=== PATIENT | female | born 1980 | race African-American/Black ===

== ENCOUNTER 2017-07-31 10:57 | Emergency (ER) | payer SELFPAY ==
[2017-07-31] MEDS ORDERED: predniSONE 20 MG TAB ONE (12:23)
== END 2017-07-31 13:46 | disposition home or self-care (01) ==
LOC: ERS 10:57
DX: J45.901 Unspecified asthma with (acute) exacerbation (principal); F31.9 Bipolar disorder, unspecified; Z79.899 Other long term (current) drug therapy
CPT/HCPCS: 94640; 94760; J7506; J7620

== ENCOUNTER 2017-08-10 07:36 | Inpatient (IN) | payer OTHER, SELFPAY ==
[2017-08-10] MEDS ORDERED: Albuterol Sulfate 2.5 mg/0.5 ml Neb ONE (07:57)
[2017-08-10] MEDS ORDERED: Ondansetron HCl/PF 4 MG/2 ML Vial ONE (07:58)
[2017-08-10] MEDS ORDERED: Water For Inject, Bacteriostat 30 ML ONE (07:59)
[2017-08-10] MEDS ORDERED: Magnesium Sulfate 2 GM/100 ML BAG ONE (07:59)
[2017-08-10] MEDS ORDERED: methylPREDNISolone Sod Succ/PF 125 MG/2 ML VIAL ONE (07:59)
--- NOTE | 2017-08-10 08:16 | RAD ---
SINGLE VIEW OF THE CHEST: COMPARISON: 05/15/17. HISTORY: Difficulty breathing and cough. FINDINGS: Single view of the chest shows a normal sized cardiomediastinal silhouette. There is no evidence of consolidation, mass, or pleural effusion. The bones are unremarkable. IMPRESSION: No evidence of acute cardiopulmonary disease. POS: [facility]
[2017-08-10] MEDS ORDERED: Loratadine 10 MG TAB PO PRN (09:26)
[2017-08-10] MEDS ORDERED: Bisacodyl 10 MG SUPP PR PRN (09:26)
[2017-08-10] MEDS ORDERED: cloNIDine 0.1 MG TAB PO PRN (09:26)
[2017-08-10] MEDS ORDERED: Ondansetron HCl/PF 4 MG/2 ML Vial IVP PRN (09:26)
[2017-08-10] MEDS ORDERED: Benzonatate 100 MG CAP PO PRN (09:26)
[2017-08-10] MEDS ORDERED: Nitroglycerin 0.4 MG TAB (25 Tab Bottle) SL PRN (09:26)
[2017-08-10] MEDS ORDERED: Guaifenesin DM 100-10/5 ML UDCUP PO PRN (09:26)
[2017-08-10] MEDS ORDERED: Acetaminophen 325 MG TAB PO PRN (09:26)
[2017-08-10] MEDS ORDERED: traMADol HCl 50 MG TAB PO PRN (09:26)
[2017-08-10] MEDS ORDERED: Senokot 8.6 MG TAB PO PRN (09:26)
[2017-08-10 10:57] VITALS: BMI 28.5
[2017-08-10] MEDS: Sodium Chloride 0.9% 1,000 ML IV SCH ×2 (11:02→20:15)
[2017-08-10] MEDS ORDERED: Amoxicillin/Potassium Clav 875 MG TAB PO SCH ×2 (12:30→12:45)
[2017-08-10 12:50] LABS: #Lymphocytes 0.3 thou/uL (1.20-3.40); #Neutrophils 10.4 thou/uL (1.40-6.50); %Basophils 0.3 % (0.0-1.0); %Eosinophils 0.1 % (0.0-10.0); %Monocytes 0.3 % (0.0-10.0); Hematocrit 33.9 % (36.0-47.0); Mean Platelet Volume 9.1 fL (7.4-10.4); Red Blood Cell (RBC) Count 4.29 mill/uL (4.20-5.40); White Blood Cell (WBC) Count 10.8 thou/uL (4.8-10.8)
--- NOTE | 2017-08-10 12:51 | HP ---
DATE OF ADMISSION: 08/10/2017 PRIMARY CARE PHYSICIAN: Katelyn. CHIEF COMPLAINT: Shortness of breath. HISTORY OF PRESENTING ILLNESS: Ms. Hi is a very pleasant 36-year-old -[place] female wit h past medical history of asthma who presented to the emergency room with the above-mentioned compla int. History is mainly obtained by the patient herself and electronic medical records have been rev iewed. The patient was last admitted over 07/31/2017 asthma exacerbation. Ms. Hi reports that she has been feeling more and more short of breath for the last few days, but it was really bad this morning. She usually uses her Symbicort twice a day and her nebulizers, but she does not have any short-acting inhalers. She says her symptoms are worse going up and down the stairs and with seasonal changes. She also has some congestion and cough without any fevers at becky e. She denies any other recent illnesses. She denies any chest pain, orthopnea, PND, edema. Upon presentation to the emergency room, she was found to be hypoxic with oxygen saturation in the m id 80s on room. It improved to 94% on 4 liters oxygen. She received magnesium sulfate as well as n ebulizers and Solu-Medrol in the Emergency Room with improvement of her symptoms. She is now being admitted to medical floor for acute hypoxic respiratory failure secondary to asthma exacerbation and is currently hemodynamically stable. PAST MEDICAL HISTORY: Asthma. PAST SURGICAL HISTORY: No surgeries done reviewed with the patient. PSYCHIATRIC HISTORY: Depression, bipolar disorder. SOCIAL HISTORY: She smokes about 3 cigarettes per week and drinks weekly. No history of drug abuse . FAMILY HISTORY: Significant for thyroid cancer, hypertension, and diabetes. ALLERGIES: No known medication allergies. CURRENT MEDICATIONS: 1. Symbicort twice a day. 2. Albuterol nebulizers as needed every 6 hours. REVIEW OF SYSTEMS: The following complete review of systems was negative, unless otherwise mentione d in the HPI or below: Constitutional: Weight loss or gain, ability to conduct usual activities. Skin: Rash, itching. Eyes: Double vision, pain. ENT/Mouth: Nose bleeding, neck stiffness, pain, tenderness. Cardiovascular: Palpitations, dyspnea on exertion, orthopnea. Respiratory: Shortness of breath, wheezing, cough, hemoptysis, fever or night sweats. Gastrointestinal: Poor appetite, abdominal pain, heartburn, nausea, vomiting, constipation, or diar liam. Genitourinary: Urgency, frequency, dysuria, nocturia. Musculoskeletal: Pain, swelling. Neurologic/Psychiatric: Anxiety, depression. Allergy/Immunologic: Skin rash, bleeding tendency. It is negative except for those mentioned in the history and physical. PHYSICAL EXAMINATION: VITAL SIGNS: Upon presentation include blood pressure 186/136 with pulse of 113, respirations 24, t emperature 99, saturating 94% on room air. GENERAL: In no acute distress, awake, alert, oriented x3. She is resting comfortably in bed and ab le to converse in full sentences. No respiratory distress noticed. She is somewhat jittery. HEENT: Mucous membrane is moist and pink. No oropharyngeal exudate or erythema. Head is normoceph alic, atraumatic. Pupils are equal, reactive to light and accommodation. Extraocular movements int act. NECK: Supple without any lymphadenopathy, JVD or bruit. CHEST: Clear to auscultation except for some bilateral wheezes. No rhonchi, no rales. She is tach ycardic with regular rhythm without any murmurs. ABDOMEN: Soft, nontender, nondistended. Positive bowel sounds. EXTREMITIES: Free of any cyanosis, clubbing, or edema. NEUROLOGIC: Examination is nonfocal. SKIN: Free of any rashes or bruises. Feels warm and dry to touch. PSYCHIATRIC: Normal affect. VASCULAR: +2 pedal pulses felt bilaterally. LABORATORY DATA: No labs were drawn in the emergency room today. Chest x-ray was reviewed by david alberts and does not show any evidence of pleural effusion, pulmonary edema or infiltrate. IMPRESSION AND PLAN: 1. Acute hypoxic respiratory failure secondary to asthma exacerbation. At this time, the patient h as improvement in her symptoms after multiple rounds of nebulizer. She will be continued on schedul ed and p.r.n. nebulizer. We will continue with long-acting inhaled steroids in the form of Dulera b .i.d. as well as IV steroids. She will be on continuous oxygen with monitoring of oxygen levels. Ivy grant will also add Singulair which she was supposed to be taking as an outpatient. She most likely wou ld need to stay at least 2-3 midnights in the hospital with improvement in her symptoms. We will al so add empiric antibiotics given her symptoms of cough and check CBC and serum chemistries to rule o ut any evidence of infection. She is currently afebrile. 2. Code status: FULL CODE. 3. Deep venous thrombosis and gastrointestinal prophylaxis. DISPOSITION: Ms. Hi is being admitted for asthma exacerbation to medical floor. She is hemodyna mically stable. ESTIMATED LENGTH OF STAY: Two to three midnights. Further management will depend upon her clinical course.
[2017-08-10 13:17] LABS: Anion Gap 17 mmol/L (10-20); BUN (Urea Nitrogen) 11 mg/dL (7.0-18.7); Calc. Creatinine Clearance 113 mL/min (70-130); Calcium 8.9 mg/dL (7.8-10.44); Carbon Dioxide 21 mmol/L (22-29); Chloride 104 mmol/L (98-107); Estimated GFR-MDRD Greater than 90
[2017-08-10] MEDS: Mometasone/Formoterol 120 PUFF INHALER INH SCH (18:20)
[2017-08-10] MEDS: Amoxicillin/Potassium Clav 875 MG TAB PO SCH (20:15)
[2017-08-10] MEDS: Montelukast Sodium 10 mg Tablet PO SCH (20:15)
[2017-08-10] MEDS: Lorazepam 1 MG TAB PO PRN (20:18)
[2017-08-11 05:27] LABS: #Lymphocytes 0.8 thou/uL (1.20-3.40); #Monocytes 0.2 thou/uL (0.11-0.59); #Neutrophils 11.5 thou/uL (1.40-6.50); %Basophils 0.1 % (0.0-1.0); %Eosinophils 0.1 % (0.0-10.0); %Lymphocytes 6.6 % (21.0-51.0); %Monocytes 1.8 % (0.0-10.0); Hematocrit 30.9 % (36.0-47.0); Mean Platelet Volume 9.3 fL (7.4-10.4); Red Blood Cell (RBC) Count 3.87 mill/uL (4.20-5.40); White Blood Cell (WBC) Count 12.6 thou/uL (4.8-10.8)
[2017-08-11 05:52] LABS: Anion Gap 15 mmol/L (10-20); BUN (Urea Nitrogen) 10 mg/dL (7.0-18.7); Calc. Creatinine Clearance 122 mL/min (70-130); Calcium 8.7 mg/dL (7.8-10.44); Carbon Dioxide 20 mmol/L (22-29); Chloride 105 mmol/L (98-107); Estimated GFR-MDRD Greater than 90
[2017-08-11] MEDS: Mometasone/Formoterol 120 PUFF INHALER INH SCH ×2 (06:30→18:55)
[2017-08-11] MEDS: Amoxicillin/Potassium Clav 875 MG TAB PO SCH ×2 (08:28→21:01)
[2017-08-11] MEDS: Ferrous Sulfate 325 MG TAB PO SCH ×2 (08:28→16:58)
[2017-08-11] MEDS: Enoxaparin Sodium 40 MG/0.4 ML SYRINGE SC SCH (08:30)
--- NOTE | 2017-08-11 11:44 | PDOC.PN ---
- Subjective Encounter Start Date: 08/11/17 Encounter Start Time: 09:25 -: old records requested/rev Patient seen and examined. No new complaints. No overnight events - Objective MAR Reviewed: Yes Vital Signs & Weight: Vital Signs (12 hours) Temp Pulse Resp BP BP Pulse Ox 08/11/17 08:00 97.4 F L 96 22 H 132/79 100 08/11/17 07:37 97.8 F 101 H 16 08/11/17 06:30 101 H 16 08/11/17 06:27 100 08/11/17 06:24 101 H 16 08/11/17 04:00 97.8 F 82 20 114/76 100 08/11/17 00:27 89 14 100 08/11/17 00:14 97.7 F 89 22 H 122/75 99 Weight Weight 156 lb 1 oz I&O: 08/10/17 08/11/17 08/12/17 06:59 06:59 06:59 Intake Total 1650 Balance 1650 Result Diagrams: 08/11/17 04:23 08/11/17 04:23 Phys Exam - Physical Examination Constitutional: NAD HEENT: PERRLA, moist MMs, sclera anicteric Neck: no JVD, supple Respiratory: no rales, wheezing present Cardiovascular: RRR, no significant murmur, no rub Gastrointestinal: soft, non-tender, no distention, positive bowel sounds Musculoskeletal: no edema, pulses present Neurological: non-focal, normal sensation Lymphatic: no nodes Psychiatric: normal affect, A&O x 3 Skin: no rash, normal turgor Dx/Plan (1) Acute respiratory failure with hypoxia Code(s): J96.01 - ACUTE RESPIRATORY FAILURE WITH HYPOXIA Status: Acute (2) Asthma exacerbation Code(s): J45.901 - UNSPECIFIED ASTHMA WITH (ACUTE) EXACERBATION Status: Acute Qualifiers: Asthma severity: severe persistent Qualified Code(s): J45.51 - Severe persistent asthma with (acute) exacerbation (3) Hypokalemia Code(s): E87.6 - HYPOKALEMIA Status: Acute (4) Iron deficiency anemia Code(s): D50.9 - IRON DEFICIENCY ANEMIA, UNSPECIFIED Status: Chronic (5) Tobacco user Code(s): Z72.0 - TOBACCO USE Status: Chronic - Plan cont current plan of care, continue antibiotics, respiratory therapy * medication reviewed as below * symptomatic treatment * will wean off oxygen today * pt is improving but not ready for discharge yet * possible dc over weekend. Review of Systems - Review of Systems Constitutional: negative: Fever, Chills, Sweats, Weakness, Malaise, Other Eyes: negative: Pain, Vision Change, Conjunctivae Inflammation, Eyelid Inflammation, Redness, Other ENT: negative: Ear Pain, Ear Discharge, Nose Pain, Nose Discharge, Nose Congestion, Mouth Pain, Mouth Swelling, Throat Pain, Throat Swelling, Other Respiratory: Cough, Shortness of Breath, Wheezing. negative: Dry, Hemoptysis, SOB with Excertion, Pleuritic Pain, Sputum Cardiovascular: negative: Chest Pain, Palpitations, Orthopnea, Paroxysmal Noc. Dyspnea, Edema, Light Headedness, Other Gastrointestinal: negative: Nausea, Vomiting, Abdominal Pain, Diarrhea, Constipation, Melena, Hematochezia, Other Genitourinary: negative: Dysuria, Frequency, Incontinence, Hematuria, Retention , Other Musculoskeletal: negative: Neck Pain, Shoulder Pain, Arm Pain, Back Pain, Hand Pain, Leg Pain, Foot Pain, Other Skin: negative: Rash, Lesions, Marcial, Bruising, Other - Medications/Allergies Allergies/Adverse Reactions: Allergies Allergy/AdvReac Type Severity Reaction Status Date / Time No Known Allergies Allergy Verified 08/10/17 10:56 Medications: Current Medications Acetaminophen (Tylenol) 650 mg PO Q4H PRN PRN Reason: Headache/Fever or Pain Last Admin: 08/11/17 11:23 Dose: 650 mg Albuterol/Ipratropium (Duoneb) 3 ml NEB Q4H PRN PRN Reason: SOB &/or Wheezing Albuterol/Ipratropium (Duoneb) 3 ml NEB [id number] [facility] Last Admin: 08/11/17 06:24 Dose: 3 ml Amoxicillin/Clavulanate Potassium (Augmentin) 875 mg PO Q12HR [facility] Last Admin: 08/11/17 08:28 Dose: 875 mg Benzonatate (Tessalon) 100 mg PO Q4H PRN PRN Reason: Cough Last Admin: 08/10/17 20:18 Dose: 100 mg Bisacodyl (Dulcolax) 10 mg [place] Q24H PRN PRN Reason: Constipation Clonidine (Catapres) 0.1 mg PO Q4H PRN PRN Reason: Systolic BP > 160 Enoxaparin Sodium (Lovenox) 40 mg SC 0900 [facility] Last Admin: 08/11/17 08:30 Dose: Not Given Ferrous Sulfate (Feosol) 325 mg PO BID-WM [facility] Last Admin: 08/11/17 08:28 Dose: 325 mg Guaifenesin/Dextromethorphan (Robitussin Dm) 15 ml PO Q4H PRN PRN Reason: Cough Last Admin: 08/10/17 10:53 Dose: 15 ml Loratadine (Claritin) 10 mg PO DAILYPRN PRN PRN Reason: Sinus Symptoms Lorazepam (Ativan) 1 mg PO Q4H PRN PRN Reason: Anxiety/Agitation Last Admin: 08/10/17 20:18 Dose: 1 mg Methylprednisolone Sodium Succinate (Solu-Medrol) 40 mg IVP Q6HR [facility] Last Admin: 08/11/17 11:21 Dose: 40 mg Mometasone Furoate/Formoterol Fumar (Dulera 200 Mcg/5 Mcg Inhaler) 2 puff INH BID-RT [facility] Last Admin: 08/11/17 06:30 Dose: 2 puff Montelukast Sodium (Singulair) 10 mg PO QPM [facility] Last Admin: 08/10/17 20:15 Dose: 10 mg Nitroglycerin (Nitrostat) 0.4 mg SL Q5MIN PRN PRN Reason: Chest Pain Ondansetron HCl (Zofran) 4 mg IVP Q6H PRN PRN Reason: Nausea/Vomiting Senna (Senokot) 2 tab PO HSPRN PRN PRN Reason: Constipation Sodium Chloride (Flush - Normal Saline) 10 ml IVF Q12HR [facility] Last Admin: 08/11/17 08:53 Dose: 10 ml Sodium Chloride (Flush - Normal Saline) 10 ml IVF PRN PRN PRN Reason: Saline Flush Tramadol HCl (Ultram) 50 mg PO Q4H PRN PRN Reason: Moderate Pain (4-6)
[2017-08-11] MEDS: Montelukast Sodium 10 mg Tablet PO SCH (21:01)
[2017-08-11] MEDS: Lorazepam 1 MG TAB PO PRN (22:07)
[2017-08-12] MEDS: Mometasone/Formoterol 120 PUFF INHALER INH SCH ×2 (06:52→19:04)
[2017-08-12] MEDS: Amoxicillin/Potassium Clav 875 MG TAB PO SCH ×2 (07:56→20:20)
[2017-08-12] MEDS: Ferrous Sulfate 325 MG TAB PO SCH ×2 (07:56→16:48)
[2017-08-12] MEDS: Enoxaparin Sodium 40 MG/0.4 ML SYRINGE SC SCH (08:00)
--- NOTE | 2017-08-12 11:15 | PDOC.PN ---
- Subjective Encounter Start Date: 08/12/17 Encounter Start Time: 09:20 Patient seen and examined. No new complaints. No overnight events - Objective MAR Reviewed: Yes Vital Signs & Weight: Vital Signs (12 hours) Temp Pulse Resp BP Pulse Ox 08/12/17 08:00 98.0 F 95 20 136/81 98 08/12/17 06:55 100 08/12/17 06:52 116 H 20 100 08/12/17 00:30 96 Weight Weight 156 lb 1 oz I&O: 08/11/17 08/12/17 08/13/17 06:59 06:59 06:59 Intake Total 1650 Balance 1650 Result Diagrams: 08/11/17 04:23 08/11/17 04:23 Phys Exam - Physical Examination Constitutional: NAD HEENT: PERRLA, moist MMs, sclera anicteric Neck: no JVD, supple Respiratory: no wheezing, no rales, no rhonchi Cardiovascular: RRR, no significant murmur, no rub Gastrointestinal: soft, non-tender, no distention, positive bowel sounds Musculoskeletal: no edema, pulses present Neurological: non-focal, normal sensation, moves all 4 limbs Lymphatic: no nodes Psychiatric: normal affect, A&O x 3 Skin: no rash, normal turgor Dx/Plan (1) Acute respiratory failure with hypoxia Code(s): J96.01 - ACUTE RESPIRATORY FAILURE WITH HYPOXIA Status: Resolved (2) Asthma exacerbation Code(s): J45.901 - UNSPECIFIED ASTHMA WITH (ACUTE) EXACERBATION Status: Acute Qualifiers: Asthma severity: severe persistent Qualified Code(s): J45.51 - Severe persistent asthma with (acute) exacerbation (3) Hypokalemia Code(s): E87.6 - HYPOKALEMIA Status: Acute (4) Iron deficiency anemia Code(s): D50.9 - IRON DEFICIENCY ANEMIA, UNSPECIFIED Status: Chronic (5) Tobacco user Code(s): Z72.0 - TOBACCO USE Status: Chronic - Plan cont current plan of care, continue antibiotics, respiratory therapy * pt is continue to improve * now no need of oxygen * continue current optimum medical treatment for asthma * possible discharge tomorrow * medication reviewed as below * symptomatic treatment. Review of Systems - Review of Systems ENT: negative: Ear Pain, Ear Discharge, Nose Pain, Nose Discharge, Nose Congestion, Mouth Pain, Mouth Swelling, Throat Pain, Throat Swelling, Other Respiratory: Cough, Shortness of Breath, Wheezing. negative: Dry, Hemoptysis, SOB with Excertion, Pleuritic Pain, Sputum Cardiovascular: negative: Chest Pain, Palpitations, Orthopnea, Paroxysmal Noc. Dyspnea, Edema, Light Headedness, Other Gastrointestinal: negative: Nausea, Vomiting, Abdominal Pain, Diarrhea, Constipation, Melena, Hematochezia, Other Genitourinary: negative: Dysuria, Frequency, Incontinence, Hematuria, Retention , Other Musculoskeletal: negative: Neck Pain, Shoulder Pain, Arm Pain, Back Pain, Hand Pain, Leg Pain, Foot Pain, Other Skin: negative: Rash, Lesions, Marcial, Bruising, Other - Medications/Allergies Allergies/Adverse Reactions: Allergies Allergy/AdvReac Type Severity Reaction Status Date / Time No Known Allergies Allergy Verified 08/10/17 10:56 Medications: Current Medications Acetaminophen (Tylenol) 650 mg PO Q4H PRN PRN Reason: Headache/Fever or Pain Last Admin: 08/11/17 11:23 Dose: 650 mg Albuterol/Ipratropium (Duoneb) 3 ml NEB Q4H PRN PRN Reason: SOB &/or Wheezing Albuterol/Ipratropium (Duoneb) 3 ml NEB [id number] [facility] Last Admin: 08/12/17 06:52 Dose: 3 ml Amoxicillin/Clavulanate Potassium (Augmentin) 875 mg PO Q12HR [facility] Last Admin: 08/12/17 07:56 Dose: 875 mg Benzonatate (Tessalon) 100 mg PO Q4H PRN PRN Reason: Cough Last Admin: 08/10/17 20:18 Dose: 100 mg Bisacodyl (Dulcolax) 10 mg [place] Q24H PRN PRN Reason: Constipation Clonidine (Catapres) 0.1 mg PO Q4H PRN PRN Reason: Systolic BP > 160 Enoxaparin Sodium (Lovenox) 40 mg SC 0900 [facility] Last Admin: 08/12/17 08:00 Dose: Not Given Ferrous Sulfate (Feosol) 325 mg PO BID-WM [facility] Last Admin: 08/12/17 07:56 Dose: 325 mg Guaifenesin/Dextromethorphan (Robitussin Dm) 15 ml PO Q4H PRN PRN Reason: Cough Last Admin: 08/10/17 10:53 Dose: 15 ml Loratadine (Claritin) 10 mg PO DAILYPRN PRN PRN Reason: Sinus Symptoms Lorazepam (Ativan) 1 mg PO Q4H PRN PRN Reason: Anxiety/Agitation Last Admin: 08/11/17 22:07 Dose: 1 mg Methylprednisolone Sodium Succinate (Solu-Medrol) 40 mg IVP Q6HR [facility] Last Admin: 08/12/17 05:28 Dose: 40 mg Mometasone Furoate/Formoterol Fumar (Dulera 200 Mcg/5 Mcg Inhaler) 2 puff INH BID-RT [facility] Last Admin: 08/12/17 06:52 Dose: 2 puff Montelukast Sodium (Singulair) 10 mg PO QPM [facility] Last Admin: 08/11/17 21:01 Dose: 10 mg Nitroglycerin (Nitrostat) 0.4 mg SL Q5MIN PRN PRN Reason: Chest Pain Ondansetron HCl (Zofran) 4 mg IVP Q6H PRN PRN Reason: Nausea/Vomiting Senna (Senokot) 2 tab PO HSPRN PRN PRN Reason: Constipation Sodium Chloride (Flush - Normal Saline) 10 ml IVF Q12HR [facility] Last Admin: 08/12/17 08:00 Dose: 10 ml Sodium Chloride (Flush - Normal Saline) 10 ml IVF PRN PRN PRN Reason: Saline Flush Tramadol HCl (Ultram) 50 mg PO Q4H PRN PRN Reason: Moderate Pain (4-6)
[2017-08-12] MEDS: Montelukast Sodium 10 mg Tablet PO SCH (20:20)
[2017-08-12] MEDS: Lorazepam 1 MG TAB PO PRN (20:23)
[2017-08-13] MEDS: Mometasone/Formoterol 120 PUFF INHALER INH SCH (06:19)
[2017-08-13] MEDS: Amoxicillin/Potassium Clav 875 MG TAB PO SCH (08:15)
[2017-08-13] MEDS: Ferrous Sulfate 325 MG TAB PO SCH (08:15)
[2017-08-13] MEDS: Enoxaparin Sodium 40 MG/0.4 ML SYRINGE SC SCH (08:16)
[2017-08-13 13:20] VITALS: BP 145/85; TEMP 98
--- NOTE | 2017-08-13 14:17 | DIS ---
PRIMARY CARE PHYSICIAN: [facility] DATE OF ADMISSION: 08/10/2017 DATE OF DISCHARGE: 08/13/2017 DISCHARGE DISPOSITION: Home. PRIMARY DISCHARGE DIAGNOSES: 1. Acute hypoxic respiratory failure, resolved. 2. Asthma exacerbation. 3. Hypokalemia. SECONDARY DISCHARGE DIAGNOSES: 1. Tobacco abuse disorder. 2. Iron deficiency anemia. 3. Asthma. PRIMARY PROCEDURE/OPERATION: None. RADIOLOGICAL INVESTIGATION: Chest x-ray was normal. SIGNIFICANT LABORATORY DATA: WBC 12.6, hemoglobin 9.6, platelets 333. Sodium 136, potassium 4.1, B UN 10, creatinine 0.71, calcium 8.7. DISCHARGE MEDICATIONS: Ventolin nebulization q.6 hourly p.r.n., Ventolin HFA 2 puffs q.6 hourly p.r .n., Augmentin 875 mg twice daily for 5 days, Pepcid 20 mg p.o. b.i.d., ferrous sulfate 325 mg p.o. b.i.d., Dulera 2 puffs inhalation b.i.d., Singulair 10 mg p.o. daily, prednisone 20 mg p.o. daily fo r 7 days. CONTRAINDICATIONS: None. CODE STATUS: FULL CODE. INPATIENT CONSULTANTS: None. ALLERGIES: No known drug allergies. DISCHARGE PLAN: Post hospital, the patient will follow up with [facility] in 1 week. HOSPITAL COURSE: A 36-year-old female with the above mentioned medical problems who was admitted by Dr. Mcdermott, please see her H\T\P for further details. This patient was [facility]. She was initially hypoxic in the emergency room. She was saturating only 80% on room air. She was admitted to medical floor. She was treated with Solu-Medrol, Dulera, respiratory therapy w ith DuoNeb, Singulair, and empiric antibiotic therapy with Augmentin with optimal medical therapy. The patient's condition significantly improved. By the time of discharge, she was not requiring any oxygen and she did not have any wheezing. Today we changed to oral steroid for another few days. All new medication and prescriptions into [facility]. The patient is seen and examined at the bedside today. The patient and her family memb er also updated about plan. Patient was given counseling to avoid smoking. PHYSICAL EXAMINATION: VITAL SIGNS: Today, the patient's temperature 98.0, pulse 110, respiratory rate 20, saturation 96%, blood pressure 145/85. Weight 156 pounds. GENERAL: The patient is currently alert, awake, in no acute distress. HEAD: Normocephalic, atraumatic. LUNGS: Clear. No wheezing, no rhonchi, no rales. CARDIAC: S1, S2 regular, without any murmurs. ABDOMEN: Soft and benign. EXTREMITIES: No edema. NEUROLOGIC: Nonfocal examination. The patient is medically stable for discharge today. Total time spent on discharge day 31 minutes.
== END 2017-08-13 13:35 | disposition home or self-care (01) | DRG 202 ==
LOC: ERS 07:36 → T4-A 09:35
PROVIDERS: ADMIT Internal Medicine; ATTEND Internal Medicine
DX: J45.51 Severe persistent asthma with (acute) exacerbation (principal); J96.01 Acute respiratory failure with hypoxia; E87.6 Hypokalemia; F17.210 Nicotine dependence, cigarettes, uncomplicated; D50.9 Iron deficiency anemia, unspecified; F31.9 Bipolar disorder, unspecified
CPT/HCPCS: 36415; 71010; 80048; 85025; 94640; 96365; 96375; 99406; A4216; J1650; J2405; J2920; J2930; J3475; J7611; J7620

== ENCOUNTER 2017-10-05 13:03 | Emergency (ER) | payer OTHER, SELFPAY ==
[2017-10-05] MEDS ORDERED: Albuterol Sulfate 2.5 mg/3 ml Neb ONE (13:32)
[2017-10-05 13:43] LABS: #Eosinphils 0.5 thou/uL (0.0-0.7); #Lymphocytes 1.4 thou/uL (1.20-3.40); #Monocytes 0.7 thou/uL (0.11-0.59); #Neutrophils 5.9 thou/uL (1.40-6.50); %Basophils 0.3 % (0.0-1.0); %Eosinophils 5.9 % (0.0-10.0); %Lymphocytes 16.1 % (21.0-51.0); %Monocytes 8.7 % (0.0-10.0); Hemoglobin 10.4 g/dL (12.0-16.0); Mean Corpuscular HGB CONC 31.3 g/dL (32.0-36.0); Mean Corpuscular Hemoglobin 24.5 pg (27.0-31.0); Mean Corpuscular Volume 78.3 fl (81.0-99.0); Mean Platelet Volume 9.5 fL (7.4-10.4); Platelet Count 382 thou/uL (130-400); Red Blood Cell (RBC) Count 4.23 mill/uL (4.20-5.40); White Blood Cell (WBC) Count 8.6 thou/uL (4.8-10.8)
[2017-10-05] MEDS ORDERED: Dexamethasone 4 mg/ml Vial ONE (14:01)
[2017-10-05] MEDS ORDERED: Magnesium Sulfate 2 GM/NS 0.9% 50 ML BAG ONE (14:03)
[2017-10-05 14:04] LABS: ALT (SGPT) 20 U/L (8-55); AST (SGOT) 18 U/L (5-34); Albumin 4.1 g/dL (3.5-5.0); Alkaline Phosphatase 119 U/L (40-150); Anion Gap 14 mmol/L (10-20); BUN (Urea Nitrogen) 9 mg/dL (7.0-18.7); Bilirubin, Total 0.4 mg/dL (0.2-1.2); Calc. Creatinine Clearance 0 mL/min (70-130); Calcium 9.7 mg/dL (7.8-10.44); Carbon Dioxide 22 mmol/L (22-29); Chloride 106 mmol/L (98-107); Estimated GFR-MDRD Greater than 90; Globulin 3.6 g/dL (2.4-3.5); Glucose 86 mg/dL (70-105); Potassium 3.5 mmol/L (3.5-5.1); Protein, Total 7.7 g/dL (6.0-8.3); Sodium 138 mmol/L (136-145)
--- NOTE | 2017-10-05 14:11 | RAD ---
PORTABLE CHEST ONE VIEW: Date: 10-05-17 Time: 1:37 p.m. History: Cough, difficulty breathing. FINDINGS: Comparison is made with exam of 08-10-17. The heart size is normal. The lungs are expanded without focal areas of consolidation, pneumothorax, or pleural effusions. IMPRESSION: No radiographic evidence of acute cardiopulmonary process. POS: [facility]
--- NOTE | 2017-10-28 15:14 | EKG ---
Test Reason : Blood Pressure : / mmHG Vent. Rate : 094 BPM Atrial Rate : 094 BPM P-R Int : 122 ms QRS Dur : 082 ms QT Int : 358 ms P-R-T Axes : 076 077 055 degrees QTc Int : 447 ms Normal sinus rhythm with sinus arrhythmia Normal ECG Confirmed by TORI THOMAS, BARTOLO ([id number]), editor trade journal ELKE STRAUSS ([id number]) on 10/28/2017 3:14:14 PM Referred By: Confirmed By:BARTOLO VALLE MD
== END 2017-10-05 14:50 | disposition home or self-care (01) ==
LOC: ERS 13:03
DX: J45.901 Unspecified asthma with (acute) exacerbation (principal); J11.1 Influenza due to unidentified influenza virus with other respiratory manifestations; F31.9 Bipolar disorder, unspecified; F17.210 Nicotine dependence, cigarettes, uncomplicated; Z79.51 Long term (current) use of inhaled steroids
CPT/HCPCS: 71045; 80053; 85025; 87804; 93005; 94644; 96365; 96375; J1100; J3475; J7611; J7620

== ENCOUNTER 2017-10-19 16:10 | Emergency (ER) | payer SELFPAY ==
[2017-10-19] MEDS ORDERED: Water For Inject, Bacteriostat 30 ML ONE (17:11)
[2017-10-19] MEDS ORDERED: methylPREDNISolone Sod Succ/PF 125 MG/2 ML VIAL ONE (17:11)
[2017-10-19] MEDS ORDERED: Magnesium Sulfate 2 GM/100 ML BAG ONE (18:16)
--- NOTE | 2017-10-19 18:46 | RAD ---
PORTABLE AP CHEST X-RAY 10/19/17 HISTORY: Asthma, shortness of breath, dyspnea. COMPARISON: 10/05/17. FINDINGS: The cardiac silhouette and pulmonary vasculature are within normal limits. There is linear density pr esent at the left lung base also seen on prior study and likely related to minimal area of scarring. The lungs are otherwise clear. There has been no interval change compared to the prior exam. IMPRESSION: No acute cardiopulmonary process. POS: [facility]
== END 2017-10-19 19:42 | disposition home or self-care (01) ==
LOC: ERS 16:10
DX: J45.901 Unspecified asthma with (acute) exacerbation (principal); F31.9 Bipolar disorder, unspecified; F17.210 Nicotine dependence, cigarettes, uncomplicated
CPT/HCPCS: 71045; 94640; 96365; 96375; 99406; J2930; J3475; J7620

== ENCOUNTER 2017-10-23 03:01 | Observation (INO) | payer SELFPAY ==
[2017-10-23] MEDS ORDERED: Magnesium Sulfate 2 GM/100 ML BAG ONE (03:12)
[2017-10-23] MEDS ORDERED: Ondansetron HCl/PF 4 MG/2 ML Vial ONE (03:35)
[2017-10-23] MEDS ORDERED: Albuterol Sulfate 2.5 mg/0.5 ml Neb ONE ×2 (04:23→04:24)
[2017-10-23 04:47] LABS: #Basophils 0.1 thou/uL (0.0-0.2); #Eosinphils 0.3 thou/uL (0.0-0.7); #Lymphocytes 1.9 thou/uL (1.20-3.40); #Monocytes 0.3 thou/uL (0.11-0.59); #Neutrophils 8.2 thou/uL (1.40-6.50); %Basophils 0.7 % (0.0-1.0); %Eosinophils 2.7 % (0.0-10.0); %Lymphocytes 17.5 % (21.0-51.0); %Monocytes 2.7 % (0.0-10.0); %Neutrophils 76.4 % (42.0-75.0); Hemoglobin 9.4 g/dL (12.0-16.0); Mean Corpuscular HGB CONC 30.8 g/dL (32.0-36.0); Mean Corpuscular Hemoglobin 23.9 pg (27.0-31.0); Mean Corpuscular Volume 77.7 fl (81.0-99.0); Mean Platelet Volume 9.1 fL (7.4-10.4); Platelet Count 322 thou/uL (130-400); RBC Distribution Width 17.3 % (11.5-14.5); Red Blood Cell (RBC) Count 3.94 mill/uL (4.20-5.40); White Blood Cell (WBC) Count 10.7 thou/uL (4.8-10.8)
[2017-10-23 04:59] LABS: ALT (SGPT) 22 U/L (8-55); AST (SGOT) 16 U/L (5-34); Albumin 3.8 g/dL (3.5-5.0); Alkaline Phosphatase 99 U/L (40-150); Anion Gap 11 mmol/L (10-20); BUN (Urea Nitrogen) 12 mg/dL (7.0-18.7); Bilirubin, Total 0.3 mg/dL (0.2-1.2); Calc. Creatinine Clearance 0 mL/min (70-130); Calcium 8.4 mg/dL (7.8-10.44); Carbon Dioxide 20 mmol/L (22-29); Chloride 109 mmol/L (98-107); Estimated GFR-MDRD Greater than 90; Globulin 3.2 g/dL (2.4-3.5); Glucose 115 mg/dL (70-105); Potassium 3.4 mmol/L (3.5-5.1); Sodium 137 mmol/L (136-145)
--- NOTE | 2017-10-23 05:51 | HP ---
PRIMARY CARE PHYSICIAN: [facility]. CHIEF COMPLAINT: Worsening shortness of breath. HISTORY OF PRESENT ILLNESS: Ms. Hi is a 36-year-old -[place] female with known history of asthma and tobacco abuse who presented to the emergency room with the above-mentioned complaint by Marisol ESPINAL. History is mainly obtained by the patient herself. Electronic medical records have been reviewe d. The patient was last admitted to our facility with similar symptoms and was treated for asthma ex acerbation in 08/2017. Today, she reports that she was recently seen in the emergency room on 10/19/2016 for flu-like sympto ms. She was treated with steroid tapering dosepak and was sent home after treatment in the emergency room. She reports that she felt a little bit better, but she started to feel really bad last night. She has been having worsening shortness of breathing and called EMS. Upon presentation, the patient was having severe wheezing with some hypoxia. She received back to [facility] continuous nebulizers without any improvement. When she was brought on she had a facemask on and she was saturating 100%, but according to the EMS, her oxygen saturations were in low 90s. She is no w being admitted for acute respiratory distress secondary to asthma exacerbation. PAST MEDICAL HISTORY: Asthma, tobacco abuse. PAST SURGICAL HISTORY: None reviewed with the patient. PSYCHIATRIC HISTORY: Bipolar and has depression. SOCIAL HISTORY: Smokes cigarettes per week. Occasional drink of alcohol, no drug abuse. FAMILY HISTORY: Thyroid cancer, hypertension, and diabetes. ALLERGIES: No known medication allergies. CURRENT MEDICATIONS: 1. Symbicort. 2. Prednisone tapering dosepak. 3. Albuterol inhaler as needed. 4. Amoxicillin b.i.d. REVIEW OF SYSTEMS: The following complete review of systems was negative, unless otherwise mentioned in the HPI or below: Constitutional: Weight loss or gain, ability to conduct usual activities. Skin: Rash, itching. Eyes: Double vision, pain. ENT/Mouth: Nose bleeding, neck stiffness, pain, tenderness. Cardiovascular: Palpitations, dyspnea on exertion, orthopnea. Respiratory: Shortness of breath, wheezing, cough, hemoptysis, fever or night sweats. Gastrointestinal: Poor appetite, abdominal pain, heartburn, nausea, vomiting, constipation, or diarr hea. Genitourinary: Urgency, frequency, dysuria, nocturia. Musculoskeletal: Pain, swelling. Neurologic/Psychiatric: Anxiety, depression. Allergy/Immunologic: Skin rash, bleeding tendency. It is negative except for those mentioned in the history and physical. PHYSICAL EXAMINATION: VITAL SIGNS: Blood pressure 155/100, pulse of 99, saturating 100% on mask, respirations 24 upon pres entation. GENERAL: Mild respiratory distress, awake, alert, oriented x3, able to speak in short sentences. HEENT: Mucous membranes are moist and pink. No oropharyngeal exudate or erythema. Head is normocep halic, atraumatic. Pupils equal, reactive to light and accommodation. Extraocular movement intact. NECK: Supple without any lymphadenopathy, JVD or bruit. CHEST: Showed diffuse wheezing bilaterally. Equal air entry noticed. Rate and rhythm is regular wi thout any murmur, rubs or gallops. ABDOMEN: Soft, nontender, nondistended with positive bowel sounds. EXTREMITIES: Free of any cyanosis, clubbing, or edema. NEUROLOGIC: Nonfocal. PSYCHIATRIC: Normal affect. LABORATORY DATA: Most of her labs are pending at this time. Her CBC shows hemoglobin of 9.4 with he matocrit of 30.6, neutrophils 76%. Serum chemistries are pending at this time. Chest x-ray is negat wendy for any infiltrate or effusion or edema. IMPRESSION AND PLAN: 1. Acute respiratory failure secondary to acute asthma exacerbation. The patient's symptoms are unc ontrollable. However, she is feeling somewhat better after continuous nebulizers and steroids receiv ed in the emergency room. We will continue those at this time with scheduled and p.r.n. nebulizers a nd IV steroids along with empiric antibiotics. The patient seems to be taking Augmentin as an outpat ient, we will finish that for now. Influenza swab has been sent by the emergency room physician. We will continue oxygen supplementation. The patient reports that she is not able to afford the long-a cting inhaled steroids and we will request case management consultation with regards to obtaining pre scription help for the patient. Otherwise, continue with her Singulair and add Dulera while she is i n [facility]. 2. Tobacco abuse. The patient has been counseled. 3. Code status: FULL CODE. 4. Deep venous thrombosis and gastrointestinal prophylaxis. 5. Disposition: Ms. Hi is currently being admitted observation status for acute asthma exacerbat ion. Her symptoms are on the mend. Estimated length of stay is less than 2 midnights. Further radha celine will depend upon her clinical course.
[2017-10-23] MEDS ORDERED: Bisacodyl 5 MG TAB PO PRN (06:24)
[2017-10-23] MEDS ORDERED: Ondansetron HCl/PF 4 MG/2 ML Vial IVP PRN (06:24)
[2017-10-23] MEDS ORDERED: Acetaminophen 325 MG TAB PO PRN (06:24)
[2017-10-23] MEDS ORDERED: traMADol HCl 50 MG TAB PO PRN (06:24)
[2017-10-23] MEDS ORDERED: Senokot 8.6 MG TAB PO PRN (06:24)
[2017-10-23] MEDS ORDERED: Calcium Carbonate 500 MG ChewTAB PO PRN (06:24)
[2017-10-23] MEDS ORDERED: hydrALAZINE 20 MG/ML VIAL SLOW IVP PRN (06:24)
[2017-10-23] MEDS ORDERED: Loratadine 10 MG TAB PO PRN (06:24)
[2017-10-23] MEDS ORDERED: Benzonatate 100 MG CAP PO PRN (06:24)
[2017-10-23] MEDS ORDERED: cloNIDine 0.1 MG TAB PO PRN (06:24)
[2017-10-23] MEDS ORDERED: Nitroglycerin 0.4 MG TAB (25 Tab Bottle) SL PRN (06:24)
[2017-10-23] MEDS ORDERED: Diabetic Tussin 200 MG/10 ML UDCUP PO PRN (06:24)
[2017-10-23 06:35] VITALS: BMI 29.6
[2017-10-23] MEDS: Mometasone/Formoterol 120 PUFF INHALER INH SCH ×2 (07:13→19:56)
[2017-10-23] MEDS ORDERED: FLU VACC QS2017-18 36 mo. & older 0.5 ML SYRINGE IM ONE (07:15)
[2017-10-23] MEDS: Amoxicillin/Potassium Clav 875 MG TAB PO SCH ×2 (07:23→20:03)
[2017-10-23] MEDS: HYDROcodone/Acetaminophen 5/325 mg Tablet PO PRN ×2 (07:27→15:09)
[2017-10-23] MEDS ORDERED: Enoxaparin Sodium 40 MG/0.4 ML SYRINGE SC SCH (09:00)
--- NOTE | 2017-10-23 10:02 | RAD ---
SINGLE VIEW OF THE CHEST: COMPARISON: 10/19/17. HISTORY: Dyspnea. FINDINGS: Single view of the chest shows a normal sized cardiomediastinal silhouette. There is no evidence of c onsolidation, mass, or pleural effusion. The bones are unremarkable. IMPRESSION: No evidence of acute cardiopulmonary disease. POS: OFF
[2017-10-23] MEDS: Mag-Al 1200 mg/1200 mg/30 ML UDCUP PO PRN ×2 (15:09→21:39)
[2017-10-23] MEDS ORDERED: Potassium Chloride 20 MEQ TAB PO SCH (15:30)
[2017-10-23] MEDS ORDERED: Montelukast Sodium 10 mg Tablet PO SCH (21:00)
[2017-10-24 05:21] VITALS: TEMP 98.3
[2017-10-24 06:01] LABS: Anion Gap 15 mmol/L (10-20); BUN (Urea Nitrogen) 9 mg/dL (7.0-18.7); Calc. Creatinine Clearance 135 mL/min (70-130); Calcium 9.3 mg/dL (7.8-10.44); Carbon Dioxide 18 mmol/L (22-29); Chloride 105 mmol/L (98-107); Estimated GFR-MDRD Greater than 90; Glucose 139 mg/dL (70-105); Potassium 4.4 mmol/L (3.5-5.1); Sodium 134 mmol/L (136-145)
[2017-10-24] MEDS: Amoxicillin/Potassium Clav 875 MG TAB PO SCH (07:32)
[2017-10-24] MEDS: Mometasone/Formoterol 120 PUFF INHALER INH SCH (08:20)
[2017-10-24 11:49] VITALS: BP 144/86
[2017-10-24] MEDS: Mag-Al 1200 mg/1200 mg/30 ML UDCUP PO PRN (13:31)
--- NOTE | 2017-10-24 17:39 | DIS ---
DATE OF DISCHARGE: 10/24/2017 DISCHARGE DISPOSITION: Home. FOLLOWUP: Follow up with primary care physician at [facility] in 1 week. ALLERGIES: No known drug allergies. DISCHARGE MEDICATIONS: 1. Albuterol inhaler as needed. 2. Albuterol nebulization as needed. 3. Dulera 200/5 mcg 2 puffs b.i.d. 4. Singular 10 mg q.p.m. INPATIENT CONSULTANTS: None. The patient was seen and examined on the day of discharge. Denies any new complaints. No chest pain, shortness of breath, palpitations. BRIEF HOSPITAL COURSE: Patient is a 36-year-old -Vin[place] female with asthma and tobacco abus e, presented to the hospital with worsening shortness of breath. Please refer to the history and phy sical dated 10/23/[address] Yusra Mcdermott for further details. The patient was admitted to the hospital with the diagnosis of acute asthma exacerbation. She was st arted on oxygen with nebulizer treatment and IV steroids with good improvement. She was placed on Au gmentin as well. The steroids will be changed to oral. She already has steroids at the pharmacy for pickup from the recent ER visit. She was advised to complete the amoxicillin which was started in t emergency room. Lifestyle modification including tobacco cessation was emphasized. FINAL DIAGNOSES: 1. Acute asthma exacerbation. 2. Tobacco dependence. 3. Chronic anemia. 4. Hypokalemia replaced. 5. Mild hyponatremia. Plan of care was discussed with the patient. She stated understanding.
== END 2017-10-24 13:50 | disposition home or self-care (01) ==
LOC: ERS 03:01 → T4-B 04:26
PROVIDERS: ADMIT Internal Medicine; ATTEND Internal Medicine
DX: J45.901 Unspecified asthma with (acute) exacerbation (principal); J96.00 Acute respiratory failure, unspecified whether with hypoxia or hypercapnia; D64.9 Anemia, unspecified; E87.6 Hypokalemia; E87.1 Hypo-osmolality and hyponatremia; F31.9 Bipolar disorder, unspecified; F17.210 Nicotine dependence, cigarettes, uncomplicated; Z79.2 Long term (current) use of antibiotics; Z79.899 Other long term (current) drug therapy
CPT/HCPCS: 36415; 71045; 80048; 80053; 85025; 94640; 96365; 96372; 96375; 96376; 99406; G0378; J1650; J2405; J2920; J3475; J7611; J7620

== ENCOUNTER 2017-11-22 08:08 | Emergency (ER) | payer SELFPAY ==
[2017-11-22] MEDS ORDERED: predniSONE 20 MG TAB ONE (09:10)
--- NOTE | 2017-11-22 09:30 | RAD ---
FRONTAL VIEW CHEST: Date: 11-22-17 History: Dyspnea. Asthma exacerbation. Hypoxia. FINDINGS: Lungs are clear. Cardiac silhouette is normal in size. No significant change identified from prior ex am. IMPRESSION: No focal consolidation. POS: [facility]
== END 2017-11-22 11:45 | disposition home or self-care (01) ==
LOC: ERS 08:08
DX: J45.901 Unspecified asthma with (acute) exacerbation (principal); F31.9 Bipolar disorder, unspecified; F17.210 Nicotine dependence, cigarettes, uncomplicated; Z79.899 Other long term (current) drug therapy
CPT/HCPCS: 71045; 93005; 94640; 96360; 96361; 99406; J7506; J7620

== ENCOUNTER 2017-12-24 13:19 | Emergency (ER) | payer SELFPAY ==
[2017-12-24] MEDS ORDERED: predniSONE 20 MG TAB ONE (13:32)
== END 2017-12-24 15:06 | disposition home or self-care (01) ==
LOC: ERS 13:19
DX: J45.901 Unspecified asthma with (acute) exacerbation (principal); F31.9 Bipolar disorder, unspecified; F17.210 Nicotine dependence, cigarettes, uncomplicated; Z71.6 Tobacco abuse counseling; Z79.899 Other long term (current) drug therapy
CPT/HCPCS: 94640; 99406; J7506; J7620

== ENCOUNTER 2018-01-18 09:09 | Emergency (ER) | payer MEDICAID, SELFPAY ==
[2018-01-18] MEDS ORDERED: predniSONE 20 MG TAB ONE (10:35)
== END 2018-01-18 12:41 | disposition home or self-care (01) ==
LOC: ERS 09:09
DX: J45.901 Unspecified asthma with (acute) exacerbation (principal); F31.9 Bipolar disorder, unspecified; F17.210 Nicotine dependence, cigarettes, uncomplicated; Z79.899 Other long term (current) drug therapy
CPT/HCPCS: J7506; J7620

== ENCOUNTER 2018-01-28 10:34 | Emergency (ER) | payer MEDICAID, SELFPAY ==
[2018-01-28] MEDS ORDERED: predniSONE 20 MG TAB ONE (11:25)
[2018-01-28] MEDS ORDERED: Albuterol Sulfate 2.5 mg/3 ml Neb ONE (11:34)
--- NOTE | 2018-01-28 13:27 | RAD ---
PORTABLE CHEST: DATE: 01/28/18. PROVIDED CLINICAL HISTORY: Dyspnea. FINDINGS: Comparison 11/22/17. Cardiac and mediastinal silhouette is unchanged in appearance. No focal consoli dation, pleural fluid, or pneumothorax apparent. IMPRESSION: No evidence for an acute cardiopulmonary process. POS: [facility]
== END 2018-01-28 13:05 | disposition home or self-care (01) ==
LOC: ERS 10:34
DX: J45.901 Unspecified asthma with (acute) exacerbation (principal); F17.210 Nicotine dependence, cigarettes, uncomplicated; F31.9 Bipolar disorder, unspecified; Z79.899 Other long term (current) drug therapy; Z71.6 Tobacco abuse counseling
CPT/HCPCS: 71045; 94640; 94644; 99406; J7506; J7611; J7620

== ENCOUNTER 2018-01-29 19:46 | Emergency (ER) | payer SELFPAY ==
[2018-01-29] MEDS ORDERED: methylPREDNISolone Sod Succ/PF 125 MG/2 ML VIAL ONE (20:12)
[2018-01-29 20:22] LABS: Hemoglobin 9.5 g/dL (12.0-16.0); Mean Corpuscular HGB CONC 31.4 g/dL (32.0-36.0); Mean Corpuscular Hemoglobin 23.4 pg (27.0-31.0); Mean Corpuscular Volume 74.4 fl (81.0-99.0); Mean Platelet Volume 9.5 fL (7.4-10.4); Platelet Count 333 thou/uL (130-400); RBC Distribution Width 20.6 % (11.5-14.5); Red Blood Cell (RBC) Count 4.08 mill/uL (4.20-5.40); White Blood Cell (WBC) Count 14.6 thou/uL (4.8-10.8)
[2018-01-29 20:41] LABS: ALT (SGPT) 24 U/L (8-55); AST (SGOT) 20 U/L (5-34); Alkaline Phosphatase 101 U/L (40-150); Anion Gap 13 mmol/L (10-20); BUN (Urea Nitrogen) 13 mg/dL (7.0-18.7); Bilirubin, Total 0.3 mg/dL (0.2-1.2); Calc. Creatinine Clearance 0 mL/min (70-130); Carbon Dioxide 18 mmol/L (22-29); Chloride 108 mmol/L (98-107); Estimated GFR-MDRD Greater than 90; Globulin 3.3 g/dL (2.4-3.5); Glucose 98 mg/dL (70-105); Potassium 3.3 mmol/L (3.5-5.1); Protein, Total 7.3 g/dL (6.0-8.3); Sodium 136 mmol/L (136-145)
[2018-01-29 20:59] LABS: #Eosinphils 0.2 thou/uL (0.0-0.7); #Lymphocytes 3.2 thou/uL (1.20-3.40); #Monocytes 0.8 thou/uL (0.11-0.59); #Neutrophils 10.4 thou/uL (1.40-6.50); %Basophils 0.3 % (0.0-1.0); %Eosinophils 1.3 % (0.0-10.0); %Lymphocytes 21.9 % (21.0-51.0); %Monocytes 5.4 % (0.0-10.0); %Neutrophils 71.1 % (42.0-75.0); Anisocytosis SLIGHT = 6-15 cells (100X) (0-5/hpf); Hypochromia SLIGHT = 6-15 cells (100X) (0-5/hpf); MDiff Complete? YES; Microcytosis SLIGHT = 6-15 cells (100X) (0-5/hpf)
--- NOTE | 2018-01-29 22:13 | RAD ---
PORTABLE FRONTAL CHEST RADIOGRAPH: 01/29/2018 HISTORY: Respiratory problems. Difficulty breathing. Short of breath. COMPARISON: 01/28/2018 FINDINGS: There is no pneumothorax, pleural fluid, focal consolidation, or alveolar edema. Heart and mediastin al contours are grossly unremarkable. IMPRESSION: No acute findings. POS: [facility]
--- NOTE | 2018-02-24 22:15 | EKG ---
Test Reason : Blood Pressure : / mmHG Vent. Rate : 107 BPM Atrial Rate : 107 BPM P-R Int : 124 ms QRS Dur : 086 ms QT Int : 342 ms P-R-T Axes : 056 067 049 degrees QTc Int : 456 ms Sinus tachycardia Otherwise normal ECG Confirmed by JAIME RANKIN D.O. ([id number]), news editor ELKE STRAUSS ([id number]) on 02/24/2018 10:13:56 PM Referred By: Confirmed By:JAIME RANKIN D.O.
== END 2018-01-29 23:18 | disposition home or self-care (01) ==
LOC: ERS 19:46
DX: J45.909 Unspecified asthma, uncomplicated (principal); F17.210 Nicotine dependence, cigarettes, uncomplicated; F31.9 Bipolar disorder, unspecified; Z79.899 Other long term (current) drug therapy
CPT/HCPCS: 71045; 80053; 85025; 93005; 96361; 96374; J2930; J7620

== ENCOUNTER 2018-02-07 11:11 | Emergency (ER) | payer SELFPAY ==
[2018-02-07] MEDS ORDERED: predniSONE 20 MG TAB ONE (11:57)
[2018-02-07] MEDS ORDERED: Albuterol Sulfate 2.5 mg/0.5 ml Neb ONE (12:49)
[2018-02-07] MEDS ORDERED: Albuterol Sulfate 2.5 mg/3 ml Neb ONE (12:49)
== END 2018-02-07 13:18 | disposition home or self-care (01) ==
LOC: ERS 11:11
DX: J45.901 Unspecified asthma with (acute) exacerbation (principal); Z71.6 Tobacco abuse counseling; F17.210 Nicotine dependence, cigarettes, uncomplicated; F41.9 Anxiety disorder, unspecified; F31.9 Bipolar disorder, unspecified; Z79.899 Other long term (current) drug therapy
CPT/HCPCS: 94640; 94644; 99406; J7506; J7611; J7620

== ENCOUNTER 2018-02-17 07:01 | Inpatient (IN) | payer SELFPAY ==
[2018-02-17] MEDS ORDERED: Magnesium Sulfate 2 GM/100 ML BAG ONE (07:06)
[2018-02-17] MEDS ORDERED: Albuterol Sulfate 2.5 mg/3 ml Neb ONE (07:13)
[2018-02-17] MEDS ORDERED: Albuterol Sulfate 2.5 mg/0.5 ml Neb ONE (07:13)
[2018-02-17 07:23] LABS: #Basophils 0.1 thou/uL (0.0-0.2); #Eosinphils 0.3 thou/uL (0.0-0.7); #Lymphocytes 3.1 thou/uL (1.20-3.40); #Monocytes 0.7 thou/uL (0.11-0.59); #Neutrophils 5.5 thou/uL (1.40-6.50); %Basophils 0.7 % (0.0-1.0); %Eosinophils 3.3 % (0.0-10.0); %Lymphocytes 31.4 % (21.0-51.0); %Monocytes 7.7 % (0.0-10.0); %Neutrophils 56.9 % (42.0-75.0); Hemoglobin 10.5 g/dL (12.0-16.0); Mean Corpuscular HGB CONC 30.3 g/dL (32.0-36.0); Mean Corpuscular Hemoglobin 22.7 pg (27.0-31.0); Mean Platelet Volume 9.4 fL (7.4-10.4); Platelet Count 409 thou/uL (130-400); Red Blood Cell (RBC) Count 4.61 mill/uL (4.20-5.40); White Blood Cell (WBC) Count 9.7 thou/uL (4.8-10.8)
[2018-02-17 07:53] LABS: ALT (SGPT) 25 U/L (8-55); AST (SGOT) 14 U/L (5-34); Albumin 4.1 g/dL (3.5-5.0); Alkaline Phosphatase 106 U/L (40-150); Anion Gap 13 mmol/L (10-20); BUN (Urea Nitrogen) 12 mg/dL (7.0-18.7); Bilirubin, Total 0.6 mg/dL (0.2-1.2); Calc. Creatinine Clearance 0 mL/min (70-130); Calcium 9.2 mg/dL (7.8-10.44); Carbon Dioxide 26 mmol/L (22-29); Chloride 105 mmol/L (98-107); Estimated GFR-MDRD Greater than 90; Globulin 3.3 g/dL (2.4-3.5); Glucose 105 mg/dL (70-105); Potassium 3.6 mmol/L (3.5-5.1); Protein, Total 7.4 g/dL (6.0-8.3); Sodium 140 mmol/L (136-145)
--- NOTE | 2018-02-17 08:59 | RAD ---
PORTABLE CHEST: Date: 02/17/18 HISTORY: Asthma exacerbation. COMPARISON: 01/29/18. FINDINGS: Heart size and mediastinum are within normal limits. Lungs are clear of infiltrates. No significant b piyush findings. IMPRESSION: No active intrathoracic disease. POS: [facility]
[2018-02-17] MEDS ORDERED: Ondansetron ODT 4 MG TAB PO PRN (10:02)
--- NOTE | 2018-02-17 10:10 | HP ---
PRIMARY CARE PROVIDER: Matthew Zepeda. CHIEF COMPLAINT: Referred to [facility] for respiratory distress. HISTORY OF PRESENT ILLNESS: The patient was brought to the emergency room by EMS. In the ambulance, she had saturations in the low 80s per history. She started with shortness of breath yesterday, non productive cough, some tightness in her chest. No fever or chills. She states she smokes "a few cig arettes a day." PAST MEDICAL HISTORY: Pertinent for asthma and tobacco abuse. PAST SURGICAL HISTORY: None. SOCIAL HISTORY: Smokes occasional alcohol, no illicit drugs use. CODE STATUS: FULL. FAMILY HISTORY: Thyroid cancer, hypertension and diabetes. ALLERGIES: No known drug allergies. CURRENT MEDICATIONS: Singulair 10 mg a day, albuterol inhaler every 4 hours p.r.n., Flovent HFA 1 pu ff twice a day. She has an albuterol nebulizer that she uses every 2 hours when she is having distre ss. REVIEW OF SYSTEMS: GENERAL: No headaches, dizziness or fainting. No visual disturbance, double vis ion, blurred vision, flashing lights. EAR, NOSE, AND THROAT: No ear pain or drainage. No nasal ble eding. No trouble swallowing. CARDIAC: No chest pain, orthopnea or paroxysmal nocturnal dyspnea. RESPIRATIONS: See present illness. Her last hospitalization for acute asthma attack was in October of this year. GASTROINTESTINAL: No nausea, vomiting, diarrhea, constipation or abdominal pain. GEN ITOURINARY: No hematuria, dysuria or nocturia. MUSCULOSKELETAL: No pain or swelling in arms or leg s. NEUROLOGIC: No strokes, seizures or focal weakness. PSYCHIATRIC: No anxiety, depression. SKIN : No bruises, bleeding or rash. HEME/LYMPH: No tender or swollen lymph nodes in axilla, inguinal o r cervical area. PHYSICAL EXAMINATION: VITAL SIGNS: On admission to the emergency room, blood pressure 131/91, pulse 127, respirations 20, O2 sat 98% on facemask. Most recent blood pressure 159/87, pulse 106, respirations 20, pulse ox is 9 9% on BiPAP. She is in the process of being transferred to the [facility]. 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 HEENT: Examination of her head, eyes, ears, nose and throat reveal pupils equal, round, and reactive to light. Extraocular movements are intact. Sclerae are white. Tympanic membranes clear. Nose is clear. Oral mucous membranes are wet. Dental hygiene is good. CHEST: Clear to percussion. She has tight wheezes in all chow, no focal findings. HEART: Regular rate and rhythm, tachycardic. First and second heart sounds are accentuated. No mur murs, no gallops appreciated. ABDOMEN: Soft, bowel sounds are normal. There is no hepatosplenomegaly, no mass, no rebound, no bru its. EXTREMITIES: Reveal no cyanosis, clubbing or edema. PULSES: Carotid, radial, femoral, and dorsalis pedis pulses intact and symmetric. SKIN: Warm and dry without bruises or rash. HEME/LYMPH: No tender or swollen lymph nodes in axilla, inguinal or cervical area. NEUROLOGICAL: Cranial nerves II-XII are intact. Moves all extremities. Sensation is intact. IMAGING DATA: Chest x-ray reviewed by me, no cardiomegaly, CHF or infiltrate, vertical heart. No EK G is presented. LABORATORY DATA: Comp metabolic profile is normal. CBC is normal except for hemoglobin of 10.5 wit h microcytic microchromic indices suggestive of iron deficiency anemia. ASSESSMENT: Acute respiratory failure with hypoxemia, acute exacerbation of asthma, tobacco abuse, m icrocytic microchromic anemia, suspect iron deficiency. We will check iron, TIBC. PLAN: IV steroids, Solu-Medrol 20 q.6, nebulizers, DuoNeb 3 mL q.4 hours, Dulera one puff b.i.d., O2 to keep sat greater than 92%. She is being admitted on BiPAP. She will be weaned off as possible. I have discussed this with respiratory therapy.
[2018-02-17 10:59] LABS: Iron 35 ug/dL (50-170); Iron Binding Capacity, Total 495 mcg/dL (265-497)
[2018-02-17 11:45] VITALS: BMI 41.1
[2018-02-17] MEDS: Acetaminophen 325 MG TAB PO PRN ×2 (11:48→20:25)
[2018-02-17] MEDS: Mometasone/Formoterol 120 PUFF INHALER INH SCH (18:23)
[2018-02-17] MEDS ORDERED: traZODone HCl 50 MG TAB PO PRN (20:35)
[2018-02-18] MEDS: Mometasone/Formoterol 120 PUFF INHALER INH SCH ×2 (06:53→18:58)
--- NOTE | 2018-02-18 13:28 | PDOC.PN ---
- Subjective Encounter Start Date: 02/18/18 Encounter Start Time: 12:15 -: old records requested/rev Pt seen and examined, chart reviewed in its entirety. This is my first visit with this patient. Pt states breathing is much better than admit, but not back to baseline, still on 2L NC O2, not on home o2 normally, Denies F/C, no N/V/D/C, no CP, some MIRANDA All systems reviewed and neg for all except as above - Objective MAR Reviewed: Yes Vital Signs & Weight: Vital Signs (12 hours) Temp Pulse Resp BP Pulse Ox 02/18/18 11:44 102 H 18 100 02/18/18 07:55 98.2 F 101 H 16 126/83 99 02/18/18 06:51 100 16 100 02/18/18 04:40 98.0 F 98 16 106/64 99 02/18/18 01:52 116 H 16 99 Weight Weight 225 lb Result Diagrams: 02/17/18 07:12 02/17/18 07:12 Radiology Reviewed by me: Yes EKG Reviewed by me: Yes Phys Exam - Physical Examination Constitutional: NAD HEENT: PERRLA, moist MMs, sclera anicteric, oral pharynx no lesions Neck: no nodes, no JVD, supple, full ROM increased exp phase, high pitched end exp wheezes present, no rales Cardiovascular: RRR, no significant murmur, no rub Gastrointestinal: soft, non-tender, no distention, positive bowel sounds Musculoskeletal: no edema, pulses present Neurological: non-focal, normal sensation, moves all 4 limbs Lymphatic: no nodes Psychiatric: normal affect, A&O x 3 Skin: no rash, normal turgor, cap refill <2 seconds Dx/Plan (1) Asthma exacerbation Code(s): J45.901 - UNSPECIFIED ASTHMA WITH (ACUTE) EXACERBATION Status: Acute Qualifiers: Asthma severity: severe persistent Qualified Code(s): J45.51 - Severe persistent asthma with (acute) exacerbation Comment: acute on chronic, improving. Steroids, nebs, wean o2 (2) Hypokalemia Code(s): E87.6 - HYPOKALEMIA Status: Acute Comment: check in AM, likely secondary to nebs (3) Iron deficiency anemia Code(s): D50.9 - IRON DEFICIENCY ANEMIA, UNSPECIFIED Status: Chronic (4) Tobacco user Code(s): Z72.0 - TOBACCO USE Status: Chronic Comment: counseled, admits to maybe 3 cigarettes per day (5) Acute respiratory failure with hypoxia Code(s): J96.01 - ACUTE RESPIRATORY FAILURE WITH HYPOXIA Status: Acute Comment: still on O2. wean - Plan cont current plan of care, PT/OT, respiratory therapy, out of bed/ambulate, DVT proph w/lovenox * .
[2018-02-18] MEDS ORDERED: traZODone HCl 50 MG TAB PO PRN (13:31)
[2018-02-18] MEDS: Acetaminophen 325 MG TAB PO PRN (16:43)
[2018-02-19 06:04] LABS: Anion Gap 11 mmol/L (10-20); BUN (Urea Nitrogen) 13 mg/dL (7.0-18.7); Calc. Creatinine Clearance 182 mL/min (70-130); Calcium 9.2 mg/dL (7.8-10.44); Carbon Dioxide 24 mmol/L (22-29); Chloride 106 mmol/L (98-107); Estimated GFR-MDRD Greater than 90; Glucose 122 mg/dL (70-105); Magnesium 2.7 mg/dL (1.6-2.6); Potassium 4.7 mmol/L (3.5-5.1); Sodium 136 mmol/L (136-145)
[2018-02-19 06:10] LABS: Band 4 % (5-11); Hemoglobin 9.5 g/dL (12.0-16.0); Lymphocytes 6 % (21-51); MDiff Complete? YES; Mean Corpuscular HGB CONC 30.3 g/dL (32.0-36.0); Mean Corpuscular Hemoglobin 22.9 pg (27.0-31.0); Mean Corpuscular Volume 75.4 fl (81.0-99.0); Mean Platelet Volume 9.5 fL (7.4-10.4); Monocytes 2 % (0-10); Neutrophil 88 % (42-75); PLT Morphology Comment Appears Adequate; Platelet Count 401 thou/uL (130-400); RBC Distribution Width 20.2 % (11.5-14.5); Red Blood Cell (RBC) Count 4.16 mill/uL (4.20-5.40); White Blood Cell (WBC) Count 21.5 thou/uL (4.8-10.8)
[2018-02-19] MEDS: Mometasone/Formoterol 120 PUFF INHALER INH SCH (07:11)
[2018-02-19] MEDS ORDERED: Albuterol Sulfate 2.5 mg/3 ml Neb NEB PRN (07:33)
[2018-02-19] MEDS ORDERED: predniSONE 20 MG TAB PO SCH (08:00)
[2018-02-19] MEDS ORDERED: Non-Formulary Item 1 EACH (Esomeprazole Magnesium [Nexium] 20 MG) PO SCH (09:00)
[2018-02-19] MEDS: Lisinopril 20 MG TAB PO SCH ×2 (09:24→10:32)
[2018-02-19] MEDS: Aspirin 325 mg Enteric Coated Tablet PO SCH ×2 (09:25→10:32)
[2018-02-19 11:53] VITALS: BP 130/91; TEMP 98
--- NOTE | 2018-02-19 12:18 | DIS ---
PRIMARY CARE PHYSICIAN: Matthew Ruiz DATE OF ADMISSION: 02/17/2018 DATE OF DISCHARGE: 02/19/2018 DISCHARGE DIAGNOSES: 1. Acute asthma exacerbation. 2. Acute hypoxemic respiratory failure, resolved. 3. Ongoing tobacco abuse. 4. Hyperlipidemia. 5. Anxiety. CONSULTATIONS: None. PROCEDURES: None. HISTORY AND PHYSICAL: Ms. Hi is a 37-year-old female with known history of asthma and ongoing tob acco abuse who presented to the emergency department with shortness of breath. She was hypoxemic req uiring oxygen. Labs were otherwise fairly normal. We were called for admission. HOSPITAL COURSE: The patient was seen and examined by Dr. Sanchez and placed in inpatient status. She was started on nebulizer treatments, steroids, antibiotics initially, and oxygen. Overnight 02/17/2018 to 02/18/2018 she remained stable. Oxygen requirements were decreased. She was able to be weaned off of oxygen. She was continued on IV steroids and neb treatments. Overnight to 02/19/2018 she did better. Her heart rate was still slightly elevated in the low 100s, b ut she had no chest pain or difficulty otherwise. She was transitioned to p.o. steroids. She was fe eling better around lunch time and was stable for discharge with outpatient followup. PHYSICAL EXAMINATION: The patient was seen and examined on the day of discharge. Discharge plans and disposition were discussed with the patient face to face at the bedside. DISCHARGE MEDICATIONS: 1. New medication; Albuterol nebs 3 mL q.2 hours p.r.n. shortness of breath or wheezing instead of 2 .5 mg. 2. DuoNeb 3 mL nebulized every 6 hours scheduled. 3. Dulera 100/5 one puff inhaled b.i.d. 4. Prednisone 40 mg p.o. q.a.m. to decrease by 10 mg every other day until tapered off. 5. She is to resume her home Nexium 20 mg daily. 6. Singulair 10 mg p.o. daily. FOLLOWUP APPOINTMENTS: Follow up with primary care physician within a week. DISCHARGE ACTIVITY: Per cardiopulmonary limits. DISCHARGE DIET: Heart healthy recommended. DISCHARGE CONDITION: Stable. DISPOSITION: Being discharged home via private vehicle.
[2018-02-19] MEDS ORDERED: Atorvastatin Calcium 10 MG TAB PO SCH (21:00)
[2018-02-19] MEDS ORDERED: Simvastatin 20 MG TAB PO SCH (21:00)
== END 2018-02-19 12:52 | disposition home or self-care (01) | DRG 202 ==
LOC: ERS 07:01 → T4-A 10:56
PROVIDERS: ADMIT Internal Medicine; ATTEND Internal Medicine
DX: J45.51 Severe persistent asthma with (acute) exacerbation (principal); J96.01 Acute respiratory failure with hypoxia; F17.210 Nicotine dependence, cigarettes, uncomplicated; D50.9 Iron deficiency anemia, unspecified; E78.5 Hyperlipidemia, unspecified; F41.9 Anxiety disorder, unspecified; E87.6 Hypokalemia
CPT/HCPCS: 36415; 71045; 80048; 80053; 83540; 83550; 83735; 85025; 93005; 94150; 94640; 94644; 94660; 94760; 96361; 96365; A4216; J2920; J3475; J7506; J7611; J7620

== ENCOUNTER 2018-06-28 13:14 | Emergency (ER) | payer SELFPAY ==
[2018-06-28] MEDS ORDERED: predniSONE 20 MG TAB ONE (13:47)
== END 2018-06-28 14:10 | disposition home or self-care (01) ==
LOC: ERS 13:14
DX: J45.901 Unspecified asthma with (acute) exacerbation (principal); Z71.6 Tobacco abuse counseling; F41.9 Anxiety disorder, unspecified; F31.9 Bipolar disorder, unspecified; F17.210 Nicotine dependence, cigarettes, uncomplicated; Z79.899 Other long term (current) drug therapy
CPT/HCPCS: 94640; 99406; J7506; J7620

== ENCOUNTER 2018-08-05 08:17 | Emergency (ER) | payer SELFPAY | END 2018-08-05 09:35 | disposition home or self-care (01) | LOC: ERS 08:17 | DX: J45.909 Unspecified asthma, uncomplicated (principal); F31.9 Bipolar disorder, unspecified; F17.210 Nicotine dependence, cigarettes, uncomplicated; Z79.899 Other long term (current) drug therapy | CPT/HCPCS: 99281 ==

== ENCOUNTER 2018-11-26 08:19 | Emergency (ER) | payer SELFPAY ==
[2018-11-26 09:29] LABS: #Eosinphils 0.3 thou/uL (0.0-0.7); #Lymphocytes 1.1 thou/uL (1.20-3.40); #Monocytes 0.7 thou/uL (0.11-0.59); #Neutrophils 4.7 thou/uL (1.40-6.50); %Basophils 0.4 % (0.0-1.0); %Eosinophils 4.7 % (0.0-10.0); %Lymphocytes 16.1 % (21.0-51.0); %Monocytes 10.1 % (0.0-10.0); %Neutrophils 68.7 % (42.0-75.0); Hemoglobin 9.6 g/dL (12.0-16.0); Mean Corpuscular HGB CONC 29.8 g/dL (32.0-36.0); Mean Corpuscular Hemoglobin 20.2 pg (27.0-31.0); Mean Corpuscular Volume 67.9 fL (78.0-98.0); Platelet Count 358 thou/uL (130-400); RBC Distribution Width 19.1 % (11.5-14.5); Red Blood Cell (RBC) Count 4.75 mill/uL (4.20-5.40); White Blood Cell (WBC) Count 6.8 thou/uL (4.8-10.8)
[2018-11-26 09:45] LABS: Hypochromia MODERATE=16-30 cells (100X) (0-5/hpf); MDiff Complete? YES; Microcytosis MODERATE=15-30 cells (100X) (0-5/hpf); Ovalocytes SLIGHT = 2-5 cells (100X) (0-1/hpf); Platelet Morphology Comment Appears Adequate; Polychromasia SLIGHT = 2-3 cells (100X) (0-2/hpf); Reflex for Review?? YES; Stomatocytes SLIGHT = 2-5 cells (100X) (0-1/hpf)
[2018-11-26 09:51] LABS: ALT (SGPT) 22 U/L (8-55); AST (SGOT) 16 U/L (5-34); Albumin 4.4 g/dL (3.5-5.0); Alkaline Phosphatase 135 U/L (40-150); Anion Gap 14 mmol/L (10-20); BUN (Urea Nitrogen) 10 mg/dL (7.0-18.7); Bilirubin, Total 0.6 mg/dL (0.2-1.2); Calc. Creatinine Clearance 0 mL/min (70-130); Calcium 9.5 mg/dL (7.8-10.44); Carbon Dioxide 21 mmol/L (22-29); Chloride 104 mmol/L (98-107); Estimated GFR-MDRD Greater than 90; Globulin 3.6 g/dL (2.4-3.5); Glucose 97 mg/dL (70-105); Potassium 3.9 mmol/L (3.5-5.1); Sodium 135 mmol/L (136-145)
[2018-11-26 09:55] LABS: Bilirubin Small (Negative); Blood, Urine Negative (Negative); Clarity TURBID (Clear); Glucose, Urine (Dipstick) Negative (Negative); Leukocyte Trace (Negative); Nitrite Negative (Negative); Protein, Urine (Dipstick) 30 mg/dL (Neg-Trace); Specific Gravity, Urine 1.029 (1.002-1.036); pH, Urine 5.5 (5.0-9.0)
[2018-11-26 09:59] LABS: Pathc Cast-AUWi Flag 29.89 (0-2.49)
[2018-11-26 10:00] LABS: Pregnancy Test - Urine (BHCG) Negative (Negative); Pregu Control Background? CLEAR/WHITE (CLR/WHITE); Pregu Control Bar Appear? YES (CONTROL BAR); Specific Gravity 1.029 (1.002-1.036)
[2018-11-26 10:19] LABS: Hyaline Casts/LPF 0-3 HYALINE CAST LPF (0-3 Hyaline); Renal Epithelial None Seen HPF (0-3); Transitional Epithelial NONE SEEN HPF (0-3)
[2018-11-26 10:20] LABS: Bacteria/HPF 2+ HPF (None Seen)
[2018-11-26] MEDS ORDERED: Meclizine HCl 25 MG TAB ONE (10:48)
== END 2018-11-26 10:26 | disposition home or self-care (01) ==
LOC: ERS 08:19
DX: R42 Dizziness and giddiness (principal); J45.909 Unspecified asthma, uncomplicated; F41.9 Anxiety disorder, unspecified; F32.9 Major depressive disorder, single episode, unspecified; Z79.51 Long term (current) use of inhaled steroids; Z79.899 Other long term (current) drug therapy
CPT/HCPCS: 80053; 81003; 81015; 81025; 85025; 85060; 93005; 96360

== ENCOUNTER 2018-12-24 04:34 | Emergency (ER) | payer SELFPAY ==
[2018-12-24] MEDS ORDERED: methylPREDNISolone Sod Succ/PF 125 MG/2 ML VIAL ONE (05:16)
[2018-12-24] MEDS ORDERED: Magnesium 2 GM/50 ML BAG (IN WATER) ONE (05:16)
[2018-12-24 05:25] LABS: Hemoglobin 8.8 g/dL (12.0-16.0); Mean Corpuscular HGB CONC 29.8 g/dL (32.0-36.0); Mean Corpuscular Hemoglobin 19.9 pg (27.0-31.0); Mean Corpuscular Volume 66.9 fL (78.0-98.0); Mean Platelet Volume 6.2 fL (7.4-10.4); Platelet Count 310 thou/uL (130-400); RBC Distribution Width 18.5 % (11.5-14.5); White Blood Cell (WBC) Count 7.3 thou/uL (4.8-10.8)
[2018-12-24 05:30] LABS: #Basophils 0.1 thou/uL (0.0-0.2); #Eosinphils 0.3 thou/uL (0.0-0.7); #Lymphocytes 2.2 thou/uL (1.20-3.40); #Monocytes 0.7 thou/uL (0.11-0.59); #Neutrophils 4.1 thou/uL (1.40-6.50); %Basophils 1.2 % (0.0-1.0); %Eosinophils 3.8 % (0.0-10.0); %Lymphocytes 29.5 % (21.0-51.0); %Monocytes 9.5 % (0.0-10.0)
[2018-12-24 05:40] LABS: Anion Gap 9 mmol/L (10-20); BUN (Urea Nitrogen) 13 mg/dL (7.0-18.7); Calc. Creatinine Clearance 0 mL/min (70-130); Calcium 8.9 mg/dL (7.8-10.44); Carbon Dioxide 24 mmol/L (22-29); Chloride 105 mmol/L (98-107); Estimated GFR-MDRD Greater than 90; Glucose 78 mg/dL (70-105); Potassium 3.5 mmol/L (3.5-5.1); Sodium 134 mmol/L (136-145)
--- NOTE | 2018-12-24 08:15 | RAD ---
SINGLE VIEW OF THE CHEST: COMPARISON: 02/17/2018. HISTORY: Chest pain. FINDINGS: Single view of the chest shows a normal sized cardiomediastinal silhouette. There is no evidence of c onsolidation, mass, or pleural effusion. The bones are unremarkable. IMPRESSION: No evidence of acute cardiopulmonary disease. POS: [facility]
== END 2018-12-24 07:08 | disposition home or self-care (01) ==
LOC: ERS 04:34
DX: J45.901 Unspecified asthma with (acute) exacerbation (principal); Z71.6 Tobacco abuse counseling; F41.9 Anxiety disorder, unspecified; F31.9 Bipolar disorder, unspecified; F17.200 Nicotine dependence, unspecified, uncomplicated; Z79.51 Long term (current) use of inhaled steroids
CPT/HCPCS: 36415; 71045; 80048; 85025; 93005; 94640; 96365; 96375; 99406; J2930; J3475; J7620

== ENCOUNTER 2019-02-12 14:45 | Emergency (ER) | payer SELFPAY | END 2019-02-12 15:43 | disposition left against medical advice (07) | LOC: ERS 14:45 | DX: Z53.21 Procedure and treatment not carried out due to patient leaving prior to being seen by health care provider (principal) ==

== ENCOUNTER 2019-04-07 10:42 | Emergency (ER) | payer SELFPAY ==
[2019-04-07] MEDS ORDERED: Albuterol Sulfate 2.5 mg/3 ml Neb ONE (11:08)
[2019-04-07] MEDS ORDERED: predniSONE 20 MG TAB ONE (11:12)
== END 2019-04-07 15:20 | disposition home or self-care (01) ==
LOC: ERS 10:42
DX: J45.901 Unspecified asthma with (acute) exacerbation (principal); F31.9 Bipolar disorder, unspecified; Z79.51 Long term (current) use of inhaled steroids
CPT/HCPCS: 94640; 94644; J7512; J7611; J7620

== ENCOUNTER 2019-04-15 09:10 | Inpatient (IN) | payer SELFPAY ==
[2019-04-15] MEDS ORDERED: Albuterol Sulfate 2.5 mg/0.5 ml Neb ONE (09:34)
[2019-04-15] MEDS ORDERED: Albuterol Sulfate 2.5 mg/3 ml Neb ONE (09:34)
[2019-04-15] MEDS ORDERED: methylPREDNISolone Sod Succ/PF 125 MG/2 ML VIAL ONE (09:49)
[2019-04-15] MEDS ORDERED: Magnesium 2 GM/50 ML BAG (IN WATER) ONE (09:49)
--- NOTE | 2019-04-15 10:38 | RAD ---
PORTABLE CHEST 1 VIEW: Date: 04/15/19 Time: 0950 hours HISTORY: Wheezing. FINDINGS: Comparison made with exam of 12/24/18. The heart size is normal. The lungs are expanded without focal areas of consolidation, pneumothoraces , or pleural effusions. IMPRESSION: No acute process. POS: OFF
[2019-04-15 10:39] LABS: ALT (SGPT) 23 U/L (8-55); AST (SGOT) 11 U/L (5-34); Alkaline Phosphatase 97 U/L (40-150); Anion Gap 12 mmol/L (10-20); BUN (Urea Nitrogen) 11 mg/dL (7.0-18.7); Bilirubin, Total 0.4 mg/dL (0.2-1.2); Calc. Creatinine Clearance 0 mL/min (70-130); Carbon Dioxide 24 mmol/L (22-29); Chloride 103 mmol/L (98-107); Estimated GFR-MDRD Greater than 90; Globulin 3.3 g/dL (2.4-3.5); Glucose 99 mg/dL (70-105); Potassium 3.3 mmol/L (3.5-5.1); Protein, Total 7.3 g/dL (6.0-8.3); Sodium 136 mmol/L (136-145)
[2019-04-15 10:42] LABS: #Basophils 0.1 thou/uL (0.0-0.2); #Eosinphils 0.3 thou/uL (0.0-0.7); #Lymphocytes 2.8 thou/uL (1.20-3.40); #Monocytes 0.7 thou/uL (0.11-0.59); #Neutrophils 6.7 thou/uL (1.40-6.50); %Basophils 0.6 % (0.0-1.0); %Eosinophils 2.7 % (0.0-10.0); %Lymphocytes 26.7 % (21.0-51.0); %Monocytes 6.4 % (0.0-10.0); %Neutrophils 63.6 % (42.0-75.0); Hemoglobin 9.4 g/dL (12.0-16.0); Hypochromia MODERATE=16-30 cells (100X) (0-5/hpf); MDiff Complete? YES; Mean Corpuscular HGB CONC 29.7 g/dL (32.0-36.0); Mean Corpuscular Hemoglobin 20.2 pg (27.0-31.0); Mean Platelet Volume 11.1 fL (7.4-10.4); Microcytosis MODERATE=15-30 cells (100X) (0-5/hpf); Platelet Count 298 thou/uL (130-400); Platelet Morphology Comment Appears Adequate; Polychromasia SLIGHT = 2-3 cells (100X) (0-2/hpf); RBC Distribution Width 19.2 % (11.5-14.5); Red Blood Cell (RBC) Count 4.65 mill/uL (4.20-5.40); White Blood Cell (WBC) Count 10.6 thou/uL (4.8-10.8)
[2019-04-15] MEDS ORDERED: Potassium Chloride 20 MEQ TAB PO SCH (13:15)
[2019-04-15] MEDS ORDERED: Acetaminophen 325 MG TAB PO PRN (13:39)
[2019-04-15] MEDS ORDERED: Bisacodyl 5 MG TAB PO PRN (13:39)
[2019-04-15 14:05] VITALS: BMI 28.8
--- NOTE | 2019-04-15 14:19 | HP ---
PRIMARY CARE PROVIDER: Matthew Zepeda. CHIEF COMPLAINT: Wheezing. HISTORY OF PRESENT ILLNESS: Ms. Hi is a pleasant 38-year-old lady, who was seen at [facility] on April 15, 2019. She has a history of asthma, with multiple admissions in the past. She also reports that she has been intubated in the past. She used to smoke half a pack of cigarettes a day, but has currently decreased it to one cigarette a day. She reports that she started having shortness of breath and wheezing yesterday. She denies any cough. She denies any fevers. She denies any chest pain. She denies any nausea or vomiting. She reports using albuterol nebulizer at home four times without any relief. She therefore presented to the emergency room. REVIEW OF SYSTEMS: All other systems were reviewed and found to be negative. PAST MEDICAL HISTORY: Asthma. PAST SURGICAL HISTORY: None. PSYCHIATRIC HISTORY: Depression and bipolar disorder. SOCIAL HISTORY: The patient reports smoking one cigarette a day. She drinks alcohol over the weekend. She denies any recreational drug use. FAMILY HISTORY: Significant for lung cancer in her mother. ALLERGIES: NO KNOWN DRUG ALLERGIES. CURRENT MEDICATIONS: 1. Singulair 10 mg daily. 2. Albuterol nebulizer p.r.n. 3. Dulera one puff 2 times a day. PHYSICAL EXAMINATION: GENERAL: On examination, Ms. Hi is awake and alert, not in acute distress. VITAL SIGNS: Blood pressure is 144/95, pulse 90, respiratory rate 18, and oxygen saturation 97% on room air. She is afebrile. EYES: No scleral icterus, no conjunctival pallor. ENT: Moist mucosal membranes. No oropharyngeal erythema or exudates. NECK: Supple, nontender, trachea is midline. RESPIRATORY: Accessory muscles of breathing are not active. Chest wall movements are symmetric bilaterally. Lung examination reveals diffuse expiratory wheeze. CARDIOVASCULAR: S1 and S2 are heard, regular. Peripheral pulses are palpable. No carotid bruit. No pericardial rub. ABDOMEN: Soft, nontender, bowel sounds heard, no hepatomegaly, no splenomegaly. NEUROLOGIC: Cranial nerves 2 through 12 are intact, deep tendon reflexes 2+. MUSCULOSKELETAL: Power is 5/5 in all 4 extremities. SKIN: No rashes or subcutaneous nodules. LYMPHATIC: No cervical lymphadenopathy. PSYCHIATRIC: Normal mood, normal affect, the patient is oriented to person, place, and time. LABORATORY DATA: Ms. Hi's labs and investigations were reviewed. I reviewed her electrocardiogram, which shows normal sinus rhythm, no ST changes to suggest an acute coronary syndrome. I also reviewed her chest x-ray, which does not show any pulmonary infiltrates. She has microcytic anemia with hemoglobin 9.4, hemoglobin was 8.8 in November 2018. She has normal white count, normal platelet count, decreased potassium of 3.3, otherwise unremarkable comprehensive metabolic profile, and normal troponin-I. ASSESSMENT AND PLAN: Ms. Hi is a pleasant 38-year-old lady, who was seen at [facility] on April 15, 2019. Her problem list includes: 1. Acute respiratory failure: This is secondary to asthma exacerbation. The patient will be admitted to the hospital for further management. 2. Asthma exacerbation: The patient will be treated with oxygen, intravenous steroids, and bronchodilators. 3. Tobacco abuse: The patient has been counseled regarding tobacco cessation. 4. Hypokalemia: Most likely secondary to beta agonist use. We will replace potassium and recheck. 5. Depression: Moderate, stable, the patient is not on any medications for this. Many thanks for allowing me to participate in your patient's care. Please feel free to contact me with any questions or concerns. LEVEL OF RISK: High. LEVEL OF COMPLEXITY: High. Job ID: [id number]
[2019-04-15] MEDS: Nicotine 14 MG PATCH TD SCH (15:08)
[2019-04-15] MEDS: methylPREDNISolone Sod Succ 40 MG VIAL IVP SCH ×2 (18:33→23:25)
[2019-04-15] MEDS ORDERED: Montelukast Sodium 10 mg Tablet PO SCH (21:45)
[2019-04-16] MEDS: methylPREDNISolone Sod Succ 40 MG VIAL IVP SCH ×4 (05:11→23:26)
[2019-04-16 06:02] LABS: Anion Gap 10 mmol/L (10-20); BUN (Urea Nitrogen) 15 mg/dL (7.0-18.7); Calc. Creatinine Clearance 111 mL/min (70-130); Calcium 9.6 mg/dL (7.8-10.44); Carbon Dioxide 23 mmol/L (22-29); Chloride 104 mmol/L (98-107); Estimated GFR-MDRD Greater than 90; Glucose 129 mg/dL (70-105); Sodium 132 mmol/L (136-145)
[2019-04-16 06:10] LABS: Band 1 % (5-11); Hemoglobin 9.3 g/dL (12.0-16.0); Hypochromia SLIGHT = 6-15 cells (100X) (0-5/hpf); Lymphocytes 5 % (21-51); MDiff Complete? YES; Mean Corpuscular HGB CONC 29.1 g/dL (32.0-36.0); Mean Corpuscular Hemoglobin 19.8 pg (27.0-31.0); Mean Platelet Volume 11.2 fL (7.4-10.4); Microcytosis SLIGHT = 6-15 cells (100X) (0-5/hpf); Monocytes 2 % (0-10); Neutrophil 92 % (42-75); Platelet Count 354 thou/uL (130-400); Platelet Morphology Comment Appears Adequate; RBC Distribution Width 19.5 % (11.5-14.5); Red Blood Cell (RBC) Count 4.68 mill/uL (4.20-5.40)
[2019-04-16] MEDS: Montelukast Sodium 10 mg Tablet PO SCH (08:56)
[2019-04-16] MEDS: Enoxaparin Sodium 40 MG/0.4 ML SYRINGE SC SCH (08:57)
[2019-04-16] MEDS: Nicotine 14 MG PATCH TD SCH (14:03)
[2019-04-16] MEDS ORDERED: Ondansetron PF 4 MG/2 ML Vial SLOW IVP PRN (16:06)
[2019-04-16] MEDS ORDERED: Calcium Carbonate 500 MG ChewTAB PO PRN (16:06)
--- NOTE | 2019-04-16 18:45 | PDOC.PN ---
- Subjective Encounter Start Date: 04/16/19 Encounter Start Time: 10:40 Pt seen for followup re: acute respiratory failure. Feels better. - Objective MAR Reviewed: Yes Vital Signs & Weight: Vital Signs (12 hours) Temp Pulse Resp BP Pulse Ox 04/16/19 18:27 85 12 100 04/16/19 12:33 95 16 96 04/16/19 12:00 98.3 F 98 20 119/70 98 04/16/19 08:49 95 04/16/19 07:51 98.3 F 97 20 142/84 H 95 Weight Weight 157 lb 12.8 oz I&O: 04/15/19 04/16/19 04/17/19 06:59 06:59 06:59 Intake Total 480 1000 Balance 480 1000 Result Diagrams: 04/16/19 05:07 04/16/19 05:07 Additional Labs: Labs reviewed by me Phys Exam - Physical Examination Constitutional: NAD HEENT: moist MMs, sclera anicteric, oral pharynx no lesions, 2+ tonsils Neck: no nodes, no JVD, supple, full ROM Respiratory: wheezing present Cardiovascular: RRR, no rub S1, S2 Gastrointestinal: soft, non-tender, no distention, positive bowel sounds Neurological: moves all 4 limbs Psychiatric: normal affect, A&O x 3 Dx/Plan (1) Acute respiratory failure Code(s): J96.00 - ACUTE RESPIRATORY FAILURE, UNSP W HYPOXIA OR HYPERCAPNIA Status: Acute Comment: Improving, secondary to COPD exacerbation (2) Asthma exacerbation Code(s): J45.901 - UNSPECIFIED ASTHMA WITH (ACUTE) EXACERBATION Status: Acute Qualifiers: Asthma severity: severe persistent Qualified Code(s): J45.51 - Severe persistent asthma with (acute) exacerbation Comment: Improving, continue steroids and bronchodilators (3) Tobacco user Code(s): Z72.0 - TOBACCO USE Status: Chronic Comment: counseled pt re: tobacco cessation (4) Hypokalemia Code(s): E87.6 - HYPOKALEMIA Status: Resolved - Plan 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 Review of Systems - Review of Systems Constitutional: negative: fever, chills, sweats, weakness, malaise Respiratory: SOB with Excertion, Wheezing. negative: Cough, Shortness of Breath , Pleuritic Pain Cardiovascular: negative: chest pain, palpitations, orthopnea, paroxysmal nocturnal dyspnea, edema, light headedness Gastrointestinal: negative: Nausea, Vomiting, Abdominal Pain, Diarrhea, Constipation, Melena, Hematochezia Genitourinary: negative: Dysuria, Frequency, Incontinence, Hematuria, Retention Skin: negative: Rash, Lesions, Marcial, Bruising - Medications/Allergies Allergies/Adverse Reactions: Allergies Allergy/AdvReac Type Severity Reaction Status Date / Time No Known Allergies Allergy Verified 02/17/18 11:42 Medications: Current Medications Acetaminophen (Tylenol) 650 mg PO Q4H PRN PRN Reason: Headache/Fever/Mild Pain (1-3) Last Admin: 04/16/19 08:56 Dose: 650 mg Albuterol/Ipratropium (Duoneb) 3 ml NEB [id number] [facility] Last Admin: 04/16/19 18:27 Dose: 3 ml Albuterol/Ipratropium (Duoneb) 3 ml NEB [id number] PRN PRN Reason: SOB &/or Wheezing Bisacodyl (Dulcolax) 10 mg PO DAILYPRN PRN PRN Reason: Constipation Calcium Carbonate (Tums) 1,000 mg PO Q6H PRN PRN Reason: Heartburn or Indigestion Last Admin: 04/16/19 16:18 Dose: 1,000 mg Enoxaparin Sodium (Lovenox) 40 mg SC 0900 [facility] Last Admin: 04/16/19 08:57 Dose: 40 mg Methylprednisolone Sodium Succinate (Solu-Medrol) 40 mg IVP Q6HR [facility] Last Admin: 04/16/19 17:48 Dose: 40 mg Montelukast Sodium (Singulair) 10 mg PO DAILY [facility] Last Admin: 04/16/19 08:56 Dose: 10 mg Nicotine (Nicoderm Patch) 7 mg TD Q24HR [facility] Last Admin: 04/16/19 14:03 Dose: Not Given Ondansetron HCl (Zofran) 4 mg SLOW IVP Q6H PRN PRN Reason: Nausea/Vomiting Last Admin: 04/16/19 16:18 Dose: 4 mg
[2019-04-17] MEDS: methylPREDNISolone Sod Succ 40 MG VIAL IVP SCH ×2 (05:28→11:43)
[2019-04-17 06:23] LABS: Anion Gap 11 mmol/L (10-20); BUN (Urea Nitrogen) 13 mg/dL (7.0-18.7); Calc. Creatinine Clearance 116 mL/min (70-130); Calcium 9.3 mg/dL (7.8-10.44); Carbon Dioxide 21 mmol/L (22-29); Chloride 104 mmol/L (98-107); Estimated GFR-MDRD Greater than 90; Glucose 126 mg/dL (70-105); Potassium 5.1 mmol/L (3.5-5.1); Sodium 131 mmol/L (136-145)
[2019-04-17 06:24] LABS: Band 1 % (5-11); Hemoglobin 9.3 g/dL (12.0-16.0); Lymphocytes 9 % (21-51); MDiff Complete? YES; Mean Corpuscular HGB CONC 28.5 g/dL (32.0-36.0); Mean Corpuscular Hemoglobin 19.6 pg (27.0-31.0); Mean Corpuscular Volume 68.7 fL (78.0-98.0); Mean Platelet Volume 11.2 fL (7.4-10.4); Monocytes 4 % (0-10); Neutrophil 86 % (42-75); Platelet Count 394 thou/uL (130-400); Platelet Morphology Comment Appears Adequate; RBC Distribution Width 19.9 % (11.5-14.5); Red Blood Cell (RBC) Count 4.76 mill/uL (4.20-5.40); White Blood Cell (WBC) Count 26.5 thou/uL (4.8-10.8)
[2019-04-17] MEDS: Montelukast Sodium 10 mg Tablet PO SCH (08:39)
[2019-04-17] MEDS: Enoxaparin Sodium 40 MG/0.4 ML SYRINGE SC SCH (08:39)
[2019-04-17] MEDS: Nicotine 14 MG PATCH TD SCH (14:09)
--- NOTE | 2019-04-17 16:02 | DIS ---
DATE OF ADMISSION: 04/15/2019 DATE OF DISCHARGE: 04/17/2019 PRIMARY CARE PROVIDER: Matthew Hall. DISCHARGE DIAGNOSES: 1. Acute respiratory failure. 2. Asthma exacerbation. 3. Tobacco abuse. 4. Hypokalemia. 5. Hyponatremia. CONDITION OF PATIENT ON THE DAY OF DISCHARGE: Stable. I assessed Ms. Hi on the day of discharge. She denies any chest pain or shortness of breath. Vital signs are stable. S1 and S2 are heard, regular. Lungs are clear to auscultation bilaterally. DISCHARGE MEDICATIONS: 1. Ventolin 3 mL nebulizers every 6 hours as needed. 2. NicoDerm CQ 7 mg patch daily. 3. Dulera 100/5 one puff 2 times a day. 4. Singulair 10 mg daily. 5. Prednisone taper. HOSPITAL COURSE: Ms. Hi is a pleasant 38-year-old lady, who was admitted to [facility] for respiratory failure secondary to asthma exacerbation on April 15, 2019. She was also hypokalemic at the time of admission. Please refer to my history and physical note dated April 15, 2019 for further details. She was treated with oxygen, steroids, and bronchodilators. She improved clinically. At the time of this dictation, the patient's medication assistance program was requested to provide help with her medications. She is awaiting medications prior to discharge. On the day of discharge, she has white count of 26,500, hemoglobin 9.3, platelet count 394,000. Sodium 132, potassium 5.1, and creatinine 0.74. Many thanks for allowing me to participate in your patient's care. Please feel free to contact me with any questions or concerns. DISCHARGE DESTINATION: Home. TIME SPENT: Total amount of time spent coordinating this discharge: 32 minutes. Job ID: [id number]
[2019-04-17 16:23] VITALS: BP 128/77; TEMP 98.7
== END 2019-04-17 17:30 | disposition home or self-care (01) | DRG 189 ==
LOC: ERS 09:10 → T4-A 11:56
PROVIDERS: ADMIT Internal Medicine; ATTEND Internal Medicine
DX: J96.00 Acute respiratory failure, unspecified whether with hypoxia or hypercapnia (principal); J45.51 Severe persistent asthma with (acute) exacerbation; J44.1 Chronic obstructive pulmonary disease with (acute) exacerbation; E87.1 Hypo-osmolality and hyponatremia; F17.210 Nicotine dependence, cigarettes, uncomplicated; F31.9 Bipolar disorder, unspecified; E87.6 Hypokalemia; Z79.51 Long term (current) use of inhaled steroids; Z79.899 Other long term (current) drug therapy
CPT/HCPCS: 36415; 71045; 80048; 80053; 84484; 85025; 93005; 94640; 94644; 96365; 96375; J1650; J2405; J2920; J2930; J3475; J7611; J7620

== ENCOUNTER 2019-06-23 19:15 | Observation (INO) | payer SELFPAY ==
--- NOTE | 2019-06-23 20:24 | RAD ---
TWO VIEWS CHEST: Date: 06-23-19 Provided Clinical History: Cough. FINDINGS: Comparison 04-15-19. The cardiac silhouette is upper limits of normal in size to mildly enlarged. The lungs appear clear. There is no pleural fluid or pneumothorax apparent. IMPRESSION: Borderline heart size without evidence for an acute cardiopulmonary process. POS: MARY
[2019-06-23] MEDS ORDERED: predniSONE 20 MG TAB ONE (20:42)
[2019-06-23] MEDS ORDERED: Albuterol Sulfate 2.5 mg/3 ml Neb ONE (21:01)
[2019-06-23 22:43] LABS: Hemoglobin 8.8 g/dL (12.0-16.0); Red Blood Cell (RBC) Count 4.18 mill/uL (4.20-5.40); White Blood Cell (WBC) Count 12.5 thou/uL (4.8-10.8)
[2019-06-23 22:47] LABS: ALT (SGPT) 15 U/L (8-55); AST (SGOT) 12 U/L (5-34); Albumin 4.1 g/dL (3.5-5.0); Alkaline Phosphatase 98 U/L (40-150); Anion Gap 10 mmol/L (10-20); BUN (Urea Nitrogen) 14 mg/dL (7.0-18.7); Bilirubin, Total 0.3 mg/dL (0.2-1.2); Calc. Creatinine Clearance 0 mL/min (70-130); Calcium 8.9 mg/dL (7.8-10.44); Carbon Dioxide 25 mmol/L (22-29); Chloride 103 mmol/L (98-107); Estimated GFR-MDRD Greater than 90; Globulin 3.2 g/dL (2.4-3.5); Glucose 93 mg/dL (70-105); Potassium 3.1 mmol/L (3.5-5.1); Protein, Total 7.3 g/dL (6.0-8.3); Sodium 135 mmol/L (136-145)
[2019-06-23 22:57] LABS: #Basophils 0.1 thou/uL (0.0-0.2); #Eosinphils 0.2 thou/uL (0.0-0.7); #Lymphocytes 3.3 thou/uL (1.20-3.40); #Neutrophils 7.8 thou/uL (1.40-6.50); %Basophils 0.7 % (0.0-1.0); %Eosinophils 1.7 % (0.0-10.0); %Lymphocytes 26.5 % (21.0-51.0); %Monocytes 8.3 % (0.0-10.0); %Neutrophils 62.8 % (42.0-75.0); Hypochromia SLIGHT = 6-15 cells (100X) (0-5/hpf); Lymphocytes 28 % (21-51); MDiff Complete? YES; Mean Corpuscular HGB CONC 31.1 g/dL (32.0-36.0); Mean Corpuscular Volume 67.6 fL (78.0-98.0); Mean Platelet Volume 9.2 fL (7.4-10.4); Microcytosis SLIGHT = 6-15 cells (100X) (0-5/hpf); Monocytes 3 % (0-10); Neutrophil 69 % (42-75); Platelet Count 357 thou/uL (130-400); Platelet Morphology Comment Appears Adequate; Polychromasia SLIGHT = 2-3 cells (100X) (0-2/hpf); RBC Distribution Width 18.7 % (11.5-14.5)
[2019-06-23] MEDS ORDERED: Magnesium 2 GM/50 ML BAG (IN WATER) ONE (23:18)
[2019-06-23] MEDS ORDERED: Albuterol Sulfate 2.5 mg/3 ml Neb NEB PRN (23:47)
[2019-06-23] MEDS ORDERED: Ondansetron ODT 4 MG TAB PO PRN (23:49)
[2019-06-23] MEDS ORDERED: Ondansetron PF 4 MG/2 ML Vial IVP PRN (23:49)
[2019-06-23] MEDS ORDERED: Acetaminophen 650 MG Suppository PR PRN (23:49)
[2019-06-24 00:11] VITALS: BMI 31.0
[2019-06-24] MEDS ORDERED: Ondansetron ODT 4 MG TAB SL PRN (00:17)
[2019-06-24] MEDS ORDERED: Sodium Chloride 0.9% 1,000 ML IV SCH (00:17)
[2019-06-24] MEDS ORDERED: Ondansetron PF 4 MG/2 ML Vial IVP PRN (00:17)
[2019-06-24] MEDS: methylPREDNISolone Sod Succ 40 MG VIAL IVP SCH ×4 (00:17→17:06)
[2019-06-24 05:24] LABS: #Lymphocytes 0.5 thou/uL (1.20-3.40); #Monocytes 0.2 thou/uL (0.11-0.59); #Neutrophils 14.5 thou/uL (1.40-6.50); %Basophils 0.3 % (0.0-1.0); %Eosinophils 0.2 % (0.0-10.0); %Lymphocytes 3.4 % (21.0-51.0); %Neutrophils 95.1 % (42.0-75.0); Mean Corpuscular HGB CONC 30.9 g/dL (32.0-36.0); Mean Corpuscular Hemoglobin 21.3 pg (27.0-31.0); Mean Platelet Volume 9.7 fL (7.4-10.4); Platelet Count 400 thou/uL (130-400); RBC Distribution Width 18.6 % (11.5-14.5); White Blood Cell (WBC) Count 15.2 thou/uL (4.8-10.8)
[2019-06-24] MEDS: Albuterol Sulfate 2.5 mg/3 ml Neb NEB SCH ×6 (05:24→22:28)
[2019-06-24 05:25] LABS: Anion Gap 13 mmol/L (10-20); BUN (Urea Nitrogen) 12 mg/dL (7.0-18.7); Calc. Creatinine Clearance 131 mL/min (70-130); Calcium 8.8 mg/dL (7.8-10.44); Carbon Dioxide 22 mmol/L (22-29); Chloride 104 mmol/L (98-107); Estimated GFR-MDRD Greater than 90; Glucose 138 mg/dL (70-105); Potassium 3.7 mmol/L (3.5-5.1); Sodium 135 mmol/L (136-145)
--- NOTE | 2019-06-24 06:45 | HP ---
CODE STATUS: Full code. TIME OF EVALUATION: 11:20 p.m. CHIEF COMPLAINT: Shortness of breath. HISTORY OF PRESENT ILLNESS: This is a 38-year-old female patient with past medical history of asthma. The patient came to the hospital after having severe gradually worsening shortness of breath, associated with cough and scant sputum production with the patient trying asthma medications at home, but the symptoms did not get better. No clear triggers, no alleviating factors alleviating by medical treatment. REVIEW OF SYSTEMS: All systems were reviewed and negative except for the findings mentioned above. PAST MEDICAL HISTORY: Positive for asthma. PAST SURGICAL HISTORY: No surgical history. PSYCHIATRIC HISTORY: Bipolar and depression. SOCIAL HISTORY: The patient currently smokes cigarettes on a daily basis and tobacco. FAMILY HISTORY: Reviewed and noncontributory to current presentation. KNOWN ALLERGIES: No known drug allergies. REPORTED MEDICATIONS: 1. Symbicort. 2. Singulair. 3. Proventil. 4. Albuterol sulfate. PHYSICAL EXAMINATION: VITAL SIGNS: Blood pressure 146/70 with heart rate 110, respiratory rate was 20, temperature 99.4. Pain was 0/10, oxygen saturation was 96% on 2 L. GENERAL APPEARANCE: The patient is alert, oriented, no acute distress. HEENT: Eyes normal conjunctivae. Moist oral mucosa. Anicteric. No JVD. RESPIRATORY: Bilateral wheezing. The patient using accessory muscles to breathe still. No rales. CARDIOVASCULAR: Normal rate, regular rhythm. No murmurs. No gallop. No edema. ABDOMEN: Soft. Normal bowel sounds. MUSCULOSKELETAL: Baseline range of motion and strength. SKIN: Warm and intact. No pallor. No rash. No redness. Capillary refill seems to be intact. NEUROLOGIC: No evidence of any new focal weakness. Cranial nerves seems to be intact. PSYCHIATRIC: The patient is in good mood. No anxiety. Optimal judgment. IMAGING: Chest x-ray was reviewed. The patient has borderline heart size with no evidence for acute cardiopulmonary process. LABORATORY DATA: Labs were reviewed. The patient has a white count of 12.5, hemoglobin 8.8, MCV 67.6, platelet count 257. Sodium 135, potassium 3.1, chloride 103, carbon dioxide 25, anion gap 10, BUN 14, creatinine 0.72, GFR greater than 90. LFTs were negative. ASSESSMENT AND PLAN: The patient will be placed in the hospital with following medical problems. 1. Severe asthma attack. The patient has been improving while in ER and we will continue the patient on steroids and DuoNebs. We will monitor and adjust treatment as needed. 2. Hypokalemia of 3.1, that corrected in the second potassium of 3.7, so this problem is resolved. 3. Microcytic anemia with hemoglobin 8.8. This is chronic, has been about the same range before. This is stable, can be followed as outpatient. 4. Leukocytosis of unclear etiology. No evidence of infection at this point. The patient has asthma. This could be secondary to steroids. We will monitor. If any evidence of infection appears, we will treat accordingly. 5. Hyperglycemia likely secondary to steroid use. We will monitor and treat accordingly. 6. Hyponatremia, sodium 135, this is mild, no need for any acute intervention at this point. 7. Deep venous thrombosis prophylaxis. Job ID: [id number]
[2019-06-24] MEDS: Enoxaparin Sodium 40 MG/0.4 ML SYRINGE SC SCH (08:20)
[2019-06-24] MEDS: Acetaminophen 325 MG TAB PO PRN ×2 (08:21→17:08)
--- NOTE | 2019-06-24 09:59 | PDOC.HOSPP ---
- Subjective Encounter Date: 06/24/19 Encounter Time: 09:56 Subjective: still has some wheezing, but feels better in general. - Objective Vital Signs & Weight: Vital Signs (12 hours) Temp Pulse Resp BP BP Pulse Ox 06/24/19 07:52 98.1 F 105 H 18 153/86 H 96 06/24/19 07:24 96 16 06/24/19 05:59 140/80 06/24/19 05:24 113 H 20 98 06/24/19 03:58 98 F 104 H 24 H 175/87 H 98 06/24/19 00:11 98.0 F 104 H 20 166/84 H 96 Weight Weight 169 lb 12.8 oz I&O: 06/23/19 06/24/19 06/25/19 06:59 06:59 06:59 Intake Total 599 Balance 599 Result Diagrams: 06/24/19 04:16 06/24/19 04:16 Hospitalist ROS - Medication Medications: Active Medications Generic Name Dose Route Start Last Admin Trade Name Freq PRN Reason Stop Dose Admin Acetaminophen 650 mg 06/23/19 23:49 06/24/19 08:21 Tylenol PO 650 mg Q4H PRN Administration Headache/Fever/Mild Pain (1-3) Albuterol Sulfate 2.5 mg 06/24/19 02:30 06/24/19 07:24 Ventolin NEB 2.5 mg [id number] THONG Administration Enoxaparin Sodium 40 mg 06/24/19 09:00 06/24/19 08:20 Lovenox SC Not Given 0900 THONG Sodium Chloride 1,000 mls @ 75 mls/hr 06/24/19 00:17 06/24/19 00:52 Normal Saline 0.9% IV 06/24/19 10:20 1,000 mls .[id number] THONG Administration Methylprednisolone Sodium Succinate 40 mg 06/23/19 23:59 06/24/19 06:00 Solu-Medrol IVP 40 mg Q6HR THONG Administration Sodium Chloride 10 ml 06/24/19 09:00 06/24/19 08:20 Flush - Normal Saline IVF Not Given Q12HR THONG - Exam General Appearance: NAD, awake alert Neck: supple, symmetric, no JVD, no thyromegaly, no lymphadenopathy, no carotid bruit Heart: RRR, no murmur, no gallops, no rubs, normal peripheral pulses Respiratory: wheezes (Scattered, bilateral.) Gastrointestinal: soft, non-tender, non-distended Extremities: no edema Hosp A/P (1) Asthma exacerbation Code(s): J45.901 - UNSPECIFIED ASTHMA WITH (ACUTE) EXACERBATION Status: Acute Qualifiers: (2) Iron deficiency anemia Code(s): D50.9 - IRON DEFICIENCY ANEMIA, UNSPECIFIED Status: Chronic (3) Hypokalemia Code(s): E87.6 - HYPOKALEMIA Status: Resolved - Plan Still has some wheezing. Will continue with nebs, steroids. Potassium is better.
[2019-06-25] MEDS: methylPREDNISolone Sod Succ 40 MG VIAL IVP SCH ×2 (00:05→05:54)
[2019-06-25] MEDS: Albuterol Sulfate 2.5 mg/3 ml Neb NEB SCH ×3 (01:51→10:59)
[2019-06-25 07:55] VITALS: BP 141/78; TEMP 98.4
[2019-06-25] MEDS: Enoxaparin Sodium 40 MG/0.4 ML SYRINGE SC SCH (09:11)
--- NOTE | 2019-06-26 12:20 | DIS ---
DATE OF ADMISSION: 06/24/2019 DATE OF DISCHARGE: 06/25/2019 DISCHARGE DIAGNOSES: 1. Asthma exacerbation. 2. Iron deficiency anemia, chronic. 3. Hypokalemia. HISTORY OF PRESENT ILLNESS: The patient is a 38-year-old female with a longstanding history of asthma, who presented to the emergency department, reporting some worsening shortness of breath and wheezing. She had some cough with scant sputum production, was afebrile. She had labs, which were generally unremarkable. Chest x-ray unremarkable. She was noted to have potassium of 3.1 and hemoglobin of 8.8, which was chronic for her mild leukocytosis at 12.5, although, she apparently had some steroids. It is unclear of the timing. HOSPITAL COURSE: The patient was admitted to the hospital, started on IV steroids and nebulizer treatments and received a dose of magnesium in the emergency department. She had significant improvement over the following 24 hours. She still had mild wheezing, but felt that she was very close to her baseline. With that, she was felt to be stable for discharge home. PHYSICAL EXAMINATION: VITAL SIGNS: Temperature is 98.4, pulse is 92 to 107, respirations 16, O2 saturation 97% on room air, BP 141/78. GENERAL: She is awake, alert, oriented, pleasant, and cooperative. HEART: Regular rate and rhythm. LUNGS: Had some mild scattered expiratory wheeze and minimal rales. ABDOMEN: Soft, nontender, and nondistended. EXTREMITIES: No edema. DISPOSITION: The patient is discharged to home. DISCHARGE INSTRUCTIONS: Activityas tolerated. She has no dietary restriction. She will be on prednisone 60 mg one day, 40 mg the next, and 20 mg the next. She will continue with her usual home medications including albuterol, Singulair, and Symbicort. FOLLOWUP: She will follow up at [facility] in 7 days and can return to the hospital anytime she feels the need to do so. Job ID: [id number]
== END 2019-06-25 12:14 | disposition home or self-care (01) ==
LOC: ERS 19:15 → 2SW 06-24 00:02
PROVIDERS: ADMIT Hospitalist; ATTEND Hospitalist
DX: J45.901 Unspecified asthma with (acute) exacerbation (principal); D50.9 Iron deficiency anemia, unspecified; E87.6 Hypokalemia; D72.829 Elevated white blood cell count, unspecified; R73.9 Hyperglycemia, unspecified; E87.1 Hypo-osmolality and hyponatremia; F31.9 Bipolar disorder, unspecified; F17.210 Nicotine dependence, cigarettes, uncomplicated; Z79.51 Long term (current) use of inhaled steroids; Z79.899 Other long term (current) drug therapy
CPT/HCPCS: 36415; 71046; 80048; 80053; 85025; 94640; 96365; 96375; 96376; G0378; J1650; J2920; J3475; J7512; J7611; J7620

== ENCOUNTER 2019-08-12 06:17 | Emergency (ER) | payer SELFPAY ==
[2019-08-12] MEDS ORDERED: predniSONE 20 MG TAB ONE (06:46)
--- NOTE | 2019-08-12 07:41 | RAD ---
2 view chest: [08/12/2019] Comparion:06/23/2019 HISTORY: Chills, shortness of breath, cough FINDINGS: Heart and mediastinal contours are grossly unremarkable. No pneumothorax or pleural fluid. No focal consolidation or alveolar edema. IMPRESSION: No acute findings.
== END 2019-08-12 07:30 | disposition home or self-care (01) ==
LOC: ERS 06:17
DX: J45.901 Unspecified asthma with (acute) exacerbation (principal); F17.210 Nicotine dependence, cigarettes, uncomplicated
CPT/HCPCS: 71046; 94640; J7512; J7620

== ENCOUNTER 2019-10-03 06:19 | Day surgery (SDC) | payer SELFPAY ==
[2019-10-03] MEDS ORDERED: Midazolam HCl 2 mg/2 ml Vial ONE (07:56)
[2019-10-03] MEDS ORDERED: Fentanyl 100 MCG/2 ML VIAL ONE ×5 (07:56→11:52)
[2019-10-03 07:57] LABS: Bacteria/HPF None Seen HPF (None Seen); Bilirubin Negative (Negative); Blood, Urine Negative (Negative); Clarity Clear (Clear); Glucose, Urine (Dipstick) Normal (Negative); Leukocyte Negative Leu/uL (Negative); Nitrite Negative (Negative); Protein, Urine (Dipstick) 10 mg/dL (Neg-Trace); RBC/HPF 0-3 HPF (0-3); Urobilinogen Normal mg/dL (Less than 2)
[2019-10-03 07:58] LABS: Urine Culture Reflex No No
[2019-10-03 08:11] LABS: #Eosinphils 0.3 thou/uL (0.0-0.7); #Lymphocytes 2.1 thou/uL (1.20-3.40); #Monocytes 0.6 thou/uL (0.11-0.59); #Neutrophils 7.6 thou/uL (1.40-6.50); %Basophils 0.4 % (0.0-1.0); %Eosinophils 2.5 % (0.0-10.0); %Lymphocytes 19.8 % (21.0-51.0); %Neutrophils 71.3 % (42.0-75.0); Hemoglobin 8.8 g/dL (12.0-16.0); Mean Corpuscular HGB CONC 30.9 g/dL (32.0-36.0); Mean Corpuscular Hemoglobin 21.3 pg (27.0-31.0); Mean Corpuscular Volume 68.9 fL (78.0-98.0); Mean Platelet Volume 10.3 fL (7.4-10.4); Platelet Count 390 thou/uL (130-400); RBC Distribution Width 20.6 % (11.5-14.5); Red Blood Cell (RBC) Count 4.15 mill/uL (4.20-5.40); White Blood Cell (WBC) Count 10.7 thou/uL (4.8-10.8)
[2019-10-03 08:38] LABS: Hypochromia SLIGHT = 6-15 cells (100X) (0-5/hpf); MDiff Complete? YES; Microcytosis MODERATE=15-30 cells (100X) (0-5/hpf); Platelet Morphology Comment Appears Adequate; Polychromasia SLIGHT = 2-3 cells (100X) (0-2/hpf)
[2019-10-03] MEDS ORDERED: Zolpidem Tartrate 5 MG TAB PO PRN (08:45)
[2019-10-03] MEDS ORDERED: traMADol HCl 50 MG TAB PO PRN ×2 (08:45)
[2019-10-03] MEDS ORDERED: Ropivacaine 0.2% 550 ML 550 ML NERVE BLCK SCH (08:45)
[2019-10-03] MEDS ORDERED: Ketorolac Tromethamine 30 MG/ML VIAL IVP PRN (08:45)
[2019-10-03] MEDS ORDERED: Ondansetron PF 4 MG/2 ML Vial IVP PRN (08:45)
[2019-10-03] MEDS ORDERED: Promethazine HCl 25 MG/ML VIAL IM PRN (08:45)
[2019-10-03] MEDS ORDERED: HYDROcodone/Acetaminophen 10/325 mg Tablet PO PRN ×2 (08:45)
[2019-10-03] MEDS ORDERED: Fentanyl 100 MCG/2 ML VIAL IV PRN (08:46)
[2019-10-03] MEDS ORDERED: Acetaminophen 325 MG TAB PO PRN (08:47)
[2019-10-03] MEDS ORDERED: Ropivacaine 0.2% HCl/PF 20 ML ONE (09:09)
[2019-10-03] MEDS ORDERED: Ropivacaine 0.5% HCl/PF (150 MG/30 ML VIAL) ONE (09:54)
[2019-10-03] MEDS ORDERED: Ondansetron PF 4 MG/2 ML Vial ONE (09:54)
[2019-10-03] MEDS ORDERED: Ketorolac Tromethamine 30 MG/ML VIAL ONE (09:54)
[2019-10-03] MEDS ORDERED: PROPOFOL 200 MG/20 ML VIAL ONE (09:54)
[2019-10-03] MEDS ORDERED: Bupivacaine HCl 0.5%/Epinephrine 1:200,000/PF 30 ml Vial ONE (09:54)
[2019-10-03] MEDS ORDERED: diphenhydrAMINE 50 MG/ML VIAL ONE (09:54)
[2019-10-03] MEDS ORDERED: Dexamethasone 20 MG/5 ML VIAL ONE (09:54)
--- NOTE | 2019-10-03 11:14 | RAD ---
THREE FLUOROSCOPIC SPOT IMAGES OF THE RIGHT ANKLE: INDICATION: Interval open reduction internal fixation of the right ankle fracture. COMPARISON: Prior right ankle radiographs dated September 26, 2019. FINDINGS: Since the comparison examination, there is been interval open reduction internal fixation of the trim alleolar ankle fracture. Fracture alignment is near anatomic. Instrumentation projects in expected position. Total fluoroscopic time was 63.6 seconds. Total exposure was 1.23 mGy. IMPRESSION: Interval open reduction internal fixation of the right ankle fracture. Transcribed Date/Time: 10/03/2019 11:29 AM
[2019-10-03] MEDS ORDERED: Albuterol Sulfate 1.25 MG/3 ML NEB ONE (12:19)
--- NOTE | 2019-10-04 13:52 | OP ---
DATE OF PROCEDURE: 10/03/2019 PREOPERATIVE DIAGNOSIS: Right bimalleolar ankle fracture dislocation. POSTOPERATIVE DIAGNOSIS: Right bimalleolar ankle fracture dislocation. PROCEDURE PERFORMED: Open reduction and internal fixation of bimalleolar ankle fracture. FACULTY I ON CALL MEDICAL ASSISTANT: Orlando Diggs PA-C ANESTHESIOLOGIST: Terrance Pizarro MD ANESTHESIA: LMA with block. ESTIMATED BLOOD LOSS: 30 mL. TOURNIQUET TIME: 82 minutes at 300 mmHg. ANTIBIOTICS: Ancef 2 g. IMPLANTS: The patient receives a 12-hole one-third tubular plate with four 3.5 screws proximally, two 4.0 cancellous and two 3.5 cannulated screws medial malleolus. COMPLICATIONS: None. HISTORY OF PRESENT ILLNESS: Ms. Hi is a pleasant 38-year-old female, status post fracture dislocation occurring about a week ago on Kristen Jade. The patient was splinted, brought back to clinic for open reduction and internal fixation of bimalleolar ankle fracture. I discussed with her the risks and benefits of surgery including pain, scar, bleeding, infection, damage to vital structures, bleeding, need for further surgeries, loss of life or limb, blood clot. She understood she need to be nonweightbearing on this for likely 6 to 8 weeks. The patient understood these risks and benefits and elected to proceed. DESCRIPTION OF PROCEDURE: Time-out was performed designating the patient's right lower extremity as the operative site based on site, consents, and marking. After time-out, tourniquet was brought up and left up for a total of 82 minutes. A lateral incision was made down through skin. We proximally dissected bluntly to ensure the nerve was transposed anteriorly, came down through the fascia, which we directed posteriorly, bluntly dissected our fingers, proximally on fibula completely exposed. We found a comminuted distal 3rd shaft fracture that had essentially 4 pieces, which was technically difficult to put together. We were able put one of the pieces with 2-7 lag screw distally into the fibula to help us define length and then utilize one of the other pieces_. We did not feel that we could cerclage therefore_ starting with a 12-hole plate. We placed fixation into our segment distally. We can pull the patient to length, put clamps across to ensure we had good position as well as the plate had been reduced the bone. We ensured overall alignment was good. We put four 3.5 screws proximally. Being happy with the reduction, I passed a cerclage suture to help to pull one of the posterior pieces anteriorly to help with bone stock. We then moved medially, made an oblique incision down through skin bluntly dissected down and found the patient's malleolus, made a drill hole in the tibia clamped across with the point reduction clamp. We then drilled_and put a 40 and 38 respectively. We removed the guide pins showing good reduction. We then performed cotton test and screw with clamp . We went back and checked our length and was overall happy with the length of bone or bony apposition. We used the sutures again for cerclage to help with bone stock, took final pictures, washed and closed. We closed with 0, 2-0 and 3 -0 nylon medially and 0, 2-0 and alexandra laterally. Tourniquet was let down at 82 minutes. We lost only 30 mL of blood. The patient was anemic preprocedure but not intraoperatively. We then placed a posterior U splint on the patient's leg. She will be nonweightbearing. She will to be sent home with hydrocodone for followup in about 2 weeks for suture and staple removal. Job ID: [id number] [facility]
== END 2019-10-03 13:49 | disposition home or self-care (01) ==
LOC: SDC 06:19
PROVIDERS: ATTEND Orthopaedic Surgery
PROC: 0QSJ04Z Reposition Right Fibula with Internal Fixation Device, Open Approach (ICD-10-PCS; principal; 2019-10-03)
PROC: 3E0T3BZ Introduction of Anesthetic Agent into Peripheral Nerves and Plexi, Percutaneous Approach (ICD-10-PCS; principal; 2019-10-03)
PROC: 0QSG04Z Reposition Right Tibia with Internal Fixation Device, Open Approach (ICD-10-PCS; principal; 2019-10-03)
DX: S82.841A Displaced bimalleolar fracture of right lower leg, initial encounter for closed fracture (principal); G89.18 Other acute postprocedural pain
CPT/HCPCS: 36415; 76000; 81001; 85025; 86850; 86900; 86901; A4306; C1713; C1769; J0131; J0670; J0690; J1100; J1200; J1885; J2250; J2405; J2704; J2795; J3010

== ENCOUNTER 2020-01-12 15:10 | Emergency (ER) | payer OTHER, SELFPAY ==
[2020-01-12] MEDS ORDERED: predniSONE 20 MG TAB ONE (15:28)
--- NOTE | 2020-01-12 16:12 | RAD ---
PORTABLE CHEST: History: Cough FINDINGS: Question some subtle nodular infiltrate in the right lower lobe. Lungs otherwise clear. Heart and med iastinum unremarkable. IMPRESSION: Question some subtle nodule infiltrate in the right lower lung. Follow up recommended. POS: BRENDON
== END 2020-01-12 16:39 | disposition home or self-care (01) ==
LOC: ERS 15:10
DX: J45.901 Unspecified asthma with (acute) exacerbation (principal); F31.9 Bipolar disorder, unspecified; Z79.899 Other long term (current) drug therapy
CPT/HCPCS: 71045; 87635; 94640; J7512; J7620; U0002

== ENCOUNTER 2020-03-29 18:40 | Emergency (ER) | payer OTHER, SELFPAY ==
--- NOTE | 2020-03-29 19:44 | RAD ---
AP CHEST: History: Cough Comparison: 01-12-2020 FINDINGS: No evidence of infiltrate. Heart and mediastinum unremarkable. IMPRESSION: No evidence of infiltrate identified. POS: AGW
[2020-03-29] MEDS ORDERED: Albuterol 200 PUFF (6.7GM INHALER) ONE (19:57)
[2020-03-29] MEDS ORDERED: predniSONE 20 MG TAB ONE (20:59)
== END 2020-03-29 22:09 | disposition home or self-care (01) ==
LOC: ERS 18:40
DX: J45.901 Unspecified asthma with (acute) exacerbation (principal); F31.9 Bipolar disorder, unspecified; F17.210 Nicotine dependence, cigarettes, uncomplicated; Z79.899 Other long term (current) drug therapy; Z79.51 Long term (current) use of inhaled steroids
CPT/HCPCS: 71045; 94664; J7512

== ENCOUNTER 2020-09-27 09:06 | Emergency (ER) | payer MEDICAID, SELFPAY ==
[2020-09-27] MEDS ORDERED: Albuterol 200 PUFF (6.7GM INHALER) ONE (09:17)
[2020-09-27] MEDS ORDERED: methylPREDNISolone Sod Succ/PF 125 MG/2 ML VIAL ONE (09:55)
[2020-09-27 09:56] LABS: Hemoglobin 9.8 g/dL (12.0-16.0); Mean Corpuscular HGB CONC 30.7 g/dL (32.0-36.0); Mean Corpuscular Hemoglobin 21.3 pg (27.0-31.0); Mean Corpuscular Volume 69.2 fL (78.0-98.0); Mean Platelet Volume 11.7 fL (7.4-10.4); Platelet Count 285 thou/uL (130-400); RBC Distribution Width 19.1 % (11.5-14.5); Red Blood Cell (RBC) Count 4.61 mill/uL (4.20-5.40); White Blood Cell (WBC) Count 8.6 thou/uL (4.8-10.8)
--- NOTE | 2020-09-27 09:59 | RAD ---
Exam: Chest one view HISTORY:Dyspnea Comparison: 05/30/2020 FINDINGS: Cardiac silhouette: Normal Aorta: Unremarkable Pulmonary vessels: Normal Costophrenic angles: Clear LUNGS: No masses or consolidation. Pneumothorax: None Osseous abnormalities: None IMPRESSION: No acute cardiopulmonary process.
[2020-09-27 10:06] LABS: ALT (SGPT) 18 U/L (8-55); AST (SGOT) 16 U/L (5-34); Albumin 3.9 g/dL (3.5-5.0); Alkaline Phosphatase 124 U/L (40-110); Anion Gap 16 mmol/L (10-20); BUN (Urea Nitrogen) 11 mg/dL (7.0-18.7); Bilirubin, Total 0.6 mg/dL (0.2-1.2); Calc. Creatinine Clearance 0 mL/min (70-130); Calcium 8.6 mg/dL (7.8-10.44); Carbon Dioxide 20 mmol/L (22-29); Chloride 104 mmol/L (98-107); Globulin 3.7 g/dL (2.4-3.5); Glucose 85 mg/dL (70-105); Potassium 3.6 mmol/L (3.5-5.1); Protein, Total 7.6 g/dL (6.0-8.3); Sodium 136 mmol/L (136-145)
[2020-09-27 10:24] LABS: #Basophils 0.1 thou/uL (0.0-0.2); #Eosinphils 0.2 thou/uL (0.0-0.7); #Lymphocytes 1.8 thou/uL (1.20-3.40); #Monocytes 0.8 thou/uL (0.11-0.59); #Neutrophils 5.7 thou/uL (1.40-6.50); %Basophils 1.6 % (0.0-1.0); %Eosinophils 2.5 % (0.0-10.0); %Lymphocytes 21.2 % (21.0-51.0); %Monocytes 8.7 % (0.0-10.0); Anisocytosis MODERATE=16-30 cells (100X) (0-5/hpf); Hypochromia MODERATE=16-30 cells (100X) (0-5/hpf); MDiff Complete? YES; Microcytosis MODERATE=15-30 cells (100X) (0-5/hpf); Platelet Morphology Comment Appears Adequate; Polychromasia SLIGHT = 2-3 cells (100X) (0-2/hpf)
[2020-09-27 18:39] LABS: SARS-CoV-2 MS2 Positive; SARS-CoV-2 N Gene Negative; SARS-CoV-2 S Gene Negative; SARS-CoV-2 by NAA Not Detected (NotDetected); SARS-CoV-2 orf1ab Negative
== END 2020-09-27 10:50 | disposition home or self-care (01) ==
LOC: ERS 09:06
DX: J45.901 Unspecified asthma with (acute) exacerbation (principal); Z20.828 Contact with and (suspected) exposure to other viral communicable diseases; Z79.899 Other long term (current) drug therapy; F17.210 Nicotine dependence, cigarettes, uncomplicated
CPT/HCPCS: 71045; 80053; 85025; 87635; 93005; 96374; J2930; U0003

== ENCOUNTER 2020-12-02 16:05 | Emergency (ER) | payer MEDICAID, SELFPAY ==
[2020-12-02] MEDS ORDERED: Dexamethasone 10 MG/ML VIAL ONE (16:32)
== END 2020-12-02 17:13 | disposition home or self-care (01) ==
LOC: ERS 16:05
DX: J45.901 Unspecified asthma with (acute) exacerbation (principal); Z87.891 Personal history of nicotine dependence; Z79.899 Other long term (current) drug therapy; Z79.51 Long term (current) use of inhaled steroids
CPT/HCPCS: 94640; J1100; J7620

== ENCOUNTER 2021-03-14 13:05 | Emergency (ER) | payer SELFPAY ==
[2021-03-14] MEDS ORDERED: predniSONE 20 MG TAB ONE (14:04)
== END 2021-03-14 16:08 | disposition home or self-care (01) ==
LOC: ERS 13:05
DX: J45.901 Unspecified asthma with (acute) exacerbation (principal); Z87.891 Personal history of nicotine dependence
CPT/HCPCS: 71045; 93005; 94644; J7512; J7620

== ENCOUNTER 2021-05-03 17:15 | Emergency (ER) | payer SELFPAY ==
[2021-05-03] MEDS ORDERED: predniSONE 20 MG TAB ONE (19:07)
== END 2021-05-03 20:03 | disposition home or self-care (01) ==
LOC: ERS 17:15
DX: J45.901 Unspecified asthma with (acute) exacerbation (principal); Z87.891 Personal history of nicotine dependence; Z79.51 Long term (current) use of inhaled steroids
CPT/HCPCS: 99284; J7512; J7620

== ENCOUNTER 2021-05-10 14:06 | Inpatient (IN) | payer MEDICAID, SELFPAY ==
[2021-05-10 15:22] LABS: #Basophils 0.1 thou/uL (0.0-0.2); #Eosinphils 0.3 thou/uL (0.0-0.7); #Lymphocytes 2.6 thou/uL (1.20-3.40); #Monocytes 0.8 thou/uL (0.11-0.59); %Basophils 0.5 % (0.0-1.0); %Eosinophils 2.5 % (0.0-10.0); %Lymphocytes 21.8 % (21.0-51.0); %Monocytes 6.8 % (0.0-10.0); %Neutrophils 68.3 % (42.0-75.0); Hemoglobin 10.2 g/dL (12.0-16.0); Mean Corpuscular HGB CONC 30.6 g/dL (32.0-36.0); Mean Corpuscular Hemoglobin 22.9 pg (27.0-31.0); Mean Corpuscular Volume 74.9 fL (78.0-98.0); Mean Platelet Volume 10.8 fL (7.4-10.4); Platelet Count 291 thou/uL (130-400); RBC Distribution Width 18.2 % (11.5-14.5); Red Blood Cell (RBC) Count 4.43 mill/uL (4.20-5.40); White Blood Cell (WBC) Count 11.8 thou/uL (4.8-10.8)
[2021-05-10 15:36] LABS: Anisocytosis SLIGHT = 6-15 cells (100X) (0-5/hpf); Hypochromia SLIGHT = 6-15 cells (100X) (0-5/hpf); MDiff Complete? YES; Microcytosis SLIGHT = 6-15 cells (100X) (0-5/hpf); Platelet Morphology Comment Appears Adequate; Polychromasia SLIGHT = 2-3 cells (100X) (0-2/hpf)
[2021-05-10 15:37] LABS: ALT (SGPT) 40 U/L (8-55); AST (SGOT) 22 U/L (5-34); Albumin 3.8 g/dL (3.5-5.0); Alkaline Phosphatase 100 U/L (40-110); Anion Gap 15 mmol/L (10-20); BUN (Urea Nitrogen) 13 mg/dL (7.0-18.7); Bilirubin, Total 0.2 mg/dL (0.2-1.2); Calc. Creatinine Clearance 0 mL/min (70-130); Calcium 8.9 mg/dL (7.8-10.44); Carbon Dioxide 23 mmol/L (22-29); Chloride 104 mmol/L (98-107); Globulin 3.5 g/dL (2.4-3.5); Glucose 91 mg/dL (70-105); Potassium 3.8 mmol/L (3.5-5.1); Protein, Total 7.3 g/dL (6.0-8.3); Sodium 138 mmol/L (136-145)
[2021-05-10] MEDS ORDERED: methylPREDNISolone Sod Succ/PF 125 MG/2 ML VIAL ONE (19:25)
[2021-05-10] MEDS ORDERED: Magnesium 2 GM/50 ML BAG (IN WATER) ONE (22:55)
[2021-05-11] MEDS ORDERED: Ondansetron ODT 4 MG TAB SL PRN (02:00)
[2021-05-11] MEDS ORDERED: Ondansetron PF 4 MG/2 ML Vial IVP PRN (02:00)
[2021-05-11] MEDS: Acetaminophen 325 MG TAB PO PRN ×3 (02:35→19:50)
[2021-05-11] MEDS: methylPREDNISolone Sod Succ 40 MG VIAL IVP SCH ×2 (02:35→08:27)
[2021-05-11 04:34] VITALS: BMI 32.4
[2021-05-11] MEDS ORDERED: Senokot S 8.6-50 MG TAB PO PRN (09:51)
[2021-05-11] MEDS ORDERED: Bisacodyl 5 MG TAB PO PRN (09:51)
[2021-05-11 11:39] LABS: SARS-CoV-2 PCR by NAA Not Detected (NotDetected)
[2021-05-11] MEDS: Montelukast Sodium 10 mg Tablet PO SCH (19:50)
[2021-05-12 07:12] LABS: Anion Gap 10 mmol/L (10-20); BUN (Urea Nitrogen) 17 mg/dL (7.0-18.7); Calc. Creatinine Clearance 128 mL/min (70-130); Calcium 8.6 mg/dL (7.8-10.44); Carbon Dioxide 24 mmol/L (22-29); Chloride 104 mmol/L (98-107); Glucose 96 mg/dL (70-105); Sodium 134 mmol/L (136-145)
[2021-05-12 07:59] LABS: Hemoglobin 9.4 g/dL (12.0-16.0); Mean Corpuscular HGB CONC 30.9 g/dL (32.0-36.0); Mean Corpuscular Hemoglobin 23.6 pg (27.0-31.0); Mean Corpuscular Volume 76.3 fL (78.0-98.0); Mean Platelet Volume 9.6 fL (7.4-10.4); Platelet Count 330 thou/uL (130-400); RBC Distribution Width 18.1 % (11.5-14.5); Red Blood Cell (RBC) Count 3.96 mill/uL (4.20-5.40); White Blood Cell (WBC) Count 18.3 thou/uL (4.8-10.8)
[2021-05-12] MEDS ORDERED: Benzonatate 100 MG CAP PO PRN (07:59)
[2021-05-12] MEDS ORDERED: Artificial Tear Sol 15 ML BOT EA EYE PRN (07:59)
[2021-05-12] MEDS ORDERED: Hydrocerin (Eucerin) Cream 120 gm Jar TOP PRN (07:59)
[2021-05-12] MEDS ORDERED: Cepastat Lozenges 1 LOZ PO PRN (07:59)
[2021-05-12] MEDS ORDERED: Calcium Carbonate 500 MG ChewTAB PO PRN (07:59)
[2021-05-12] MEDS ORDERED: GUAIFENESIN SF SOLN 200 MG/10 ML UDCUP PO PRN (07:59)
[2021-05-12] MEDS ORDERED: hydrALAZINE 20 MG/ML VIAL SLOW IVP PRN (07:59)
[2021-05-12] MEDS ORDERED: Sodium Chloride 0.65% Nasal 44 ML BOT EA NARE PRN (07:59)
[2021-05-12] MEDS ORDERED: Zolpidem Tartrate 5 MG TAB PO PRN (07:59)
[2021-05-12] MEDS ORDERED: Loperamide HCl 2 MG CAP PO PRN (07:59)
[2021-05-12 08:07] LABS: Band 24 % (5-11); Hypochromia SLIGHT = 6-15 cells (100X) (0-5/hpf); MDiff Complete? YES; Microcytosis SLIGHT = 6-15 cells (100X) (0-5/hpf); Monocytes 6 % (0-10); Neutrophil 70 % (42-75); Platelet Morphology Comment Appears Adequate; Polychromasia SLIGHT = 2-3 cells (100X) (0-2/hpf)
[2021-05-12] MEDS: Loratadine 10 MG TAB PO SCH (08:57)
[2021-05-12] MEDS: Enoxaparin Sodium 40 MG/0.4 ML SYRINGE SC SCH (08:57)
[2021-05-12] MEDS: Fluticasone Propionate Nasal Spray 16 gm Bottle NASAL SCH (14:16)
[2021-05-12] MEDS: Acetaminophen 325 MG TAB PO PRN ×2 (14:17→18:28)
[2021-05-12] MEDS: Mometasone 200 MCG/Formoterol 5 MCG 120 PUFF INHALER INH SCH (18:27)
[2021-05-12] MEDS: Montelukast Sodium 10 mg Tablet PO SCH (19:52)
[2021-05-13] MEDS: HYDROcodone/Acetaminophen 5/325 mg Tablet PO PRN ×2 (00:29→11:03)
[2021-05-13] MEDS: Mometasone 200 MCG/Formoterol 5 MCG 120 PUFF INHALER INH SCH (06:27)
[2021-05-13] MEDS: Fluticasone Propionate Nasal Spray 16 gm Bottle NASAL SCH (11:05)
[2021-05-13] MEDS: Loratadine 10 MG TAB PO SCH (11:05)
[2021-05-13] MEDS: Enoxaparin Sodium 40 MG/0.4 ML SYRINGE SC SCH (11:05)
[2021-05-13 15:13] VITALS: BP 142/84; TEMP 98.8
== END 2021-05-13 16:48 | disposition home or self-care (01) | DRG 203 ==
LOC: ERS 14:06 → SJJU 23:54 → OBSVTOIN 05-11 09:51
PROVIDERS: ADMIT Internal Medicine; ATTEND Internal Medicine
DX: J45.901 Unspecified asthma with (acute) exacerbation (principal); D50.9 Iron deficiency anemia, unspecified; E66.9 Obesity, unspecified; F31.9 Bipolar disorder, unspecified; F41.9 Anxiety disorder, unspecified; Z87.891 Personal history of nicotine dependence; Z79.51 Long term (current) use of inhaled steroids; Z79.899 Other long term (current) drug therapy; Z68.32 Body mass index [BMI] 32.0-32.9, adult
CPT/HCPCS: 36415; 71045; 80048; 80053; 84484; 85025; 93005; 94644; 94760; 96376; G0378; J1650; J2920; J2930; J3475; J7620; U0003; U0005

== ENCOUNTER 2021-06-23 09:39 | Inpatient (IN) | payer SELFPAY ==
[~2021-06-23 09:39] MED LIST: Iopamidol-370 76% 500 ML 1 ML ONE
[2021-06-23] MEDS ORDERED: Acetaminophen 500 MG TAB ONE (10:45)
[2021-06-23] MEDS ORDERED: Dexamethasone 10 MG/ML VIAL ONE (10:45)
[2021-06-23] MEDS ORDERED: Albuterol 200 PUFF (6.7GM INHALER) ONE (11:05)
[2021-06-23 11:10] LABS: Hemoglobin 9.6 g/dL (12.0-16.0); Mean Corpuscular HGB CONC 30.7 g/dL (32.0-36.0); Mean Platelet Volume 9.2 fL (7.4-10.4); Platelet Count 342 thou/uL (130-400); RBC Distribution Width 17.7 % (11.5-14.5); Red Blood Cell (RBC) Count 4.16 mill/uL (4.20-5.40); White Blood Cell (WBC) Count 23.2 thou/uL (4.8-10.8)
[2021-06-23] MEDS ORDERED: Magnesium 2 GM/50 ML BAG (IN WATER) ONE (11:13)
[2021-06-23 11:44] LABS: Anisocytosis SLIGHT = 6-15 cells (100X) (0-5/hpf); Band 13 % (5-11); Eosinophils 1 % (0-10); Lymphocytes 3 % (21-51); MDiff Complete? YES; Microcytosis SLIGHT = 6-15 cells (100X) (0-5/hpf); Monocytes 5 % (0-10); Neutrophil 78 % (42-75); Platelet Morphology Comment Appears Adequate; Polychromasia SLIGHT = 2-3 cells (100X) (0-2/hpf); Vacuoles SLIGHT
[2021-06-23 12:07] LABS: SARS-CoV-2 NAA Rapid Test Not Detected (NotDetected)
[2021-06-23] MEDS ORDERED: Azithromycin 500 MG VIAL ONE (12:52)
[2021-06-23] MEDS ORDERED: cefTRIAXone\\ROCEPHIN 2 GM VIAL ONE (12:53)
[2021-06-23] MEDS ORDERED: Ondansetron ODT 4 MG TAB PO PRN (13:24)
[2021-06-23] MEDS ORDERED: Acetaminophen 325 MG TAB PO PRN (13:24)
[2021-06-23 13:41] LABS: ALT (SGPT) 16 U/L (8-55); AST (SGOT) 11 U/L (5-34); Albumin 3.7 g/dL (3.5-5.0); Alkaline Phosphatase 141 U/L (40-110); Anion Gap 14 mmol/L (10-20); BUN (Urea Nitrogen) 6 mg/dL (7.0-18.7); Bilirubin, Total 0.8 mg/dL (0.2-1.2); Calc. Creatinine Clearance 0 mL/min (70-130); Calcium 9.3 mg/dL (7.8-10.44); Carbon Dioxide 25 mmol/L (22-29); Chloride 103 mmol/L (98-107); Globulin 3.9 g/dL (2.4-3.5); Glucose 103 mg/dL (70-105); Potassium 3.9 mmol/L (3.5-5.1); Protein, Total 7.6 g/dL (6.0-8.3); Sodium 138 mmol/L (136-145)
[2021-06-23 15:14] VITALS: BMI 32.1
[2021-06-23] MEDS: Guaifenesin DM 100-10/5 ML UDCUP PO PRN (17:41)
[2021-06-23] MEDS: methylPREDNISolone Sod Succ 40 MG VIAL IVP SCH (17:41)
[2021-06-23 18:08] LABS: Pregnancy Test - Urine (BHCG) Negative (Negative); Pregu Control Background? CLEAR/WHITE (CLR/WHITE); Pregu Control Bar Appear? YES (CONTROL BAR); Specific Gravity 1.025 (1.002-1.036)
[2021-06-23 18:18] LABS: Legionella Urinary Ag Negative (Negative); Strep pneumo Urine Ag NEGATIVE (NEGATIVE)
[2021-06-23] MEDS: Mometasone 100 MCG/Formoterol 5 MCG 120 PUFF INHALER INH SCH (18:45)
[2021-06-23] MEDS ORDERED: Famotidine 20 MG TAB PO SCH (21:00)
[2021-06-24] MEDS: methylPREDNISolone Sod Succ 40 MG VIAL IVP SCH ×5 (00:18→23:52)
[2021-06-24] MEDS ORDERED: Bisacodyl 5 MG TAB PO PRN (07:01)
[2021-06-24] MEDS ORDERED: Hydrocerin (Eucerin) Cream 120 gm Jar TOP PRN (07:01)
[2021-06-24] MEDS ORDERED: Loperamide HCl 2 MG CAP PO PRN (07:01)
[2021-06-24] MEDS ORDERED: Calcium Carbonate 500 MG ChewTAB PO PRN (07:01)
[2021-06-24] MEDS ORDERED: GUAIFENESIN SF SOLN 200 MG/10 ML UDCUP PO PRN (07:01)
[2021-06-24] MEDS ORDERED: hydrALAZINE 20 MG/ML VIAL SLOW IVP PRN (07:01)
[2021-06-24] MEDS ORDERED: Cepastat Lozenges 1 LOZ PO PRN (07:01)
[2021-06-24] MEDS ORDERED: HYDROcodone/Acetaminophen 5/325 mg Tablet PO PRN (07:01)
[2021-06-24] MEDS ORDERED: Benzonatate 100 MG CAP PO PRN (07:01)
[2021-06-24] MEDS ORDERED: Senokot S 8.6-50 MG TAB PO PRN (07:01)
[2021-06-24] MEDS ORDERED: Sodium Chloride 0.65% Nasal 44 ML BOT EA NARE PRN (07:01)
[2021-06-24] MEDS ORDERED: Artificial Tear Sol 15 ML BOT EA EYE PRN (07:01)
[2021-06-24] MEDS ORDERED: Ondansetron PF 4 MG/2 ML Vial IVP PRN (07:01)
[2021-06-24] MEDS ORDERED: Loratadine 10 MG TAB PO PRN (07:01)
[2021-06-24 07:39] LABS: Hemoglobin 8.9 g/dL (12.0-16.0); Mean Corpuscular HGB CONC 28.4 g/dL (32.0-36.0); Mean Corpuscular Hemoglobin 21.6 pg (27.0-31.0); Mean Corpuscular Volume 75.9 fL (78.0-98.0); Mean Platelet Volume 9.3 fL (7.4-10.4); Platelet Count 366 thou/uL (130-400); Red Blood Cell (RBC) Count 4.12 mill/uL (4.20-5.40); White Blood Cell (WBC) Count 24.3 thou/uL (4.8-10.8)
[2021-06-24 07:47] LABS: Anion Gap 13 mmol/L (10-20); BUN (Urea Nitrogen) 8 mg/dL (7.0-18.7); Calc. Creatinine Clearance 155 mL/min (70-130); Calcium 8.9 mg/dL (7.8-10.44); Carbon Dioxide 22 mmol/L (22-29); Chloride 106 mmol/L (98-107); Glucose 170 mg/dL (70-105); Potassium 4.4 mmol/L (3.5-5.1); Sodium 137 mmol/L (136-145)
[2021-06-24] MEDS: Enoxaparin Sodium 40 MG/0.4 ML SYRINGE SC SCH (08:00)
[2021-06-24] MEDS: Montelukast Sodium 10 mg Tablet PO SCH (08:00)
[2021-06-24] MEDS: Mometasone 100 MCG/Formoterol 5 MCG 120 PUFF INHALER INH SCH ×2 (08:03→17:36)
[2021-06-24] MEDS: Guaifenesin DM 100-10/5 ML UDCUP PO PRN (08:57)
[2021-06-24 10:27] LABS: Band 22 % (5-11); Hypochromia SLIGHT = 6-15 cells (100X) (0-5/hpf); Lymphocytes 5 % (21-51); MDiff Complete? YES; Metamyelocyte 1 % (0-0); Microcytosis SLIGHT = 6-15 cells (100X) (0-5/hpf); Monocytes 1 % (0-10); Neutrophil 71 % (42-75); Platelet Morphology Comment Appears Adequate; Polychromasia SLIGHT = 2-3 cells (100X) (0-2/hpf)
[2021-06-24] MEDS: cefTRIAXone\\ROCEPHIN 1 GM in Sodium Chloride 0.9% 100 ML IVPB SCH (11:51)
[2021-06-24] MEDS: Azithromycin 500 MG in Sodium Chloride 0.9% 250 ML 250 ML IVPB SCH (13:00)
[2021-06-24] MEDS: Ferrous Sulfate 325 MG TAB PO SCH (17:36)
[2021-06-24] MEDS: guaiFENesin ER 600 MG TAB PO SCH (21:02)
[2021-06-24] MEDS: Zolpidem Tartrate 5 MG TAB PO PRN (21:04)
[2021-06-25] MEDS: methylPREDNISolone Sod Succ 40 MG VIAL IVP SCH ×4 (06:12→23:12)
[2021-06-25 06:38] LABS: Magnesium 2.5 mg/dL (1.6-2.6); Phosphorus 2.4 mg/dL (2.3-4.7)
[2021-06-25] MEDS: Guaifenesin DM 100-10/5 ML UDCUP PO PRN ×2 (06:49→17:37)
[2021-06-25] MEDS: Mometasone 100 MCG/Formoterol 5 MCG 120 PUFF INHALER INH SCH ×2 (07:26→18:43)
[2021-06-25] MEDS: Montelukast Sodium 10 mg Tablet PO SCH (07:44)
[2021-06-25] MEDS: guaiFENesin ER 600 MG TAB PO SCH ×2 (07:44→21:17)
[2021-06-25] MEDS: Ferrous Sulfate 325 MG TAB PO SCH ×2 (07:44→17:37)
[2021-06-25] MEDS: Enoxaparin Sodium 40 MG/0.4 ML SYRINGE SC SCH (07:44)
[2021-06-25] MEDS: cefTRIAXone\\ROCEPHIN 1 GM in Sodium Chloride 0.9% 100 ML IVPB SCH (11:49)
[2021-06-25] MEDS: Azithromycin 500 MG in Sodium Chloride 0.9% 250 ML 250 ML IVPB SCH (12:57)
[2021-06-25] MEDS: Zolpidem Tartrate 5 MG TAB PO PRN (21:17)
[2021-06-26] MEDS: Mometasone 100 MCG/Formoterol 5 MCG 120 PUFF INHALER INH SCH ×2 (06:17→18:41)
[2021-06-26] MEDS: methylPREDNISolone Sod Succ 40 MG VIAL IVP SCH ×3 (06:18→21:15)
[2021-06-26 07:23] LABS: Anisocytosis SLIGHT = 6-15 cells (100X) (0-5/hpf); Hemoglobin 9.5 g/dL (12.0-16.0); Hypochromia SLIGHT = 6-15 cells (100X) (0-5/hpf); MDiff Complete? YES; Mean Corpuscular HGB CONC 28.9 g/dL (32.0-36.0); Mean Corpuscular Volume 76.3 fL (78.0-98.0); Mean Platelet Volume 9.3 fL (7.4-10.4); Microcytosis SLIGHT = 6-15 cells (100X) (0-5/hpf); Platelet Count 376 thou/uL (130-400); RBC Distribution Width 18.1 % (11.5-14.5); Red Blood Cell (RBC) Count 4.32 mill/uL (4.20-5.40); White Blood Cell (WBC) Count 29.9 thou/uL (4.8-10.8)
[2021-06-26 07:32] LABS: Band 8 % (5-11); Lymphocytes 9 % (21-51); Monocytes 1 % (0-10); Myelocyte 1 % (0-0); Neutrophil 81 % (42-75)
[2021-06-26 07:56] LABS: ALT (SGPT) 37 U/L (8-55); AST (SGOT) 16 U/L (5-34); Albumin 3.7 g/dL (3.5-5.0); Alkaline Phosphatase 124 U/L (40-110); Anion Gap 16 mmol/L (10-20); BUN (Urea Nitrogen) 14 mg/dL (7.0-18.7); Bilirubin, Total 0.2 mg/dL (0.2-1.2); Calc. Creatinine Clearance 143 mL/min (70-130); Calcium 9.3 mg/dL (7.8-10.44); Carbon Dioxide 24 mmol/L (22-29); Chloride 101 mmol/L (98-107); Globulin 3.3 g/dL (2.4-3.5); Glucose 159 mg/dL (70-105); Potassium 4.8 mmol/L (3.5-5.1); Sodium 136 mmol/L (136-145)
[2021-06-26] MEDS: Montelukast Sodium 10 mg Tablet PO SCH (08:19)
[2021-06-26] MEDS: Enoxaparin Sodium 40 MG/0.4 ML SYRINGE SC SCH (08:19)
[2021-06-26] MEDS: guaiFENesin ER 600 MG TAB PO SCH ×2 (08:19→21:14)
[2021-06-26] MEDS: Ferrous Sulfate 325 MG TAB PO SCH ×2 (08:19→17:00)
[2021-06-26] MEDS: Azithromycin 500 MG in Sodium Chloride 0.9% 250 ML 250 ML IVPB SCH (12:50)
[2021-06-26] MEDS: cefTRIAXone\\ROCEPHIN 1 GM in Sodium Chloride 0.9% 100 ML IVPB SCH (14:08)
[2021-06-26] MEDS: Zolpidem Tartrate 5 MG TAB PO PRN (21:14)
[2021-06-27] MEDS: Mometasone 100 MCG/Formoterol 5 MCG 120 PUFF INHALER INH SCH (06:20)
[2021-06-27 07:44] VITALS: BP 117/76; TEMP 98.2
[2021-06-27] MEDS: Enoxaparin Sodium 40 MG/0.4 ML SYRINGE SC SCH (08:00)
[2021-06-27] MEDS: methylPREDNISolone Sod Succ 40 MG VIAL IVP SCH (08:00)
[2021-06-27] MEDS: Montelukast Sodium 10 mg Tablet PO SCH (08:00)
[2021-06-27] MEDS: guaiFENesin ER 600 MG TAB PO SCH (08:00)
[2021-06-27] MEDS: Ferrous Sulfate 325 MG TAB PO SCH (08:00)
[2021-06-27 10:05] LABS: Band 37 % (5-11); Hemoglobin 9.7 g/dL (12.0-16.0); Lymphocytes 13 % (21-51); MDiff Complete? YES; Mean Corpuscular HGB CONC 28.7 g/dL (32.0-36.0); Mean Corpuscular Hemoglobin 22.3 pg (27.0-31.0); Mean Corpuscular Volume 77.7 fL (78.0-98.0); Mean Platelet Volume 9.1 fL (7.4-10.4); Metamyelocyte 4 % (0-0); Monocytes 1 % (0-10); Myelocyte 1 % (0-0); Neutrophil 44 % (42-75); Platelet Count 400 thou/uL (130-400); RBC Distribution Width 18.8 % (11.5-14.5); Red Blood Cell (RBC) Count 4.34 mill/uL (4.20-5.40); White Blood Cell (WBC) Count 28.3 thou/uL (4.8-10.8)
[2021-06-29 00:07] LABS: Mycoplasma pneumoniae IgG AB 170 U/mL (0-99); Mycoplasma pneumoniae IgM AB Less than 770 U/mL (0-769)
== END 2021-06-27 10:21 | disposition home or self-care (01) | DRG 871 ==
LOC: ERS 09:39 → T4-B 13:01
PROVIDERS: ADMIT Internal Medicine; ATTEND Internal Medicine
DX: A41.9 Sepsis, unspecified organism (principal); J18.9 Pneumonia, unspecified organism; Z20.822 Contact with and (suspected) exposure to COVID-19; J45.41 Moderate persistent asthma with (acute) exacerbation; D50.9 Iron deficiency anemia, unspecified; E66.9 Obesity, unspecified; F31.9 Bipolar disorder, unspecified; F41.9 Anxiety disorder, unspecified; Z68.32 Body mass index [BMI] 32.0-32.9, adult; Z87.891 Personal history of nicotine dependence; Z79.51 Long term (current) use of inhaled steroids; Z79.52 Long term (current) use of systemic steroids
CPT/HCPCS: 0240U; 36415; 71045; 71275; 80048; 80053; 81025; 83605; 83735; 83880; 84100; 84145; 84484; 85025; 85379; 87040; 87449; 87633; 87899; 93005; 94640; 96365; 96367; 96368; 96375; J0456; J0696; J1100; J1650; J2405; J2920; J3475; J3490; J7050; J7620; Q9967

== ENCOUNTER 2021-08-01 14:13 | Emergency (ER) | payer SELFPAY ==
[2021-08-01] MEDS ORDERED: Albuterol 200 PUFF (6.7GM INHALER) ONE (15:04)
[2021-08-01] MEDS ORDERED: methylPREDNISolone Sod Succ/PF 125 MG/2 ML VIAL ONE (15:09)
== END 2021-08-01 17:31 | disposition home or self-care (01) ==
LOC: ERS 14:13
DX: J45.901 Unspecified asthma with (acute) exacerbation (principal); Z87.891 Personal history of nicotine dependence
CPT/HCPCS: 71045; 93005; 96372; J2930

== ENCOUNTER 2021-08-24 19:41 | Emergency (ER) | payer SELFPAY ==
[2021-08-24] MEDS ORDERED: predniSONE 20 MG TAB ONE (20:04)
== END 2021-08-24 21:05 | disposition home or self-care (01) ==
LOC: ERS 19:41
DX: J45.901 Unspecified asthma with (acute) exacerbation (principal); Z87.891 Personal history of nicotine dependence
CPT/HCPCS: 93005; 94640; 94760; J7512; J7620

== ENCOUNTER 2021-09-20 10:34 | Emergency (ER) | payer SELFPAY | END 2021-09-20 11:50 | disposition home or self-care (01) | LOC: ERS 10:34 | DX: J45.901 Unspecified asthma with (acute) exacerbation (principal); Z87.891 Personal history of nicotine dependence; Z79.899 Other long term (current) drug therapy | CPT/HCPCS: 71045; 93005 ==

== ENCOUNTER 2021-10-05 07:45 | Emergency (ER) | payer SELFPAY ==
[2021-10-05 08:51] LABS: #Lymphocytes 0.7 thou/uL (1.20-3.40); #Monocytes 0.3 thou/uL (0.11-0.59); #Neutrophils 11.7 thou/uL (1.40-6.50); %Eosinophils 0.2 % (0.0-10.0); %Lymphocytes 5.2 % (21.0-51.0); %Monocytes 2.1 % (0.0-10.0); %Neutrophils 92.6 % (42.0-75.0); Hemoglobin 9.9 g/dL (12.0-16.0); Mean Corpuscular HGB CONC 30.8 g/dL (32.0-36.0); Mean Corpuscular Hemoglobin 22.2 pg (27.0-31.0); Mean Corpuscular Volume 71.8 fL (78.0-98.0); Platelet Count 287 thou/uL (130-400); RBC Distribution Width 19.4 % (11.5-14.5); Red Blood Cell (RBC) Count 4.46 mill/uL (4.20-5.40); White Blood Cell (WBC) Count 12.6 thou/uL (4.8-10.8)
[2021-10-05 09:01] LABS: ALT (SGPT) 31 U/L (8-55); AST (SGOT) 16 U/L (5-34); Albumin 4.1 g/dL (3.5-5.0); Alkaline Phosphatase 94 U/L (40-110); Anion Gap 11 mmol/L (10-20); BUN (Urea Nitrogen) 9 mg/dL (7.0-18.7); Bilirubin, Total 0.4 mg/dL (0.2-1.2); Calc. Creatinine Clearance 0 mL/min (70-130); Calcium 9.6 mg/dL (7.8-10.44); Carbon Dioxide 25 mmol/L (22-29); Chloride 102 mmol/L (98-107); Globulin 3.6 g/dL (2.4-3.5); Glucose 155 mg/dL (70-105); Potassium 4.2 mmol/L (3.5-5.1); Protein, Total 7.7 g/dL (6.0-8.3); Sodium 134 mmol/L (136-145)
[2021-10-05 09:36] LABS: Hypochromia MODERATE=16-30 cells (100X) (0-5/hpf); MDiff Complete? YES; Microcytosis MODERATE=15-30 cells (100X) (0-5/hpf); Platelet Morphology Comment Appears Adequate; Polychromasia SLIGHT = 2-3 cells (100X) (0-2/hpf)
[2021-10-05] MEDS ORDERED: Magnesium 2 GM/50 ML BAG (IN WATER) ONE (09:38)
[2021-10-05] MEDS ORDERED: Albuterol Sulfate 2.5 mg/3 ml Neb ONE ×2 (10:03→15:47)
[2021-10-05 12:37] LABS: Bilirubin Negative (Negative); Blood, Urine Negative (Negative); Glucose, Urine (Dipstick) Normal (Negative); Ketone, Urine Negative (Negative); Leukocyte Negative Leu/uL (Negative); Nitrite Negative (Negative); Protein, Urine (Dipstick) 20 mg/dL (Neg-Trace); Specific Gravity, Urine 1.023 (1.002-1.036); Urobilinogen Normal mg/dL (Less than 2)
[2021-10-05 12:41] LABS: Clarity Hazy (Clear)
[2021-10-05 12:43] LABS: SARS-CoV-2 NAA Rapid Test Not Detected (NotDetected)
[2021-10-05 14:33] LABS: Actual Bicarbonate (HCO3a) 20.4 mEq/L (22-28); Analyzer IN Cardio ER; Base Excess (BEa) -4.4 mEq/L (-2.0 to +3.0); CO2 Tension 36.5 mmHg (35.0-45.0); Carboxyhemoglobin (COHb) 0.2 gm% (0.0-3.0); Hemoglobin (Hb) 10.3 g/dL (12.0-16.0); O2 Tension (PaO2), arterial 71.4 mmHg (80.0-100.0); Potassium - ABG Lab 4.23 mmol/L (3.70-5.30); pH, Arterial 7.37 (7.35-7.45)
[2021-10-05 14:36] LABS: ALV-art Gradient 82.615 mmHg (0-20); Puncture Site LRA
[2021-10-05] MEDS ORDERED: Dexamethasone 10 MG/ML VIAL ONE (15:47)
== END 2021-10-05 17:43 | disposition short-term general hospital (02) ==
LOC: ERS 07:45
DX: J45.901 Unspecified asthma with (acute) exacerbation (principal); Z20.822 Contact with and (suspected) exposure to COVID-19; Z87.891 Personal history of nicotine dependence
CPT/HCPCS: 0240U; 36415; 36600; 71045; 80053; 81003; 82805; 85025; 94644; 94760; 96365; 96366; 96375; J1100; J3475; J7611; J7620

== ENCOUNTER 2021-10-18 11:34 | Emergency (ER) | payer OTHER | END 2021-10-18 14:29 | disposition left against medical advice (07) | LOC: ERS 11:34 | DX: Z53.21 Procedure and treatment not carried out due to patient leaving prior to being seen by health care provider (principal) | CPT/HCPCS: 71045 ==

== ENCOUNTER 2021-10-29 14:26 | Emergency (ER) | payer OTHER, SELFPAY ==
[2021-10-29] MEDS ORDERED: Magnesium 2 GM/50 ML BAG (IN WATER) ONE (17:09)
[2021-10-29] MEDS ORDERED: methylPREDNISolone Sod Succ/PF 125 MG/2 ML VIAL ONE (17:09)
[2021-10-29] MEDS ORDERED: Albuterol 200 PUFF (6.7GM INHALER) ONE (17:14)
[2021-10-30 12:11] LABS: SARS-CoV-2 PCR by NAA Not Detected (NotDetected)
== END 2021-10-29 18:42 | disposition home or self-care (01) ==
LOC: ERS 14:26
DX: J45.901 Unspecified asthma with (acute) exacerbation (principal); E78.5 Hyperlipidemia, unspecified; Z20.822 Contact with and (suspected) exposure to COVID-19; Z79.899 Other long term (current) drug therapy
CPT/HCPCS: 96365; 96375; J2930; J3475; U0003; U0005

== ENCOUNTER 2021-11-06 16:20 | Emergency (ER) | payer OTHER, SELFPAY ==
[2021-11-06] MEDS ORDERED: methylPREDNISolone Sod Succ/PF 125 MG/2 ML VIAL ONE (16:40)
[2021-11-06] MEDS ORDERED: Magnesium 2 GM/50 ML BAG (IN WATER) ONE (16:40)
[2021-11-06] MEDS ORDERED: Albuterol 200 PUFF (6.7GM INHALER) ONE (16:40)
[2021-11-06] MEDS ORDERED: Dexamethasone 10 MG/ML VIAL ONE (16:44)
== END 2021-11-06 19:30 | disposition home or self-care (01) ==
LOC: ERS 16:20
DX: J45.909 Unspecified asthma, uncomplicated (principal); E78.5 Hyperlipidemia, unspecified; Z79.899 Other long term (current) drug therapy
CPT/HCPCS: 71045; 96365; 96367; 96375; J1100; J1956; J2930; J3475

== ENCOUNTER 2021-11-19 14:45 | Emergency (ER) | payer OTHER, SELFPAY ==
[2021-11-19] MEDS ORDERED: predniSONE 20 MG TAB ONE (16:06)
== END 2021-11-19 17:05 | disposition home or self-care (01) ==
LOC: ERS 14:45
DX: J45.901 Unspecified asthma with (acute) exacerbation (principal); E78.5 Hyperlipidemia, unspecified; Z79.899 Other long term (current) drug therapy
CPT/HCPCS: 99284; J7512; J7620

== ENCOUNTER 2022-01-04 21:30 | Observation (INO) | payer OTHER ==
[2022-01-04] MEDS ORDERED: methylPREDNISolone Sod Succ/PF 125 MG/2 ML VIAL ONE (22:21)
[2022-01-04] MEDS ORDERED: Aspirin Chewable 81 MG TAB ONE ×2 (22:21→22:40)
[2022-01-04] MEDS ORDERED: Magnesium 2 GM/50 ML BAG (IN WATER) ONE (22:21)
[2022-01-04 22:29] LABS: #Eosinphils 0.2 thou/uL (0.0-0.7); #Lymphocytes 2.2 thou/uL (1.20-3.40); #Monocytes 0.9 thou/uL (0.11-0.59); #Neutrophils 9.2 thou/uL (1.40-6.50); %Basophils 0.3 % (0.0-1.0); %Eosinophils 1.7 % (0.0-10.0); %Lymphocytes 17.5 % (21.0-51.0); %Monocytes 7.4 % (0.0-10.0); %Neutrophils 73.1 % (42.0-75.0); Hemoglobin 8.8 g/dL (12.0-16.0); Mean Corpuscular HGB CONC 29.5 g/dL (32.0-36.0); Mean Corpuscular Volume 71.2 fL (78.0-98.0); Mean Platelet Volume 10.8 fL (7.4-10.4); Platelet Count 317 thou/uL (130-400); RBC Distribution Width 19.5 % (11.5-14.5); Red Blood Cell (RBC) Count 4.18 mill/uL (4.20-5.40); White Blood Cell (WBC) Count 12.6 thou/uL (4.8-10.8)
[2022-01-04 22:45] LABS: BHCG - Serum Negative (NEGATIVE); Pregs Control Background? CLEAR/WHITE (CLR/WHITE); Pregs Control Bar Appear? YES (CONTROL BAR)
[2022-01-04 22:50] LABS: ALT (SGPT) 18 U/L (8-55); AST (SGOT) 21 U/L (5-34); Albumin 3.8 g/dL (3.5-5.0); Alkaline Phosphatase 104 U/L (40-110); Anion Gap 14 mmol/L (10-20); BUN (Urea Nitrogen) 8 mg/dL (7.0-18.7); Bilirubin, Total 0.5 mg/dL (0.2-1.2); Calc. Creatinine Clearance 0 mL/min (70-130); Calcium 8.7 mg/dL (7.8-10.44); Carbon Dioxide 22 mmol/L (22-29); Chloride 104 mmol/L (98-107); Globulin 3.5 g/dL (2.4-3.5); Glucose 83 mg/dL (70-105); Lipase 16 U/L (8-78); Potassium 3.5 mmol/L (3.5-5.1); Protein, Total 7.3 g/dL (6.0-8.3); Sodium 136 mmol/L (136-145)
[2022-01-04 23:16] LABS: Bilirubin Negative (Negative); Blood, Urine Negative (Negative); Clarity Turbid (Clear); Glucose, Urine (Dipstick) Normal (Negative); Ketone, Urine Negative (Negative); Leukocyte Negative Leu/uL (Negative); Nitrite Negative (Negative); Protein, Urine (Dipstick) Negative (Neg-Trace); Urobilinogen Normal mg/dL (Less than 2); pH, Urine 6.5 (5.0-9.0)
[2022-01-05] MEDS ORDERED: Albuterol Sulfate 2.5 mg/3 ml Neb NEB PRN (00:54)
[2022-01-05] MEDS ORDERED: Acetaminophen 325 MG TAB PO PRN (00:55)
[2022-01-05] MEDS ORDERED: Ondansetron PF 4 MG/2 ML Vial IVP PRN (00:55)
[2022-01-05] MEDS ORDERED: hydrALAZINE 20 MG/ML VIAL SLOW IVP PRN (00:58)
[2022-01-05] MEDS ORDERED: Nitroglycerin 0.4 MG TAB (25 Tab Bottle) SL PRN (00:58)
[2022-01-05] MEDS ORDERED: Melatonin 3 MG TAB PO PRN (00:58)
[2022-01-05] MEDS ORDERED: Pantoprazole 40 MG VIAL IVP SCH ×2 (01:00→09:00)
[2022-01-05] MEDS ORDERED: Pantoprazole 40 MG VIAL ONE (01:06)
[2022-01-05] MEDS ORDERED: Benzonatate 100 MG CAP PO PRN (02:27)
[2022-01-05] MEDS ORDERED: methylPREDNISolone Sod Succ 40 MG VIAL ONE (05:47)
[2022-01-05] MEDS: methylPREDNISolone Sod Succ 40 MG VIAL IVP SCH ×3 (05:56→21:41)
[2022-01-05 06:38] LABS: #Lymphocytes 0.5 thou/uL (1.20-3.40); #Neutrophils 13.9 thou/uL (1.40-6.50); %Basophils 0.2 % (0.0-1.0); %Eosinophils 0.3 % (0.0-10.0); %Lymphocytes 3.1 % (21.0-51.0); %Monocytes 0.3 % (0.0-10.0); %Neutrophils 96.2 % (42.0-75.0); Mean Corpuscular Hemoglobin 19.9 pg (27.0-31.0); Mean Corpuscular Volume 71.2 fL (78.0-98.0); Mean Platelet Volume 11.2 fL (7.4-10.4); Platelet Count 343 thou/uL (130-400); RBC Distribution Width 19.7 % (11.5-14.5); White Blood Cell (WBC) Count 14.5 thou/uL (4.8-10.8)
[2022-01-05 07:00] LABS: ALT (SGPT) 19 U/L (8-55); AST (SGOT) 15 U/L (5-34); Albumin 3.9 g/dL (3.5-5.0); Alkaline Phosphatase 113 U/L (40-110); Anion Gap 15 mmol/L (10-20); BUN (Urea Nitrogen) 6 mg/dL (7.0-18.7); Bilirubin, Total 0.4 mg/dL (0.2-1.2); Calc. Creatinine Clearance 124 mL/min (70-130); Calcium 8.7 mg/dL (7.8-10.44); Carbon Dioxide 20 mmol/L (22-29); Chloride 103 mmol/L (98-107); Globulin 3.7 g/dL (2.4-3.5); Glucose 232 mg/dL (70-105); Potassium 4.1 mmol/L (3.5-5.1); Protein, Total 7.6 g/dL (6.0-8.3); Sodium 134 mmol/L (136-145)
[2022-01-05] MEDS ORDERED: Albuterol Sulfate 2.5 mg/3 ml Neb EZPAP PRN (08:04)
[2022-01-05] MEDS ORDERED: GUAIFENESIN SF SOLN 200 MG/10 ML UDCUP PO PRN (08:05)
[2022-01-05] MEDS: Ferrous Sulfate 325 MG TAB PO SCH ×2 (08:40→16:42)
[2022-01-05] MEDS: Montelukast Sodium 10 mg Tablet PO SCH (08:41)
[2022-01-05 09:51] LABS: Troponin I Less than 0.010 ng/mL (< 0.028)
[2022-01-05 15:14] VITALS: BMI 33.6
[2022-01-05 16:49] LABS: SARS-CoV-2 PCR by NAA Not Detected (NotDetected)
[2022-01-06] MEDS: methylPREDNISolone Sod Succ 40 MG VIAL IVP SCH ×2 (05:27→15:45)
[2022-01-06] MEDS: Montelukast Sodium 10 mg Tablet PO SCH (08:52)
[2022-01-06] MEDS: Ferrous Sulfate 325 MG TAB PO SCH (08:52)
[2022-01-06 15:41] VITALS: BP 141/69; TEMP 98.1
== END 2022-01-06 16:52 | disposition home or self-care (01) ==
LOC: ERS 21:30 → ERHOLD 01-05 00:35 → 2SW 01-05 14:04
PROVIDERS: ADMIT Internal Medicine; ATTEND Internal Medicine
DX: J96.01 Acute respiratory failure with hypoxia (principal); J45.901 Unspecified asthma with (acute) exacerbation; N28.89 Other specified disorders of kidney and ureter; E87.1 Hypo-osmolality and hyponatremia; I10 Essential (primary) hypertension; Z20.822 Contact with and (suspected) exposure to COVID-19; Z79.899 Other long term (current) drug therapy
CPT/HCPCS: 36415; 71045; 71275; 80053; 81003; 83690; 84145; 84484; 84703; 85025; 85379; 87633; 87798; 93005; 93306; 94640; 96374; 96375; 96376; C9113; G0378; J2920; J2930; J3475; J7620; U0003; U0005

== ENCOUNTER 2022-01-24 11:14 | Emergency (ER) | payer OTHER, SELFPAY ==
[2022-01-24] MEDS ORDERED: Dexamethasone 4 mg/ml Vial ONE (13:16)
== END 2022-01-24 13:55 | disposition home or self-care (01) ==
LOC: ERS 11:14
DX: J45.901 Unspecified asthma with (acute) exacerbation (principal); E78.5 Hyperlipidemia, unspecified; E78.00 Pure hypercholesterolemia, unspecified; Z79.51 Long term (current) use of inhaled steroids
CPT/HCPCS: 94640; J1100; J7620

== ENCOUNTER 2022-02-21 16:44 | Emergency (ER) | payer OTHER ==
[2022-02-21] MEDS ORDERED: Dexamethasone 10 MG/ML VIAL ONE ×2 (17:35→17:37)
== END 2022-02-21 19:31 | disposition home or self-care (01) ==
LOC: ERS 16:44
DX: J45.901 Unspecified asthma with (acute) exacerbation (principal); E78.5 Hyperlipidemia, unspecified; E78.00 Pure hypercholesterolemia, unspecified; J45.909 Unspecified asthma, uncomplicated
CPT/HCPCS: 94640; J1100; J7620

== ENCOUNTER 2022-02-25 08:54 | Emergency (ER) | payer OTHER ==
[2022-02-25] MEDS ORDERED: predniSONE 20 MG TAB ONE (09:23)
== END 2022-02-25 11:19 | disposition home or self-care (01) ==
LOC: ERS 08:54
DX: J45.901 Unspecified asthma with (acute) exacerbation (principal); E78.5 Hyperlipidemia, unspecified; E78.00 Pure hypercholesterolemia, unspecified
CPT/HCPCS: 93005; 94640; J7512; J7620

== ENCOUNTER 2022-03-05 12:18 | Inpatient (IN) | payer OTHER ==
[2022-03-05] MEDS ORDERED: methylPREDNISolone Sod Succ/PF 125 MG/2 ML VIAL ONE (13:08)
[2022-03-05 13:24] LABS: #Eosinphils 0.2 thou/uL (0.0-0.7); #Lymphocytes 2.2 thou/uL (1.20-3.40); #Monocytes 0.7 thou/uL (0.11-0.59); #Neutrophils 10.5 thou/uL (1.40-6.50); %Basophils 0.2 % (0.0-1.0); %Eosinophils 1.6 % (0.0-10.0); %Lymphocytes 16.3 % (21.0-51.0); %Monocytes 4.9 % (0.0-10.0); Hemoglobin 9.6 g/dL (12.0-16.0); Mean Corpuscular HGB CONC 30.4 g/dL (32.0-36.0); Mean Corpuscular Hemoglobin 21.8 pg (27.0-31.0); Mean Corpuscular Volume 71.8 fL (78.0-98.0); Mean Platelet Volume 10.4 fL (7.4-10.4); Platelet Count 400 thou/uL (130-400); RBC Distribution Width 21.8 % (11.5-14.5); Red Blood Cell (RBC) Count 4.39 mill/uL (4.20-5.40); White Blood Cell (WBC) Count 13.6 thou/uL (4.8-10.8)
[2022-03-05 13:33] LABS: ALT (SGPT) 25 U/L (8-55); AST (SGOT) 17 U/L (5-34); Albumin 3.9 g/dL (3.5-5.0); Alkaline Phosphatase 107 U/L (40-110); Anion Gap 15 mmol/L (10-20); BUN (Urea Nitrogen) 14 mg/dL (7.0-18.7); Bilirubin, Total 0.4 mg/dL (0.2-1.2); Calc. Creatinine Clearance 0 mL/min (70-130); Calcium 8.6 mg/dL (7.8-10.44); Carbon Dioxide 25 mmol/L (22-29); Chloride 104 mmol/L (98-107); Globulin 3.4 g/dL (2.4-3.5); Glucose 111 mg/dL (70-105); Potassium 3.8 mmol/L (3.5-5.1); Protein, Total 7.3 g/dL (6.0-8.3); Sodium 140 mmol/L (136-145)
[2022-03-05 13:40] LABS: Anisocytosis MODERATE=16-30 cells (100X) (0-5/hpf); Hypochromia SLIGHT = 6-15 cells (100X) (0-5/hpf); MDiff Complete? YES; Microcytosis SLIGHT = 6-15 cells (100X) (0-5/hpf); Platelet Morphology Comment Appears Adequate; Polychromasia SLIGHT = 2-3 cells (100X) (0-2/hpf); Stomatocytes MODERATE= 6-15 cells (100X) (0-1/hpf); Target Cells SLIGHT = 2-5 cells (100X) (0-1/hpf)
[2022-03-05] MEDS ORDERED: Magnesium 2 GM/50 ML BAG (IN WATER) ONE (16:26)
[2022-03-05] MEDS ORDERED: diphenhydrAMINE 25 MG CAP ONE (16:26)
[2022-03-05] MEDS ORDERED: Albuterol Sulfate 1.25 MG/3 ML NEB INH PRN (18:51)
[2022-03-05] MEDS: methylPREDNISolone Sod Succ 40 MG VIAL IVP SCH (19:14)
[2022-03-05] MEDS: Acetaminophen 325 MG TAB PO PRN (21:03)
[2022-03-05 21:08] VITALS: BMI 36.2
[2022-03-06] MEDS: methylPREDNISolone Sod Succ 40 MG VIAL IVP SCH ×5 (00:18→23:53)
[2022-03-06 05:39] LABS: ALT (SGPT) 22 U/L (8-55); AST (SGOT) 14 U/L (5-34); Albumin 3.7 g/dL (3.5-5.0); Alkaline Phosphatase 99 U/L (40-110); Anion Gap 14 mmol/L (10-20); BUN (Urea Nitrogen) 10 mg/dL (7.0-18.7); Bilirubin, Total 0.4 mg/dL (0.2-1.2); Calc. Creatinine Clearance 167 mL/min (70-130); Calcium 8.5 mg/dL (7.8-10.44); Carbon Dioxide 21 mmol/L (22-29); Chloride 103 mmol/L (98-107); Globulin 3.3 g/dL (2.4-3.5); Glucose 156 mg/dL (70-105); Potassium 4.6 mmol/L (3.5-5.1); Sodium 133 mmol/L (136-145)
[2022-03-06 06:16] LABS: Anisocytosis SLIGHT = 6-15 cells (100X) (0-5/hpf); Band 5 % (5-11); Hemoglobin 9.3 g/dL (12.0-16.0); Hypochromia SLIGHT = 6-15 cells (100X) (0-5/hpf); Lymphocytes 2 % (21-51); MDiff Complete? YES; Mean Corpuscular HGB CONC 28.9 g/dL (32.0-36.0); Mean Corpuscular Hemoglobin 21.2 pg (27.0-31.0); Mean Corpuscular Volume 73.4 fL (78.0-98.0); Mean Platelet Volume 10.1 fL (7.4-10.4); Monocytes 1 % (0-10); Neutrophil 92 % (42-75); Platelet Count 398 thou/uL (130-400); RBC Distribution Width 21.6 % (11.5-14.5); White Blood Cell (WBC) Count 19.4 thou/uL (4.8-10.8)
[2022-03-06] MEDS: Mometasone 100 MCG/Formoterol 5 MCG 120 PUFF INHALER INH SCH ×2 (07:27→19:18)
[2022-03-06] MEDS: Montelukast Sodium 10 mg Tablet PO SCH (08:32)
[2022-03-06] MEDS: Ferrous Sulfate 325 MG TAB PO SCH ×2 (08:32→17:35)
[2022-03-06] MEDS ORDERED: Bismuth Subs 17.5 mg/mL Susp PO PRN ×2 (17:34→18:49)
[2022-03-07] MEDS: methylPREDNISolone Sod Succ 40 MG VIAL IVP SCH ×2 (05:30→20:01)
[2022-03-07] MEDS: Mometasone 100 MCG/Formoterol 5 MCG 120 PUFF INHALER INH SCH ×2 (07:23→19:01)
[2022-03-07] MEDS: Ferrous Sulfate 325 MG TAB PO SCH ×2 (08:39→16:08)
[2022-03-07] MEDS: Montelukast Sodium 10 mg Tablet PO SCH (08:39)
[2022-03-07] MEDS: Acetaminophen 325 MG TAB PO PRN (20:03)
[2022-03-08 06:31] LABS: Anion Gap 12 mmol/L (10-20); BUN (Urea Nitrogen) 15 mg/dL (7.0-18.7); Calc. Creatinine Clearance 157 mL/min (70-130); Carbon Dioxide 24 mmol/L (22-29); Chloride 104 mmol/L (98-107); Glucose 176 mg/dL (70-105); Potassium 4.3 mmol/L (3.5-5.1); Sodium 136 mmol/L (136-145)
[2022-03-08 06:34] LABS: Anisocytosis MODERATE=16-30 cells (100X) (0-5/hpf); Band 6 % (5-11); Hemoglobin 9.8 g/dL (12.0-16.0); Lymphocytes 3 % (21-51); MDiff Complete? YES; Mean Corpuscular HGB CONC 28.8 g/dL (32.0-36.0); Mean Corpuscular Hemoglobin 21.1 pg (27.0-31.0); Mean Corpuscular Volume 73.2 fL (78.0-98.0); Mean Platelet Volume 10.6 fL (7.4-10.4); Monocytes 8 % (0-10); Neutrophil 83 % (42-75); Nucleated RBC 1 % (0); Platelet Count 428 thou/uL (130-400); RBC Distribution Width 22.1 % (11.5-14.5); Red Blood Cell (RBC) Count 4.64 mill/uL (4.20-5.40); White Blood Cell (WBC) Count 21.2 thou/uL (4.8-10.8)
[2022-03-08] MEDS: Mometasone 100 MCG/Formoterol 5 MCG 120 PUFF INHALER INH SCH (07:12)
[2022-03-08 08:01] VITALS: BP 145/83; TEMP 98.3
[2022-03-08] MEDS: methylPREDNISolone Sod Succ 40 MG VIAL IVP SCH (08:14)
[2022-03-08] MEDS: Ferrous Sulfate 325 MG TAB PO SCH (08:14)
[2022-03-08] MEDS: Montelukast Sodium 10 mg Tablet PO SCH (08:14)
== END 2022-03-08 14:40 | disposition home or self-care (01) | DRG 203 ==
LOC: ERS 12:18 → MSONC 15:58 → OBSVTOIN 03-07 14:07
PROVIDERS: ADMIT Family Medicine; ATTEND Internal Medicine
DX: J45.41 Moderate persistent asthma with (acute) exacerbation (principal); I10 Essential (primary) hypertension; E78.5 Hyperlipidemia, unspecified; R07.9 Chest pain, unspecified; D72.829 Elevated white blood cell count, unspecified; D50.9 Iron deficiency anemia, unspecified; F41.9 Anxiety disorder, unspecified; E78.00 Pure hypercholesterolemia, unspecified; F31.9 Bipolar disorder, unspecified; Z20.822 Contact with and (suspected) exposure to COVID-19; Z72.89 Other problems related to lifestyle; Z79.899 Other long term (current) drug therapy; Z98.890 Other specified postprocedural states; Z83.3 Family history of diabetes mellitus; Z87.891 Personal history of nicotine dependence; Z79.52 Long term (current) use of systemic steroids
CPT/HCPCS: 36415; 71045; 80048; 80053; 84484; 85025; 93005; 94640; 96365; 96375; J2920; J2930; J3475; J7620; U0003; U0005

== ENCOUNTER 2022-03-26 14:02 | Emergency (ER) | payer MEDICAID, OTHER ==
[2022-03-26 15:45] LABS: #Eosinphils 0.2 thou/uL (0.0-0.7); #Lymphocytes 1.4 thou/uL (1.20-3.40); #Monocytes 0.5 thou/uL (0.11-0.59); #Neutrophils 7.7 thou/uL (1.40-6.50); %Basophils 0.4 % (0.0-1.0); %Eosinophils 1.8 % (0.0-10.0); %Monocytes 5.4 % (0.0-10.0); %Neutrophils 78.4 % (42.0-75.0); Hemoglobin 10.4 g/dL (12.0-16.0); Mean Corpuscular HGB CONC 29.2 g/dL (32.0-36.0); Mean Corpuscular Hemoglobin 22.2 pg (27.0-31.0); Mean Platelet Volume 5.7 fL (7.4-10.4); Platelet Count 265 thou/uL (130-400); RBC Distribution Width 22.1 % (11.5-14.5); Red Blood Cell (RBC) Count 4.68 mill/uL (4.20-5.40); White Blood Cell (WBC) Count 9.8 thou/uL (4.8-10.8)
[2022-03-26] MEDS ORDERED: methylPREDNISolone Sod Succ/PF 125 MG/2 ML VIAL ONE (15:55)
[2022-03-26] MEDS ORDERED: Magnesium 2 GM/50 ML BAG (IN WATER) ONE (15:55)
[2022-03-26 16:06] LABS: ALT (SGPT) 26 U/L (8-55); AST (SGOT) 17 U/L (5-34); Albumin 3.8 g/dL (3.5-5.0); Alkaline Phosphatase 113 U/L (40-110); Anion Gap 16 mmol/L (10-20); BUN (Urea Nitrogen) 9 mg/dL (7.0-18.7); Bilirubin, Total 0.7 mg/dL (0.2-1.2); CK (CPK) 80 U/L (29-168); Calc. Creatinine Clearance 0 mL/min (70-130); Calcium 9.5 mg/dL (7.8-10.44); Carbon Dioxide 26 mmol/L (22-29); Chloride 101 mmol/L (98-107); Globulin 3.6 g/dL (2.4-3.5); Glucose 104 mg/dL (70-105); Lipase 14 U/L (8-78); Potassium 3.7 mmol/L (3.5-5.1); Protein, Total 7.4 g/dL (6.0-8.3); Sodium 139 mmol/L (136-145)
[2022-03-26] MEDS ORDERED: Albuterol Sulfate 2.5 mg/0.5 ml Neb ONE (16:09)
[2022-03-26 16:39] LABS: SARS-CoV-2 NAA Rapid Test Not Detected (NotDetected)
== END 2022-03-26 17:02 | disposition home or self-care (01) ==
LOC: ERS 14:02
DX: J45.901 Unspecified asthma with (acute) exacerbation (principal); Z20.822 Contact with and (suspected) exposure to COVID-19; E78.5 Hyperlipidemia, unspecified; E78.00 Pure hypercholesterolemia, unspecified; J45.909 Unspecified asthma, uncomplicated; Z79.899 Other long term (current) drug therapy; Z79.51 Long term (current) use of inhaled steroids
CPT/HCPCS: 71045; 80053; 82550; 83690; 83880; 84484; 85025; 93005; 94640; 96374; 96375; J2930; J3475; J7611; J7620; U0002

== ENCOUNTER 2022-04-06 13:28 | Emergency (ER) | payer OTHER ==
[2022-04-06] MEDS ORDERED: Dexamethasone 10 MG/ML VIAL ONE (16:07)
== END 2022-04-06 17:26 | disposition home or self-care (01) ==
LOC: ERS 13:28
DX: J45.901 Unspecified asthma with (acute) exacerbation (principal); E78.5 Hyperlipidemia, unspecified; E78.00 Pure hypercholesterolemia, unspecified; Z87.891 Personal history of nicotine dependence; Z79.899 Other long term (current) drug therapy; Z79.51 Long term (current) use of inhaled steroids
CPT/HCPCS: J1100; J7620

== ENCOUNTER 2022-04-17 03:51 | Inpatient (IN) | payer OTHER ==
[2022-04-17] MEDS ORDERED: methylPREDNISolone Sod Succ/PF 125 MG/2 ML VIAL ONE (03:59)
[2022-04-17] MEDS ORDERED: Magnesium 2 GM/50 ML BAG (IN WATER) ONE (04:58)
[2022-04-17] MEDS ORDERED: Albuterol Sulfate 2.5 mg/0.5 ml Neb ONE ×2 (04:58→05:00)
[2022-04-17] MEDS ORDERED: Ondansetron ODT 4 MG TAB PO PRN (08:29)
[2022-04-17 08:47] VITALS: BMI 34.9
[2022-04-17] MEDS ORDERED: Albuterol Sulfate 2.5 mg/3 ml Neb NEB PRN (08:58)
[2022-04-17 10:18] LABS: #Lymphocytes 0.4 thou/uL (1.20-3.40); #Neutrophils 12.3 thou/uL (1.40-6.50); %Basophils 0.2 % (0.0-1.0); %Eosinophils 0.1 % (0.0-10.0); %Lymphocytes 3.3 % (21.0-51.0); %Monocytes 0.3 % (0.0-10.0); %Neutrophils 96.2 % (42.0-75.0); Hemoglobin 9.5 g/dL (12.0-16.0); Mean Corpuscular HGB CONC 28.9 g/dL (32.0-36.0); Mean Corpuscular Hemoglobin 22.1 pg (27.0-31.0); Mean Corpuscular Volume 76.5 fL (78.0-98.0); Platelet Count 299 thou/uL (130-400); Red Blood Cell (RBC) Count 4.28 mill/uL (4.20-5.40); White Blood Cell (WBC) Count 12.8 thou/uL (4.8-10.8)
[2022-04-17 10:35] LABS: Anion Gap 16 mmol/L (10-20); BUN (Urea Nitrogen) 13 mg/dL (7.0-18.7); Calc. Creatinine Clearance 156 mL/min (70-130); Calcium 8.8 mg/dL (7.8-10.44); Carbon Dioxide 25 mmol/L (22-29); Chloride 104 mmol/L (98-107); Estimated GFR 113; Glucose 183 mg/dL (70-105); Potassium 4.2 mmol/L (3.5-5.1); Sodium 141 mmol/L (136-145)
[2022-04-17 10:40] LABS: Anisocytosis SLIGHT = 6-15 cells (100X) (0-5/hpf); Hypochromia SLIGHT = 6-15 cells (100X) (0-5/hpf); MDiff Complete? YES; Microcytosis SLIGHT = 6-15 cells (100X) (0-5/hpf); Platelet Morphology Comment Appears Adequate; Polychromasia MODERATE = 3-4 cells (100X) (0-2/hpf); Stomatocytes SLIGHT = 2-5 cells (100X) (0-1/hpf); Target Cells SLIGHT = 2-5 cells (100X) (0-1/hpf)
[2022-04-17] MEDS: methylPREDNISolone Sod Succ 40 MG VIAL IVP SCH ×3 (14:05→23:31)
[2022-04-17] MEDS: Acetaminophen 325 MG TAB PO PRN (18:53)
[2022-04-17] MEDS: Montelukast Sodium 10 mg Tablet PO SCH (20:57)
[2022-04-18] MEDS: methylPREDNISolone Sod Succ 40 MG VIAL IVP SCH ×3 (05:49→18:00)
[2022-04-18] MEDS ORDERED: Polyethylene Glycol 3350 17 GM Packet PO PRN (17:28)
[2022-04-18] MEDS: Mometasone 200 MCG/Formoterol 5 MCG 120 PUFF INHALER INH SCH (19:14)
[2022-04-18] MEDS: Docusate 100 MG CAP PO SCH (21:06)
[2022-04-18] MEDS: Famotidine 20 MG TAB PO SCH (21:06)
[2022-04-18] MEDS: Montelukast Sodium 10 mg Tablet PO SCH (21:06)
[2022-04-19] MEDS: methylPREDNISolone Sod Succ 40 MG VIAL IVP SCH ×3 (00:29→12:20)
[2022-04-19] MEDS: Mometasone 200 MCG/Formoterol 5 MCG 120 PUFF INHALER INH SCH ×2 (07:15→19:02)
[2022-04-19] MEDS ORDERED: Multivit, Therapeutic 1 TAB PO SCH (09:00)
[2022-04-19] MEDS: Acetaminophen 325 MG TAB PO PRN (09:14)
[2022-04-19] MEDS: Prenatal Vitamin 1 TAB PO SCH (09:14)
[2022-04-19] MEDS: Famotidine 20 MG TAB PO SCH ×2 (09:14→20:06)
[2022-04-19] MEDS: Ferrous Sulfate 325 MG TAB PO SCH (09:15)
[2022-04-19] MEDS: Docusate 100 MG CAP PO SCH ×2 (09:15→20:06)
[2022-04-19] MEDS: predniSONE 20 MG TAB PO SCH (19:18)
[2022-04-19 19:56] VITALS: TEMP 98.2
[2022-04-19] MEDS: Montelukast Sodium 10 mg Tablet PO SCH (20:06)
[2022-04-20] MEDS: Mometasone 200 MCG/Formoterol 5 MCG 120 PUFF INHALER INH SCH (06:35)
[2022-04-20] MEDS: Ferrous Sulfate 325 MG TAB PO SCH (08:04)
[2022-04-20] MEDS: Prenatal Vitamin 1 TAB PO SCH (08:04)
[2022-04-20] MEDS: predniSONE 20 MG TAB PO SCH (08:05)
[2022-04-20] MEDS: Famotidine 20 MG TAB PO SCH (08:05)
[2022-04-20] MEDS: Docusate 100 MG CAP PO SCH (08:05)
[2022-04-20 11:28] VITALS: BP 141/79
== END 2022-04-20 12:01 | disposition home or self-care (01) | DRG 189 ==
LOC: ERS 03:51 → T4-A 06:34 → OBSVTOIN 04-18 12:50
PROVIDERS: ADMIT Internal Medicine; ATTEND Internal Medicine
DX: J96.01 Acute respiratory failure with hypoxia (principal); J45.901 Unspecified asthma with (acute) exacerbation; Z20.822 Contact with and (suspected) exposure to COVID-19; D50.9 Iron deficiency anemia, unspecified; I10 Essential (primary) hypertension; E66.9 Obesity, unspecified; D72.829 Elevated white blood cell count, unspecified; E78.5 Hyperlipidemia, unspecified; E78.00 Pure hypercholesterolemia, unspecified; F41.9 Anxiety disorder, unspecified; F31.9 Bipolar disorder, unspecified; Z79.899 Other long term (current) drug therapy; Z68.34 Body mass index [BMI] 34.0-34.9, adult; Z79.51 Long term (current) use of inhaled steroids; Z87.891 Personal history of nicotine dependence; Z83.3 Family history of diabetes mellitus; Z82.49 Family history of ischemic heart disease and other diseases of the circulatory system; Z28.311 Partially vaccinated for COVID-19
CPT/HCPCS: 36415; 71045; 80048; 85025; 94640; 96365; 96375; 96376; G0378; J2920; J2930; J3475; J7512; J7611; J7620; U0003; U0005

== ENCOUNTER 2022-05-16 12:45 | Emergency (ER) | payer OTHER ==
[2022-05-16] MEDS ORDERED: Dexamethasone 10 MG/ML VIAL ONE ×2 (16:06→16:09)
[2022-05-16] MEDS ORDERED: Dexamethasone 4 MG TAB ONE (16:07)
[2022-05-16] MEDS ORDERED: Albuterol Sulfate 2.5 mg/0.5 ml Neb ONE (17:16)
[2022-05-16] MEDS ORDERED: Albuterol Sulfate 2.5 mg/3 ml Neb ONE (17:16)
== END 2022-05-16 18:40 | disposition home or self-care (01) ==
LOC: ERS 12:45
DX: J45.901 Unspecified asthma with (acute) exacerbation (principal); E78.00 Pure hypercholesterolemia, unspecified; Z87.891 Personal history of nicotine dependence; Z79.899 Other long term (current) drug therapy
CPT/HCPCS: 71045; 94640; 94644; J1100; J7611; J7620; J8540

== ENCOUNTER 2022-05-29 16:45 | Inpatient (IN) | payer OTHER ==
[2022-05-29] MEDS ORDERED: Albuterol Sulfate 2.5 mg/3 ml Neb ONE (17:23)
[2022-05-29] MEDS ORDERED: Albuterol Sulfate 2.5 mg/0.5 ml Neb ONE ×3 (17:24→20:24)
[2022-05-29] MEDS ORDERED: Albuterol Sulfate 1.25 MG/3 ML NEB ONE (18:17)
[2022-05-29] MEDS ORDERED: Magnesium 2 GM/50 ML BAG (IN WATER) ONE (20:20)
[2022-05-29] MEDS ORDERED: Ondansetron PF 4 MG/2 ML Vial IVP PRN (21:27)
[2022-05-29 21:57] LABS: Hemoglobin 9.9 g/dL (12.0-16.0); Mean Corpuscular HGB CONC 28.7 g/dL (32.0-36.0); Mean Corpuscular Hemoglobin 21.7 pg (27.0-31.0); Mean Corpuscular Volume 75.7 fL (78.0-98.0); Mean Platelet Volume 11.6 fL (7.4-10.4); Platelet Count 273 thou/uL (130-400); RBC Distribution Width 20.6 % (11.5-14.5); Red Blood Cell (RBC) Count 4.57 mill/uL (4.20-5.40); White Blood Cell (WBC) Count 10.5 thou/uL (4.8-10.8)
[2022-05-29 22:13] LABS: Anisocytosis SLIGHT = 6-15 cells (100X) (0-5/hpf); Band 1 % (5-11); Hypochromia SLIGHT = 6-15 cells (100X) (0-5/hpf); Lymphocytes 2 % (21-51); MDiff Complete? YES; Microcytosis SLIGHT = 6-15 cells (100X) (0-5/hpf); Monocytes 1 % (0-10); Neutrophil 96 % (42-75)
[2022-05-29 22:29] LABS: Anion Gap 17 mmol/L (10-20); BUN (Urea Nitrogen) 9 mg/dL (7.0-18.7); Calc. Creatinine Clearance 0 mL/min (70-130); Carbon Dioxide 21 mmol/L (22-29); Chloride 104 mmol/L (98-107); Estimated GFR 113; Glucose 157 mg/dL (70-105); Sodium 138 mmol/L (136-145)
[2022-05-29 22:30] LABS: Calcium 8.7 mg/dL (7.8-10.44)
[2022-05-29 23:28] VITALS: BMI 35.2
[2022-05-29] MEDS ORDERED: Albuterol Sulfate 2.5 mg/3 ml Neb NEB SCH (23:30)
[2022-05-29] MEDS ORDERED: hydrALAZINE 20 MG/ML VIAL SLOW IVP PRN (23:39)
[2022-05-30 00:25] LABS: Hemoglobin A1c 7.1 % (4.0-6.0)
[2022-05-30 00:32] LABS: Troponin I 0.022 ng/mL (< 0.028)
[2022-05-30 03:08] LABS: Hemoglobin 9.6 g/dL (12.0-16.0); Mean Corpuscular HGB CONC 29.6 g/dL (32.0-36.0); Mean Corpuscular Hemoglobin 22.3 pg (27.0-31.0); Mean Corpuscular Volume 75.4 fL (78.0-98.0); Mean Platelet Volume 11.5 fL (7.4-10.4); Platelet Count 259 thou/uL (130-400); RBC Distribution Width 20.6 % (11.5-14.5); White Blood Cell (WBC) Count 9.7 thou/uL (4.8-10.8)
[2022-05-30 03:30] LABS: Troponin I 0.018 ng/mL (< 0.028)
[2022-05-30 03:40] LABS: ALT (SGPT) 32 U/L (8-55); AST (SGOT) 19 U/L (5-34); Alkaline Phosphatase 94 U/L (40-110); Anion Gap 19 mmol/L (10-20); BUN (Urea Nitrogen) 10 mg/dL (7.0-18.7); Bilirubin, Total 0.5 mg/dL (0.2-1.2); Calc. Creatinine Clearance 142 mL/min (70-130); Calcium 8.8 mg/dL (7.8-10.44); Carbon Dioxide 22 mmol/L (22-29); Chloride 102 mmol/L (98-107); Estimated GFR 108; Globulin 3.3 g/dL (2.4-3.5); Glucose 238 mg/dL (70-105); Potassium 4.2 mmol/L (3.5-5.1); Protein, Total 7.3 g/dL (6.0-8.3); Sodium 139 mmol/L (136-145)
[2022-05-30] MEDS ORDERED: HumaLOG 300 UNITS/3 ML VIAL SC PRN (04:05)
[2022-05-30] MEDS ORDERED: Dextrose 5% in Water 1,000 ML IV PRN (04:05)
[2022-05-30] MEDS ORDERED: Dextrose 50% Abboject 50 ML SYRINGE SLOW IVP PRN (04:05)
[2022-05-30] MEDS ORDERED: Albuterol Sulfate 2.5 mg/3 ml Neb NEB SCH ×2 (04:30→04:45)
[2022-05-30 04:44] LABS: Actual Bicarbonate (HCO3a) 23.3 mEq/L (22-28); CO2 Tension 37.4 mmHg (35.0-45.0); Calcium, Ionized (arterial) 1.14 mmol/L (1.12-1.30); Carboxyhemoglobin (COHb) 0.1 gm% (0.0-3.0); Hemoglobin (Hb) 10.2 g/dL (12.0-16.0); O2 Tension (PaO2), arterial 80.9 mmHg (80.0-100.0); Potassium - ABG Lab 4.35 mmol/L (3.70-5.30); pH, Arterial 7.41 (7.35-7.45)
[2022-05-30 04:45] LABS: Puncture Site RRA
[2022-05-30 05:56] LABS: SARS-CoV-2 NAA Rapid Test DETECTED (NotDetected)
[2022-05-30] MEDS: Ferrous Sulfate 325 MG TAB PO SCH (07:15)
[2022-05-30] MEDS: Atorvastatin Calcium 40 MG TAB PO SCH (07:15)
[2022-05-30] MEDS: Montelukast Sodium 10 mg Tablet PO SCH (07:15)
[2022-05-30] MEDS: Enoxaparin Sodium 40 MG/0.4 ML SYRINGE SC SCH (07:16)
[2022-05-30] MEDS: Albuterol Sulfate 2.5 mg/3 ml Neb NEB SCH ×5 (08:00→21:20)
[2022-05-30] MEDS: hydrALAZINE 20 MG/ML VIAL SLOW IVP PRN ×2 (08:02→08:32)
[2022-05-30] MEDS: [UNRECOGNIZED DRUG - OTHER] IVPB SCH (08:03)
[2022-05-30] MEDS: METHYLPREDNISOLONE SOD SUCC IVPB SCH (08:03)
[2022-05-30] MEDS: ADMIXTURE FEE IVPB SCH (08:03)
[2022-05-30] MEDS: Mometasone 200 MCG/Formoterol 5 MCG 120 PUFF INHALER INH SCH ×2 (08:40→18:27)
[2022-05-30] MEDS ORDERED: Albuterol Sulfate 1.25 MG/3 ML NEB NEB SCH (09:00)
[2022-05-30] MEDS ORDERED: Albuterol 200 PUFF (6.7GM INHALER) INH SCH ×2 (09:00→22:30)
[2022-05-30] MEDS: Albuterol Sulfate 1.25 MG/3 ML NEB NEB SCH ×4 (09:40→14:49)
[2022-05-30] MEDS: Losartan 25 MG TAB PO SCH (09:44)
[2022-05-30] MEDS: HumaLOG 300 UNITS/3 ML VIAL SC PRN ×2 (11:39→17:40)
[2022-05-30] MEDS ORDERED: Albuterol Sulfate 2.5 mg/3 ml Neb NEB PRN (15:50)
[2022-05-30] MEDS ORDERED: Benzonatate 100 MG CAP PO PRN (16:51)
[2022-05-30] MEDS ORDERED: Albuterol 200 PUFF (6.7GM INHALER) INH PRN (22:33)
[2022-05-31] MEDS ORDERED: Albuterol Sulfate 1.25 MG/3 ML NEB NEB SCH ×2 (01:00→06:45)
[2022-05-31] MEDS ORDERED: Albuterol 200 PUFF (6.7GM INHALER) INH SCH ×2 (01:00→10:00)
[2022-05-31] MEDS: Albuterol 200 PUFF (6.7GM INHALER) INH SCH ×2 (03:03→03:15)
[2022-05-31 04:06] LABS: Hemoglobin 9.8 g/dL (12.0-16.0); Mean Corpuscular HGB CONC 29.8 g/dL (32.0-36.0); Mean Corpuscular Hemoglobin 22.4 pg (27.0-31.0); Mean Corpuscular Volume 75.1 fL (78.0-98.0); Platelet Count 288 thou/uL (130-400); RBC Distribution Width 20.9 % (11.5-14.5); Red Blood Cell (RBC) Count 4.37 mill/uL (4.20-5.40); White Blood Cell (WBC) Count 12.8 thou/uL (4.8-10.8)
[2022-05-31 04:16] LABS: ALT (SGPT) 28 U/L (8-55); AST (SGOT) 12 U/L (5-34); Albumin 3.9 g/dL (3.5-5.0); Alkaline Phosphatase 80 U/L (40-110); Anion Gap 15 mmol/L (10-20); BUN (Urea Nitrogen) 11 mg/dL (7.0-18.7); Bilirubin, Total 0.6 mg/dL (0.2-1.2); Calc. Creatinine Clearance 152 mL/min (70-130); Calcium 8.9 mg/dL (7.8-10.44); Carbon Dioxide 21 mmol/L (22-29); Chloride 101 mmol/L (98-107); Estimated GFR 113; Globulin 3.2 g/dL (2.4-3.5); Glucose 208 mg/dL (70-105); Potassium 4.6 mmol/L (3.5-5.1); Protein, Total 7.1 g/dL (6.0-8.3); Sodium 132 mmol/L (136-145)
[2022-05-31] MEDS: HumaLOG 300 UNITS/3 ML VIAL SC PRN ×3 (06:03→11:35)
[2022-05-31] MEDS: hydrALAZINE 20 MG/ML VIAL SLOW IVP PRN (06:04)
[2022-05-31] MEDS ORDERED: Albuterol Sulfate 1.25 MG/3 ML NEB NEB PRN (06:39)
[2022-05-31] MEDS ORDERED: Albuterol Sulfate 2.5 mg/0.5 ml Neb ONE (06:43)
[2022-05-31] MEDS: Mometasone 200 MCG/Formoterol 5 MCG 120 PUFF INHALER INH SCH ×2 (07:03→18:43)
[2022-05-31] MEDS ORDERED: Albuterol 200 PUFF (6.7GM INHALER) INH PRN (07:23)
[2022-05-31] MEDS ORDERED: Albuterol Sulfate 2.5 mg/0.5 ml Neb NEB PRN (07:33)
[2022-05-31] MEDS: Enoxaparin Sodium 40 MG/0.4 ML SYRINGE SC SCH (08:39)
[2022-05-31] MEDS: Losartan 25 MG TAB PO SCH (08:41)
[2022-05-31] MEDS: Ferrous Sulfate 325 MG TAB PO SCH (08:42)
[2022-05-31] MEDS: Atorvastatin Calcium 40 MG TAB PO SCH (08:42)
[2022-05-31] MEDS: Acetaminophen 325 MG TAB PO PRN ×2 (08:42→18:56)
[2022-05-31] MEDS: Montelukast Sodium 10 mg Tablet PO SCH (08:44)
[2022-05-31] MEDS: [UNRECOGNIZED DRUG - OTHER] IVPB SCH (08:51)
[2022-05-31] MEDS: METHYLPREDNISOLONE SOD SUCC IVPB SCH (08:51)
[2022-05-31] MEDS: ADMIXTURE FEE IVPB SCH (08:51)
[2022-05-31] MEDS ORDERED: Albuterol Sulfate 2.5 mg/0.5 ml Neb NEB SCH (10:00)
[2022-05-31] MEDS ORDERED: Ipratropium/Albuterol Sulfate 4 GM AER IH SCH (13:00)
[2022-05-31] MEDS ORDERED: Simethicone Chewable 80 MG TAB PO PRN (20:13)
[2022-05-31] MEDS ORDERED: methylPREDNISolone Sod Succ 40 MG VIAL IVP SCH (21:00)
[2022-06-01] MEDS: HumaLOG 300 UNITS/3 ML VIAL SC PRN ×2 (06:22→12:06)
[2022-06-01] MEDS: Mometasone 200 MCG/Formoterol 5 MCG 120 PUFF INHALER INH SCH (07:11)
[2022-06-01] MEDS ORDERED: metFORMIN 500 MG TAB PO SCH (08:00)
[2022-06-01] MEDS ORDERED: predniSONE 20 MG TAB PO SCH (09:00)
[2022-06-01] MEDS: Ferrous Sulfate 325 MG TAB PO SCH (10:00)
[2022-06-01] MEDS: Acetaminophen 325 MG TAB PO PRN (10:00)
[2022-06-01] MEDS: Losartan 25 MG TAB PO SCH (10:01)
[2022-06-01] MEDS: Montelukast Sodium 10 mg Tablet PO SCH (10:02)
[2022-06-01] MEDS: Enoxaparin Sodium 40 MG/0.4 ML SYRINGE SC SCH (10:02)
[2022-06-01] MEDS: Atorvastatin Calcium 40 MG TAB PO SCH (10:02)
[2022-06-01 10:03] VITALS: BP 153/70
[2022-06-01 11:05] LABS: Mean Corpuscular HGB CONC 29.7 g/dL (32.0-36.0); Mean Corpuscular Hemoglobin 22.2 pg (27.0-31.0); Mean Corpuscular Volume 74.8 fL (78.0-98.0); Mean Platelet Volume 11.6 fL (7.4-10.4); Platelet Count 313 thou/uL (130-400); RBC Distribution Width 20.8 % (11.5-14.5); Red Blood Cell (RBC) Count 4.51 mill/uL (4.20-5.40); White Blood Cell (WBC) Count 17.9 thou/uL (4.8-10.8)
[2022-06-01 11:20] LABS: ALT (SGPT) 25 U/L (8-55); AST (SGOT) 10 U/L (5-34); Albumin 3.9 g/dL (3.5-5.0); Alkaline Phosphatase 73 U/L (40-110); Anion Gap 14 mmol/L (10-20); BUN (Urea Nitrogen) 14 mg/dL (7.0-18.7); Bilirubin, Total 0.5 mg/dL (0.2-1.2); Calc. Creatinine Clearance 138 mL/min (70-130); Calcium 8.9 mg/dL (7.8-10.44); Carbon Dioxide 23 mmol/L (22-29); Chloride 100 mmol/L (98-107); Estimated GFR 108; Globulin 3.1 g/dL (2.4-3.5); Glucose 258 mg/dL (70-105); Potassium 4.3 mmol/L (3.5-5.1); Sodium 133 mmol/L (136-145)
[2022-06-01 12:14] LABS: Band 5 % (5-11); Hypochromia SLIGHT = 6-15 cells (100X) (0-5/hpf); Lymphocytes 4 % (21-51); MDiff Complete? YES; Microcytosis SLIGHT = 6-15 cells (100X) (0-5/hpf); Monocytes 7 % (0-10); Neutrophil 84 % (42-75); Platelet Morphology Comment Appears Adequate; Polychromasia SLIGHT = 2-3 cells (100X) (0-2/hpf)
[2022-06-01 12:17] VITALS: TEMP 97.5
== END 2022-06-01 15:49 | disposition home or self-care (01) | DRG 178 ==
LOC: ERS 16:45 → 2SW 21:27 → CCU 05-30 06:20 → OBSVTOIN 05-30 08:13 → IMCU/EMU 05-31 14:05
PROVIDERS: ADMIT Family Medicine; ATTEND Family Medicine
PROC: 8E0ZXY6 Isolation (ICD-10-PCS; principal; 2022-05-30)
DX: U07.1 COVID-19 (principal); J45.901 Unspecified asthma with (acute) exacerbation; I10 Essential (primary) hypertension; E78.5 Hyperlipidemia, unspecified; N28.89 Other specified disorders of kidney and ureter; D50.9 Iron deficiency anemia, unspecified; E11.65 Type 2 diabetes mellitus with hyperglycemia; Z79.899 Other long term (current) drug therapy
CPT/HCPCS: 36415; 36416; 36600; 71045; 80048; 80053; 82805; 83036; 83880; 84145; 84484; 85025; 85027; 93005; 94640; 94644; 96365; 96372; 96375; 96376; G0378; J0360; J1650; J1815; J2920; J2930; J3475; J7050; J7512; J7611; J7620; U0002

== ENCOUNTER 2022-06-20 08:12 | Emergency (ER) | payer OTHER ==
[2022-06-20] MEDS ORDERED: Albuterol Sulfate 2.5 mg/0.5 ml Neb ONE ×6 (08:54→12:46)
[2022-06-20] MEDS ORDERED: Dexamethasone 10 MG/ML VIAL ONE (08:54)
[2022-06-20 09:07] LABS: #Eosinphils 0.1 thou/uL (0.0-0.7); #Lymphocytes 1.6 thou/uL (1.20-3.40); #Monocytes 0.5 thou/uL (0.11-0.59); #Neutrophils 5.6 thou/uL (1.40-6.50); %Basophils 0.4 % (0.0-1.0); %Eosinophils 1.2 % (0.0-10.0); %Lymphocytes 20.1 % (21.0-51.0); %Monocytes 6.1 % (0.0-10.0); %Neutrophils 72.3 % (42.0-75.0); Hemoglobin 10.9 g/dL (12.0-16.0); Mean Corpuscular HGB CONC 29.4 g/dL (32.0-36.0); Mean Corpuscular Hemoglobin 22.9 pg (27.0-31.0); Mean Corpuscular Volume 77.7 fL (78.0-98.0); Mean Platelet Volume 10.9 fL (7.4-10.4); Platelet Count 242 thou/uL (130-400); RBC Distribution Width 21.1 % (11.5-14.5); Red Blood Cell (RBC) Count 4.79 mill/uL (4.20-5.40); White Blood Cell (WBC) Count 7.7 thou/uL (4.8-10.8)
[2022-06-20] MEDS ORDERED: Albuterol Sulfate 2.5 mg/3 ml Neb ONE (09:16)
[2022-06-20 09:26] LABS: ALT (SGPT) 41 U/L (8-55); AST (SGOT) 25 U/L (5-34); Albumin 4.3 g/dL (3.5-5.0); Alkaline Phosphatase 102 U/L (40-110); Anion Gap 16 mmol/L (10-20); BUN (Urea Nitrogen) 10 mg/dL (7.0-18.7); Bilirubin, Total 0.9 mg/dL (0.2-1.2); Calc. Creatinine Clearance 0 mL/min (70-130); Calcium 9.1 mg/dL (7.8-10.44); Carbon Dioxide 25 mmol/L (22-29); Chloride 105 mmol/L (98-107); Estimated GFR 106; Globulin 3.4 g/dL (2.4-3.5); Glucose 123 mg/dL (70-105); Potassium 3.8 mmol/L (3.5-5.1); Protein, Total 7.7 g/dL (6.0-8.3); Sodium 142 mmol/L (136-145)
[2022-06-20 09:37] LABS: Hypochromia SLIGHT = 6-15 cells (100X) (0-5/hpf); MDiff Complete? YES; Platelet Morphology Comment Appears Adequate; Polychromasia SLIGHT = 2-3 cells (100X) (0-2/hpf)
[2022-06-20] MEDS ORDERED: methylPREDNISolone Sod Succ/PF 125 MG/2 ML VIAL ONE (12:46)
[2022-06-20] MEDS ORDERED: Magnesium 2 GM/50 ML BAG (IN WATER) ONE (12:46)
== END 2022-06-20 13:55 | disposition home or self-care (01) ==
LOC: ERS 08:12
DX: J45.901 Unspecified asthma with (acute) exacerbation (principal); Z86.16 Personal history of COVID-19
CPT/HCPCS: 71045; 80053; 83880; 85025; 93005; 94760; 96374; 96375; J1100; J2930; J3475; J7611

== ENCOUNTER 2022-08-15 17:35 | Inpatient (IN) | payer OTHER ==
[~2022-08-15 17:35] MED LIST changes: +Atorvastatin Calcium 40 MG TAB PO SCH; -Iopamidol-370 76% 500 ML 1 ML ONE
[2022-08-15] MEDS ORDERED: methylPREDNISolone Sod Succ/PF 125 MG/2 ML VIAL ONE (17:46)
[2022-08-15] MEDS ORDERED: Magnesium 2 GM/50 ML BAG (IN WATER) ONE (17:46)
[2022-08-15 18:43] LABS: #Basophils 0.1 thou/uL (0.0-0.2); #Eosinphils 0.1 thou/uL (0.0-0.7); #Lymphocytes 2.6 thou/uL (1.20-3.40); #Monocytes 0.6 thou/uL (0.11-0.59); #Neutrophils 7.6 thou/uL (1.40-6.50); %Basophils 0.5 % (0.0-1.0); %Eosinophils 1.3 % (0.0-10.0); %Lymphocytes 23.5 % (21.0-51.0); %Monocytes 5.8 % (0.0-10.0); %Neutrophils 68.9 % (42.0-75.0); Hemoglobin 9.7 g/dL (12.0-16.0); Mean Corpuscular Hemoglobin 22.3 pg (27.0-31.0); Mean Corpuscular Volume 77.1 fl (78.0-98.0); Mean Platelet Volume 10.5 fL (7.4-10.4); Platelet Count 337 10x3/uL (130-400); RBC Distribution Width 19.3 % (11.5-14.5); Red Blood Cell (RBC) Count 4.34 mill/uL (4.20-5.40)
[2022-08-15 19:00] LABS: Anisocytosis SLIGHT = 6-15 cells (100X) (0-5/hpf); Hypochromia SLIGHT = 6-15 cells (100X) (0-5/hpf); MDiff Complete? YES; Microcytosis SLIGHT = 6-15 cells (100X) (0-5/hpf); Ovalocytes SLIGHT = 2-5 cells (100X) (0-1/hpf); Platelet Morphology Comment Appears Adequate; Polychromasia MODERATE = 3-4 cells (100X) (0-2/hpf)
[2022-08-15 19:01] LABS: BHCG - Serum Negative (NEGATIVE); Pregs Control Background? CLEAR/WHITE (CLR/WHITE); Pregs Control Bar Appear? YES (CONTROL BAR)
[2022-08-15 19:04] LABS: ALT (SGPT) 36 U/L (8-55); AST (SGOT) 21 U/L (5-34); Albumin 3.8 g/dL (3.5-5.0); Alkaline Phosphatase 98 U/L (40-110); Anion Gap 14 mmol/L (10-20); BUN (Urea Nitrogen) 8 mg/dL (7.0-18.7); Bilirubin, Total 0.4 mg/dL (0.2-1.2); Calc. Creatinine Clearance 0 mL/min (70-130); Carbon Dioxide 25 mmol/L (22-29); Chloride 106 mmol/L (98-107); Estimated GFR 113; Globulin 3.2 g/dL (2.4-3.5); Glucose 122 mg/dL (70-105); Potassium 3.9 mmol/L (3.5-5.1); Sodium 141 mmol/L (136-145)
[2022-08-15 19:24] LABS: CKMB 4.6 ng/mL (0-6.6)
[2022-08-15] MEDS ORDERED: Aspirin Chewable 81 MG TAB ONE (20:45)
[2022-08-15] MEDS ORDERED: Albuterol Sulfate 2.5 mg/3 ml Neb ONE (20:59)
[2022-08-15] MEDS ORDERED: Ondansetron ODT 4 MG TAB PO PRN (21:24)
[2022-08-15] MEDS ORDERED: Ondansetron PF 4 MG/2 ML Vial IVP PRN (21:24)
[2022-08-15] MEDS ORDERED: Acetaminophen 325 MG TAB PO PRN (21:24)
[2022-08-15] MEDS ORDERED: Albuterol Sulfate 2.5 mg/3 ml Neb NEB PRN (21:49)
[2022-08-15 22:19] LABS: Troponin I 0.018 ng/mL (< 0.028)
[2022-08-15 22:28] VITALS: BMI 35.5
[2022-08-15 23:19] LABS: SARS-CoV-2 NAA Rapid Test Not Detected (NotDetected)
[2022-08-16 01:36] LABS: Troponin I 0.023 ng/mL (< 0.028)
[2022-08-16 05:15] LABS: #Lymphocytes 0.5 thou/uL (1.20-3.40); #Monocytes 0.1 thou/uL (0.11-0.59); #Neutrophils 9.9 thou/uL (1.40-6.50); %Basophils 0.2 % (0.0-1.0); %Eosinophils 0.1 % (0.0-10.0); %Lymphocytes 4.3 % (21.0-51.0); %Monocytes 0.6 % (0.0-10.0); %Neutrophils 94.8 % (42.0-75.0); Hemoglobin 10.2 g/dL (12.0-16.0); Mean Corpuscular HGB CONC 28.8 g/dL (32.0-36.0); Mean Corpuscular Hemoglobin 22.3 pg (27.0-31.0); Mean Corpuscular Volume 77.4 fl (78.0-98.0); Mean Platelet Volume 10.8 fL (7.4-10.4); Platelet Count 335 10x3/uL (130-400); RBC Distribution Width 19.3 % (11.5-14.5); Red Blood Cell (RBC) Count 4.56 mill/uL (4.20-5.40); White Blood Cell (WBC) Count 10.5 10x3/uL (4.8-10.8)
[2022-08-16 05:40] LABS: ALT (SGPT) 39 U/L (8-55); AST (SGOT) 23 U/L (5-34); Alkaline Phosphatase 108 U/L (40-110); Anion Gap 14 mmol/L (10-20); BUN (Urea Nitrogen) 10 mg/dL (7.0-18.7); Bilirubin, Total 0.6 mg/dL (0.2-1.2); Calc. Creatinine Clearance 159 mL/min (70-130); Calcium 9.3 mg/dL (7.8-10.44); Carbon Dioxide 26 mmol/L (22-29); Chloride 102 mmol/L (98-107); Estimated GFR 113; Globulin 3.5 g/dL (2.4-3.5); Glucose 146 mg/dL (70-105); Potassium 4.7 mmol/L (3.5-5.1); Protein, Total 7.5 g/dL (6.0-8.3); Sodium 137 mmol/L (136-145)
[2022-08-16] MEDS: methylPREDNISolone Sod Succ 40 MG VIAL IVP SCH ×2 (05:54→17:27)
[2022-08-16] MEDS: Enoxaparin Sodium 40 MG/0.4 ML SYRINGE SC SCH (09:03)
[2022-08-16] MEDS: Ferrous Sulfate 325 MG TAB PO SCH (09:04)
[2022-08-16] MEDS ORDERED: Amlodipine 5 MG TAB PO SCH (18:15)
[2022-08-16] MEDS ORDERED: Montelukast Sodium 10 mg Tablet PO SCH (21:00)
[2022-08-17] MEDS ORDERED: predniSONE 20 MG TAB PO SCH (08:00)
[2022-08-17] MEDS: Ferrous Sulfate 325 MG TAB PO SCH (08:52)
[2022-08-17] MEDS: Enoxaparin Sodium 40 MG/0.4 ML SYRINGE SC SCH (08:52)
[2022-08-17] MEDS ORDERED: Amlodipine 5 MG TAB PO SCH (09:00)
[2022-08-17 11:34] VITALS: BP 144/67; TEMP 98.6
== END 2022-08-17 14:55 | disposition home or self-care (01) | DRG 202 ==
LOC: ERS 17:35 → 2SW 20:57 → OBSVTOIN 08-17 11:36
PROVIDERS: ADMIT Family Medicine; ATTEND Family Medicine
DX: J45.901 Unspecified asthma with (acute) exacerbation (principal); C64.9 Malignant neoplasm of unspecified kidney, except renal pelvis; Z20.822 Contact with and (suspected) exposure to COVID-19; I10 Essential (primary) hypertension; F41.9 Anxiety disorder, unspecified; E78.00 Pure hypercholesterolemia, unspecified; R77.8 Other specified abnormalities of plasma proteins; Z79.51 Long term (current) use of inhaled steroids; Z79.899 Other long term (current) drug therapy
CPT/HCPCS: 36415; 71045; 80053; 82553; 84484; 84703; 85025; 93005; 94640; 96372; 96374; 96375; 96376; G0378; J1650; J2920; J2930; J3475; J7512; J7611; J7620

== ENCOUNTER 2022-08-24 15:42 | Emergency (ER) | payer OTHER ==
[2022-08-24] MEDS ORDERED: Albuterol Sulfate 2.5 mg/3 ml Neb ONE (16:43)
[2022-08-24] MEDS ORDERED: Ipratropium Bromide 2.5 ml Neb ONE (16:43)
[2022-08-24] MEDS ORDERED: methylPREDNISolone Sod Succ/PF 125 MG/2 ML VIAL ONE (17:23)
== END 2022-08-24 18:57 | disposition home or self-care (01) ==
LOC: ERS 15:42
DX: J45.901 Unspecified asthma with (acute) exacerbation (principal); E78.5 Hyperlipidemia, unspecified; E78.00 Pure hypercholesterolemia, unspecified
CPT/HCPCS: 93005; 94640; 94644; 96374; J2930; J7611; J7620

== ENCOUNTER 2022-10-04 08:25 | Emergency (ER) | payer OTHER ==
[2022-10-04] MEDS ORDERED: Albuterol Sulfate 2.5 mg/3 ml Neb ONE ×3 (08:58→09:00)
[2022-10-04] MEDS ORDERED: Ipratropium Bromide 2.5 ml Neb ONE (08:58)
[2022-10-04] MEDS ORDERED: predniSONE 20 MG TAB ONE (09:13)
== END 2022-10-04 10:30 | disposition home or self-care (01) ==
LOC: ERS 08:25
DX: J45.901 Unspecified asthma with (acute) exacerbation (principal); E78.5 Hyperlipidemia, unspecified; J45.909 Unspecified asthma, uncomplicated
CPT/HCPCS: 94644; J7512; J7611

== ENCOUNTER 2022-10-18 23:19 | Inpatient (IN) | payer OTHER ==
[2022-10-18] MEDS ORDERED: Ipratropium/Albuterol 3 ML NEB ONE (23:52)
[2022-10-18] MEDS ORDERED: Albuterol 2.5 MG/0.5 ML NEB ONE (23:53)
[2022-10-19] MEDS ORDERED: methylPREDNISolone Sod Succ/PF 125 MG/2 ML VIAL ONE (00:15)
[2022-10-19] MEDS ORDERED: Magnesium 2 GM/50 ML BAG (IN WATER) ONE (00:15)
[2022-10-19] MEDS ORDERED: Albuterol 2.5 MG/0.5 ML NEB ONE (00:54)
[2022-10-19 03:50] LABS: Mean Corpuscular HGB CONC 30.3 g/dL (32.0-36.0); Mean Corpuscular Hemoglobin 22.3 pg (27.0-31.0); Mean Corpuscular Volume 73.5 fl (78.0-98.0); Platelet Count 289 10x3/uL (130-400); RBC Distribution Width 19.6 % (11.5-14.5)
[2022-10-19] MEDS ORDERED: Ipratropium/Albuterol 3 ML NEB ONE ×2 (03:56→08:24)
[2022-10-19 04:03] LABS: #Lymphocytes 0.5 thou/uL (1.20-3.40); #Monocytes 0.1 thou/uL (0.11-0.59); #Neutrophils 10.5 thou/uL (1.40-6.50); %Basophils 0.1 % (0.0-1.0); %Eosinophils 0.1 % (0.0-10.0); %Lymphocytes 4.2 % (21.0-51.0); %Monocytes 0.6 % (0.0-10.0); %Neutrophils 95.1 % (42.0-75.0)
[2022-10-19 04:04] LABS: Anisocytosis SLIGHT = 6-15 cells (100X) (0-5/hpf); Hypochromia SLIGHT = 6-15 cells (100X) (0-5/hpf); Large Platelets SLIGHT; MDiff Complete? YES; Microcytosis SLIGHT = 6-15 cells (100X) (0-5/hpf); Platelet Morphology Comment Appears Adequate
[2022-10-19 04:29] LABS: ALT (SGPT) 36 U/L (8-55); AST (SGOT) 24 U/L (5-34); Alkaline Phosphatase 87 U/L (40-110); Anion Gap 16 mmol/L (10-20); BUN (Urea Nitrogen) 11 mg/dL (7.0-18.7); Bilirubin, Total 0.2 mg/dL (0.2-1.2); Calc. Creatinine Clearance 0 mL/min (70-130); Calcium 8.4 mg/dL (7.8-10.44); Carbon Dioxide 21 mmol/L (22-29); Chloride 107 mmol/L (98-107); Estimated GFR 113; Globulin 3.2 g/dL (2.4-3.5); Glucose 220 mg/dL (70-105); Potassium 3.7 mmol/L (3.5-5.1); Protein, Total 7.2 g/dL (6.0-8.3); Sodium 140 mmol/L (136-145)
[2022-10-19] MEDS ORDERED: methylPREDNISolone Sod Succ 40 MG VIAL IVP SCH (06:00)
[2022-10-19 06:01] LABS: Troponin I Less than 0.010 ng/mL (< 0.028)
[2022-10-19] MEDS ORDERED: Mometasone 200 MCG/Formoterol 5 MCG 120 PUFF INHALER INH SCH (06:30)
[2022-10-19] MEDS ORDERED: Ipratropium Bromide 2.5 ml Neb NEB SCH (07:00)
[2022-10-19] MEDS ORDERED: predniSONE 20 MG TAB PO SCH (08:00)
[2022-10-19] MEDS: Ipratropium/Albuterol 3 ML NEB NEB SCH ×4 (08:31→18:16)
[2022-10-19] MEDS: Mometasone 200 MCG/Formoterol 5 MCG 120 PUFF INHALER INH SCH ×2 (08:32→18:17)
[2022-10-19] MEDS ORDERED: Mometasone 200 MCG/Formoterol 5 MCG 120 PUFF INHALER ONE (08:49)
[2022-10-19] MEDS ORDERED: Amlodipine 5 MG TAB ONE (08:49)
[2022-10-19] MEDS: Ferrous Sulfate 325 MG TAB PO SCH (08:52)
[2022-10-19] MEDS: Amlodipine 5 MG TAB PO SCH (08:53)
[2022-10-19] MEDS: Atorvastatin Calcium 40 MG TAB PO SCH (08:55)
[2022-10-19] MEDS: Montelukast Sodium 10 mg Tablet PO SCH (08:55)
[2022-10-19] MEDS: Lactated Ringer's 1,000 ML IV SCH ×3 (08:56→18:43)
[2022-10-19 10:07] LABS: Hemoglobin A1c 6.4 % (4.0-6.0)
[2022-10-19 10:42] LABS: SARS-CoV-2 NAA Rapid Test Not Detected (NotDetected)
[2022-10-19] MEDS: Acetaminophen 325 MG TAB PO PRN (10:52)
[2022-10-19] MEDS ORDERED: Acetaminophen 325 MG TAB ONE (10:53)
[2022-10-19 19:42] VITALS: BMI 36.0
[2022-10-19 21:37] LABS: SARS-CoV-2 NAA Rapid Test Not Detected (NotDetected)
[2022-10-19] MEDS: Ipratropium/Albuterol 3 ML NEB NEB PRN (22:23)
[2022-10-20] MEDS: methylPREDNISolone Sod Succ 40 MG VIAL IVP SCH (00:07)
[2022-10-20] MEDS ORDERED: methylPREDNISolone Sod Succ 40 MG VIAL IM SCH (00:30)
[2022-10-20] MEDS: Ipratropium/Albuterol 3 ML NEB NEB PRN (04:39)
[2022-10-20] MEDS ORDERED: methylPREDNISolone Sod Succ 40 MG VIAL IVP SCH (05:00)
[2022-10-20] MEDS: Acetaminophen 325 MG TAB PO PRN (06:51)
[2022-10-20] MEDS: Ipratropium/Albuterol 3 ML NEB NEB SCH ×6 (06:59→23:16)
[2022-10-20] MEDS: Mometasone 200 MCG/Formoterol 5 MCG 120 PUFF INHALER INH SCH ×2 (06:59→18:27)
[2022-10-20] MEDS: Ferrous Sulfate 325 MG TAB PO SCH (08:56)
[2022-10-20] MEDS: Atorvastatin Calcium 40 MG TAB PO SCH (08:56)
[2022-10-20] MEDS: Montelukast Sodium 10 mg Tablet PO SCH (08:56)
[2022-10-20] MEDS: Amlodipine 5 MG TAB PO SCH (08:56)
[2022-10-20 09:38] LABS: Anisocytosis MODERATE=16-30 cells (100X) (0-5/hpf); Hemoglobin 9.7 g/dL (12.0-16.0); Lymphocytes 5 % (21-51); MDiff Complete? YES; Mean Corpuscular HGB CONC 29.4 g/dL (32.0-36.0); Mean Corpuscular Hemoglobin 21.7 pg (27.0-31.0); Mean Corpuscular Volume 73.6 fl (78.0-98.0); Mean Platelet Volume 10.7 fL (7.4-10.4); Monocytes 1 % (0-10); Neutrophil 94 % (42-75); Platelet Count 300 10x3/uL (130-400); Platelet Morphology Comment Appears Adequate; Polychromasia MODERATE = 3-4 cells (100X) (0-2/hpf); RBC Distribution Width 19.7 % (11.5-14.5); White Blood Cell (WBC) Count 16.5 10x3/uL (4.8-10.8)
[2022-10-20] MEDS: Lactated Ringer's 1,000 ML IV SCH (11:00)
[2022-10-20] MEDS ORDERED: Non-Formulary Item 1 EACH (Tiotropium [Spiriva Handihaler] 18 MCG Box) INH SCH (13:53)
[2022-10-21] MEDS: methylPREDNISolone Sod Succ 40 MG VIAL IVP SCH (00:38)
[2022-10-21 06:58] LABS: Hemoglobin 10.1 g/dL (12.0-16.0); Mean Corpuscular HGB CONC 30.6 g/dL (32.0-36.0); Mean Corpuscular Hemoglobin 22.6 pg (27.0-31.0); Mean Corpuscular Volume 73.9 fl (78.0-98.0); Mean Platelet Volume 11.1 fL (7.4-10.4); Platelet Count 293 10x3/uL (130-400); RBC Distribution Width 19.9 % (11.5-14.5); Red Blood Cell (RBC) Count 4.45 mill/uL (4.20-5.40); White Blood Cell (WBC) Count 15.1 10x3/uL (4.8-10.8)
[2022-10-21 07:10] LABS: Anisocytosis MODERATE=16-30 cells (100X) (0-5/hpf); Hypochromia SLIGHT = 6-15 cells (100X) (0-5/hpf); Lymphocytes 5 % (21-51); MDiff Complete? YES; Microcytosis SLIGHT = 6-15 cells (100X) (0-5/hpf); Monocytes 2 % (0-10); Myelocyte 1 % (0-0); Neutrophil 92 % (42-75); Ovalocytes SLIGHT = 2-5 cells (100X) (0-1/hpf); Platelet Morphology Comment Appears Adequate; Polychromasia SLIGHT = 2-3 cells (100X) (0-2/hpf)
[2022-10-21] MEDS: Mometasone 200 MCG/Formoterol 5 MCG 120 PUFF INHALER INH SCH (07:16)
[2022-10-21] MEDS: Ipratropium/Albuterol 3 ML NEB NEB SCH ×2 (07:17→14:01)
[2022-10-21 08:35] VITALS: BP 142/79; TEMP 98.4
[2022-10-21] MEDS: Amlodipine 5 MG TAB PO SCH (08:45)
[2022-10-21] MEDS: Atorvastatin Calcium 40 MG TAB PO SCH (08:45)
[2022-10-21] MEDS: Montelukast Sodium 10 mg Tablet PO SCH (08:45)
[2022-10-21] MEDS: Ferrous Sulfate 325 MG TAB PO SCH (08:45)
[2022-10-22] MEDS ORDERED: predniSONE 50 MG TAB PO SCH (08:00)
== END 2022-10-21 15:33 | disposition home or self-care (01) | DRG 202 ==
LOC: ERS 23:19 → ERHOLD 10-19 03:15 → T4-B 10-19 19:29 → OBSVTOIN 10-21 06:40
PROVIDERS: ADMIT Family Medicine; ATTEND Family Medicine
DX: J45.51 Severe persistent asthma with (acute) exacerbation (principal); C64.9 Malignant neoplasm of unspecified kidney, except renal pelvis; D50.9 Iron deficiency anemia, unspecified; Z77.22 Contact with and (suspected) exposure to environmental tobacco smoke (acute) (chronic); E11.9 Type 2 diabetes mellitus without complications; E78.5 Hyperlipidemia, unspecified; Z87.891 Personal history of nicotine dependence
CPT/HCPCS: 36415; 71046; 83036; 84145; 84484; 85025; 94640; 96372; 96374; 96375; 96376; G0378; J1650; J2920; J2930; J3475; J7120; J7611; J7620; U0002

== ENCOUNTER 2022-11-03 13:01 | Inpatient (IN) | payer OTHER ==
[2022-11-03] MEDS ORDERED: Ipratropium/Albuterol 3 ML NEB ONE ×2 (13:31→15:15)
[2022-11-03] MEDS ORDERED: Albuterol 2.5 MG/0.5 ML NEB ONE ×3 (13:31→17:18)
[2022-11-03] MEDS ORDERED: Dexamethasone 4 mg/ml Vial ONE (13:57)
[2022-11-03 15:46] LABS: #Lymphocytes 0.6 thou/uL (1.20-3.40); #Monocytes 0.2 thou/uL (0.11-0.59); #Neutrophils 11.4 thou/uL (1.40-6.50); %Eosinophils 0.4 % (0.0-10.0); %Lymphocytes 4.6 % (21.0-51.0); %Monocytes 1.5 % (0.0-10.0); %Neutrophils 93.4 % (42.0-75.0); Hemoglobin 9.3 g/dL (12.0-16.0); Mean Corpuscular HGB CONC 29.1 g/dL (32.0-36.0); Mean Corpuscular Hemoglobin 21.8 pg (27.0-31.0); Mean Corpuscular Volume 74.7 fl (78.0-98.0); Mean Platelet Volume 9.9 fL (7.4-10.4); Platelet Count 412 10x3/uL (130-400); RBC Distribution Width 20.5 % (11.5-14.5); Red Blood Cell (RBC) Count 4.27 mill/uL (4.20-5.40); White Blood Cell (WBC) Count 12.2 10x3/uL (4.8-10.8)
[2022-11-03 16:02] LABS: Anisocytosis SLIGHT = 6-15 cells (100X) (0-5/hpf); Hypochromia SLIGHT = 6-15 cells (100X) (0-5/hpf); Large Platelets SLIGHT; MDiff Complete? YES; Microcytosis SLIGHT = 6-15 cells (100X) (0-5/hpf); Ovalocytes SLIGHT = 2-5 cells (100X) (0-1/hpf); Platelet Morphology Comment Appears Increased; Polychromasia MODERATE = 3-4 cells (100X) (0-2/hpf); Target Cells SLIGHT = 2-5 cells (100X) (0-1/hpf)
[2022-11-03 16:05] LABS: ALT (SGPT) 47 U/L (8-55); AST (SGOT) 30 U/L (5-34); Albumin 3.8 g/dL (3.5-5.0); Alkaline Phosphatase 95 U/L (40-110); Anion Gap 15 mmol/L (10-20); BUN (Urea Nitrogen) 8 mg/dL (7.0-18.7); Bilirubin, Total 0.8 mg/dL (0.2-1.2); CK (CPK) 173 U/L (29-168); Calc. Creatinine Clearance 0 mL/min (70-130); Calcium 8.7 mg/dL (7.8-10.44); Carbon Dioxide 25 mmol/L (22-29); Chloride 102 mmol/L (98-107); Estimated GFR 115; Globulin 3.3 g/dL (2.4-3.5); Glucose 145 mg/dL (70-105); Protein, Total 7.1 g/dL (6.0-8.3); Sodium 138 mmol/L (136-145)
[2022-11-03] MEDS ORDERED: Acetaminophen 325 MG TAB PO PRN (17:07)
[2022-11-03] MEDS ORDERED: Dextrose 5% in Water 1,000 ML IV PRN (17:36)
[2022-11-03] MEDS ORDERED: Dextrose 50% Abboject 50 ML SYRINGE SLOW IVP PRN (17:36)
[2022-11-03] MEDS ORDERED: Insulin Regular 300 UNITS/3 ML VIAL SC PRN (17:36)
[2022-11-03 18:15] LABS: SARS-CoV-2 NAA Rapid Test Not Detected (NotDetected)
[2022-11-03] MEDS: Ipratropium/Albuterol 3 ML NEB NEB SCH ×2 (18:30→22:32)
[2022-11-03] MEDS: Mometasone 200 MCG/Formoterol 5 MCG 120 PUFF INHALER INH SCH (18:30)
[2022-11-03 21:34] VITALS: BMI 36.3
[2022-11-03] MEDS: Ferrous Sulfate 325 MG TAB PO SCH (21:35)
[2022-11-03] MEDS: Acetaminophen 325 MG TAB PO PRN (21:35)
[2022-11-03] MEDS: HumaLOG 300 UNITS/3 ML VIAL SC PRN (21:36)
[2022-11-03] MEDS ORDERED: hydrALAZINE 20 MG/ML VIAL SLOW IVP PRN (21:45)
[2022-11-03] MEDS: Lactated Ringer's 1,000 ML IV SCH (21:45)
[2022-11-04] MEDS: Lactated Ringer's 1,000 ML IV SCH ×2 (01:51→10:56)
[2022-11-04] MEDS: Ipratropium/Albuterol 3 ML NEB NEB SCH ×3 (02:09→10:46)
[2022-11-04 04:31] LABS: #Lymphocytes 0.9 thou/uL (1.20-3.40); #Monocytes 0.6 thou/uL (0.11-0.59); #Neutrophils 9.1 thou/uL (1.40-6.50); %Basophils 0.1 % (0.0-1.0); %Lymphocytes 8.5 % (21.0-51.0); %Monocytes 5.3 % (0.0-10.0); %Neutrophils 86.1 % (42.0-75.0); Hemoglobin 8.4 g/dL (12.0-16.0); Mean Corpuscular Hemoglobin 21.5 pg (27.0-31.0); Mean Corpuscular Volume 74.2 fl (78.0-98.0); Mean Platelet Volume 9.8 fL (7.4-10.4); Platelet Count 342 10x3/uL (130-400); Red Blood Cell (RBC) Count 3.93 mill/uL (4.20-5.40); White Blood Cell (WBC) Count 10.6 10x3/uL (4.8-10.8)
[2022-11-04 04:50] LABS: Anion Gap 13 mmol/L (10-20); BUN (Urea Nitrogen) 7 mg/dL (7.0-18.7); Calc. Creatinine Clearance 173 mL/min (70-130); Carbon Dioxide 23 mmol/L (22-29); Chloride 102 mmol/L (98-107); Estimated GFR 115; Glucose 158 mg/dL (70-105); Potassium 4.1 mmol/L (3.5-5.1); Sodium 134 mmol/L (136-145)
[2022-11-04] MEDS ORDERED: Ipratropium/Albuterol 3 ML NEB NEB SCH (06:00)
[2022-11-04] MEDS ORDERED: Dexamethasone 10 MG/ML VIAL SLOW IVP SCH (09:00)
[2022-11-04] MEDS ORDERED: Amlodipine 5 MG TAB PO SCH (09:00)
[2022-11-04] MEDS ORDERED: Non-Formulary Item 1 EACH (Ferrous Sulfate [Ferrous Sulfate] 325 MG Tab) PO SCH (09:00)
[2022-11-04] MEDS: Atorvastatin Calcium 40 MG TAB PO SCH (09:01)
[2022-11-04] MEDS: metFORMIN 500 MG TAB PO SCH ×2 (09:01→15:55)
[2022-11-04] MEDS: Montelukast Sodium 10 mg Tablet PO SCH (09:13)
[2022-11-04] MEDS: Mometasone 200 MCG/Formoterol 5 MCG 120 PUFF INHALER INH SCH ×2 (10:47→18:35)
[2022-11-04] MEDS: HumaLOG 300 UNITS/3 ML VIAL SC PRN ×2 (12:02→17:04)
[2022-11-04] MEDS: Acetaminophen 325 MG TAB PO PRN (16:00)
[2022-11-05 04:45] LABS: #Lymphocytes 1.8 thou/uL (1.20-3.40); #Monocytes 1.3 thou/uL (0.11-0.59); #Neutrophils 11.1 thou/uL (1.40-6.50); %Basophils 0.3 % (0.0-1.0); %Eosinophils 0.3 % (0.0-10.0); %Lymphocytes 12.7 % (21.0-51.0); %Monocytes 9.2 % (0.0-10.0); %Neutrophils 77.6 % (42.0-75.0); Hemoglobin 8.9 g/dL (12.0-16.0); Mean Corpuscular HGB CONC 29.8 g/dL (32.0-36.0); Mean Corpuscular Hemoglobin 22.3 pg (27.0-31.0); Mean Corpuscular Volume 74.9 fl (78.0-98.0); Platelet Count 347 10x3/uL (130-400); RBC Distribution Width 20.4 % (11.5-14.5); Red Blood Cell (RBC) Count 3.97 mill/uL (4.20-5.40); White Blood Cell (WBC) Count 14.3 10x3/uL (4.8-10.8)
[2022-11-05 05:05] LABS: Anion Gap 13 mmol/L (10-20); BUN (Urea Nitrogen) 11 mg/dL (7.0-18.7); Calc. Creatinine Clearance 144 mL/min (70-130); Calcium 9.1 mg/dL (7.8-10.44); Carbon Dioxide 25 mmol/L (22-29); Chloride 104 mmol/L (98-107); Estimated GFR 106; Glucose 128 mg/dL (70-105); Potassium 3.8 mmol/L (3.5-5.1); Sodium 138 mmol/L (136-145)
[2022-11-05] MEDS: Mometasone 200 MCG/Formoterol 5 MCG 120 PUFF INHALER INH SCH ×2 (06:57→18:46)
[2022-11-05] MEDS: Amlodipine 10 MG TAB PO SCH (09:10)
[2022-11-05] MEDS: predniSONE 20 MG TAB PO SCH (09:10)
[2022-11-05] MEDS: metFORMIN 500 MG TAB PO SCH ×2 (09:10→16:26)
[2022-11-05] MEDS: Atorvastatin Calcium 40 MG TAB PO SCH (09:11)
[2022-11-05] MEDS: Montelukast Sodium 10 mg Tablet PO SCH (09:11)
[2022-11-05] MEDS: Ferrous Sulfate 325 MG TAB PO SCH (16:25)
[2022-11-05] MEDS: HumaLOG 300 UNITS/3 ML VIAL SC PRN (16:32)
[2022-11-06 05:01] LABS: #Eosinphils 0.1 thou/uL (0.0-0.7); #Lymphocytes 2.6 thou/uL (1.20-3.40); #Monocytes 1.2 thou/uL (0.11-0.59); #Neutrophils 13.3 thou/uL (1.40-6.50); %Basophils 0.2 % (0.0-1.0); %Eosinophils 0.4 % (0.0-10.0); %Lymphocytes 15.3 % (21.0-51.0); %Monocytes 7.1 % (0.0-10.0); %Neutrophils 77.1 % (42.0-75.0); Hemoglobin 9.5 g/dL (12.0-16.0); Mean Corpuscular HGB CONC 30.1 g/dL (32.0-36.0); Mean Corpuscular Hemoglobin 22.4 pg (27.0-31.0); Mean Corpuscular Volume 74.5 fl (78.0-98.0); Platelet Count 339 10x3/uL (130-400); Red Blood Cell (RBC) Count 4.25 mill/uL (4.20-5.40); White Blood Cell (WBC) Count 17.2 10x3/uL (4.8-10.8)
[2022-11-06 05:13] LABS: Anion Gap 14 mmol/L (10-20); BUN (Urea Nitrogen) 14 mg/dL (7.0-18.7); Calc. Creatinine Clearance 170 mL/min (70-130); Calcium 9.2 mg/dL (7.8-10.44); Carbon Dioxide 23 mmol/L (22-29); Chloride 103 mmol/L (98-107); Estimated GFR 115; Glucose 96 mg/dL (70-105); Magnesium 1.8 mg/dL (1.6-2.6); Potassium 3.7 mmol/L (3.5-5.1); Sodium 136 mmol/L (136-145)
[2022-11-06] MEDS: Mometasone 200 MCG/Formoterol 5 MCG 120 PUFF INHALER INH SCH (06:47)
[2022-11-06 08:36] VITALS: TEMP 97.1
[2022-11-06] MEDS ORDERED: Lisinopril 10 MG TAB PO SCH (09:00)
[2022-11-06] MEDS: predniSONE 20 MG TAB PO SCH (11:33)
[2022-11-06] MEDS: Amlodipine 10 MG TAB PO SCH (11:33)
[2022-11-06] MEDS: Atorvastatin Calcium 40 MG TAB PO SCH (11:33)
[2022-11-06] MEDS: metFORMIN 500 MG TAB PO SCH (11:33)
[2022-11-06 11:34] VITALS: BP 188/82
[2022-11-06] MEDS: Montelukast Sodium 10 mg Tablet PO SCH (11:35)
== END 2022-11-06 12:20 | disposition home or self-care (01) | DRG 203 ==
LOC: ERS 13:01 → ERHOLD 16:34 → 2NO 19:30
PROVIDERS: ADMIT Family Medicine; ATTEND Student in an Organized Health Care Education/Training Program
DX: J45.51 Severe persistent asthma with (acute) exacerbation (principal); Z20.822 Contact with and (suspected) exposure to COVID-19; I10 Essential (primary) hypertension; E11.9 Type 2 diabetes mellitus without complications; D50.9 Iron deficiency anemia, unspecified; R00.0 Tachycardia, unspecified; T48.6X5A Adverse effect of antiasthmatics, initial encounter; E78.5 Hyperlipidemia, unspecified; Z91.14 Patient's other noncompliance with medication regimen; Z85.528 Personal history of other malignant neoplasm of kidney; Z79.899 Other long term (current) drug therapy; Z79.51 Long term (current) use of inhaled steroids; Z79.84 Long term (current) use of oral hypoglycemic drugs; Z98.890 Other specified postprocedural states; Z80.1 Family history of malignant neoplasm of trachea, bronchus and lung; Z83.3 Family history of diabetes mellitus; Z82.49 Family history of ischemic heart disease and other diseases of the circulatory system; Z87.891 Personal history of nicotine dependence
CPT/HCPCS: 36415; 36416; 71045; 80048; 80053; 82550; 83735; 85025; 93005; 94640; J0360; J1100; J1650; J1815; J7120; J7512; J7611; J7620; U0003; U0005

== ENCOUNTER 2022-11-30 09:37 | Emergency (ER) | payer OTHER ==
[2022-11-30] MEDS ORDERED: Albuterol 2.5 MG/0.5 ML NEB ONE (10:27)
[2022-11-30 10:50] LABS: #Eosinphils 0.1 thou/uL (0.0-0.7); #Lymphocytes 1.4 thou/uL (1.20-3.40); #Monocytes 0.6 thou/uL (0.11-0.59); #Neutrophils 8.2 thou/uL (1.40-6.50); %Basophils 0.3 % (0.0-1.0); %Eosinophils 1.1 % (0.0-10.0); %Lymphocytes 13.5 % (21.0-51.0); %Monocytes 5.4 % (0.0-10.0); %Neutrophils 79.7 % (42.0-75.0); Hemoglobin 9.2 g/dL (12.0-16.0); Mean Corpuscular HGB CONC 28.7 g/dL (32.0-36.0); Mean Corpuscular Hemoglobin 21.5 pg (27.0-31.0); Mean Corpuscular Volume 74.7 fl (78.0-98.0); Mean Platelet Volume 10.2 fL (7.4-10.4); Platelet Count 353 10x3/uL (130-400); RBC Distribution Width 19.8 % (11.5-14.5); Red Blood Cell (RBC) Count 4.31 mill/uL (4.20-5.40); White Blood Cell (WBC) Count 10.2 10x3/uL (4.8-10.8)
[2022-11-30 10:54] LABS: SARS-CoV-2 NAA Rapid Test Not Detected (NotDetected)
[2022-11-30 11:09] LABS: ALT (SGPT) 36 U/L (8-55); AST (SGOT) 19 U/L (5-34); Alkaline Phosphatase 92 U/L (40-110); Anion Gap 14 mmol/L (10-20); BUN (Urea Nitrogen) 13 mg/dL (7.0-18.7); Bilirubin, Total 0.9 mg/dL (0.2-1.2); Calc. Creatinine Clearance 0 mL/min (70-130); Calcium 8.9 mg/dL (7.8-10.44); Carbon Dioxide 27 mmol/L (22-29); Chloride 101 mmol/L (98-107); Estimated GFR 111; Globulin 2.6 g/dL (2.4-3.5); Glucose 135 mg/dL (70-105); Potassium 3.4 mmol/L (3.5-5.1); Protein, Total 6.6 g/dL (6.0-8.3); Sodium 139 mmol/L (136-145)
[2022-11-30 12:00] LABS: Hypochromia SLIGHT = 6-15 cells (100X) (0-5/hpf); MDiff Complete? YES; Microcytosis SLIGHT = 6-15 cells (100X) (0-5/hpf); Platelet Morphology Comment Appears Adequate; Polychromasia SLIGHT = 2-3 cells (100X) (0-2/hpf)
[2022-11-30] MEDS ORDERED: Ipratropium/Albuterol 3 ML NEB ONE (13:52)
[2022-11-30] MEDS ORDERED: Magnesium 2 GM/50 ML BAG (IN WATER) ONE (14:24)
== END 2022-11-30 14:58 | disposition home or self-care (01) ==
LOC: ERS 09:37
DX: J45.901 Unspecified asthma with (acute) exacerbation (principal); E78.5 Hyperlipidemia, unspecified; Z79.899 Other long term (current) drug therapy
CPT/HCPCS: 36415; 71045; 80053; 85025; 93005; 94640; 96365; J3475; J7611; J7620

== ENCOUNTER 2022-12-06 15:01 | Inpatient (IN) | payer OTHER, SELFPAY ==
[2022-12-06 15:48] LABS: Actual Bicarbonate (HCO3v) 32 mEq/L (22-28); Base Excess 7.9 mEq/L (-2.0 to +3.0); Calcium, Ionized (venous) 0.98 mmol/L (1.16-1.32); Chloride (VBG) 100 mmol/L (98-106); Hemoglobin (Hb) 10.8 g/dL (11.7-15.5); Potassium (VBG) 3.16 mmol/L (3.70-5.30); Sodium 137.1 mmol/L (133-146); pH (venous) 7.48 (7.32-7.43)
[2022-12-06 16:05] LABS: #Eosinphils 0.1 thou/uL (0.0-0.7); #Lymphocytes 2.7 thou/uL (1.20-3.40); #Monocytes 0.6 thou/uL (0.11-0.59); #Neutrophils 10.2 thou/uL (1.40-6.50); %Basophils 0.3 % (0.0-1.0); %Eosinophils 0.8 % (0.0-10.0); %Lymphocytes 19.9 % (21.0-51.0); %Monocytes 4.1 % (0.0-10.0); Hemoglobin 9.7 g/dL (12.0-16.0); Mean Corpuscular HGB CONC 29.5 g/dL (32.0-36.0); Mean Corpuscular Hemoglobin 21.7 pg (27.0-31.0); Mean Corpuscular Volume 73.4 fl (78.0-98.0); Mean Platelet Volume 11.2 fL (7.4-10.4); Platelet Count 307 10x3/uL (130-400); Red Blood Cell (RBC) Count 4.48 mill/uL (4.20-5.40); White Blood Cell (WBC) Count 13.6 10x3/uL (4.8-10.8)
[2022-12-06] MEDS ORDERED: Magnesium 2 GM/50 ML BAG (IN WATER) ONE (16:09)
[2022-12-06] MEDS ORDERED: Ipratropium/Albuterol 3 ML NEB ONE ×2 (16:09→17:16)
[2022-12-06 16:23] LABS: ALT (SGPT) 30 U/L (8-55); AST (SGOT) 14 U/L (5-34); Albumin 3.5 g/dL (3.5-5.0); Alkaline Phosphatase 86 U/L (40-110); Anion Gap 16 mmol/L (10-20); BUN (Urea Nitrogen) 10 mg/dL (7.0-18.7); Bilirubin, Total 0.7 mg/dL (0.2-1.2); Calc. Creatinine Clearance 0 mL/min (70-130); Calcium 9.2 mg/dL (7.8-10.44); Carbon Dioxide 26 mmol/L (22-29); Chloride 99 mmol/L (98-107); Estimated GFR 107; Globulin 2.8 g/dL (2.4-3.5); Glucose 132 mg/dL (70-105); Potassium 3.2 mmol/L (3.5-5.1); Protein, Total 6.3 g/dL (6.0-8.3); Sodium 138 mmol/L (136-145)
[2022-12-06 16:25] LABS: Anisocytosis SLIGHT = 6-15 cells (100X) (0-5/hpf); Hypochromia SLIGHT = 6-15 cells (100X) (0-5/hpf); MDiff Complete? YES; Microcytosis SLIGHT = 6-15 cells (100X) (0-5/hpf); Ovalocytes SLIGHT = 2-5 cells (100X) (0-1/hpf); Platelet Morphology Comment Appears Adequate; Polychromasia SLIGHT = 2-3 cells (100X) (0-2/hpf); Target Cells SLIGHT = 2-5 cells (100X) (0-1/hpf)
[2022-12-06 16:36] LABS: BHCG - Serum Negative (NEGATIVE); Pregs Control Background? CLEAR/WHITE (CLR/WHITE); Pregs Control Bar Appear? YES (CONTROL BAR)
[2022-12-06] MEDS ORDERED: predniSONE 20 MG TAB ONE (17:16)
[2022-12-06] MEDS ORDERED: Ipratropium/Albuterol 3 ML NEB NEB PRN ×2 (19:07→20:30)
[2022-12-06] MEDS ORDERED: HumaLOG 300 UNITS/3 ML VIAL SC PRN (19:11)
[2022-12-06] MEDS ORDERED: Dextrose 50% Abboject 50 ML SYRINGE SLOW IVP PRN (19:11)
[2022-12-06] MEDS ORDERED: Dextrose 5% in Water 1,000 ML IV PRN (19:11)
[2022-12-06] MEDS ORDERED: Ipratropium Bromide 2.5 ml Neb NEB PRN (20:09)
[2022-12-06] MEDS ORDERED: Potassium Chloride 20 MEQ TAB PO SCH (20:45)
[2022-12-06 21:26] LABS: SARS-CoV-2 NAA Rapid Test Not Detected (NotDetected)
[2022-12-06 22:15] VITALS: BMI 35.4
[2022-12-06] MEDS: Ipratropium/Albuterol 3 ML NEB NEB SCH ×2 (22:53→23:01)
[2022-12-07] MEDS: Ipratropium/Albuterol 3 ML NEB NEB SCH ×8 (01:00→23:08)
[2022-12-07] MEDS: HumaLOG 300 UNITS/3 ML VIAL SC PRN ×2 (06:25→12:55)
[2022-12-07] MEDS ORDERED: Acetaminophen 325 MG TAB PO PRN (06:49)
[2022-12-07] MEDS: Mometasone 200 MCG/Formoterol 5 MCG 120 PUFF INHALER INH SCH ×2 (07:19→19:10)
[2022-12-07 07:30] LABS: Anion Gap 14 mmol/L (10-20); BUN (Urea Nitrogen) 12 mg/dL (7.0-18.7); Calc. Creatinine Clearance 147 mL/min (70-130); Calcium 8.7 mg/dL (7.8-10.44); Carbon Dioxide 25 mmol/L (22-29); Chloride 102 mmol/L (98-107); Estimated GFR 111; Glucose 222 mg/dL (70-105); Potassium 4.7 mmol/L (3.5-5.1); Sodium 136 mmol/L (136-145)
[2022-12-07] MEDS: Amlodipine 10 MG TAB PO SCH (09:38)
[2022-12-07] MEDS: metFORMIN 500 MG TAB PO SCH ×2 (09:38→18:17)
[2022-12-07] MEDS: Lisinopril 10 MG TAB PO SCH (09:40)
[2022-12-07] MEDS: Montelukast Sodium 10 mg Tablet PO SCH (09:41)
[2022-12-07] MEDS: Loratadine 10 MG TAB PO SCH (09:41)
[2022-12-07] MEDS: predniSONE 20 MG TAB PO SCH (09:41)
[2022-12-07] MEDS: Ferrous Sulfate 325 MG TAB PO SCH (09:41)
[2022-12-07] MEDS: Atorvastatin Calcium 40 MG TAB PO SCH (09:41)
[2022-12-07] MEDS ORDERED: HumaLOG 300 UNITS/3 ML VIAL SC PRN (16:31)
[2022-12-08 07:50] LABS: Anion Gap 13 mmol/L (10-20); BUN (Urea Nitrogen) 13 mg/dL (7.0-18.7); Calc. Creatinine Clearance 164 mL/min (70-130); Calcium 8.6 mg/dL (7.8-10.44); Carbon Dioxide 23 mmol/L (22-29); Chloride 103 mmol/L (98-107); Estimated GFR 114; Glucose 118 mg/dL (70-105); Potassium 4.4 mmol/L (3.5-5.1); Sodium 135 mmol/L (136-145)
[2022-12-08 07:58] VITALS: BP 136/78; TEMP 98
[2022-12-08] MEDS: Montelukast Sodium 10 mg Tablet PO SCH (08:33)
[2022-12-08] MEDS: metFORMIN 500 MG TAB PO SCH (08:33)
[2022-12-08] MEDS: Ferrous Sulfate 325 MG TAB PO SCH (08:33)
[2022-12-08] MEDS: predniSONE 20 MG TAB PO SCH (08:34)
[2022-12-08] MEDS: Atorvastatin Calcium 40 MG TAB PO SCH (08:34)
[2022-12-08] MEDS: Lisinopril 10 MG TAB PO SCH (08:34)
[2022-12-08] MEDS: Amlodipine 10 MG TAB PO SCH (08:34)
[2022-12-08] MEDS: Loratadine 10 MG TAB PO SCH (08:34)
[2022-12-08] MEDS: Ipratropium/Albuterol 3 ML NEB NEB SCH (08:44)
== END 2022-12-08 12:08 | disposition home or self-care (01) | DRG 189 ==
LOC: ERS 15:01 → T4-B 17:23 → OBSVTOIN 12-07 16:38
PROVIDERS: ADMIT Student in an Organized Health Care Education/Training Program; ATTEND Student in an Organized Health Care Education/Training Program
PROC: 4A133R1 Monitoring of Arterial Saturation, Peripheral, Percutaneous Approach (ICD-10-PCS; principal; 2022-12-06)
DX: J96.01 Acute respiratory failure with hypoxia (principal); J45.51 Severe persistent asthma with (acute) exacerbation; I10 Essential (primary) hypertension; E78.5 Hyperlipidemia, unspecified; E66.9 Obesity, unspecified; D50.9 Iron deficiency anemia, unspecified; E87.6 Hypokalemia; E11.65 Type 2 diabetes mellitus with hyperglycemia; T38.0X5A Adverse effect of glucocorticoids and synthetic analogues, initial encounter; F41.9 Anxiety disorder, unspecified; F32.A Depression, unspecified; N28.89 Other specified disorders of kidney and ureter; Z20.822 Contact with and (suspected) exposure to COVID-19; Z79.51 Long term (current) use of inhaled steroids; Z79.899 Other long term (current) drug therapy; Z79.84 Long term (current) use of oral hypoglycemic drugs; Z98.890 Other specified postprocedural states; Z87.891 Personal history of nicotine dependence
CPT/HCPCS: 36415; 36416; 71045; 80048; 80053; 82805; 84484; 84703; 85025; 93005; 94640; 96372; 96374; G0378; J1650; J1815; J3475; J7512; J7611; J7620; U0002

== ENCOUNTER 2022-12-21 09:03 | Observation (INO) | payer OTHER, SELFPAY ==
[2022-12-21] MEDS ORDERED: methylPREDNISolone Sod Succ/PF 125 MG/2 ML VIAL ONE (09:46)
[2022-12-21] MEDS ORDERED: Iopamidol-370 76% 500 ML MDV (1 ML CHARGE) ONE (10:00)
[2022-12-21 11:30] LABS: #Basophils 0.1 thou/uL (0.0-0.2); #Eosinphils 0.1 thou/uL (0.0-0.7); #Monocytes 0.3 thou/uL (0.11-0.59); #Neutrophils 14.1 thou/uL (1.40-6.50); %Basophils 0.6 % (0.0-1.0); %Eosinophils 0.4 % (0.0-10.0); %Lymphocytes 6.5 % (21.0-51.0); %Monocytes 1.7 % (0.0-10.0); %Neutrophils 90.7 % (42.0-75.0); Hemoglobin 9.4 g/dL (12.0-16.0); Mean Corpuscular HGB CONC 29.5 g/dL (32.0-36.0); Mean Corpuscular Hemoglobin 21.7 pg (27.0-31.0); Mean Corpuscular Volume 73.6 fl (78.0-98.0); Mean Platelet Volume 11.4 fL (7.4-10.4); Platelet Count 257 10x3/uL (130-400); RBC Distribution Width 20.6 % (11.5-14.5); White Blood Cell (WBC) Count 15.6 10x3/uL (4.8-10.8)
[2022-12-21 11:51] LABS: ALT (SGPT) 32 U/L (8-55); AST (SGOT) 17 U/L (5-34); Albumin 3.6 g/dL (3.5-5.0); Alkaline Phosphatase 82 U/L (40-110); Anion Gap 12 mmol/L (10-20); Anisocytosis MODERATE=16-30 cells (100X) (0-5/hpf); BUN (Urea Nitrogen) 7 mg/dL (7.0-18.7); Bilirubin, Total 0.7 mg/dL (0.2-1.2); Calc. Creatinine Clearance 0 mL/min (70-130); Calcium 8.4 mg/dL (7.8-10.44); Carbon Dioxide 24 mmol/L (22-29); Chloride 105 mmol/L (98-107); Estimated GFR 112; Globulin 2.8 g/dL (2.4-3.5); Glucose 132 mg/dL (70-105); Hypochromia SLIGHT = 6-15 cells (100X) (0-5/hpf); Lipase 9 U/L (8-78); MDiff Complete? YES; Magnesium 1.6 mg/dL (1.6-2.6); Platelet Morphology Comment Appears Adequate; Polychromasia MODERATE = 3-4 cells (100X) (0-2/hpf); Potassium 3.4 mmol/L (3.5-5.1); Protein, Total 6.4 g/dL (6.0-8.3); Sodium 138 mmol/L (136-145); Stomatocytes SLIGHT = 2-5 cells (100X) (0-1/hpf)
[2022-12-21] MEDS ORDERED: Ipratropium/Albuterol 3 ML NEB NEB PRN (13:01)
[2022-12-21] MEDS ORDERED: HumaLOG 300 UNITS/3 ML VIAL SC PRN ×2 (13:08)
[2022-12-21] MEDS ORDERED: Dextrose 5% in Water 1,000 ML IV PRN (13:08)
[2022-12-21] MEDS ORDERED: Dextrose 50% Abboject 50 ML SYRINGE SLOW IVP PRN (13:08)
[2022-12-21] MEDS ORDERED: Magnesium 2 GM/50 ML BAG (IN WATER) ONE (13:13)
[2022-12-21] MEDS ORDERED: Potassium Chloride 20 MEQ TAB PO SCH (13:15)
[2022-12-21] MEDS: Ipratropium/Albuterol 3 ML NEB NEB SCH ×3 (14:40→22:31)
[2022-12-21] MEDS ORDERED: Albuterol 200 PUFF (6.7GM INHALER) INH PRN (14:54)
[2022-12-21 15:09] VITALS: BMI 36.0
[2022-12-21] MEDS: metFORMIN 500 MG TAB PO SCH (16:51)
[2022-12-21] MEDS ORDERED: Acetaminophen 325 MG TAB PO PRN (20:24)
[2022-12-21] MEDS ORDERED: Atorvastatin Calcium 40 MG TAB PO SCH (21:00)
[2022-12-22] MEDS: Ipratropium/Albuterol 3 ML NEB NEB SCH ×3 (01:58→11:37)
[2022-12-22] MEDS ORDERED: Ferrous Sulfate 325 MG TAB PO SCH (08:00)
[2022-12-22] MEDS ORDERED: predniSONE 20 MG TAB PO SCH (08:00)
[2022-12-22] MEDS: metFORMIN 500 MG TAB PO SCH (08:17)
[2022-12-22] MEDS ORDERED: Lisinopril 10 MG TAB PO SCH (09:00)
[2022-12-22] MEDS ORDERED: Non-Formulary Item 1 EACH (Tiotropium [Spiriva Handihaler] 18 MCG Box) INH SCH (09:00)
[2022-12-22] MEDS ORDERED: Amlodipine 10 MG TAB PO SCH (09:00)
[2022-12-22] MEDS ORDERED: Loratadine 10 MG TAB PO SCH (09:00)
[2022-12-22] MEDS ORDERED: Montelukast Sodium 10 mg Tablet PO SCH (09:00)
[2022-12-22 12:14] VITALS: BP 136/83; TEMP 98.7
== END 2022-12-22 13:20 | disposition home or self-care (01) ==
LOC: ERS 09:03 → ERHOLD 13:35 → MSONC 14:29
PROVIDERS: ADMIT Student in an Organized Health Care Education/Training Program; ATTEND Student in an Organized Health Care Education/Training Program
DX: J45.51 Severe persistent asthma with (acute) exacerbation (principal); N28.89 Other specified disorders of kidney and ureter; E87.6 Hypokalemia; E11.9 Type 2 diabetes mellitus without complications; I10 Essential (primary) hypertension; E78.5 Hyperlipidemia, unspecified; D50.9 Iron deficiency anemia, unspecified; Z79.84 Long term (current) use of oral hypoglycemic drugs; Z79.899 Other long term (current) drug therapy
CPT/HCPCS: 36415; 36416; 71045; 71275; 80053; 83690; 83735; 83880; 84484; 85025; 87804; 93005; 94640; G0378; J1815; J2930; J3475; J7512; J7620; Q9967

== ENCOUNTER 2022-12-28 09:21 | Emergency (ER) | payer OTHER ==
[2022-12-28] MEDS ORDERED: Albuterol 200 PUFF (6.7GM INHALER) ONE (11:24)
[2022-12-28] MEDS ORDERED: Magnesium 2 GM/50 ML BAG (IN WATER) ONE (11:36)
== END 2022-12-28 14:52 | disposition home or self-care (01) ==
LOC: ERS 09:21
DX: J45.901 Unspecified asthma with (acute) exacerbation (principal); E78.5 Hyperlipidemia, unspecified; I10 Essential (primary) hypertension; Z79.899 Other long term (current) drug therapy; Z79.84 Long term (current) use of oral hypoglycemic drugs
CPT/HCPCS: 93005; 94664; 96365; J3475

== ENCOUNTER 2023-01-15 10:21 | Inpatient (IN) | payer OTHER ==
[2023-01-15] MEDS ORDERED: Magnesium 2 GM/50 ML BAG (IN WATER) ONE (10:53)
[2023-01-15] MEDS ORDERED: methylPREDNISolone Sod Succ/PF 125 MG/2 ML VIAL ONE (10:53)
[2023-01-15] MEDS ORDERED: Ipratropium Bromide 2.5 ml Neb ONE (11:26)
[2023-01-15 11:30] LABS: Mean Corpuscular HGB CONC 29.1 g/dL (32.0-36.0); Mean Corpuscular Hemoglobin 21.5 pg (27.0-31.0); Mean Corpuscular Volume 73.7 fl (78.0-98.0); RBC Distribution Width 21.2 % (11.5-14.5); Red Blood Cell (RBC) Count 4.18 mill/uL (4.20-5.40); White Blood Cell (WBC) Count 9.9 10x3/uL (4.8-10.8)
[2023-01-15 11:44] LABS: ALT (SGPT) 24 U/L (8-55); AST (SGOT) 17 U/L (5-34); Albumin 3.6 g/dL (3.5-5.0); Alkaline Phosphatase 84 U/L (40-110); Anion Gap 19 mmol/L (10-20); BUN (Urea Nitrogen) 7 mg/dL (7.0-18.7); Bilirubin, Total 0.5 mg/dL (0.2-1.2); Calc. Creatinine Clearance 0 mL/min (70-130); Calcium 8.8 mg/dL (7.8-10.44); Carbon Dioxide 22 mmol/L (22-29); Chloride 103 mmol/L (98-107); Estimated GFR 114; Globulin 3.1 g/dL (2.4-3.5); Glucose 107 mg/dL (70-105); Potassium 3.3 mmol/L (3.5-5.1); Protein, Total 6.7 g/dL (6.0-8.3); Sodium 141 mmol/L (136-145)
[2023-01-15 12:03] LABS: SARS-CoV-2 NAA Rapid Test Not Detected (NotDetected)
[2023-01-15 12:15] LABS: #Eosinphils 0.1 thou/uL (0.0-0.7); #Lymphocytes 1.1 thou/uL (1.20-3.40); #Monocytes 0.7 thou/uL (0.11-0.59); %Eosinophils 0.9 % (0.0-10.0); %Lymphocytes 10.9 % (21.0-51.0); %Monocytes 7.4 % (0.0-10.0); %Neutrophils 80.9 % (42.0-75.0); Anisocytosis SLIGHT = 6-15 cells (100X) (0-5/hpf); Hypochromia SLIGHT = 6-15 cells (100X) (0-5/hpf); MDiff Complete? YES; Platelet Morphology Comment PLT clumps seen-ADEQ; Polychromasia SLIGHT = 2-3 cells (100X) (0-2/hpf)
[2023-01-15] MEDS ORDERED: Acetaminophen 325 MG TAB PO PRN (14:28)
[2023-01-15] MEDS ORDERED: Electrolyte Replacement Protocol 1 EACH FS SCH (14:30)
[2023-01-15] MEDS ORDERED: Amlodipine 10 MG TAB PO SCH (15:00)
[2023-01-15] MEDS ORDERED: Lisinopril 10 MG TAB PO SCH (15:00)
[2023-01-15] MEDS ORDERED: Dextrose 5% in Water 1,000 ML IV PRN (15:03)
[2023-01-15] MEDS ORDERED: Dextrose 50% Abboject 50 ML SYRINGE SLOW IVP PRN (15:03)
[2023-01-15 15:19] LABS: Actual Bicarbonate (HCO3v) 25 mEq/L (22-28); Base Excess 0.4 mEq/L (-2.0 to +3.0); Calcium, Ionized (venous) 1.07 mmol/L (1.16-1.32); Chloride (VBG) 100 mmol/L (98-106); Hemoglobin (Hb) 9.9 g/dL (11.7-15.5); Sodium 138.8 mmol/L (133-146); pH (venous) 7.42 (7.32-7.43)
[2023-01-15 16:01] VITALS: BMI 33.8
[2023-01-15] MEDS ORDERED: Ipratropium Bromide 2.5 ml Neb NEB PRN (16:22)
[2023-01-15] MEDS: Thiamine HCl 200 MG/2 ML VIAL SLOW IVP SCH (16:32)
[2023-01-15] MEDS: metFORMIN 500 MG TAB PO SCH (16:32)
[2023-01-15] MEDS: HumaLOG 300 UNITS/3 ML VIAL SC PRN ×2 (17:57→20:54)
[2023-01-15] MEDS ORDERED: Mometasone 200 MCG/Formoterol 5 MCG 120 PUFF INHALER INH SCH (18:30)
[2023-01-15] MEDS: Ipratropium Bromide 2.5 ml Neb NEB SCH (18:31)
[2023-01-15] MEDS: Budesonide 0.5 MG/2 ML NEB NEB SCH (18:31)
[2023-01-15] MEDS: Atorvastatin Calcium 40 MG TAB PO SCH (20:34)
[2023-01-15] MEDS: Montelukast Sodium 10 mg Tablet PO SCH (20:34)
[2023-01-15] MEDS ORDERED: Famotidine 20 MG TAB PO SCH (21:00)
[2023-01-16 00:02] LABS: Bacteria/HPF None Seen HPF (None Seen); Bilirubin Negative (Negative); Blood, Urine Negative (Negative); Clarity Clear (Clear); Glucose, Urine (Dipstick) 30 mg/dL (Negative); Ketone, Urine 20 mg/dL (Negative); Leukocyte Negative Leu/uL (Negative); Nitrite Negative (Negative); Protein, Urine (Dipstick) 30 mg/dL (Neg-Trace); RBC/HPF None Seen HPF (0-3); Specific Gravity, Urine 1.028 (1.002-1.036); WBC/HPF 0-3 HPF (0-3); pH, Urine 6.5 (5.0-9.0)
[2023-01-16 00:08] LABS: Amphetamine Not Detected (NotDetected); Barbiturates Screen Not Detected (NotDetected); Benzodiazepine Screen Not Detected (NotDetected); Cocaine Metabolite Screen Not Detected (NotDetected); Methadone Not Detected (NotDetected); Methamphetamine Not Detected (NotDetected); Opiate Screen Not Detected (NotDetected); Oxycodone Screen Not Detected (NotDetected); Phencyclidine (PCP) Not Detected (NotDetected); THC/Cannabinoid Screen Not Detected (NotDetected); Tricyclic Screen Not Detected (NotDetected)
[2023-01-16] MEDS: Ipratropium Bromide 2.5 ml Neb NEB SCH ×4 (01:37→19:17)
[2023-01-16 05:14] LABS: Anion Gap 15 mmol/L (10-20); BUN (Urea Nitrogen) 7 mg/dL (7.0-18.7); Calc. Creatinine Clearance 165 mL/min (70-130); Calcium 8.8 mg/dL (7.8-10.44); Carbon Dioxide 26 mmol/L (22-29); Chloride 101 mmol/L (98-107); Estimated GFR 115; Glucose 158 mg/dL (70-105); Potassium 3.7 mmol/L (3.5-5.1); Sodium 138 mmol/L (136-145)
[2023-01-16 05:21] LABS: Band 6 % (5-11); Hemoglobin 8.6 g/dL (12.0-16.0); Hypochromia SLIGHT = 6-15 cells (100X) (0-5/hpf); Lymphocytes 7 % (21-51); MDiff Complete? YES; Mean Corpuscular HGB CONC 30.1 g/dL (32.0-36.0); Mean Corpuscular Hemoglobin 22.5 pg (27.0-31.0); Mean Corpuscular Volume 74.5 fl (78.0-98.0); Mean Platelet Volume 7.9 fL (7.4-10.4); Microcytosis SLIGHT = 6-15 cells (100X) (0-5/hpf); Monocytes 4 % (0-10); Neutrophil 83 % (42-75); Platelet Count 181 10x3/uL (130-400); Platelet Morphology Comment Appears Adequate; RBC Distribution Width 21.3 % (11.5-14.5); Red Blood Cell (RBC) Count 3.83 mill/uL (4.20-5.40)
[2023-01-16] MEDS: Budesonide 0.5 MG/2 ML NEB NEB SCH ×2 (08:32→19:17)
[2023-01-16] MEDS: Lisinopril 10 MG TAB PO SCH (08:33)
[2023-01-16] MEDS: metFORMIN 500 MG TAB PO SCH ×2 (08:33→18:08)
[2023-01-16] MEDS: Folic Acid 1 MG TAB PO SCH (08:33)
[2023-01-16] MEDS: Amlodipine 10 MG TAB PO SCH (08:33)
[2023-01-16] MEDS: Ferrous Sulfate 325 MG TAB PO SCH (08:34)
[2023-01-16] MEDS: Loratadine 10 MG TAB PO SCH (08:34)
[2023-01-16] MEDS: Multivit, Therapeutic 1 TAB PO SCH (08:40)
[2023-01-16] MEDS ORDERED: Non-Formulary Item 1 EACH (Tiotropium [Spiriva Handihaler] 18 MCG Box) INH SCH (09:00)
[2023-01-16] MEDS: Dexamethasone 10 MG/ML VIAL SLOW IVP SCH (10:04)
[2023-01-16] MEDS ORDERED: Iopamidol-370 76% 500 ML MDV (1 ML CHARGE) ONE (10:25)
[2023-01-16 10:54] LABS: Pregnancy Test - Urine (BHCG) Negative (Negative); Pregu Control Background? CLEAR/WHITE (CLR/WHITE); Pregu Control Bar Appear? YES (CONTROL BAR); Specific Gravity 1.022 (1.002-1.036)
[2023-01-16] MEDS: Thiamine HCl 200 MG/2 ML VIAL SLOW IVP SCH (15:19)
[2023-01-16] MEDS: HumaLOG 300 UNITS/3 ML VIAL SC PRN ×2 (18:09→20:56)
[2023-01-16] MEDS: Arformoterol 15 MCG/2 ML NEB NEB SCH (19:16)
[2023-01-16] MEDS: Montelukast Sodium 10 mg Tablet PO SCH (20:53)
[2023-01-16] MEDS: Atorvastatin Calcium 40 MG TAB PO SCH (20:53)
[2023-01-17] MEDS: Ipratropium Bromide 2.5 ml Neb NEB SCH ×3 (01:38→12:39)
[2023-01-17 05:06] LABS: #Lymphocytes 1.3 thou/uL (1.20-3.40); #Monocytes 1.1 thou/uL (0.11-0.59); #Neutrophils 12.9 thou/uL (1.40-6.50); %Eosinophils 0.1 % (0.0-10.0); %Lymphocytes 8.5 % (21.0-51.0); %Monocytes 7.4 % (0.0-10.0); Hemoglobin 8.7 g/dL (12.0-16.0); Mean Corpuscular HGB CONC 29.3 g/dL (32.0-36.0); Mean Corpuscular Hemoglobin 22.3 pg (27.0-31.0); Mean Corpuscular Volume 76.2 fl (78.0-98.0); Mean Platelet Volume 12.2 fL (7.4-10.4); Platelet Count 219 10x3/uL (130-400); RBC Distribution Width 21.7 % (11.5-14.5); Red Blood Cell (RBC) Count 3.91 mill/uL (4.20-5.40); White Blood Cell (WBC) Count 15.4 10x3/uL (4.8-10.8)
[2023-01-17 05:22] LABS: Anion Gap 15 mmol/L (10-20); BUN (Urea Nitrogen) 12 mg/dL (7.0-18.7); Calc. Creatinine Clearance 157 mL/min (70-130); Calcium 9.1 mg/dL (7.8-10.44); Carbon Dioxide 25 mmol/L (22-29); Chloride 103 mmol/L (98-107); Estimated GFR 114; Glucose 114 mg/dL (70-105); Potassium 3.6 mmol/L (3.5-5.1); Sodium 139 mmol/L (136-145)
[2023-01-17] MEDS: Arformoterol 15 MCG/2 ML NEB NEB SCH (07:05)
[2023-01-17] MEDS: Budesonide 0.5 MG/2 ML NEB NEB SCH (07:13)
[2023-01-17] MEDS: Ferrous Sulfate 325 MG TAB PO SCH (09:43)
[2023-01-17] MEDS: Lisinopril 10 MG TAB PO SCH (09:43)
[2023-01-17] MEDS: Dexamethasone 10 MG/ML VIAL SLOW IVP SCH (09:44)
[2023-01-17] MEDS: Amlodipine 10 MG TAB PO SCH (09:44)
[2023-01-17] MEDS: Loratadine 10 MG TAB PO SCH (09:44)
[2023-01-17] MEDS: metFORMIN 500 MG TAB PO SCH (09:44)
[2023-01-17] MEDS: Multivit, Therapeutic 1 TAB PO SCH (09:44)
[2023-01-17] MEDS: Folic Acid 1 MG TAB PO SCH (09:44)
[2023-01-17 13:52] VITALS: BP 141/65; TEMP 97.8
[2023-01-18] MEDS ORDERED: Thiamine 100 MG TAB PO SCH (09:00)
== END 2023-01-17 13:55 | disposition home or self-care (01) | DRG 189 ==
LOC: ERS 10:21 → 2NO 15:45
PROVIDERS: ADMIT Family Medicine; ATTEND Family Medicine
DX: J96.01 Acute respiratory failure with hypoxia (principal); J45.51 Severe persistent asthma with (acute) exacerbation; E11.9 Type 2 diabetes mellitus without complications; I10 Essential (primary) hypertension; E78.5 Hyperlipidemia, unspecified; N28.89 Other specified disorders of kidney and ureter; E87.6 Hypokalemia; D50.9 Iron deficiency anemia, unspecified; Z20.822 Contact with and (suspected) exposure to COVID-19; F10.10 Alcohol abuse, uncomplicated; F41.9 Anxiety disorder, unspecified; F32.A Depression, unspecified; Z79.899 Other long term (current) drug therapy; Z79.51 Long term (current) use of inhaled steroids; Z79.84 Long term (current) use of oral hypoglycemic drugs; Z98.890 Other specified postprocedural states; Z87.891 Personal history of nicotine dependence
CPT/HCPCS: 36415; 36416; 71045; 71275; 80048; 80053; 80306; 81003; 81015; 81025; 82805; 83880; 84484; 85025; 85379; 93005; 94640; 94644; 94760; 96365; 96375; G0306; J1100; J1650; J1815; J2930; J3411; J3475; J7611; J7626; Q9967

== ENCOUNTER 2023-01-26 07:08 | Inpatient (IN) | payer OTHER ==
[2023-01-26] MEDS ORDERED: Magnesium 2 GM/50 ML BAG (IN WATER) ONE (07:38)
[2023-01-26] MEDS ORDERED: Albuterol 2.5 MG/0.5 ML NEB ONE ×2 (07:46→10:18)
[2023-01-26 10:48] LABS: Hemoglobin 10.1 g/dL (12.0-16.0); Mean Corpuscular HGB CONC 28.9 g/dL (32.0-36.0); Mean Corpuscular Hemoglobin 21.4 pg (27.0-31.0); Mean Corpuscular Volume 73.8 fl (78.0-98.0); Mean Platelet Volume 9.2 fL (7.4-10.4); Platelet Count 962 10x3/uL (130-400); Red Blood Cell (RBC) Count 4.75 mill/uL (4.20-5.40); White Blood Cell (WBC) Count 18.7 10x3/uL (4.8-10.8)
[2023-01-26 11:11] LABS: ALT (SGPT) 26 U/L (8-55); AST (SGOT) 14 U/L (5-34); Albumin 4.1 g/dL (3.5-5.0); Alkaline Phosphatase 110 U/L (40-110); Anion Gap 16 mmol/L (10-20); BUN (Urea Nitrogen) 8 mg/dL (7.0-18.7); Bilirubin, Total 0.7 mg/dL (0.2-1.2); Calc. Creatinine Clearance 0 mL/min (70-130); Calcium 9.9 mg/dL (7.8-10.44); Carbon Dioxide 26 mmol/L (22-29); Chloride 98 mmol/L (98-107); Estimated GFR 112; Glucose 153 mg/dL (70-105); Potassium 4.4 mmol/L (3.5-5.1); Protein, Total 7.1 g/dL (6.0-8.3); Sodium 136 mmol/L (136-145)
[2023-01-26 11:27] LABS: CKMB 2.7 ng/mL (0-6.6)
[2023-01-26 11:43] LABS: Band 8 % (5-11); Hypochromia SLIGHT = 6-15 cells (100X) (0-5/hpf); Lymphocytes 4 % (21-51); MDiff Complete? YES; Microcytosis SLIGHT = 6-15 cells (100X) (0-5/hpf); Neutrophil 88 % (42-75); Platelet Morphology Comment Appears Increased; Polychromasia MODERATE = 3-4 cells (100X) (0-2/hpf)
[2023-01-26 11:55] LABS: Actual Bicarbonate (HCO3v) 26.6 mEq/L (22-28); Base Excess 0.7 mEq/L (-2.0 to +3.0); Calcium, Ionized (venous) 1.11 mmol/L (1.16-1.32); Chloride (VBG) 99 mmol/L (98-106); Hematocrit-VBG 33 % (36.0-47.0); Hemoglobin (Hb) 11.2 g/dL (11.7-15.5); Potassium (VBG) 3.92 mmol/L (3.70-5.30); Sodium 137.5 mmol/L (133-146)
[2023-01-26] MEDS ORDERED: Dextrose 5% in Water 1,000 ML IV PRN (12:18)
[2023-01-26] MEDS ORDERED: Dextrose 50% Abboject 50 ML SYRINGE SLOW IVP PRN (12:18)
[2023-01-26] MEDS ORDERED: Acetaminophen 325 MG TAB PO PRN (12:18)
[2023-01-26] MEDS ORDERED: HumaLOG 300 UNITS/3 ML VIAL SC PRN ×2 (12:23)
[2023-01-26 13:00] LABS: SARS-CoV-2 NAA Rapid Test Not Detected (NotDetected)
[2023-01-26 13:47] LABS: Troponin I 0.019 ng/mL (< 0.028)
[2023-01-26] MEDS ORDERED: Ondansetron ODT 4 MG TAB PO PRN (14:42)
[2023-01-26 15:07] VITALS: BMI 34.2
[2023-01-26] MEDS: metFORMIN 500 MG TAB PO SCH (18:23)
[2023-01-26] MEDS: Ipratropium Bromide 2.5 ml Neb NEB SCH (19:02)
[2023-01-26] MEDS: Mometasone 200 MCG/Formoterol 5 MCG 120 PUFF INHALER INH SCH (19:05)
[2023-01-27] MEDS: Ipratropium Bromide 2.5 ml Neb NEB SCH ×2 (00:31→07:22)
[2023-01-27] MEDS: Mometasone 200 MCG/Formoterol 5 MCG 120 PUFF INHALER INH SCH ×2 (07:20→18:44)
[2023-01-27 07:38] LABS: Hemoglobin 8.6 g/dL (12.0-16.0); Mean Corpuscular HGB CONC 28.3 g/dL (32.0-36.0); Mean Corpuscular Hemoglobin 20.8 pg (27.0-31.0); Mean Corpuscular Volume 73.6 fl (78.0-98.0); Mean Platelet Volume 9.3 fL (7.4-10.4); Platelet Count 832 10x3/uL (130-400); RBC Distribution Width 22.7 % (11.5-14.5); Red Blood Cell (RBC) Count 4.13 mill/uL (4.20-5.40); White Blood Cell (WBC) Count 15.9 10x3/uL (4.8-10.8)
[2023-01-27 07:48] LABS: Anion Gap 15 mmol/L (10-20); BUN (Urea Nitrogen) 11 mg/dL (7.0-18.7); Calc. Creatinine Clearance 166 mL/min (70-130); Calcium 8.6 mg/dL (7.8-10.44); Carbon Dioxide 25 mmol/L (22-29); Chloride 103 mmol/L (98-107); Estimated GFR 115; Glucose 107 mg/dL (70-105); Potassium 3.9 mmol/L (3.5-5.1); Sodium 139 mmol/L (136-145)
[2023-01-27] MEDS: predniSONE 20 MG TAB PO SCH (08:39)
[2023-01-27] MEDS: Loratadine 10 MG TAB PO SCH (08:40)
[2023-01-27] MEDS: Montelukast Sodium 10 mg Tablet PO SCH (08:40)
[2023-01-27] MEDS: Ferrous Sulfate 325 MG TAB PO SCH (08:40)
[2023-01-27] MEDS: Amlodipine 10 MG TAB PO SCH (08:40)
[2023-01-27] MEDS: metFORMIN 500 MG TAB PO SCH ×2 (08:40→15:56)
[2023-01-27] MEDS: Atorvastatin Calcium 40 MG TAB PO SCH (08:40)
[2023-01-27] MEDS ORDERED: Lisinopril 10 MG TAB PO SCH (09:00)
[2023-01-27 09:19] LABS: Band 10 % (5-11); Hypochromia SLIGHT = 6-15 cells (100X) (0-5/hpf); Lymphocytes 19 % (21-51); MDiff Complete? YES; Microcytosis SLIGHT = 6-15 cells (100X) (0-5/hpf); Monocytes 3 % (0-10); Neutrophil 67 % (42-75); Ovalocytes SLIGHT = 2-5 cells (100X) (0-1/hpf); Platelet Morphology Comment Appears Increased; Polychromasia MODERATE = 3-4 cells (100X) (0-2/hpf); Reactive Lymphocytes 1 % (0-10)
[2023-01-27] MEDS: Ipratropium/Albuterol 3 ML NEB NEB SCH ×4 (11:25→23:28)
[2023-01-27 13:14] LABS: Iron 15 ug/dL (50-170); Iron Binding Capacity, Total 429 mcg/dL (265-497)
[2023-01-28] MEDS: Ipratropium/Albuterol 3 ML NEB NEB SCH ×3 (02:03→11:06)
[2023-01-28 07:41] LABS: Anion Gap 18 mmol/L (10-20); BUN (Urea Nitrogen) 10 mg/dL (7.0-18.7); Calc. Creatinine Clearance 156 mL/min (70-130); Calcium 8.8 mg/dL (7.8-10.44); Carbon Dioxide 22 mmol/L (22-29); Chloride 104 mmol/L (98-107); Estimated GFR 114; Glucose 87 mg/dL (70-105); Potassium 3.7 mmol/L (3.5-5.1); Sodium 140 mmol/L (136-145)
[2023-01-28 07:42] LABS: #Basophils 0.1 thou/uL (0.0-0.2); #Eosinphils 0.1 thou/uL (0.0-0.7); #Lymphocytes 2.7 thou/uL (1.20-3.40); #Monocytes 1.2 thou/uL (0.11-0.59); #Neutrophils 12.1 thou/uL (1.40-6.50); %Basophils 0.3 % (0.0-1.0); %Eosinophils 0.6 % (0.0-10.0); %Lymphocytes 16.6 % (21.0-51.0); %Monocytes 7.5 % (0.0-10.0); Mean Corpuscular Hemoglobin 21.4 pg (27.0-31.0); Mean Corpuscular Volume 73.8 fl (78.0-98.0); Mean Platelet Volume 11.6 fL (7.4-10.4); Platelet Count 564 10x3/uL (130-400); RBC Distribution Width 23.3 % (11.5-14.5); White Blood Cell (WBC) Count 16.2 10x3/uL (4.8-10.8)
[2023-01-28] MEDS ORDERED: Lisinopril 20 MG TAB PO SCH (09:00)
[2023-01-28] MEDS: Mometasone 200 MCG/Formoterol 5 MCG 120 PUFF INHALER INH SCH (09:00)
[2023-01-28] MEDS: Amlodipine 10 MG TAB PO SCH (09:22)
[2023-01-28] MEDS: metFORMIN 500 MG TAB PO SCH (09:22)
[2023-01-28] MEDS: Ferrous Sulfate 325 MG TAB PO SCH (09:22)
[2023-01-28] MEDS: Atorvastatin Calcium 40 MG TAB PO SCH (09:22)
[2023-01-28] MEDS: Loratadine 10 MG TAB PO SCH (09:22)
[2023-01-28] MEDS: Montelukast Sodium 10 mg Tablet PO SCH (09:22)
[2023-01-28] MEDS: predniSONE 20 MG TAB PO SCH (09:22)
[2023-01-28] MEDS ORDERED: busPIRone HCl 5 MG TAB PO SCH ×2 (09:30→21:00)
[2023-01-28 13:01] VITALS: BP 154/97; TEMP 98.5
== END 2023-01-28 13:00 | disposition home or self-care (01) | DRG 202 ==
LOC: ERS 07:08 → ERHOLD 11:25 → T4-B 13:32 → OBSVTOIN 01-27 17:56
PROVIDERS: ADMIT Student in an Organized Health Care Education/Training Program; ATTEND Student in an Organized Health Care Education/Training Program
DX: J45.51 Severe persistent asthma with (acute) exacerbation (principal); C64.1 Malignant neoplasm of right kidney, except renal pelvis; E11.9 Type 2 diabetes mellitus without complications; E87.6 Hypokalemia; I10 Essential (primary) hypertension; E78.5 Hyperlipidemia, unspecified; D50.9 Iron deficiency anemia, unspecified; F10.20 Alcohol dependence, uncomplicated; F17.210 Nicotine dependence, cigarettes, uncomplicated; D75.839 Thrombocytosis, unspecified; Z79.51 Long term (current) use of inhaled steroids; Z79.899 Other long term (current) drug therapy; Z79.84 Long term (current) use of oral hypoglycemic drugs
CPT/HCPCS: 36415; 36416; 71045; 80048; 80053; 82553; 82728; 82805; 83540; 83550; 84145; 84484; 85025; 85060; 87633; 87798; 93005; 94664; 96365; J1650; J1815; J3475; J7512; J7611; J7620

== ENCOUNTER 2023-02-15 08:24 | Emergency (ER) | payer OTHER ==
[2023-02-15] MEDS ORDERED: Albuterol 2.5 MG/0.5 ML NEB ONE ×2 (08:52)
[2023-02-15] MEDS ORDERED: Ipratropium/Albuterol 3 ML NEB ONE (08:53)
[2023-02-15] MEDS ORDERED: Magnesium 2 GM/50 ML BAG (IN WATER) ONE (08:56)
[2023-02-15] MEDS ORDERED: methylPREDNISolone Sod Succ/PF 125 MG/2 ML VIAL ONE (08:56)
[2023-02-15 09:25] LABS: #Eosinphils 0.2 thou/uL (0.0-0.7); #Monocytes 0.5 thou/uL (0.11-0.59); #Neutrophils 4.6 thou/uL (1.40-6.50); %Basophils 0.3 % (0.0-1.0); %Eosinophils 2.3 % (0.0-10.0); %Lymphocytes 23.2 % (21.0-51.0); %Monocytes 7.1 % (0.0-10.0); %Neutrophils 66.8 % (42.0-75.0); Hemoglobin 8.5 g/dL (12.0-16.0); Mean Corpuscular HGB CONC 26.6 g/dL (32.0-36.0); Mean Corpuscular Hemoglobin 20.4 pg (27.0-31.0); Mean Corpuscular Volume 76.9 fl (78.0-98.0); Mean Platelet Volume 10.2 fL (7.4-10.4); Platelet Count 320 10x3/uL (130-400); RBC Distribution Width 23.5 % (11.5-14.5); Red Blood Cell (RBC) Count 4.16 mill/uL (4.20-5.40); White Blood Cell (WBC) Count 6.9 10x3/uL (4.8-10.8)
[2023-02-15 09:36] LABS: ALT (SGPT) 24 U/L (8-55); AST (SGOT) 18 U/L (5-34); Albumin 3.3 g/dL (3.5-5.0); Alkaline Phosphatase 87 U/L (40-110); Anion Gap 16 mmol/L (10-20); BUN (Urea Nitrogen) 6 mg/dL (7.0-18.7); Bilirubin, Total 0.4 mg/dL (0.2-1.2); Calc. Creatinine Clearance 0 mL/min (70-130); Calcium 8.1 mg/dL (7.8-10.44); Carbon Dioxide 29 mmol/L (22-29); Chloride 98 mmol/L (98-107); Estimated GFR 113; Globulin 2.9 g/dL (2.4-3.5); Glucose 121 mg/dL (70-105); Potassium 2.8 mmol/L (3.5-5.1); Protein, Total 6.2 g/dL (6.0-8.3); Sodium 140 mmol/L (136-145)
[2023-02-15 10:05] LABS: CKMB 1.3 ng/mL (0-6.6)
[2023-02-15 10:06] LABS: Anisocytosis MODERATE=16-30 cells HPF (0-5); CellaVision Operator ID LAB.GE; Elliptocytes SLIGHT = 2-5 cells HPF (0-1); Hypochromia SLIGHT = 6-15 cells HPF (0-5); Large Platelets 5.9 % (0-5); Platelet Adequacy Comment Platelets Normal; Polychromasia MODERATE = 3-4 cells HPF (0-2); Smudge Cells 12.9 %
[2023-02-15] MEDS ORDERED: Potassium Chloride 20 MEQ TAB ONE (10:45)
== END 2023-02-15 11:29 | disposition home or self-care (01) ==
LOC: ERS 08:24
DX: J45.901 Unspecified asthma with (acute) exacerbation (principal); E87.6 Hypokalemia; E78.5 Hyperlipidemia, unspecified; I10 Essential (primary) hypertension
CPT/HCPCS: 71045; 80053; 82553; 84484; 85025; 93005; 94760; 96365; 96366; 96375; J2930; J3475; J7611; J7620

== ENCOUNTER 2023-05-01 06:57 | Emergency (ER) | payer OTHER, SELFPAY ==
[2023-05-01] MEDS ORDERED: predniSONE 20 MG TAB ONE (07:24)
[2023-05-01] MEDS ORDERED: Ipratropium/Albuterol 3 ML NEB ONE (07:27)
== END 2023-05-01 08:45 | disposition home or self-care (01) ==
LOC: ERS 06:57
DX: J45.901 Unspecified asthma with (acute) exacerbation (principal); E78.5 Hyperlipidemia, unspecified; I10 Essential (primary) hypertension; Z79.899 Other long term (current) drug therapy
CPT/HCPCS: 71045; 94640; J7512; J7620

== ENCOUNTER 2023-05-23 10:06 | Emergency (ER) | payer OTHER ==
[2023-05-23] MEDS ORDERED: Magnesium 2 GM/50 ML BAG (IN WATER) ONE (10:31)
[2023-05-23] MEDS ORDERED: Ipratropium Bromide 2.5 ml Neb ONE (10:38)
[2023-05-23 11:21] LABS: #Eosinphils 0.1 thou/uL (0.0-0.7); #Monocytes 0.4 thou/uL (0.11-0.59); #Neutrophils 7.1 thou/uL (1.40-6.50); %Basophils 0.4 % (0.0-1.0); %Eosinophils 1.4 % (0.0-10.0); %Lymphocytes 22.8 % (21.0-51.0); %Monocytes 4.4 % (0.0-10.0); %Neutrophils 70.7 % (42.0-75.0); Hematocrit 30.9 % (36.0-47.0); Hemoglobin 8.8 g/dL (12.0-16.0); Mean Corpuscular HGB CONC 28.5 g/dL (32.0-36.0); Mean Corpuscular Volume 73.6 fl (78.0-98.0); Mean Platelet Volume 10.9 fL (7.4-10.4); Platelet Count 437 10x3/uL (130-400); RBC Distribution Width 21.5 % (11.5-14.5)
[2023-05-23 11:55] LABS: Troponin I 0.011 ng/mL (< 0.028)
[2023-05-23 12:00] LABS: Carbon Dioxide 26 mmol/L (22-29); Chloride 103 mmol/L (98-107); Potassium 3.4 mmol/L (3.5-5.1); Sodium 141 mmol/L (136-145)
[2023-05-23 12:01] LABS: ALT (SGPT) 36 U/L (8-55); AST (SGOT) 61 U/L (5-34); Albumin 3.6 g/dL (3.5-5.0); Alkaline Phosphatase 102 U/L (40-110); Anion Gap 15 mmol/L (10-20); BUN (Urea Nitrogen) 12 mg/dL (7.0-18.7); Bilirubin, Total 0.3 mg/dL (0.2-1.2); Calc. Creatinine Clearance 0 mL/min (70-130); Calcium 8.1 mg/dL (7.6-10.4); Estimated GFR 112; Globulin 2.8 g/dL (2.4-3.5); Glucose 93 mg/dL (70-105); Protein, Total 6.4 g/dL (6.0-8.3)
[2023-05-23 12:08] LABS: CellaVision Operator ID LAB.GE; Hypochromia SLIGHT = 6-15 cells HPF (0-5); Microcytosis SLIGHT = 6-15 cells HPF (0-5); Platelet Adequacy Comment Platelets Increased; Polychromasia SLIGHT = 2-3 cells HPF (0-2)
== END 2023-05-23 12:53 | disposition home or self-care (01) ==
LOC: ERS 10:06
DX: J45.901 Unspecified asthma with (acute) exacerbation (principal); E78.5 Hyperlipidemia, unspecified; I10 Essential (primary) hypertension
CPT/HCPCS: 36415; 71045; 80053; 83880; 84484; 85025; 93005; 94644; 96365; J3475; J7611

== ENCOUNTER 2023-06-02 13:49 | Emergency (ER) | payer OTHER ==
[~2023-06-02 13:49] MED LIST changes: -Atorvastatin Calcium 40 MG TAB PO SCH; +Iopamidol-370 76% 500 ML MDV (1 ML CHARGE) ONE
[2023-06-02] MEDS ORDERED: Ipratropium/Albuterol 3 ML NEB ONE ×2 (14:07→17:40)
[2023-06-02] MEDS ORDERED: methylPREDNISolone Sod Succ/PF 125 MG/2 ML VIAL ONE (14:21)
[2023-06-02] MEDS ORDERED: Magnesium 2 GM/50 ML BAG (IN WATER) ONE (14:21)
[2023-06-02 14:29] LABS: #Eosinphils 0.2 thou/uL (0.0-0.7); #Monocytes 1.1 thou/uL (0.11-0.59); #Neutrophils 11.2 thou/uL (1.40-6.50); %Basophils 0.2 % (0.0-1.0); %Eosinophils 1.1 % (0.0-10.0); %Lymphocytes 16.1 % (21.0-51.0); %Monocytes 7.5 % (0.0-10.0); %Neutrophils 74.6 % (42.0-75.0); Hematocrit 32.3 % (36.0-47.0); Hemoglobin 9.2 g/dL (12.0-16.0); Mean Corpuscular HGB CONC 28.5 g/dL (32.0-36.0); Mean Corpuscular Hemoglobin 21.1 pg (27.0-31.0); Mean Corpuscular Volume 73.9 fl (78.0-98.0); Mean Platelet Volume 10.4 fL (7.4-10.4); Platelet Count 314 10x3/uL (130-400); RBC Distribution Width 21.6 % (11.5-14.5); Red Blood Cell (RBC) Count 4.37 mill/uL (4.20-5.40); White Blood Cell (WBC) Count 15.1 10x3/uL (4.8-10.8)
[2023-06-02 14:57] LABS: Anisocytosis SLIGHT = 6-15 cells HPF (0-5); CellaVision Operator ID LAB.MJL; Hypochromia SLIGHT = 6-15 cells HPF (0-5); Microcytosis SLIGHT = 6-15 cells HPF (0-5); Ovalocytes SLIGHT = 2-5 cells HPF (0-1); Platelet Adequacy Comment Platelets Normal; Poikilocytosis SLIGHT = 6-15 cells HPF (0-5); Polychromasia MODERATE = 3-4 cells HPF (0-2); Tear Drops SLIGHT = 2-5 cells HPF (0-1)
[2023-06-02 15:05] LABS: Albumin 3.8 g/dL (3.5-5.0)
[2023-06-02 15:06] LABS: Chloride 102 mmol/L (98-107); Sodium 136 mmol/L (136-145)
[2023-06-02 15:07] LABS: Calcium 8.8 mg/dL (7.8-10.44)
[2023-06-02 15:08] LABS: Globulin 4.7 g/dL (2.4-3.5); Glucose 111 mg/dL (70-105); Protein, Total 8.5 g/dL (6.0-8.3)
[2023-06-02 15:09] LABS: Anion Gap 21 mmol/L (10-20); Carbon Dioxide 21 mmol/L (22-29)
[2023-06-02 15:10] LABS: Bilirubin, Total 0.3 mg/dL (0.2-1.2)
[2023-06-02 15:11] LABS: Alkaline Phosphatase 124 U/L (40-110); Calc. Creatinine Clearance 0 mL/min (70-130); Estimated GFR 111
[2023-06-02 15:12] LABS: BUN (Urea Nitrogen) 10 mg/dL (7.0-18.7)
[2023-06-02 15:13] LABS: AST (SGOT) 70 U/L (5-34)
[2023-06-02 15:14] LABS: ALT (SGPT) 37 U/L (8-55)
[2023-06-02 15:58] LABS: SARS-CoV-2 NAA Rapid Test Not Detected (NotDetected)
[2023-06-02 16:56] LABS: Actual Bicarbonate (HCO3v) 23.7 mEq/L (22-28); Base Excess 0.7 mEq/L (-2.0 to +3.0); Calcium, Ionized (venous) 1.02 mmol/L (1.16-1.32); Chloride (VBG) 104 mmol/L (98-106); Hematocrit-VBG 29 % (36.0-47.0); Hemoglobin (Hb) 9.8 g/dL (11.7-15.5); Potassium (VBG) 3.42 mmol/L (3.70-5.30); Sodium 139.5 mmol/L (133-146); pH (venous) 7.488 (7.32-7.43)
[2023-06-02 17:20] LABS: Potassium 3.7 mmol/L (3.5-5.1)
[2023-06-02 17:20] LABS: BHCG - Serum Negative (NEGATIVE); Pregs Control Background? CLEAR/WHITE (CLR/WHITE); Pregs Control Bar Appear? YES (CONTROL BAR)
[2023-06-02] MEDS ORDERED: Lisinopril 10 MG TAB ONE (19:06)
[2023-06-02] MEDS ORDERED: Amlodipine 5 MG TAB ONE (19:06)
== END 2023-06-02 19:58 | disposition home or self-care (01) ==
LOC: ERS 13:49
DX: J45.901 Unspecified asthma with (acute) exacerbation (principal); R79.89 Other specified abnormal findings of blood chemistry; I10 Essential (primary) hypertension; E78.5 Hyperlipidemia, unspecified; Z79.899 Other long term (current) drug therapy
CPT/HCPCS: 36415; 71045; 71275; 80053; 82010; 82805; 83880; 84484; 84703; 85025; 85379; 93005; 96361; 96365; 96375; J2930; J3475; J7620; Q9967

== ENCOUNTER 2023-06-06 21:28 | Inpatient (IN) | payer OTHER, SELFPAY ==
[2023-06-06] MEDS ORDERED: Magnesium 2 GM/50 ML BAG (IN WATER) ONE (21:39)
[2023-06-06] MEDS ORDERED: methylPREDNISolone Sod Succ/PF 125 MG/2 ML VIAL ONE (21:39)
[2023-06-06] MEDS ORDERED: Albuterol 2.5 MG/0.5 ML NEB ONE (21:51)
[2023-06-06] MEDS ORDERED: Ipratropium/Albuterol 3 ML NEB ONE (21:51)
[2023-06-06 22:02] LABS: #Eosinphils 0.1 thou/uL (0.0-0.7); #Monocytes 0.8 thou/uL (0.11-0.59); #Neutrophils 11.2 thou/uL (1.40-6.50); %Basophils 0.1 % (0.0-1.0); %Eosinophils 0.5 % (0.0-10.0); %Lymphocytes 20.8 % (21.0-51.0); %Neutrophils 73.1 % (42.0-75.0); Mean Corpuscular Hemoglobin 21.2 pg (27.0-31.0); Mean Corpuscular Volume 73.1 fl (78.0-98.0); Mean Platelet Volume 9.5 fL (7.4-10.4); Platelet Count 355 10x3/uL (130-400); RBC Distribution Width 21.3 % (11.5-14.5); Red Blood Cell (RBC) Count 4.24 mill/uL (4.20-5.40); White Blood Cell (WBC) Count 15.3 10x3/uL (4.8-10.8)
[2023-06-06 22:08] LABS: Actual Bicarbonate (HCO3a) 22.8 mEq/L (22-28); Analyzer IN Cardio ER; Base Excess (BEa) -1.2 mEq/L (-2.0 to +3.0); CO2 Tension 35.5 mmHg (35.0-45.0); Calcium, Ionized (arterial) 1.12 mmol/L (1.12-1.30); Carboxyhemoglobin (COHb) 2.5 gm% (0.0-3.0); Hematocrit-ABG 29 % (36.0-47.0); O2 Tension (PaO2), arterial 64.2 mmHg (80.0-100.0); pH, Arterial 7.426 (7.35-7.45)
[2023-06-06 22:09] LABS: Potassium - ABG Lab 2.66 mmol/L (3.70-5.30); Puncture Site RRA
[2023-06-06 22:10] LABS: ALV-art Gradient 176.625 mmHg (0-20)
[2023-06-06 22:21] LABS: BHCG - Serum Negative (NEGATIVE); Pregs Control Background? CLEAR/WHITE (CLR/WHITE); Pregs Control Bar Appear? YES (CONTROL BAR)
[2023-06-06 22:27] LABS: Troponin I Less than 0.010 ng/mL (< 0.028)
[2023-06-06 22:29] LABS: SARS-CoV-2 NAA Rapid Test Not Detected (NotDetected)
[2023-06-06] MEDS ORDERED: Potassium Chloride 20 MEQ TAB ONE (22:40)
[2023-06-06] MEDS ORDERED: Ipratropium/Albuterol 3 ML NEB NEB PRN (23:30)
[2023-06-07] MEDS ORDERED: Dextrose 5% in Water 1,000 ML IV PRN (00:04)
[2023-06-07] MEDS ORDERED: Dextrose 50% Abboject 50 ML SYRINGE SLOW IVP PRN (00:04)
[2023-06-07] MEDS ORDERED: Glucagon 1 MG/ML KIT IM PRN (00:04)
[2023-06-07] MEDS ORDERED: HumaLOG 300 UNITS/3 ML VIAL SC PRN (00:04)
[2023-06-07] MEDS ORDERED: Acetaminophen 500 MG TAB PO PRN (00:15)
[2023-06-07] MEDS ORDERED: Albuterol 200 PUFF (6.7GM INHALER) INH PRN (00:16)
[2023-06-07 00:45] VITALS: BMI 33.6
[2023-06-07] MEDS ORDERED: Electrolyte Replacement Protocol 1 EACH FS SCH (00:45)
[2023-06-07] MEDS ORDERED: Lorazepam 2 MG/ML VIAL IM PRN (00:49)
[2023-06-07] MEDS ORDERED: Ondansetron ODT 4 MG TAB PO PRN (00:49)
[2023-06-07] MEDS ORDERED: Lorazepam 1 MG TAB PO PRN (00:49)
[2023-06-07] MEDS: Lorazepam 1 MG TAB PO SCH ×4 (01:00→20:44)
[2023-06-07 01:43] LABS: ALT (SGPT) 38 U/L (8-55); AST (SGOT) 28 U/L (5-34); Albumin 3.8 g/dL (3.5-5.0); Alkaline Phosphatase 99 U/L (40-110); Anion Gap 17 mmol/L (10-20); BUN (Urea Nitrogen) 16 mg/dL (7.0-18.7); Bilirubin, Total 0.3 mg/dL (0.2-1.2); Calc. Creatinine Clearance 124 mL/min (70-130); Calcium 8.7 mg/dL (7.8-10.44); Carbon Dioxide 23 mmol/L (22-29); Chloride 101 mmol/L (98-107); Estimated GFR 97; Globulin 3.1 g/dL (2.4-3.5); Glucose 189 mg/dL (70-105); Magnesium 2.2 mg/dL (1.6-2.6); Phosphorus 3.5 mg/dL (2.3-4.7); Potassium 3.6 mmol/L (3.5-5.1); Protein, Total 6.9 g/dL (6.0-8.3); Sodium 137 mmol/L (136-145)
[2023-06-07] MEDS: Ipratropium/Albuterol 3 ML NEB NEB SCH ×6 (01:52→23:25)
[2023-06-07 06:09] LABS: #Monocytes 0.1 thou/uL (0.11-0.59); #Neutrophils 12.6 thou/uL (1.40-6.50); %Lymphocytes 4.1 % (21.0-51.0); %Monocytes 0.4 % (0.0-10.0); %Neutrophils 94.6 % (42.0-75.0); Hematocrit 31.9 % (36.0-47.0); Hemoglobin 9.1 g/dL (12.0-16.0); Mean Corpuscular HGB CONC 28.5 g/dL (32.0-36.0); Mean Corpuscular Hemoglobin 20.7 pg (27.0-31.0); Mean Corpuscular Volume 72.7 fl (78.0-98.0); Mean Platelet Volume 10.3 fL (7.4-10.4); Platelet Count 371 10x3/uL (130-400); RBC Distribution Width 21.2 % (11.5-14.5); Red Blood Cell (RBC) Count 4.39 mill/uL (4.20-5.40); White Blood Cell (WBC) Count 13.3 10x3/uL (4.8-10.8)
[2023-06-07 06:31] LABS: ALT (SGPT) 36 U/L (8-55); AST (SGOT) 23 U/L (5-34); Albumin 3.8 g/dL (3.5-5.0); Alkaline Phosphatase 98 U/L (40-110); Anion Gap 14 mmol/L (10-20); BUN (Urea Nitrogen) 17 mg/dL (7.0-18.7); Bilirubin, Total 0.4 mg/dL (0.2-1.2); Calc. Creatinine Clearance 131 mL/min (70-130); Calcium 8.6 mg/dL (7.8-10.44); Carbon Dioxide 26 mmol/L (22-29); Chloride 101 mmol/L (98-107); Estimated GFR 104; Globulin 3.1 g/dL (2.4-3.5); Glucose 217 mg/dL (70-105); Potassium 5.3 mmol/L (3.5-5.1); Protein, Total 6.9 g/dL (6.0-8.3); Sodium 136 mmol/L (136-145)
[2023-06-07] MEDS: HumaLOG 300 UNITS/3 ML VIAL SC PRN ×3 (06:34→16:59)
[2023-06-07] MEDS: Mometasone 200 MCG/Formoterol 5 MCG 120 PUFF INHALER INH SCH ×2 (07:21→19:13)
[2023-06-07] MEDS ORDERED: methylPREDNISolone Sod Succ/PF 125 MG/2 ML VIAL IVP SCH ×2 (09:00→21:00)
[2023-06-07] MEDS ORDERED: Non-Formulary Item 1 EACH (Tiotropium [Spiriva Handihaler] 18 MCG Box) INH SCH (09:00)
[2023-06-07] MEDS: Amlodipine 10 MG TAB PO SCH (09:51)
[2023-06-07] MEDS: metFORMIN 500 MG TAB PO SCH ×2 (09:51→20:43)
[2023-06-07] MEDS: Montelukast Sodium 10 mg Tablet PO SCH (09:52)
[2023-06-07] MEDS: Ferrous Sulfate 325 MG TAB PO SCH (09:52)
[2023-06-07] MEDS: Folic Acid 1 MG TAB PO SCH (09:52)
[2023-06-07] MEDS: Atorvastatin Calcium 40 MG TAB PO SCH (09:52)
[2023-06-07] MEDS: Lisinopril 20 MG TAB PO SCH (09:52)
[2023-06-07] MEDS: Thiamine 100 MG TAB PO SCH (09:52)
[2023-06-07] MEDS: Multivit, Chewable SF 1 TAB PO SCH (11:37)
[2023-06-07 14:50] LABS: Anion Gap 14 mmol/L (10-20); BUN (Urea Nitrogen) 16 mg/dL (7.0-18.7); Calc. Creatinine Clearance 142 mL/min (70-130); Calcium 9.1 mg/dL (7.8-10.44); Carbon Dioxide 25 mmol/L (22-29); Chloride 99 mmol/L (98-107); Estimated GFR 111; Glucose 186 mg/dL (70-105); Potassium 4.7 mmol/L (3.5-5.1); Sodium 133 mmol/L (136-145)
[2023-06-07] MEDS: methylPREDNISolone Sod Succ 40 MG VIAL IVP SCH ×2 (18:38→23:54)
[2023-06-08] MEDS: Lorazepam 1 MG TAB PO SCH ×4 (00:02→20:18)
[2023-06-08] MEDS ORDERED: Lorazepam 1 MG TAB PO PRN (00:49)
[2023-06-08] MEDS: Ipratropium/Albuterol 3 ML NEB NEB SCH ×5 (02:37→23:50)
[2023-06-08 06:11] LABS: #Monocytes 0.5 thou/uL (0.11-0.59); #Neutrophils 17.5 thou/uL (1.40-6.50); %Basophils 0.1 % (0.0-1.0); %Lymphocytes 3.5 % (21.0-51.0); %Monocytes 2.4 % (0.0-10.0); %Neutrophils 93.3 % (42.0-75.0); Hematocrit 30.4 % (36.0-47.0); Hemoglobin 8.6 g/dL (12.0-16.0); Mean Corpuscular HGB CONC 28.3 g/dL (32.0-36.0); Mean Corpuscular Hemoglobin 21.1 pg (27.0-31.0); Mean Corpuscular Volume 74.5 fl (78.0-98.0); Mean Platelet Volume 10.5 fL (7.4-10.4); Platelet Count 390 10x3/uL (130-400); RBC Distribution Width 21.1 % (11.5-14.5); Red Blood Cell (RBC) Count 4.08 mill/uL (4.20-5.40); White Blood Cell (WBC) Count 18.7 10x3/uL (4.8-10.8)
[2023-06-08] MEDS: methylPREDNISolone Sod Succ 40 MG VIAL IVP SCH ×3 (06:30→18:13)
[2023-06-08 06:35] LABS: ALT (SGPT) 29 U/L (8-55); AST (SGOT) 14 U/L (5-34); Albumin 3.7 g/dL (3.5-5.0); Alkaline Phosphatase 84 U/L (40-110); Anion Gap 11 mmol/L (10-20); BUN (Urea Nitrogen) 17 mg/dL (7.0-18.7); Bilirubin, Total 0.5 mg/dL (0.2-1.2); Calc. Creatinine Clearance 144 mL/min (70-130); Carbon Dioxide 28 mmol/L (22-29); Chloride 97 mmol/L (98-107); Estimated GFR 112; Globulin 2.8 g/dL (2.4-3.5); Glucose 189 mg/dL (70-105); Potassium 4.8 mmol/L (3.5-5.1); Protein, Total 6.5 g/dL (6.0-8.3); Sodium 131 mmol/L (136-145)
[2023-06-08 06:51] LABS: Anisocytosis MODERATE=16-30 cells HPF (0-5); CellaVision Operator ID lab.sh2; Hypochromia SLIGHT = 6-15 cells HPF (0-5); Macrocytosis SLIGHT = 6-15 cells HPF (0-5); Ovalocytes MODERATE= 6-15 cells HPF (0-1); Platelet Adequacy Comment Platelets Normal; Polychromasia SLIGHT = 2-3 cells HPF (0-2)
[2023-06-08] MEDS: Mometasone 200 MCG/Formoterol 5 MCG 120 PUFF INHALER INH SCH ×2 (07:15→18:59)
[2023-06-08] MEDS: metFORMIN 500 MG TAB PO SCH ×2 (08:12→20:18)
[2023-06-08] MEDS: Folic Acid 1 MG TAB PO SCH (08:13)
[2023-06-08] MEDS: Multivit, Chewable SF 1 TAB PO SCH (08:13)
[2023-06-08] MEDS: Lisinopril 20 MG TAB PO SCH (08:13)
[2023-06-08] MEDS: Montelukast Sodium 10 mg Tablet PO SCH (08:13)
[2023-06-08] MEDS: Amlodipine 10 MG TAB PO SCH (08:13)
[2023-06-08] MEDS: Atorvastatin Calcium 40 MG TAB PO SCH (08:13)
[2023-06-08] MEDS: Thiamine 100 MG TAB PO SCH (08:13)
[2023-06-08] MEDS: Ferrous Sulfate 325 MG TAB PO SCH (08:13)
[2023-06-08] MEDS: GUAIFENESIN SF SOLN 200 MG/10 ML UDCUP PO PRN (18:13)
[2023-06-08] MEDS ORDERED: methylPREDNISolone Sod Succ 40 MG VIAL IVP SCH (21:00)
[2023-06-09] MEDS: Lorazepam 0.5 MG TAB PO SCH ×3 (00:16→12:27)
[2023-06-09] MEDS: methylPREDNISolone Sod Succ 40 MG VIAL IVP SCH ×2 (00:16→06:25)
[2023-06-09] MEDS ORDERED: Lorazepam 1 MG TAB PO PRN (00:49)
[2023-06-09 06:55] LABS: #Monocytes 0.5 thou/uL (0.11-0.59); #Neutrophils 20.8 thou/uL (1.40-6.50); %Basophils 0.1 % (0.0-1.0); %Lymphocytes 2.9 % (21.0-51.0); %Monocytes 2.3 % (0.0-10.0); %Neutrophils 93.8 % (42.0-75.0); Hematocrit 31.8 % (36.0-47.0); Hemoglobin 8.9 g/dL (12.0-16.0); Mean Corpuscular Hemoglobin 21.1 pg (27.0-31.0); Mean Corpuscular Volume 75.5 fl (78.0-98.0); Mean Platelet Volume 10.7 fL (7.4-10.4); Platelet Count 397 10x3/uL (130-400); RBC Distribution Width 21.2 % (11.5-14.5); Red Blood Cell (RBC) Count 4.21 mill/uL (4.20-5.40); White Blood Cell (WBC) Count 22.2 10x3/uL (4.8-10.8)
[2023-06-09 07:23] LABS: ALT (SGPT) 27 U/L (8-55); AST (SGOT) 14 U/L (5-34); Albumin 3.7 g/dL (3.5-5.0); Alkaline Phosphatase 84 U/L (40-110); Anion Gap 12 mmol/L (10-20); BUN (Urea Nitrogen) 17 mg/dL (7.0-18.7); Bilirubin, Total 0.5 mg/dL (0.2-1.2); Calc. Creatinine Clearance 144 mL/min (70-130); Calcium 9.1 mg/dL (7.8-10.44); Carbon Dioxide 28 mmol/L (22-29); Chloride 95 mmol/L (98-107); Estimated GFR 112; Glucose 154 mg/dL (70-105); Potassium 4.8 mmol/L (3.5-5.1); Protein, Total 6.7 g/dL (6.0-8.3); Sodium 130 mmol/L (136-145)
[2023-06-09] MEDS: Mometasone 200 MCG/Formoterol 5 MCG 120 PUFF INHALER INH SCH (07:23)
[2023-06-09] MEDS: Ipratropium/Albuterol 3 ML NEB NEB SCH ×2 (07:25→12:46)
[2023-06-09] MEDS: GUAIFENESIN SF SOLN 200 MG/10 ML UDCUP PO PRN (08:04)
[2023-06-09] MEDS: Folic Acid 1 MG TAB PO SCH (08:04)
[2023-06-09] MEDS: metFORMIN 500 MG TAB PO SCH (08:04)
[2023-06-09] MEDS: Atorvastatin Calcium 40 MG TAB PO SCH (08:04)
[2023-06-09] MEDS: Multivit, Chewable SF 1 TAB PO SCH (08:04)
[2023-06-09] MEDS: Lisinopril 20 MG TAB PO SCH (08:04)
[2023-06-09] MEDS: Amlodipine 10 MG TAB PO SCH (08:04)
[2023-06-09] MEDS: Thiamine 100 MG TAB PO SCH (08:04)
[2023-06-09] MEDS: Montelukast Sodium 10 mg Tablet PO SCH (08:04)
[2023-06-09] MEDS: Ferrous Sulfate 325 MG TAB PO SCH (08:04)
[2023-06-09] MEDS ORDERED: methylPREDNISolone Sod Succ 40 MG VIAL IVP SCH (14:00)
[2023-06-09 16:41] VITALS: BP 132/79; TEMP 98.6
[2023-06-10] MEDS ORDERED: Lorazepam 0.5 MG TAB PO PRN (00:49)
[2023-06-11] MEDS ORDERED: methylPREDNISolone Sod Succ 40 MG VIAL IVP SCH (10:00)
[2023-06-13] MEDS ORDERED: methylPREDNISolone Sod Succ 40 MG VIAL IVP SCH (06:00)
[2023-06-15] MEDS ORDERED: methylPREDNISolone Sod Succ 40 MG VIAL IVP SCH (10:00)
[2023-06-17] MEDS ORDERED: methylPREDNISolone Sod Succ 40 MG VIAL IVP SCH (22:00)
== END 2023-06-09 18:14 | disposition home or self-care (01) | DRG 189 ==
LOC: ERS 21:28 → CCU 23:02 → T4-A 06-07 17:50
PROVIDERS: ADMIT Family Medicine; ATTEND Family Medicine
PROC: 4A033R1 Measurement of Arterial Saturation, Peripheral, Percutaneous Approach (ICD-10-PCS; principal; 2023-06-06)
DX: J96.01 Acute respiratory failure with hypoxia (principal); J45.51 Severe persistent asthma with (acute) exacerbation; E87.1 Hypo-osmolality and hyponatremia; I10 Essential (primary) hypertension; E78.5 Hyperlipidemia, unspecified; Z79.899 Other long term (current) drug therapy; Z79.84 Long term (current) use of oral hypoglycemic drugs; D50.9 Iron deficiency anemia, unspecified; E11.9 Type 2 diabetes mellitus without complications; E87.6 Hypokalemia; F10.10 Alcohol abuse, uncomplicated; E87.5 Hyperkalemia; F41.9 Anxiety disorder, unspecified; Z80.9 Family history of malignant neoplasm, unspecified; Z83.3 Family history of diabetes mellitus; Z82.49 Family history of ischemic heart disease and other diseases of the circulatory system; Z87.891 Personal history of nicotine dependence; Z20.822 Contact with and (suspected) exposure to COVID-19
CPT/HCPCS: 36415; 36416; 36600; 71045; 80053; 80307; 82805; 83735; 83880; 83930; 83935; 84100; 84300; 84484; 84703; 85025; 93005; 94644; 94660; 96365; 96375; J1650; J1815; J2920; J2930; J3475; J7611; J7620

== ENCOUNTER 2023-06-17 16:40 | Emergency (ER) | payer OTHER ==
[2023-06-17] MEDS ORDERED: Ipratropium/Albuterol 3 ML NEB ONE (17:21)
[2023-06-17] MEDS ORDERED: methylPREDNISolone Sod Succ/PF 125 MG/2 ML VIAL ONE (17:21)
[2023-06-17 17:36] LABS: #Eosinphils 0.1 thou/uL (0.0-0.7); #Monocytes 0.9 thou/uL (0.11-0.59); #Neutrophils 11.1 thou/uL (1.40-6.50); %Basophils 0.1 % (0.0-1.0); %Eosinophils 0.6 % (0.0-10.0); %Lymphocytes 20.9 % (21.0-51.0); %Neutrophils 71.4 % (42.0-75.0); Hematocrit 29.9 % (36.0-47.0); Hemoglobin 8.8 g/dL (12.0-16.0); Mean Corpuscular HGB CONC 29.4 g/dL (32.0-36.0); Mean Corpuscular Hemoglobin 21.5 pg (27.0-31.0); Mean Corpuscular Volume 73.1 fl (78.0-98.0); Platelet Count 432 10x3/uL (130-400); RBC Distribution Width 22.7 % (11.5-14.5); Red Blood Cell (RBC) Count 4.09 mill/uL (4.20-5.40); White Blood Cell (WBC) Count 15.6 10x3/uL (4.8-10.8)
[2023-06-17 18:02] LABS: ALT (SGPT) 43 U/L (8-55); AST (SGOT) 29 U/L (5-34); Albumin 3.6 g/dL (3.5-5.0); Alkaline Phosphatase 79 U/L (40-110); Anion Gap 18 mmol/L (10-20); BUN (Urea Nitrogen) 13 mg/dL (7.0-18.7); Bilirubin, Total 0.2 mg/dL (0.2-1.2); Calc. Creatinine Clearance 0 mL/min (70-130); Calcium 8.6 mg/dL (7.8-10.44); Carbon Dioxide 27 mmol/L (22-29); Chloride 98 mmol/L (98-107); Estimated GFR 111; Globulin 2.7 g/dL (2.4-3.5); Glucose 137 mg/dL (70-105); Large Platelets 4.9 % (0-5); Microcytosis SLIGHT = 6-15 cells HPF (0-5); Platelet Adequacy Comment Platelets Normal; Polychromasia SLIGHT = 2-3 cells HPF (0-2); Potassium 2.9 mmol/L (3.5-5.1); Protein, Total 6.3 g/dL (6.0-8.3); Smudge Cells 30.4 %; Sodium 140 mmol/L (136-145)
[2023-06-17 18:05] LABS: Troponin I 0.022 ng/mL (< 0.028)
== END 2023-06-17 18:02 | disposition home or self-care (01) ==
LOC: ERS 16:40
DX: J45.901 Unspecified asthma with (acute) exacerbation (principal); E78.5 Hyperlipidemia, unspecified; Z79.899 Other long term (current) drug therapy
CPT/HCPCS: 71045; 80053; 84484; 85025; 93005; 94760; 96374; J2930; J7620

== ENCOUNTER 2023-07-10 11:53 | Inpatient (IN) | payer OTHER, SELFPAY ==
[2023-07-10] MEDS ORDERED: Ipratropium/Albuterol 3 ML NEB ONE (12:32)
[2023-07-10] MEDS ORDERED: Magnesium 2 GM/50 ML BAG (IN WATER) ONE (12:37)
[2023-07-10] MEDS ORDERED: methylPREDNISolone Sod Succ/PF 125 MG/2 ML VIAL ONE (12:37)
[2023-07-10 12:44] LABS: Actual Bicarbonate (HCO3v) 28.3 mEq/L (22-28); Analyzer IN Cardio ER; Base Excess 4.3 mEq/L (-2.0 to +3.0); Calcium, Ionized (venous) 1.05 mmol/L (1.16-1.32); Chloride (VBG) 100 mmol/L (98-106); Hematocrit-VBG 29 % (36.0-47.0); Hemoglobin (Hb) 9.8 g/dL (11.7-15.5); Potassium (VBG) 3.39 mmol/L (3.70-5.30); Sodium 138 mmol/L (133-146); pH (venous) 7.469 (7.32-7.43)
[2023-07-10 12:46] LABS: #Eosinphils 0.1 thou/uL (0.0-0.7); #Monocytes 0.8 thou/uL (0.11-0.59); #Neutrophils 12.4 thou/uL (1.40-6.50); %Basophils 0.2 % (0.0-1.0); %Eosinophils 0.5 % (0.0-10.0); %Lymphocytes 13.1 % (21.0-51.0); %Monocytes 4.9 % (0.0-10.0); %Neutrophils 80.7 % (42.0-75.0); Hematocrit 31.6 % (36.0-47.0); Mean Corpuscular HGB CONC 28.5 g/dL (32.0-36.0); Mean Corpuscular Hemoglobin 21.4 pg (27.0-31.0); Mean Corpuscular Volume 75.1 fl (78.0-98.0); Mean Platelet Volume 10.2 fL (7.4-10.4); Platelet Count 275 10x3/uL (130-400); RBC Distribution Width 21.7 % (11.5-14.5); Red Blood Cell (RBC) Count 4.21 mill/uL (4.20-5.40); White Blood Cell (WBC) Count 15.4 10x3/uL (4.8-10.8)
[2023-07-10 13:10] LABS: ALT (SGPT) 38 U/L (8-55); AST (SGOT) 19 U/L (5-34); Alkaline Phosphatase 107 U/L (40-110); Anion Gap 15 mmol/L (10-20); BUN (Urea Nitrogen) 6 mg/dL (7.0-18.7); Bilirubin, Total 0.8 mg/dL (0.2-1.2); Calc. Creatinine Clearance 0 mL/min (70-130); Calcium 9.4 mg/dL (7.8-10.44); Carbon Dioxide 28 mmol/L (22-29); Chloride 99 mmol/L (98-107); Estimated GFR 112; Globulin 3.2 g/dL (2.4-3.5); Glucose 142 mg/dL (70-105); Potassium 3.4 mmol/L (3.5-5.1); Protein, Total 7.2 g/dL (6.0-8.3); Sodium 139 mmol/L (136-145)
[2023-07-10 13:14] LABS: Troponin I 0.026 ng/mL (< 0.028)
[2023-07-10 13:58] LABS: CellaVision Operator ID LAB.KB; Hypersegmented Neutrophil SLIGHT (None Seen); Hypochromia SLIGHT = 6-15 cells HPF (0-5); Platelet Adequacy Comment Platelets Normal; Polychromasia SLIGHT = 2-3 cells HPF (0-2); Stomatocytes SLIGHT = 2-5 cells HPF (0-1)
[2023-07-10] MEDS ORDERED: Acetaminophen 325 MG TAB PO PRN (14:24)
[2023-07-10] MEDS ORDERED: Ondansetron ODT 4 MG TAB PO PRN (14:24)
[2023-07-10] MEDS ORDERED: Potassium Chloride 20 MEQ TAB PO SCH (14:45)
[2023-07-10] MEDS ORDERED: Ipratropium/Albuterol 3 ML NEB NEB PRN (14:48)
[2023-07-10 15:29] LABS: Lactic Acid 1.9 mmol/L (0.5-2.2)
[2023-07-10] MEDS ORDERED: Electrolyte Replacement Protocol 1 EACH FS SCH (16:00)
[2023-07-10] MEDS: Thiamine HCl 200 MG/2 ML VIAL SLOW IVP SCH (16:45)
[2023-07-10] MEDS ORDERED: Glucagon 1 MG/ML KIT IM PRN (16:53)
[2023-07-10] MEDS ORDERED: Dextrose 5% in Water 1,000 ML IV PRN (16:53)
[2023-07-10] MEDS ORDERED: Dextrose 50% Abboject 50 ML SYRINGE SLOW IVP PRN (16:53)
[2023-07-10] MEDS: Ipratropium/Albuterol 3 ML NEB NEB SCH ×2 (18:34→22:37)
[2023-07-10 18:51] VITALS: BMI 33.6
[2023-07-10] MEDS ORDERED: Lisinopril 20 MG TAB PO SCH (19:15)
[2023-07-10] MEDS ORDERED: Amlodipine 10 MG TAB PO SCH (19:15)
[2023-07-10] MEDS: Multivit, Therapeutic 1 TAB PO SCH (20:11)
[2023-07-10] MEDS: metFORMIN 500 MG TAB PO SCH (20:11)
[2023-07-10] MEDS: Folic Acid 1 MG TAB PO SCH (20:11)
[2023-07-10] MEDS: methylPREDNISolone Sod Succ 40 MG VIAL IVP SCH (20:12)
[2023-07-10] MEDS ORDERED: predniSONE 20 MG TAB PO SCH (21:00)
[2023-07-10] MEDS: Insulin Regular 300 UNITS/3 ML VIAL SC PRN (21:21)
[2023-07-11] MEDS ORDERED: hydrALAZINE 20 MG/ML VIAL SLOW IVP SCH (00:30)
[2023-07-11] MEDS: Ipratropium/Albuterol 3 ML NEB NEB SCH ×6 (03:25→23:00)
[2023-07-11 05:26] LABS: #Monocytes 0.2 thou/uL (0.11-0.59); #Neutrophils 13.6 thou/uL (1.40-6.50); %Basophils 0.1 % (0.0-1.0); %Lymphocytes 4.6 % (21.0-51.0); %Neutrophils 93.7 % (42.0-75.0); Hematocrit 31.6 % (36.0-47.0); Hemoglobin 8.8 g/dL (12.0-16.0); Mean Corpuscular HGB CONC 27.8 g/dL (32.0-36.0); Mean Corpuscular Hemoglobin 21.4 pg (27.0-31.0); Mean Corpuscular Volume 76.9 fl (78.0-98.0); Mean Platelet Volume 10.4 fL (7.4-10.4); Platelet Count 289 10x3/uL (130-400); RBC Distribution Width 21.2 % (11.5-14.5); Red Blood Cell (RBC) Count 4.11 mill/uL (4.20-5.40); White Blood Cell (WBC) Count 14.5 10x3/uL (4.8-10.8)
[2023-07-11 05:52] LABS: ALT (SGPT) 33 U/L (8-55); AST (SGOT) 13 U/L (5-34); Albumin 3.8 g/dL (3.5-5.0); Alkaline Phosphatase 111 U/L (40-110); Anion Gap 13 mmol/L (10-20); BUN (Urea Nitrogen) 8 mg/dL (7.0-18.7); Bilirubin, Total 0.7 mg/dL (0.2-1.2); Calc. Creatinine Clearance 151 mL/min (70-130); Calcium 9.3 mg/dL (7.8-10.44); Carbon Dioxide 27 mmol/L (22-29); Chloride 101 mmol/L (98-107); Estimated GFR 113; Glucose 197 mg/dL (70-105); Potassium 4.7 mmol/L (3.5-5.1); Protein, Total 6.8 g/dL (6.0-8.3); Sodium 136 mmol/L (136-145)
[2023-07-11] MEDS: Insulin Regular 300 UNITS/3 ML VIAL SC PRN ×2 (06:31→20:24)
[2023-07-11] MEDS: methylPREDNISolone Sod Succ 40 MG VIAL IVP SCH ×2 (09:22→20:18)
[2023-07-11] MEDS: Lisinopril 20 MG TAB PO SCH (09:23)
[2023-07-11] MEDS: Atorvastatin Calcium 40 MG TAB PO SCH (09:23)
[2023-07-11] MEDS: metFORMIN 500 MG TAB PO SCH ×2 (09:24→20:18)
[2023-07-11] MEDS: Amlodipine 10 MG TAB PO SCH (09:25)
[2023-07-11] MEDS: Hydrochlorothiazide 25 MG TAB PO SCH (09:25)
[2023-07-11] MEDS: Ferrous Sulfate 325 MG TAB PO SCH (09:25)
[2023-07-11] MEDS: Thiamine HCl 200 MG/2 ML VIAL SLOW IVP SCH (15:32)
[2023-07-11] MEDS: Folic Acid 1 MG TAB PO SCH (20:18)
[2023-07-11] MEDS: Multivit, Therapeutic 1 TAB PO SCH (20:18)
[2023-07-11] MEDS: Mometasone 200 MCG/Formoterol 5 MCG 120 PUFF INHALER INH SCH (23:02)
[2023-07-12] MEDS: Ipratropium/Albuterol 3 ML NEB NEB SCH ×3 (02:30→10:56)
[2023-07-12 06:22] LABS: #Monocytes 0.8 thou/uL (0.11-0.59); #Neutrophils 16.3 thou/uL (1.40-6.50); %Basophils 0.1 % (0.0-1.0); %Lymphocytes 4.9 % (21.0-51.0); %Monocytes 4.6 % (0.0-10.0); %Neutrophils 89.6 % (42.0-75.0); Hematocrit 32.2 % (36.0-47.0); Mean Corpuscular Hemoglobin 21.2 pg (27.0-31.0); Mean Corpuscular Volume 75.9 fl (78.0-98.0); Platelet Count 294 10x3/uL (130-400); RBC Distribution Width 21.6 % (11.5-14.5); Red Blood Cell (RBC) Count 4.24 mill/uL (4.20-5.40); White Blood Cell (WBC) Count 18.2 10x3/uL (4.8-10.8)
[2023-07-12] MEDS: Insulin Regular 300 UNITS/3 ML VIAL SC PRN (06:34)
[2023-07-12 06:49] LABS: ALT (SGPT) 26 U/L (8-55); AST (SGOT) 10 U/L (5-34); Albumin 4.1 g/dL (3.5-5.0); Alkaline Phosphatase 98 U/L (40-110); Anion Gap 16 mmol/L (10-20); BUN (Urea Nitrogen) 11 mg/dL (7.0-18.7); Bilirubin, Total 0.4 mg/dL (0.2-1.2); Calc. Creatinine Clearance 146 mL/min (70-130); Calcium 9.2 mg/dL (7.8-10.44); Carbon Dioxide 24 mmol/L (22-29); Chloride 98 mmol/L (98-107); Estimated GFR 113; Globulin 2.8 g/dL (2.4-3.5); Glucose 186 mg/dL (70-105); Potassium 4.4 mmol/L (3.5-5.1); Protein, Total 6.9 g/dL (6.0-8.3); Sodium 134 mmol/L (136-145)
[2023-07-12] MEDS: Mometasone 200 MCG/Formoterol 5 MCG 120 PUFF INHALER INH SCH (06:58)
[2023-07-12 07:25] LABS: Burr Cells SLIGHT = 2-5 cells HPF (0-1); CellaVision Operator ID LAB.GE; Hypochromia MODERATE=16-30 cells HPF (0-5); Microcytosis SLIGHT = 6-15 cells HPF (0-5); Platelet Adequacy Comment Platelets Normal; Polychromasia MODERATE = 3-4 cells HPF (0-2)
[2023-07-12 07:47] VITALS: TEMP 97
[2023-07-12] MEDS: metFORMIN 500 MG TAB PO SCH (09:15)
[2023-07-12] MEDS: Ferrous Sulfate 325 MG TAB PO SCH (09:15)
[2023-07-12] MEDS: Amlodipine 10 MG TAB PO SCH (09:16)
[2023-07-12] MEDS: Lisinopril 20 MG TAB PO SCH (09:16)
[2023-07-12] MEDS: Atorvastatin Calcium 40 MG TAB PO SCH (09:17)
[2023-07-12] MEDS: Hydrochlorothiazide 25 MG TAB PO SCH (09:17)
[2023-07-12] MEDS: methylPREDNISolone Sod Succ 40 MG VIAL IVP SCH (09:18)
[2023-07-12 14:20] VITALS: BP 148/81
[2023-07-13] MEDS ORDERED: FLU VACC QS2023-24(6MOS UP)/PF 60 MCG/0.5 ML SYRINGE IM ONE (09:00)
[2023-07-13] MEDS ORDERED: Thiamine 100 MG TAB PO SCH (09:00)
== END 2023-07-12 14:41 | disposition home or self-care (01) | DRG 189 ==
LOC: ERS 11:53 → IMCU/EMU 13:42
PROVIDERS: ADMIT Family Medicine; ATTEND Family Medicine
PROC: 5A09357 Assistance with Respiratory Ventilation, Less than 24 Consecutive Hours, Continuous Positive Airway Pressure (ICD-10-PCS; principal; 2023-07-10)
DX: J96.01 Acute respiratory failure with hypoxia (principal); J45.51 Severe persistent asthma with (acute) exacerbation; E87.4 Mixed disorder of acid-base balance; E11.9 Type 2 diabetes mellitus without complications; E78.5 Hyperlipidemia, unspecified; D50.9 Iron deficiency anemia, unspecified; E87.6 Hypokalemia; E66.9 Obesity, unspecified; D72.829 Elevated white blood cell count, unspecified; Z91.148 Patient's other noncompliance with medication regimen for other reason; Z68.33 Body mass index [BMI] 33.0-33.9, adult; Z79.899 Other long term (current) drug therapy; Z79.51 Long term (current) use of inhaled steroids; Z79.84 Long term (current) use of oral hypoglycemic drugs; Z98.890 Other specified postprocedural states
CPT/HCPCS: 36415; 36416; 71045; 80053; 82805; 83605; 83880; 84145; 84484; 85025; 93005; 94640; 94660; 94760; 96365; 96375; J0360; J1650; J1815; J2920; J2930; J3411; J3475; J7620

== ENCOUNTER 2023-07-19 21:02 | Inpatient (IN) | payer SELFPAY ==
[2023-07-19] MEDS ORDERED: Ondansetron PF 4 MG/2 ML Vial ONE (21:21)
[2023-07-19 21:50] LABS: Hemoglobin 8.2 g/dL (12.0-16.0); Mean Corpuscular HGB CONC 28.3 g/dL (32.0-36.0); Mean Corpuscular Hemoglobin 21.6 pg (27.0-31.0); Mean Corpuscular Volume 76.3 fl (78.0-98.0); Mean Platelet Volume 11.2 fL (7.4-10.4); Platelet Count 334 10x3/uL (130-400); RBC Distribution Width 21.2 % (11.5-14.5); White Blood Cell (WBC) Count 32.3 10x3/uL (4.8-10.8)
[2023-07-19 21:53] LABS: BHCG - Serum Negative (NEGATIVE)
[2023-07-19 21:54] LABS: Pregs Control Background? CLEAR/WHITE (CLR/WHITE); Pregs Control Bar Appear? YES (CONTROL BAR)
[2023-07-19] MEDS ORDERED: fentaNYL 50 mcg/mL 1 mL Vial ONE (21:55)
[2023-07-19 21:59] LABS: Delete Auto Diff?? YES; Manual Diff?? YES
[2023-07-19 22:09] LABS: ALT (SGPT) 28 U/L (8-55); AST (SGOT) 20 U/L (5-34); Albumin 4.1 g/dL (3.5-5.0); Alkaline Phosphatase 105 U/L (40-110); Anion Gap 19 mmol/L (10-20); BUN (Urea Nitrogen) 16 mg/dL (7.0-18.7); Bilirubin, Total 0.4 mg/dL (0.2-1.2); Calc. Creatinine Clearance 0 mL/min (70-130); Calcium 9.2 mg/dL (7.8-10.44); Carbon Dioxide 19 mmol/L (22-29); Chloride 101 mmol/L (98-107); Estimated GFR 89; Glucose 276 mg/dL (70-105); Potassium 3.8 mmol/L (3.5-5.1); Protein, Total 7.1 g/dL (6.0-8.3); Sodium 135 mmol/L (136-145)
[2023-07-19 22:23] LABS: Protein, Urine (Dipstick) > or equal to 300 mg/dL (Neg-Trace); pH, Urine 7.5 (5.0-9.0)
[2023-07-19 22:24] LABS: Clarity Cloudy (Clear)
[2023-07-19 22:25] LABS: Specific Gravity, Urine Greater than 1.060 (1.002-1.036)
[2023-07-19 22:26] LABS: RBC/HPF Greater than 50 HPF (0-3)
[2023-07-19 22:27] LABS: Bilirubin Unable to Interpret (Negative); Blood, Urine Large (Negative); Glucose, Urine (Dipstick) Unable to Interpret mg/dL (Negative); Ketone, Urine Unable to Interpret mg/dL (Negative); Leukocyte Unable to Interpret (Negative); Nitrite Unable to Interpret (Negative); Urobilinogen UNABLE TO INTERPRET mg/dL (Less than 2)
[2023-07-19 22:28] LABS: CAUTI Indications for Culture Pelvic or flank pain; Squamous Epithelial 0-3 HPF (0-3)
[2023-07-19 22:29] LABS: Bacteria/HPF 2+ HPF (None Seen); Urine Culture Reflex No No
[2023-07-19] MEDS ORDERED: Vancomycin (BATCH) 1.5 GM in Premix 1 BAG IVPB SCH (22:30)
[2023-07-19] MEDS ORDERED: Cefepime 2 GM VIAL ONE (22:35)
[2023-07-19] MEDS ORDERED: Piperacillin/Tazobactam 4.5 GM VIAL ONE (22:39)
[2023-07-19 23:00] LABS: Band 10 % (5-11); CellaVision Operator ID LAB.CLH1; Hypochromia SLIGHT = 6-15 cells HPF (0-5); Lymphocytes 5 % (21-51); Macrocytosis SLIGHT = 6-15 cells HPF (0-5); Microcytosis SLIGHT = 6-15 cells HPF (0-5); Monocytes 1 % (0-10); Neutrophil 84 % (42-75); Platelet Adequacy Comment Platelets Normal; Polychromasia SLIGHT = 2-3 cells HPF (0-2); Total Cell Count 101
[2023-07-19 23:45] LABS: Lipase 33 U/L (8-78); Magnesium 1.9 mg/dL (1.6-2.6)
[2023-07-19 23:50] LABS: Troponin I 0.022 ng/mL (< 0.028)
[2023-07-20] MEDS ORDERED: Glucagon 1 MG/ML KIT IM PRN (00:34)
[2023-07-20] MEDS ORDERED: Dextrose 50% Abboject 50 ML SYRINGE SLOW IVP PRN (00:34)
[2023-07-20] MEDS ORDERED: Dextrose 5% in Water 1,000 ML IV PRN (00:34)
[2023-07-20] MEDS ORDERED: HumaLOG 300 UNITS/3 ML VIAL SC PRN ×2 (00:39)
[2023-07-20 01:23] LABS: SARS-CoV-2 NAA Rapid Test Not Detected (NotDetected)
[2023-07-20] MEDS ORDERED: Ipratropium/Albuterol 3 ML NEB NEB PRN ×2 (01:28→01:41)
[2023-07-20 01:38] LABS: Lactic Acid 1.4 mmol/L (0.5-2.2)
[2023-07-20 02:05] VITALS: BMI 33.8
[2023-07-20 03:03] LABS: Troponin I 0.021 ng/mL (< 0.028)
[2023-07-20] MEDS: fentaNYL 50 mcg/mL 1 mL Vial SLOW IVP PRN ×3 (03:47→12:25)
[2023-07-20] MEDS: Piperacillin/Tazobactam 3.375 GM in Sodium Chloride 0.9% 100 ML IVPB SCH ×3 (04:38→20:58)
[2023-07-20] MEDS: Lactated Ringer's 1,000 ML IV SCH ×3 (04:45→15:41)
[2023-07-20 05:04] LABS: Hemoglobin 7.5 g/dL (12.0-16.0); Mean Corpuscular HGB CONC 27.8 g/dL (32.0-36.0); Mean Corpuscular Hemoglobin 21.7 pg (27.0-31.0); Mean Platelet Volume 10.7 fL (7.4-10.4); Platelet Count 309 10x3/uL (130-400); RBC Distribution Width 21.4 % (11.5-14.5); Red Blood Cell (RBC) Count 3.46 mill/uL (4.20-5.40)
[2023-07-20 05:10] LABS: Delete Auto Diff?? YES; Manual Diff?? YES
[2023-07-20 05:32] LABS: ALT (SGPT) 26 U/L (8-55); AST (SGOT) 14 U/L (5-34); Albumin 3.3 g/dL (3.5-5.0); Alkaline Phosphatase 80 U/L (40-110); Anion Gap 13 mmol/L (10-20); BUN (Urea Nitrogen) 12 mg/dL (7.0-18.7); Bilirubin, Total 0.7 mg/dL (0.2-1.2); Calc. Creatinine Clearance 159 mL/min (70-130); Calcium 8.2 mg/dL (7.8-10.44); Carbon Dioxide 24 mmol/L (22-29); Chloride 106 mmol/L (98-107); Estimated GFR 114; Globulin 2.3 g/dL (2.4-3.5); Glucose 160 mg/dL (70-105); Potassium 3.7 mmol/L (3.5-5.1); Protein, Total 5.6 g/dL (6.0-8.3); Sodium 139 mmol/L (136-145)
[2023-07-20 05:35] LABS: Band 19 % (5-11); CellaVision Operator ID LAB.CLH1; Eosinophils 1 % (0-10); Hypochromia MODERATE=16-30 cells HPF (0-5); Lymphocytes 6 % (21-51); Microcytosis SLIGHT = 6-15 cells HPF (0-5); Monocytes 6 % (0-10); Neutrophil 68 % (42-75); Platelet Adequacy Comment Platelets Normal; Polychromasia SLIGHT = 2-3 cells HPF (0-2); Total Cell Count 100
[2023-07-20] MEDS: Ipratropium/Albuterol 3 ML NEB NEB SCH ×5 (06:58→22:46)
[2023-07-20] MEDS: Mometasone 200 MCG/Formoterol 5 MCG 120 PUFF INHALER INH SCH ×2 (07:00→18:28)
[2023-07-20] MEDS: Ferrous Sulfate 325 MG TAB PO SCH (08:18)
[2023-07-20] MEDS: Montelukast Sodium 10 mg Tablet PO SCH (08:19)
[2023-07-20] MEDS ORDERED: Non-Formulary Item 1 EACH (Tiotropium [Spiriva Handihaler] 18 MCG Box) INH SCH (09:00)
[2023-07-20] MEDS ORDERED: diphenhydrAMINE 50 MG/ML VIAL IVP PRN (14:55)
[2023-07-20] MEDS ORDERED: diphenhydrAMINE 50 MG/ML VIAL IM PRN (14:55)
[2023-07-20] MEDS ORDERED: diphenhydrAMINE 25 MG CAP PO PRN (14:55)
[2023-07-20] MEDS ORDERED: Promethazine HCl 25 MG/ML VIAL IM PRN (14:55)
[2023-07-20] MEDS ORDERED: Naloxone HCl 0.4 mg/ml Vial IV PRN (14:55)
[2023-07-20] MEDS ORDERED: Communication Order-Pharmacy FS SCH (15:00)
[2023-07-20] MEDS: Acetaminophen 325 MG TAB PO SCH ×2 (15:40→20:58)
[2023-07-20] MEDS: Lactated Ringer's 500 ML IV SCH ×2 (15:41→15:43)
[2023-07-20] MEDS: HYDROmorphone 10 mg/100 ml CADD IVPB PRN (17:12)
[2023-07-20] MEDS: Ketorolac Tromethamine 30 MG/ML VIAL IVP SCH ×2 (17:24→23:21)
[2023-07-21] MEDS ORDERED: Lactated Ringer's 500 ML IV SCH (01:15)
[2023-07-21] MEDS: Lactated Ringer's 1,000 ML IV SCH ×2 (01:27→11:48)
[2023-07-21] MEDS: Ipratropium/Albuterol 3 ML NEB NEB SCH ×6 (02:23→22:46)
[2023-07-21] MEDS: Piperacillin/Tazobactam 3.375 GM in Sodium Chloride 0.9% 100 ML IVPB SCH ×3 (04:29→21:04)
[2023-07-21] MEDS: Acetaminophen 325 MG TAB PO SCH ×4 (04:29→21:04)
[2023-07-21 04:39] LABS: Hematocrit 26.8 % (36.0-47.0); Hemoglobin 7.3 g/dL (12.0-16.0); Mean Corpuscular HGB CONC 27.2 g/dL (32.0-36.0); Mean Corpuscular Hemoglobin 21.9 pg (27.0-31.0); Mean Corpuscular Volume 80.2 fl (78.0-98.0); Mean Platelet Volume 10.4 fL (7.4-10.4); Platelet Count 314 10x3/uL (130-400); RBC Distribution Width 21.7 % (11.5-14.5); Red Blood Cell (RBC) Count 3.34 mill/uL (4.20-5.40); White Blood Cell (WBC) Count 33.6 10x3/uL (4.8-10.8)
[2023-07-21 05:13] LABS: Delete Auto Diff?? YES; Manual Diff?? YES
[2023-07-21 05:25] LABS: ALT (SGPT) 70 U/L (8-55); AST (SGOT) 67 U/L (5-34); Albumin 3.3 g/dL (3.5-5.0); Alkaline Phosphatase 126 U/L (40-110); Anion Gap 13 mmol/L (10-20); BUN (Urea Nitrogen) 7 mg/dL (7.0-18.7); Bilirubin, Total 1.3 mg/dL (0.2-1.2); Calc. Creatinine Clearance 159 mL/min (70-130); Calcium 8.5 mg/dL (7.8-10.44); Carbon Dioxide 26 mmol/L (22-29); Chloride 103 mmol/L (98-107); Estimated GFR 114; Globulin 2.6 g/dL (2.4-3.5); Glucose 148 mg/dL (70-105); Potassium 3.6 mmol/L (3.5-5.1); Protein, Total 5.9 g/dL (6.0-8.3); Sodium 138 mmol/L (136-145)
[2023-07-21] MEDS: Ketorolac Tromethamine 30 MG/ML VIAL IVP SCH (05:54)
[2023-07-21 06:14] LABS: Anisocytosis SLIGHT = 6-15 cells HPF (0-5); Band 15 % (5-11); Basophilic Stippling SLIGHT = 1-2 cells HPF (None Seen); CellaVision Operator ID LAB.JMM; Large Platelets 6.9 % (0-5); Lymphocytes 8 % (21-51); Macrocytosis SLIGHT = 6-15 cells HPF (0-5); Monocytes 7 % (0-10); Neutrophil 71 % (42-75); Platelet Adequacy Comment Platelets Normal; Polychromasia SLIGHT = 2-3 cells HPF (0-2); Total Cell Count 102
[2023-07-21] MEDS: Mometasone 200 MCG/Formoterol 5 MCG 120 PUFF INHALER INH SCH ×2 (07:05→18:46)
[2023-07-21 09:29] LABS: Magnesium 1.8 mg/dL (1.6-2.6)
[2023-07-21 10:05] LABS: T4 4.69 ug/dL (4.87-11.72); Thyroid Stimulating Hormone 0.7131 uIU/mL (0.35-4.94)
[2023-07-21] MEDS: Potassium Chloride 20 MEQ in Premix 1 BAG IVPB SCH ×2 (11:48→14:10)
[2023-07-21] MEDS: Ondansetron ODT 4 MG TAB PO PRN (11:49)
[2023-07-21] MEDS: Metoprolol Tartrate 25 MG TAB PO SCH ×2 (11:51→21:04)
[2023-07-21] MEDS: Montelukast Sodium 10 mg Tablet PO SCH (11:51)
[2023-07-21] MEDS ORDERED: Ketorolac Tromethamine 30 MG/ML VIAL IVP PRN (12:00)
[2023-07-21] MEDS ORDERED: Magnesium 2 GM/50 ML(in water) 2 GM in Premix 1 BAG IVPB SCH (13:30)
[2023-07-22] MEDS: Lactated Ringer's 1,000 ML IV SCH ×3 (01:13→15:49)
[2023-07-22] MEDS: Ipratropium/Albuterol 3 ML NEB NEB SCH ×6 (01:59→23:26)
[2023-07-22] MEDS: Ondansetron PF 4 MG/2 ML Vial IVP PRN (02:12)
[2023-07-22] MEDS: Acetaminophen 325 MG TAB PO SCH ×4 (04:19→20:14)
[2023-07-22] MEDS: Piperacillin/Tazobactam 3.375 GM in Sodium Chloride 0.9% 100 ML IVPB SCH ×3 (04:20→20:16)
[2023-07-22 05:25] LABS: Hematocrit 25.6 % (36.0-47.0); Hemoglobin 6.8 g/dL (12.0-16.0); Mean Corpuscular HGB CONC 26.6 g/dL (32.0-36.0); Mean Corpuscular Hemoglobin 21.5 pg (27.0-31.0); Mean Corpuscular Volume 80.8 fl (78.0-98.0); Mean Platelet Volume 10.9 fL (7.4-10.4); Platelet Count 305 10x3/uL (130-400); RBC Distribution Width 21.5 % (11.5-14.5); Red Blood Cell (RBC) Count 3.17 mill/uL (4.20-5.40); White Blood Cell (WBC) Count 25.6 10x3/uL (4.8-10.8)
[2023-07-22 05:36] LABS: Delete Auto Diff?? YES; Manual Diff?? YES
[2023-07-22 05:53] LABS: ALT (SGPT) 87 U/L (8-55); AST (SGOT) 56 U/L (5-34); Albumin 3.3 g/dL (3.5-5.0); Alkaline Phosphatase 154 U/L (40-110); Anion Gap 12 mmol/L (10-20); BUN (Urea Nitrogen) 6 mg/dL (7.0-18.7); Bilirubin, Total 0.4 mg/dL (0.2-1.2); Calc. Creatinine Clearance 170 mL/min (70-130); Calcium 8.8 mg/dL (7.8-10.44); Carbon Dioxide 27 mmol/L (22-29); Chloride 100 mmol/L (98-107); Estimated GFR 116; Globulin 2.8 g/dL (2.4-3.5); Glucose 131 mg/dL (70-105); Protein, Total 6.1 g/dL (6.0-8.3); Sodium 135 mmol/L (136-145)
[2023-07-22 06:11] LABS: Anisocytosis SLIGHT = 6-15 cells HPF (0-5); Band 11 % (5-11); CellaVision Operator ID lab.abc; Hypochromia SLIGHT = 6-15 cells HPF (0-5); Large Platelets 7.1 % (0-5); Lymphocytes 4 % (21-51); Microcytosis SLIGHT = 6-15 cells HPF (0-5); Monocytes 2 % (0-10); Neutrophil 83 % (42-75); Platelet Adequacy Comment Platelets Normal; Polychromasia SLIGHT = 2-3 cells HPF (0-2); Smudge Cells 9.1 %; Total Cell Count 99
[2023-07-22] MEDS: Mometasone 200 MCG/Formoterol 5 MCG 120 PUFF INHALER INH SCH ×2 (06:30→19:17)
[2023-07-22] MEDS: Montelukast Sodium 10 mg Tablet PO SCH (07:51)
[2023-07-22] MEDS: Metoprolol Tartrate 25 MG TAB PO SCH ×2 (07:51→20:14)
[2023-07-22] MEDS: Ferrous Sulfate 325 MG TAB PO SCH (07:52)
[2023-07-22 14:08] LABS: Hematocrit 26.5 % (36.0-47.0); Hemoglobin 7.4 g/dL (12.0-16.0)
[2023-07-22] MEDS ORDERED: Iopamidol-370 76% 500 ML MDV (1 ML CHARGE) ONE (14:32)
[2023-07-22] MEDS ORDERED: Furosemide 20 MG/2 ML VIAL SLOW IVP SCH (19:45)
[2023-07-23] MEDS: HYDROmorphone 10 mg/100 ml CADD IVPB PRN (00:21)
[2023-07-23] MEDS: Ipratropium/Albuterol 3 ML NEB NEB SCH ×6 (02:45→22:27)
[2023-07-23] MEDS: Acetaminophen 325 MG TAB PO SCH ×4 (03:48→22:00)
[2023-07-23] MEDS: Lactated Ringer's 1,000 ML IV SCH ×2 (03:48→18:26)
[2023-07-23] MEDS: Piperacillin/Tazobactam 3.375 GM in Sodium Chloride 0.9% 100 ML IVPB SCH ×3 (03:49→19:54)
[2023-07-23] MEDS: Mometasone 200 MCG/Formoterol 5 MCG 120 PUFF INHALER INH SCH ×2 (06:36→18:55)
[2023-07-23] MEDS ORDERED: predniSONE 20 MG TAB PO SCH (08:00)
[2023-07-23 08:31] LABS: ALT (SGPT) 75 U/L (8-55); AST (SGOT) 30 U/L (5-34); Albumin 2.9 g/dL (3.5-5.0); Alkaline Phosphatase 137 U/L (40-110); Anion Gap 14 mmol/L (10-20); BUN (Urea Nitrogen) 4 mg/dL (7.0-18.7); Bilirubin, Total 0.5 mg/dL (0.2-1.2); Calc. Creatinine Clearance 194 mL/min (70-130); Calcium 8.3 mg/dL (7.8-10.44); Carbon Dioxide 29 mmol/L (22-29); Chloride 100 mmol/L (98-107); Estimated GFR 120; Globulin 2.7 g/dL (2.4-3.5); Glucose 104 mg/dL (70-105); Potassium 3.6 mmol/L (3.5-5.1); Protein, Total 5.6 g/dL (6.0-8.3); Sodium 139 mmol/L (136-145)
[2023-07-23 09:25] LABS: #Eosinphils 0.1 thou/uL (0.0-0.7); #Monocytes 1.7 thou/uL (0.11-0.59); #Neutrophils 15.8 thou/uL (1.40-6.50); %Basophils 0.1 % (0.0-1.0); %Eosinophils 0.3 % (0.0-10.0); %Lymphocytes 6.8 % (21.0-51.0); %Monocytes 9.1 % (0.0-10.0); Hematocrit 28.7 % (36.0-47.0); Hemoglobin 8.1 g/dL (12.0-16.0); Mean Corpuscular HGB CONC 28.2 g/dL (32.0-36.0); Mean Corpuscular Hemoglobin 22.6 pg (27.0-31.0); Mean Corpuscular Volume 80.2 fl (78.0-98.0); Mean Platelet Volume 11.1 fL (7.4-10.4); Platelet Count 315 10x3/uL (130-400); Red Blood Cell (RBC) Count 3.58 mill/uL (4.20-5.40); White Blood Cell (WBC) Count 19.1 10x3/uL (4.8-10.8)
[2023-07-23] MEDS: Metoprolol Tartrate 25 MG TAB PO SCH ×2 (09:56→19:54)
[2023-07-23] MEDS: Montelukast Sodium 10 mg Tablet PO SCH (09:56)
[2023-07-24] MEDS: Piperacillin/Tazobactam 3.375 GM in Sodium Chloride 0.9% 100 ML IVPB SCH ×3 (04:16→19:51)
[2023-07-24] MEDS: Acetaminophen 325 MG TAB PO SCH ×4 (04:17→22:32)
[2023-07-24] MEDS: Ipratropium/Albuterol 3 ML NEB NEB SCH ×6 (05:26→23:06)
[2023-07-24 06:55] LABS: #Eosinphils 0.1 thou/uL (0.0-0.7); #Monocytes 2.1 thou/uL (0.11-0.59); %Basophils 0.2 % (0.0-1.0); %Eosinophils 0.3 % (0.0-10.0); %Lymphocytes 8.9 % (21.0-51.0); %Monocytes 11.6 % (0.0-10.0); %Neutrophils 78.1 % (42.0-75.0); Hematocrit 30.3 % (36.0-47.0); Hemoglobin 8.7 g/dL (12.0-16.0); Mean Corpuscular HGB CONC 28.7 g/dL (32.0-36.0); Mean Corpuscular Hemoglobin 22.8 pg (27.0-31.0); Mean Corpuscular Volume 79.3 fl (78.0-98.0); Mean Platelet Volume 11.5 fL (7.4-10.4); Platelet Count 300 10x3/uL (130-400); RBC Distribution Width 20.8 % (11.5-14.5); Red Blood Cell (RBC) Count 3.82 mill/uL (4.20-5.40)
[2023-07-24 07:21] LABS: ALT (SGPT) 60 U/L (8-55); AST (SGOT) 16 U/L (5-34); Alkaline Phosphatase 130 U/L (40-110); Anion Gap 13 mmol/L (10-20); BUN (Urea Nitrogen) Less than 4 mg/dL (7.0-18.7); Bilirubin, Total 0.4 mg/dL (0.2-1.2); Calc. Creatinine Clearance 202 mL/min (70-130); Calcium 8.2 mg/dL (7.8-10.44); Carbon Dioxide 30 mmol/L (22-29); Chloride 100 mmol/L (98-107); Estimated GFR 121; Globulin 2.2 g/dL (2.4-3.5); Glucose 103 mg/dL (70-105); Potassium 3.3 mmol/L (3.5-5.1); Protein, Total 5.2 g/dL (6.0-8.3); Sodium 140 mmol/L (136-145)
[2023-07-24] MEDS: Mometasone 200 MCG/Formoterol 5 MCG 120 PUFF INHALER INH SCH ×2 (07:52→19:26)
[2023-07-24] MEDS ORDERED: Potassium Chloride 20 MEQ TAB PO SCH (08:00)
[2023-07-24 08:21] LABS: Anisocytosis MODERATE=16-30 cells HPF (0-5); CellaVision Operator ID LAB.GE; Hypochromia SLIGHT = 6-15 cells HPF (0-5); Large Platelets 2.9 % (0-5); Platelet Adequacy Comment Platelets Normal; Polychromasia MODERATE = 3-4 cells HPF (0-2)
[2023-07-24] MEDS: Lisinopril 20 MG TAB PO SCH (08:59)
[2023-07-24] MEDS: Montelukast Sodium 10 mg Tablet PO SCH (09:00)
[2023-07-24] MEDS: Hydrochlorothiazide 25 MG TAB PO SCH (09:00)
[2023-07-24] MEDS: Lactated Ringer's 1,000 ML IV SCH (09:01)
[2023-07-24] MEDS: Ferrous Sulfate 325 MG TAB PO SCH (09:01)
[2023-07-24] MEDS: Metoprolol Tartrate 25 MG TAB PO SCH ×2 (09:01→19:51)
[2023-07-24] MEDS: Potassium Chloride 20 MEQ in Premix 1 BAG IVPB SCH ×2 (09:02→12:11)
[2023-07-25] MEDS: Ipratropium/Albuterol 3 ML NEB NEB SCH ×6 (02:58→22:42)
[2023-07-25] MEDS: Acetaminophen 325 MG TAB PO SCH (04:18)
[2023-07-25] MEDS: Piperacillin/Tazobactam 3.375 GM in Sodium Chloride 0.9% 100 ML IVPB SCH (04:18)
[2023-07-25 05:42] LABS: #Basophils 0.1 thou/uL (0.0-0.2); #Eosinphils 0.1 thou/uL (0.0-0.7); #Monocytes 1.9 thou/uL (0.11-0.59); #Neutrophils 14.2 thou/uL (1.40-6.50); %Basophils 0.3 % (0.0-1.0); %Eosinophils 0.3 % (0.0-10.0); %Lymphocytes 9.8 % (21.0-51.0); %Monocytes 10.4 % (0.0-10.0); %Neutrophils 78.2 % (42.0-75.0); Hematocrit 31.3 % (36.0-47.0); Hemoglobin 8.8 g/dL (12.0-16.0); Mean Corpuscular HGB CONC 28.1 g/dL (32.0-36.0); Mean Corpuscular Hemoglobin 22.4 pg (27.0-31.0); Mean Corpuscular Volume 79.6 fl (78.0-98.0); Mean Platelet Volume 10.7 fL (7.4-10.4); Platelet Count 367 10x3/uL (130-400); RBC Distribution Width 21.1 % (11.5-14.5); Red Blood Cell (RBC) Count 3.93 mill/uL (4.20-5.40); White Blood Cell (WBC) Count 18.2 10x3/uL (4.8-10.8)
[2023-07-25 06:06] LABS: Phosphorus 3.1 mg/dL (2.3-4.7)
[2023-07-25 06:09] LABS: ALT (SGPT) 45 U/L (8-55); AST (SGOT) 13 U/L (5-34); Albumin 3.1 g/dL (3.5-5.0); Alkaline Phosphatase 133 U/L (40-110); Anion Gap 12 mmol/L (10-20); BUN (Urea Nitrogen) Less than 4 mg/dL (7.0-18.7); Bilirubin, Total 0.3 mg/dL (0.2-1.2); Calc. Creatinine Clearance 190 mL/min (70-130); Carbon Dioxide 32 mmol/L (22-29); Chloride 96 mmol/L (98-107); Estimated GFR 119; Globulin 2.8 g/dL (2.4-3.5); Glucose 121 mg/dL (70-105); Magnesium 1.6 mg/dL (1.6-2.6); Potassium 3.3 mmol/L (3.5-5.1); Protein, Total 5.9 g/dL (6.0-8.3); Sodium 137 mmol/L (136-145)
[2023-07-25] MEDS: Mometasone 200 MCG/Formoterol 5 MCG 120 PUFF INHALER INH SCH ×2 (06:44→18:42)
[2023-07-25] MEDS ORDERED: Potassium Chloride 20 MEQ TAB PO SCH ×3 (07:15→11:15)
[2023-07-25] MEDS ORDERED: Magnesium Sulfate In Water 4 GM in Premix 1 BAG IVPB SCH (08:00)
[2023-07-25] MEDS ORDERED: Lactated Ringer's 1,000 ML IV SCH (08:45)
[2023-07-25] MEDS ORDERED: Ibuprofen 200 MG TAB PO PRN ×2 (09:55→10:54)
[2023-07-25] MEDS ORDERED: Acetaminophen 325 MG TAB PO SCH (09:56)
[2023-07-25] MEDS: Montelukast Sodium 10 mg Tablet PO SCH (11:14)
[2023-07-25] MEDS: Hydrochlorothiazide 25 MG TAB PO SCH (11:15)
[2023-07-25] MEDS: Acetaminophen 500 MG TAB PO SCH ×2 (11:18→17:45)
[2023-07-25] MEDS: traMADol HCl 50 MG TAB PO SCH ×2 (11:19→17:46)
[2023-07-25] MEDS: Potassium Chloride 20 MEQ in Premix 1 BAG IVPB SCH ×2 (11:21→15:01)
[2023-07-25] MEDS: Metoprolol Tartrate 25 MG TAB PO SCH ×2 (12:14→21:07)
[2023-07-25] MEDS: Lisinopril 20 MG TAB PO SCH (12:15)
[2023-07-25] MEDS ORDERED: Piperacillin/Tazobactam 4.5 GM in Sodium Chloride 0.9% 100 ML IVPB SCH (14:00)
[2023-07-25] MEDS: metroNIDAZOLE 500 MG TAB PO SCH ×2 (17:45→21:53)
[2023-07-25] MEDS: Ibuprofen 600 MG TAB PO PRN (21:07)
[2023-07-26] MEDS: traMADol HCl 50 MG TAB PO SCH ×5 (00:30→22:33)
[2023-07-26] MEDS: Acetaminophen 500 MG TAB PO SCH ×5 (00:31→22:33)
[2023-07-26] MEDS: Ipratropium/Albuterol 3 ML NEB NEB SCH ×5 (02:34→18:49)
[2023-07-26 05:40] LABS: #Eosinphils 0.1 thou/uL (0.0-0.7); #Monocytes 1.3 thou/uL (0.11-0.59); %Basophils 0.2 % (0.0-1.0); %Eosinophils 0.3 % (0.0-10.0); %Lymphocytes 11.8 % (21.0-51.0); %Monocytes 7.4 % (0.0-10.0); %Neutrophils 79.2 % (42.0-75.0); Hematocrit 31.7 % (36.0-47.0); Hemoglobin 8.9 g/dL (12.0-16.0); Mean Corpuscular HGB CONC 28.1 g/dL (32.0-36.0); Mean Corpuscular Hemoglobin 22.7 pg (27.0-31.0); Mean Corpuscular Volume 80.9 fl (78.0-98.0); Mean Platelet Volume 10.4 fL (7.4-10.4); Platelet Count 368 10x3/uL (130-400); RBC Distribution Width 21.6 % (11.5-14.5); Red Blood Cell (RBC) Count 3.92 mill/uL (4.20-5.40); White Blood Cell (WBC) Count 17.7 10x3/uL (4.8-10.8)
[2023-07-26] MEDS ORDERED: LevoFLOXacin 750 MG TAB PO SCH (06:00)
[2023-07-26 06:07] LABS: ALT (SGPT) 37 U/L (8-55); AST (SGOT) 10 U/L (5-34); Alkaline Phosphatase 131 U/L (40-110); Anion Gap 17 mmol/L (10-20); BUN (Urea Nitrogen) 4 mg/dL (7.0-18.7); Bilirubin, Total 0.3 mg/dL (0.2-1.2); Calc. Creatinine Clearance 187 mL/min (70-130); Calcium 8.5 mg/dL (7.8-10.44); Carbon Dioxide 30 mmol/L (22-29); Chloride 97 mmol/L (98-107); Estimated GFR 119; Globulin 2.4 g/dL (2.4-3.5); Glucose 87 mg/dL (70-105); Potassium 4.5 mmol/L (3.5-5.1); Protein, Total 5.4 g/dL (6.0-8.3); Sodium 139 mmol/L (136-145)
[2023-07-26] MEDS: Mometasone 200 MCG/Formoterol 5 MCG 120 PUFF INHALER INH SCH ×2 (07:34→18:49)
[2023-07-26] MEDS: Ondansetron ODT 4 MG TAB PO PRN (07:48)
[2023-07-26] MEDS: Metoprolol Tartrate 25 MG TAB PO SCH ×2 (09:52→22:32)
[2023-07-26] MEDS: Montelukast Sodium 10 mg Tablet PO SCH (09:52)
[2023-07-26] MEDS: Lisinopril 20 MG TAB PO SCH (09:52)
[2023-07-26] MEDS: Hydrochlorothiazide 25 MG TAB PO SCH (09:52)
[2023-07-26] MEDS ORDERED: Piperacillin/Tazobactam 3.375 GM in Sodium Chloride 0.9% 100 ML IVPB SCH ×3 (10:00→14:00)
[2023-07-26] MEDS: Piperacillin/Tazobactam 4.5 GM in Sodium Chloride 0.9% 100 ML IVPB SCH ×2 (13:58→22:32)
[2023-07-27] MEDS: Ipratropium/Albuterol 3 ML NEB NEB SCH ×7 (00:51→21:36)
[2023-07-27] MEDS: Acetaminophen 500 MG TAB PO SCH ×2 (05:02→12:57)
[2023-07-27] MEDS: traMADol HCl 50 MG TAB PO SCH ×2 (05:03→12:58)
[2023-07-27] MEDS: Piperacillin/Tazobactam 4.5 GM in Sodium Chloride 0.9% 100 ML IVPB SCH ×3 (05:03→20:25)
[2023-07-27 05:57] LABS: #Basophils 0.1 thou/uL (0.0-0.2); #Eosinphils 0.1 thou/uL (0.0-0.7); #Monocytes 1.2 thou/uL (0.11-0.59); #Neutrophils 14.6 thou/uL (1.40-6.50); %Basophils 0.3 % (0.0-1.0); %Eosinophils 0.3 % (0.0-10.0); %Lymphocytes 11.3 % (21.0-51.0); %Monocytes 6.6 % (0.0-10.0); %Neutrophils 80.1 % (42.0-75.0); Mean Corpuscular HGB CONC 28.6 g/dL (32.0-36.0); Mean Corpuscular Hemoglobin 22.4 pg (27.0-31.0); Mean Corpuscular Volume 78.5 fl (78.0-98.0); Mean Platelet Volume 10.4 fL (7.4-10.4); Platelet Count 371 10x3/uL (130-400); RBC Distribution Width 21.8 % (11.5-14.5); Red Blood Cell (RBC) Count 4.46 mill/uL (4.20-5.40); White Blood Cell (WBC) Count 18.2 10x3/uL (4.8-10.8)
[2023-07-27 06:28] LABS: ALT (SGPT) 30 U/L (8-55); AST (SGOT) 11 U/L (5-34); Alkaline Phosphatase 124 U/L (40-110); Anion Gap 16 mmol/L (10-20); BUN (Urea Nitrogen) Less than 4 mg/dL (7.0-18.7); Bilirubin, Total 0.4 mg/dL (0.2-1.2); Calc. Creatinine Clearance 162 mL/min (70-130); Calcium 9.1 mg/dL (7.8-10.44); Carbon Dioxide 28 mmol/L (22-29); Chloride 94 mmol/L (98-107); Estimated GFR 115; Globulin 3.3 g/dL (2.4-3.5); Glucose 74 mg/dL (70-105); Potassium 3.8 mmol/L (3.5-5.1); Protein, Total 6.3 g/dL (6.0-8.3); Sodium 134 mmol/L (136-145)
[2023-07-27 06:43] LABS: Anisocytosis SLIGHT = 6-15 cells HPF (0-5); CellaVision Operator ID LAB.JMM; Hypochromia MODERATE=16-30 cells HPF (0-5); Macrocytosis SLIGHT = 6-15 cells HPF (0-5); Platelet Adequacy Comment Platelets Normal; Polychromasia SLIGHT = 2-3 cells HPF (0-2)
[2023-07-27] MEDS: Mometasone 200 MCG/Formoterol 5 MCG 120 PUFF INHALER INH SCH ×2 (06:57→18:18)
[2023-07-27] MEDS: Metoprolol Tartrate 25 MG TAB PO SCH ×2 (09:23→20:25)
[2023-07-27] MEDS: Lisinopril 20 MG TAB PO SCH (09:23)
[2023-07-27] MEDS: Montelukast Sodium 10 mg Tablet PO SCH (09:24)
[2023-07-27] MEDS: Hydrochlorothiazide 25 MG TAB PO SCH (09:24)
[2023-07-27] MEDS: traMADol HCl 50 MG TAB PO PRN (20:25)
[2023-07-28] MEDS: Acetaminophen 500 MG TAB PO SCH ×5 (00:12→18:25)
[2023-07-28] MEDS: traMADol HCl 50 MG TAB PO SCH ×4 (00:13→18:26)
[2023-07-28] MEDS: Ipratropium/Albuterol 3 ML NEB NEB SCH ×6 (01:54→22:12)
[2023-07-28] MEDS: Piperacillin/Tazobactam 4.5 GM in Sodium Chloride 0.9% 100 ML IVPB SCH ×3 (05:24→22:16)
[2023-07-28 06:05] LABS: #Monocytes 1.1 thou/uL (0.11-0.59); #Neutrophils 19.6 thou/uL (1.40-6.50); %Basophils 0.2 % (0.0-1.0); %Eosinophils 0.1 % (0.0-10.0); %Lymphocytes 9.5 % (21.0-51.0); %Monocytes 4.9 % (0.0-10.0); %Neutrophils 84.2 % (42.0-75.0); Hematocrit 34.3 % (36.0-47.0); Mean Corpuscular HGB CONC 29.2 g/dL (32.0-36.0); Mean Corpuscular Hemoglobin 22.7 pg (27.0-31.0); Mean Corpuscular Volume 77.8 fl (78.0-98.0); Mean Platelet Volume 10.4 fL (7.4-10.4); Platelet Count 387 10x3/uL (130-400); Red Blood Cell (RBC) Count 4.41 mill/uL (4.20-5.40); White Blood Cell (WBC) Count 23.3 10x3/uL (4.8-10.8)
[2023-07-28 06:32] LABS: ALT (SGPT) 24 U/L (8-55); AST (SGOT) 12 U/L (5-34); Albumin 3.1 g/dL (3.5-5.0); Alkaline Phosphatase 124 U/L (40-110); Anion Gap 15 mmol/L (10-20); BUN (Urea Nitrogen) 5 mg/dL (7.0-18.7); Bilirubin, Total 0.2 mg/dL (0.2-1.2); Calc. Creatinine Clearance 147 mL/min (70-130); Calcium 8.7 mg/dL (7.8-10.44); Carbon Dioxide 26 mmol/L (22-29); Chloride 94 mmol/L (98-107); Estimated GFR 112; Globulin 3.1 g/dL (2.4-3.5); Glucose 76 mg/dL (70-105); Potassium 3.4 mmol/L (3.5-5.1); Protein, Total 6.2 g/dL (6.0-8.3); Sodium 132 mmol/L (136-145)
[2023-07-28] MEDS: Mometasone 200 MCG/Formoterol 5 MCG 120 PUFF INHALER INH SCH ×2 (07:41→18:30)
[2023-07-28 08:24] LABS: Band 11 % (5-11); CellaVision Operator ID LAB.GE; Hypochromia SLIGHT = 6-15 cells HPF (0-5); Large Platelets 3.9 % (0-5); Lymphocytes 1 % (21-51); Microcytosis SLIGHT = 6-15 cells HPF (0-5); Monocytes 7 % (0-10); Neutrophil 80 % (42-75); Platelet Adequacy Comment Platelets Normal; Polychromasia MODERATE = 3-4 cells HPF (0-2); Total Cell Count 102
[2023-07-28] MEDS: Metoprolol Tartrate 25 MG TAB PO SCH ×2 (09:00→20:50)
[2023-07-28] MEDS ORDERED: Sulfameth/Trimethoprim DS 800-160mg TAB PO SCH (09:00)
[2023-07-28] MEDS: Montelukast Sodium 10 mg Tablet PO SCH (09:01)
[2023-07-28] MEDS ORDERED: GASTROGRAFIN 30 ML BOT ONE (10:15)
[2023-07-28] MEDS ORDERED: Iopamidol-370 76% 500 ML MDV (1 ML CHARGE) ONE (10:15)
[2023-07-28] MEDS: Hydrochlorothiazide 25 MG TAB PO SCH (11:00)
[2023-07-28] MEDS: Lisinopril 20 MG TAB PO SCH (11:01)
[2023-07-28] MEDS: Linezolid 600 MG TAB PO SCH ×2 (11:16→20:48)
[2023-07-29] MEDS: Ipratropium/Albuterol 3 ML NEB NEB SCH ×6 (01:33→23:13)
[2023-07-29] MEDS: traMADol HCl 50 MG TAB PO SCH ×6 (01:37→23:37)
[2023-07-29] MEDS: Acetaminophen 500 MG TAB PO SCH ×7 (01:38→23:37)
[2023-07-29 05:20] LABS: #Basophils 0.1 thou/uL (0.0-0.2); #Neutrophils 17.6 thou/uL (1.40-6.50); %Basophils 0.2 % (0.0-1.0); %Eosinophils 0.1 % (0.0-10.0); %Monocytes 4.7 % (0.0-10.0); %Neutrophils 82.8 % (42.0-75.0); Hematocrit 33.2 % (36.0-47.0); Hemoglobin 9.7 g/dL (12.0-16.0); Mean Corpuscular HGB CONC 29.2 g/dL (32.0-36.0); Mean Corpuscular Hemoglobin 22.5 pg (27.0-31.0); Mean Platelet Volume 10.2 fL (7.4-10.4); Platelet Count 371 10x3/uL (130-400); RBC Distribution Width 22.2 % (11.5-14.5); Red Blood Cell (RBC) Count 4.31 mill/uL (4.20-5.40); White Blood Cell (WBC) Count 21.2 10x3/uL (4.8-10.8)
[2023-07-29 05:44] LABS: ALT (SGPT) 19 U/L (8-55); AST (SGOT) 13 U/L (5-34); Alkaline Phosphatase 123 U/L (40-110); Anion Gap 13 mmol/L (10-20); BUN (Urea Nitrogen) 8 mg/dL (7.0-18.7); Bilirubin, Total 0.2 mg/dL (0.2-1.2); Calc. Creatinine Clearance 149 mL/min (70-130); Calcium 8.6 mg/dL (7.8-10.44); Carbon Dioxide 26 mmol/L (22-29); Chloride 98 mmol/L (98-107); Estimated GFR 113; Globulin 3.2 g/dL (2.4-3.5); Glucose 91 mg/dL (70-105); Potassium 3.3 mmol/L (3.5-5.1); Protein, Total 6.2 g/dL (6.0-8.3); Sodium 134 mmol/L (136-145)
[2023-07-29] MEDS: Piperacillin/Tazobactam 4.5 GM in Sodium Chloride 0.9% 100 ML IVPB SCH ×3 (05:54→21:57)
[2023-07-29] MEDS: Mometasone 200 MCG/Formoterol 5 MCG 120 PUFF INHALER INH SCH ×2 (07:38→19:51)
[2023-07-29] MEDS: Lisinopril 20 MG TAB PO SCH (08:47)
[2023-07-29] MEDS: Metoprolol Tartrate 25 MG TAB PO SCH ×2 (08:47→20:25)
[2023-07-29] MEDS: Ondansetron PF 4 MG/2 ML Vial IVP PRN (08:47)
[2023-07-29] MEDS: Montelukast Sodium 10 mg Tablet PO SCH (08:47)
[2023-07-29] MEDS: Linezolid 600 MG TAB PO SCH ×2 (08:48→20:25)
[2023-07-29] MEDS: Hydrochlorothiazide 25 MG TAB PO SCH (08:48)
[2023-07-29 17:13] LABS: Anion Gap 12 mmol/L (10-20); BUN (Urea Nitrogen) 7 mg/dL (7.0-18.7); Calc. Creatinine Clearance 157 mL/min (70-130); Calcium 8.6 mg/dL (7.8-10.44); Carbon Dioxide 26 mmol/L (22-29); Chloride 98 mmol/L (98-107); Estimated GFR 114; Glucose 97 mg/dL (70-105); Magnesium 1.8 mg/dL (1.6-2.6); Potassium 3.3 mmol/L (3.5-5.1); Sodium 133 mmol/L (136-145)
[2023-07-29] MEDS: traMADol HCl 50 MG TAB PO PRN (20:29)
[2023-07-30] MEDS: Ipratropium/Albuterol 3 ML NEB NEB SCH ×6 (03:10→23:01)
[2023-07-30 05:22] LABS: #Basophils 0.1 thou/uL (0.0-0.2); #Eosinphils 0.1 thou/uL (0.0-0.7); #Monocytes 1.1 thou/uL (0.11-0.59); #Neutrophils 16.2 thou/uL (1.40-6.50); %Basophils 0.3 % (0.0-1.0); %Eosinophils 0.4 % (0.0-10.0); %Lymphocytes 11.4 % (21.0-51.0); %Monocytes 5.5 % (0.0-10.0); %Neutrophils 81.4 % (42.0-75.0); Hematocrit 33.2 % (36.0-47.0); Hemoglobin 9.5 g/dL (12.0-16.0); Mean Corpuscular HGB CONC 28.6 g/dL (32.0-36.0); Mean Corpuscular Hemoglobin 22.8 pg (27.0-31.0); Mean Platelet Volume 10.2 fL (7.4-10.4); Platelet Count 390 10x3/uL (130-400); Red Blood Cell (RBC) Count 4.17 mill/uL (4.20-5.40); White Blood Cell (WBC) Count 19.9 10x3/uL (4.8-10.8)
[2023-07-30 05:30] LABS: Mean Corpuscular Volume 79.6 fl (78.0-98.0)
[2023-07-30 05:52] LABS: ALT (SGPT) 17 U/L (8-55); AST (SGOT) 12 U/L (5-34); Alkaline Phosphatase 108 U/L (40-110); Anion Gap 13 mmol/L (10-20); BUN (Urea Nitrogen) 7 mg/dL (7.0-18.7); Bilirubin, Total 0.3 mg/dL (0.2-1.2); Calc. Creatinine Clearance 147 mL/min (70-130); Calcium 8.7 mg/dL (7.8-10.44); Carbon Dioxide 27 mmol/L (22-29); Chloride 98 mmol/L (98-107); Estimated GFR 112; Globulin 3.2 g/dL (2.4-3.5); Glucose 65 mg/dL (70-105); Magnesium 1.8 mg/dL (1.6-2.6); Potassium 3.2 mmol/L (3.5-5.1); Protein, Total 6.2 g/dL (6.0-8.3); Sodium 135 mmol/L (136-145)
[2023-07-30] MEDS: Acetaminophen 500 MG TAB PO SCH ×4 (05:57→23:26)
[2023-07-30] MEDS: Piperacillin/Tazobactam 4.5 GM in Sodium Chloride 0.9% 100 ML IVPB SCH ×3 (05:57→20:58)
[2023-07-30] MEDS: traMADol HCl 50 MG TAB PO SCH ×4 (05:58→23:25)
[2023-07-30 06:14] LABS: Anisocytosis MODERATE=16-30 cells HPF (0-5); CellaVision Operator ID lab.sh2; Hypochromia SLIGHT = 6-15 cells HPF (0-5); Macrocytosis SLIGHT = 6-15 cells HPF (0-5); Platelet Adequacy Comment Platelets Normal; Polychromasia MODERATE = 3-4 cells HPF (0-2); Target Cells SLIGHT = 2-5 cells HPF (0-1)
[2023-07-30] MEDS ORDERED: Potassium Chloride 20 MEQ TAB PO SCH (06:15)
[2023-07-30] MEDS ORDERED: Magnesium 2 GM/50 ML(in water) 2 GM in Premix 1 BAG IVPB SCH (06:30)
[2023-07-30] MEDS: Mometasone 200 MCG/Formoterol 5 MCG 120 PUFF INHALER INH SCH ×2 (06:51→19:19)
[2023-07-30] MEDS: Montelukast Sodium 10 mg Tablet PO SCH (08:47)
[2023-07-30] MEDS: Ibuprofen 600 MG TAB PO PRN (08:49)
[2023-07-30] MEDS: Linezolid 600 MG TAB PO SCH ×2 (08:51→20:57)
[2023-07-30] MEDS: Potassium Chloride 20 MEQ in Premix 1 BAG IVPB SCH ×2 (08:53→12:55)
[2023-07-30] MEDS: Lisinopril 20 MG TAB PO SCH (09:08)
[2023-07-30] MEDS: Hydrochlorothiazide 25 MG TAB PO SCH (09:08)
[2023-07-30] MEDS: Metoprolol Tartrate 25 MG TAB PO SCH ×2 (09:08→20:57)
[2023-07-30] MEDS: Potassium Chloride 20 MEQ TAB PO SCH (17:27)
[2023-07-31] MEDS: Ipratropium/Albuterol 3 ML NEB NEB SCH ×6 (02:47→22:19)
[2023-07-31 05:16] LABS: #Basophils 0.1 thou/uL (0.0-0.2); #Eosinphils 0.1 thou/uL (0.0-0.7); #Monocytes 0.8 thou/uL (0.11-0.59); #Neutrophils 12.9 thou/uL (1.40-6.50); %Basophils 0.4 % (0.0-1.0); %Eosinophils 0.6 % (0.0-10.0); %Lymphocytes 12.2 % (21.0-51.0); %Neutrophils 80.9 % (42.0-75.0); Hematocrit 32.6 % (36.0-47.0); Hemoglobin 9.3 g/dL (12.0-16.0); Mean Corpuscular HGB CONC 28.5 g/dL (32.0-36.0); Mean Corpuscular Hemoglobin 22.5 pg (27.0-31.0); Mean Corpuscular Volume 78.9 fl (78.0-98.0); Platelet Count 373 10x3/uL (130-400); RBC Distribution Width 21.6 % (11.5-14.5); Red Blood Cell (RBC) Count 4.13 mill/uL (4.20-5.40); White Blood Cell (WBC) Count 15.9 10x3/uL (4.8-10.8)
[2023-07-31 05:35] LABS: PTT 49.4 sec (22.9-36.1)
[2023-07-31 05:48] LABS: ALT (SGPT) 18 U/L (8-55); AST (SGOT) 16 U/L (5-34); Albumin 2.9 g/dL (3.5-5.0); Alkaline Phosphatase 114 U/L (40-110); Anion Gap 11 mmol/L (10-20); BUN (Urea Nitrogen) 8 mg/dL (7.0-18.7); Bilirubin, Total 0.2 mg/dL (0.2-1.2); Calc. Creatinine Clearance 157 mL/min (70-130); Calcium 8.7 mg/dL (7.8-10.44); Carbon Dioxide 27 mmol/L (22-29); Chloride 102 mmol/L (98-107); Estimated GFR 114; Globulin 3.3 g/dL (2.4-3.5); Glucose 78 mg/dL (70-105); Protein, Total 6.2 g/dL (6.0-8.3); Sodium 136 mmol/L (136-145)
[2023-07-31] MEDS: Acetaminophen 500 MG TAB PO SCH ×4 (05:49→23:45)
[2023-07-31] MEDS: traMADol HCl 50 MG TAB PO SCH ×4 (05:49→23:45)
[2023-07-31] MEDS: Piperacillin/Tazobactam 4.5 GM in Sodium Chloride 0.9% 100 ML IVPB SCH ×3 (05:52→20:22)
[2023-07-31] MEDS: Mometasone 200 MCG/Formoterol 5 MCG 120 PUFF INHALER INH SCH ×2 (06:57→19:16)
[2023-07-31] MEDS: Lisinopril 20 MG TAB PO SCH (08:19)
[2023-07-31] MEDS: Montelukast Sodium 10 mg Tablet PO SCH (08:19)
[2023-07-31] MEDS: Hydrochlorothiazide 25 MG TAB PO SCH (08:20)
[2023-07-31] MEDS: Potassium Chloride 20 MEQ TAB PO SCH ×2 (08:20→19:15)
[2023-07-31] MEDS: Linezolid 600 MG TAB PO SCH ×2 (08:20→20:22)
[2023-07-31] MEDS: Metoprolol Tartrate 25 MG TAB PO SCH ×2 (08:21→20:22)
[2023-07-31] MEDS ORDERED: Lidocaine 1% PF 5 ML VIAL ONE (13:08)
[2023-07-31] MEDS ORDERED: fentaNYL 50 mcg/mL 1 mL Vial ONE (13:08)
[2023-07-31] MEDS ORDERED: Midazolam HCl 2 mg/2 ml Vial ONE (13:08)
[2023-08-01] MEDS: Ipratropium/Albuterol 3 ML NEB NEB SCH ×6 (03:10→22:30)
[2023-08-01 05:10] LABS: #Basophils 0.1 thou/uL (0.0-0.2); #Eosinphils 0.1 thou/uL (0.0-0.7); #Monocytes 1.1 thou/uL (0.11-0.59); %Basophils 0.4 % (0.0-1.0); %Eosinophils 0.4 % (0.0-10.0); %Lymphocytes 15.3 % (21.0-51.0); %Monocytes 5.8 % (0.0-10.0); %Neutrophils 77.2 % (42.0-75.0); Hematocrit 32.9 % (36.0-47.0); Hemoglobin 9.3 g/dL (12.0-16.0); Mean Corpuscular HGB CONC 28.3 g/dL (32.0-36.0); Mean Corpuscular Hemoglobin 22.2 pg (27.0-31.0); Mean Corpuscular Volume 78.7 fl (78.0-98.0); Mean Platelet Volume 10.1 fL (7.4-10.4); Platelet Count 432 10x3/uL (130-400); RBC Distribution Width 22.1 % (11.5-14.5); Red Blood Cell (RBC) Count 4.18 mill/uL (4.20-5.40); White Blood Cell (WBC) Count 18.2 10x3/uL (4.8-10.8)
[2023-08-01] MEDS: traMADol HCl 50 MG TAB PO SCH ×4 (05:42→22:14)
[2023-08-01] MEDS: Piperacillin/Tazobactam 4.5 GM in Sodium Chloride 0.9% 100 ML IVPB SCH ×3 (05:42→22:15)
[2023-08-01] MEDS: Acetaminophen 500 MG TAB PO SCH ×4 (05:43→22:13)
[2023-08-01 05:47] LABS: Anisocytosis MODERATE=16-30 cells HPF (0-5); CellaVision Operator ID lab.sh2; Hypochromia SLIGHT = 6-15 cells HPF (0-5); Macrocytosis SLIGHT = 6-15 cells HPF (0-5); Ovalocytes SLIGHT = 2-5 cells HPF (0-1); Platelet Adequacy Comment Platelets Increased; Polychromasia MODERATE = 3-4 cells HPF (0-2)
[2023-08-01 06:03] LABS: ALT (SGPT) 18 U/L (8-55); AST (SGOT) 16 U/L (5-34); Albumin 3.1 g/dL (3.5-5.0); Alkaline Phosphatase 117 U/L (40-110); Anion Gap 15 mmol/L (10-20); BUN (Urea Nitrogen) 7 mg/dL (7.0-18.7); Bilirubin, Total Less than 0.2 mg/dL (0.2-1.2); Calc. Creatinine Clearance 152 mL/min (70-130); Calcium 8.9 mg/dL (7.8-10.44); Carbon Dioxide 23 mmol/L (22-29); Chloride 101 mmol/L (98-107); Estimated GFR 113; Globulin 3.5 g/dL (2.4-3.5); Glucose 75 mg/dL (70-105); Potassium 4.5 mmol/L (3.5-5.1); Protein, Total 6.6 g/dL (6.0-8.3); Sodium 134 mmol/L (136-145)
[2023-08-01] MEDS: Mometasone 200 MCG/Formoterol 5 MCG 120 PUFF INHALER INH SCH ×2 (07:05→19:26)
[2023-08-01] MEDS ORDERED: 1/2 NS w/KCL 20 mEq 1,000 ML IV SCH (08:00)
[2023-08-01] MEDS: Potassium Chloride 20 MEQ TAB PO SCH ×2 (09:52→17:14)
[2023-08-01] MEDS: Metoprolol Tartrate 25 MG TAB PO SCH ×2 (09:52→20:01)
[2023-08-01] MEDS: Montelukast Sodium 10 mg Tablet PO SCH (09:53)
[2023-08-01] MEDS: Hydrochlorothiazide 25 MG TAB PO SCH (09:53)
[2023-08-01] MEDS: Saccharomyces boulardii 250 MG CAP PO SCH (09:53)
[2023-08-01] MEDS: Lisinopril 20 MG TAB PO SCH (09:53)
[2023-08-01] MEDS ORDERED: Fentanyl 250 MCG/5 ML VIAL ONE (12:58)
[2023-08-01] MEDS ORDERED: SUGAMMADEX SODIUM 200 MG/2 ML VIAL ONE (12:58)
[2023-08-01] MEDS ORDERED: Bupivacaine PF 0.5% 30 ML VIAL ONE (13:01)
[2023-08-01] MEDS ORDERED: EPINEPHrine 1 MG/ML AMP ONE (13:01)
[2023-08-01] MEDS ORDERED: Glycopyrrolate 0.2 MG/ML 5 ML SYRINGE ONE (13:25)
[2023-08-01] MEDS ORDERED: PHENYLEPHRINE-NS 100 MCG/ML 10 ML SYRINGE ONE (13:25)
[2023-08-01] MEDS ORDERED: Rocuronium Bromide 10 MG/ML (10ML VIAL) ONE (13:25)
[2023-08-01] MEDS ORDERED: NEOSTIGMINE 3 MG/3 ML SYR 3 MG/3 ML SYRINGE ONE (13:25)
[2023-08-01] MEDS ORDERED: Lidocaine 1% PF 5 ML VIAL ONE (13:25)
[2023-08-01] MEDS ORDERED: PROPOFOL 200 MG/20 ML VIAL ONE (13:25)
[2023-08-01] MEDS ORDERED: Albumin 5% 500 ML ONE (13:45)
[2023-08-01] MEDS ORDERED: Promethazine HCl 25 MG/ML VIAL IM PRN (14:48)
[2023-08-01] MEDS ORDERED: Ondansetron HCl/PF 4 MG/2 ML Vial IVP PRN (14:48)
[2023-08-01] MEDS ORDERED: fentaNYL 50 mcg/mL 1 mL Vial ONE ×2 (15:11→15:24)
[2023-08-01] MEDS: Ondansetron PF 4 MG/2 ML Vial IVP PRN (17:15)
[2023-08-02] MEDS: Ipratropium/Albuterol 3 ML NEB NEB SCH ×6 (02:34→22:37)
[2023-08-02 05:07] LABS: #Basophils 0.1 thou/uL (0.0-0.2); #Eosinphils 0.1 thou/uL (0.0-0.7); #Monocytes 0.7 thou/uL (0.11-0.59); #Neutrophils 18.9 thou/uL (1.40-6.50); %Basophils 0.2 % (0.0-1.0); %Eosinophils 0.5 % (0.0-10.0); %Lymphocytes 6.5 % (21.0-51.0); %Monocytes 3.4 % (0.0-10.0); %Neutrophils 88.9 % (42.0-75.0); Hematocrit 33.6 % (36.0-47.0); Hemoglobin 9.8 g/dL (12.0-16.0); Mean Corpuscular HGB CONC 29.2 g/dL (32.0-36.0); Mean Corpuscular Hemoglobin 22.3 pg (27.0-31.0); Mean Corpuscular Volume 76.5 fl (78.0-98.0); Mean Platelet Volume 9.6 fL (7.4-10.4); Platelet Count 531 10x3/uL (130-400); RBC Distribution Width 21.5 % (11.5-14.5); Red Blood Cell (RBC) Count 4.39 mill/uL (4.20-5.40); White Blood Cell (WBC) Count 21.3 10x3/uL (4.8-10.8)
[2023-08-02] MEDS: traMADol HCl 50 MG TAB PO SCH ×4 (05:13→22:15)
[2023-08-02] MEDS: Acetaminophen 500 MG TAB PO SCH ×4 (05:13→22:15)
[2023-08-02 05:27] LABS: Anion Gap 16 mmol/L (10-20); BUN (Urea Nitrogen) 5 mg/dL (7.0-18.7); Calc. Creatinine Clearance 139 mL/min (70-130); Calcium 9.5 mg/dL (7.8-10.44); Carbon Dioxide 22 mmol/L (22-29); Chloride 101 mmol/L (98-107); Estimated GFR 111; Glucose 87 mg/dL (70-105); Potassium 4.7 mmol/L (3.5-5.1); Sodium 134 mmol/L (136-145)
[2023-08-02] MEDS: Piperacillin/Tazobactam 4.5 GM in Sodium Chloride 0.9% 100 ML IVPB SCH ×3 (06:18→22:14)
[2023-08-02] MEDS: Mometasone 200 MCG/Formoterol 5 MCG 120 PUFF INHALER INH SCH ×2 (07:01→19:16)
[2023-08-02] MEDS: Lisinopril 20 MG TAB PO SCH (09:28)
[2023-08-02] MEDS: Metoprolol Tartrate 25 MG TAB PO SCH ×2 (09:29→20:05)
[2023-08-02] MEDS: Montelukast Sodium 10 mg Tablet PO SCH (09:29)
[2023-08-02] MEDS: Hydrochlorothiazide 25 MG TAB PO SCH (09:29)
[2023-08-02] MEDS: Saccharomyces boulardii 250 MG CAP PO SCH (09:29)
[2023-08-02] MEDS: Potassium Chloride 20 MEQ TAB PO SCH ×2 (09:30→16:07)
[2023-08-02] MEDS: Ibuprofen 600 MG TAB PO PRN ×2 (09:39→16:09)
[2023-08-02] MEDS: Morphine 2 MG/ML VIAL SLOW IVP PRN (13:42)
[2023-08-02] MEDS ORDERED: Morphine 2 MG/ML VIAL SLOW IVP SCH (14:15)
[2023-08-03] MEDS: Ipratropium/Albuterol 3 ML NEB NEB SCH ×6 (02:48→22:38)
[2023-08-03] MEDS: Ibuprofen 600 MG TAB PO PRN (03:05)
[2023-08-03] MEDS: Acetaminophen 500 MG TAB PO SCH ×4 (05:26→22:16)
[2023-08-03] MEDS: Piperacillin/Tazobactam 4.5 GM in Sodium Chloride 0.9% 100 ML IVPB SCH ×3 (05:26→22:16)
[2023-08-03] MEDS: traMADol HCl 50 MG TAB PO SCH ×4 (05:27→22:16)
[2023-08-03] MEDS: Mometasone 200 MCG/Formoterol 5 MCG 120 PUFF INHALER INH SCH ×2 (07:33→19:33)
[2023-08-03 09:21] LABS: Hematocrit 34.7 % (36.0-47.0); Hemoglobin 9.7 g/dL (12.0-16.0); Mean Corpuscular Hemoglobin 22.1 pg (27.0-31.0); Mean Platelet Volume 9.7 fL (7.4-10.4); Platelet Count 603 10x3/uL (130-400); RBC Distribution Width 22.2 % (11.5-14.5); Red Blood Cell (RBC) Count 4.39 mill/uL (4.20-5.40); White Blood Cell (WBC) Count 19.8 10x3/uL (4.8-10.8)
[2023-08-03 09:39] LABS: Delete Auto Diff?? YES; Manual Diff?? YES
[2023-08-03 09:59] LABS: Band 1 % (5-11); CellaVision Operator ID LAB.GE; Hypochromia SLIGHT = 6-15 cells HPF (0-5); Lymphocytes 7 % (21-51); Microcytosis SLIGHT = 6-15 cells HPF (0-5); Monocytes 4 % (0-10); Neutrophil 83 % (42-75); Platelet Adequacy Comment Platelets Increased; Polychromasia MODERATE = 3-4 cells HPF (0-2); Reactive Lymphocytes 2 % (0-10); Total Cell Count 102
[2023-08-03] MEDS: Metoprolol Tartrate 25 MG TAB PO SCH ×2 (10:11→20:17)
[2023-08-03] MEDS: Saccharomyces boulardii 250 MG CAP PO SCH (10:13)
[2023-08-03] MEDS: Montelukast Sodium 10 mg Tablet PO SCH (10:13)
[2023-08-03] MEDS: Lisinopril 20 MG TAB PO SCH (10:13)
[2023-08-03] MEDS: Hydrochlorothiazide 25 MG TAB PO SCH (10:13)
[2023-08-04] MEDS: Ipratropium/Albuterol 3 ML NEB NEB SCH ×7 (02:40→23:12)
[2023-08-04 05:17] LABS: #Basophils 0.1 thou/uL (0.0-0.2); #Eosinphils 0.1 thou/uL (0.0-0.7); #Monocytes 1.5 thou/uL (0.11-0.59); #Neutrophils 17.7 thou/uL (1.40-6.50); %Basophils 0.4 % (0.0-1.0); %Eosinophils 0.4 % (0.0-10.0); %Lymphocytes 9.5 % (21.0-51.0); %Monocytes 7.1 % (0.0-10.0); Hematocrit 31.1 % (36.0-47.0); Hemoglobin 8.9 g/dL (12.0-16.0); Mean Corpuscular HGB CONC 28.6 g/dL (32.0-36.0); Mean Corpuscular Hemoglobin 22.6 pg (27.0-31.0); Mean Corpuscular Volume 78.9 fl (78.0-98.0); Mean Platelet Volume 9.9 fL (7.4-10.4); Platelet Count 697 10x3/uL (130-400); RBC Distribution Width 21.7 % (11.5-14.5); Red Blood Cell (RBC) Count 3.94 mill/uL (4.20-5.40); White Blood Cell (WBC) Count 21.6 10x3/uL (4.8-10.8)
[2023-08-04] MEDS: Piperacillin/Tazobactam 4.5 GM in Sodium Chloride 0.9% 100 ML IVPB SCH ×3 (05:25→23:26)
[2023-08-04] MEDS: Acetaminophen 500 MG TAB PO SCH ×4 (05:25→23:26)
[2023-08-04] MEDS: traMADol HCl 50 MG TAB PO SCH ×4 (05:27→23:27)
[2023-08-04] MEDS: Mometasone 200 MCG/Formoterol 5 MCG 120 PUFF INHALER INH SCH ×2 (06:53→19:26)
[2023-08-04] MEDS: Ibuprofen 600 MG TAB PO PRN (09:18)
[2023-08-04] MEDS: Metoprolol Tartrate 25 MG TAB PO SCH ×2 (09:18→20:42)
[2023-08-04] MEDS: Saccharomyces boulardii 250 MG CAP PO SCH (09:18)
[2023-08-04] MEDS: Montelukast Sodium 10 mg Tablet PO SCH (09:19)
[2023-08-04] MEDS: Hydrochlorothiazide 25 MG TAB PO SCH (09:19)
[2023-08-04] MEDS: Lisinopril 20 MG TAB PO SCH (09:23)
[2023-08-04] MEDS: Morphine 2 MG/ML VIAL SLOW IVP PRN (09:31)
[2023-08-04] MEDS: traMADol HCl 50 MG TAB PO PRN (14:35)
[2023-08-05] MEDS: Ipratropium/Albuterol 3 ML NEB NEB SCH ×5 (02:46→18:47)
[2023-08-05] MEDS: Piperacillin/Tazobactam 4.5 GM in Sodium Chloride 0.9% 100 ML IVPB SCH (05:36)
[2023-08-05] MEDS: Acetaminophen 500 MG TAB PO SCH ×3 (05:36→17:54)
[2023-08-05 05:38] LABS: #Basophils 0.1 thou/uL (0.0-0.2); #Eosinphils 0.2 thou/uL (0.0-0.7); #Monocytes 1.5 thou/uL (0.11-0.59); #Neutrophils 17.5 thou/uL (1.40-6.50); %Basophils 0.4 % (0.0-1.0); %Eosinophils 0.7 % (0.0-10.0); %Lymphocytes 8.6 % (21.0-51.0); %Monocytes 6.9 % (0.0-10.0); %Neutrophils 82.6 % (42.0-75.0); Hematocrit 32.3 % (36.0-47.0); Hemoglobin 9.2 g/dL (12.0-16.0); Mean Corpuscular HGB CONC 28.5 g/dL (32.0-36.0); Mean Corpuscular Hemoglobin 22.4 pg (27.0-31.0); Mean Corpuscular Volume 78.6 fl (78.0-98.0); Mean Platelet Volume 9.6 fL (7.4-10.4); Platelet Count 824 10x3/uL (130-400); RBC Distribution Width 22.1 % (11.5-14.5); Red Blood Cell (RBC) Count 4.11 mill/uL (4.20-5.40); White Blood Cell (WBC) Count 21.1 10x3/uL (4.8-10.8)
[2023-08-05 06:02] LABS: Anion Gap 16 mmol/L (10-20); BUN (Urea Nitrogen) 13 mg/dL (7.0-18.7); Calc. Creatinine Clearance 133 mL/min (70-130); Calcium 8.9 mg/dL (7.8-10.44); Carbon Dioxide 25 mmol/L (22-29); Chloride 103 mmol/L (98-107); Estimated GFR 105; Glucose 90 mg/dL (70-105); Potassium 3.9 mmol/L (3.5-5.1); Sodium 140 mmol/L (136-145)
[2023-08-05] MEDS: Mometasone 200 MCG/Formoterol 5 MCG 120 PUFF INHALER INH SCH ×2 (06:30→18:48)
[2023-08-05] MEDS: Saccharomyces boulardii 250 MG CAP PO SCH (09:04)
[2023-08-05] MEDS: Montelukast Sodium 10 mg Tablet PO SCH (09:04)
[2023-08-05] MEDS: Lisinopril 20 MG TAB PO SCH (09:04)
[2023-08-05] MEDS: Hydrochlorothiazide 25 MG TAB PO SCH (09:04)
[2023-08-05] MEDS: Metoprolol Tartrate 25 MG TAB PO SCH ×2 (09:04→20:58)
[2023-08-05] MEDS: metroNIDAZOLE 500 MG TAB PO SCH ×2 (14:29→20:58)
[2023-08-05] MEDS: Ciprofloxacin 500 MG TAB PO SCH (20:58)
[2023-08-06] MEDS: Ipratropium/Albuterol 3 ML NEB NEB SCH ×5 (00:03→14:21)
[2023-08-06] MEDS: traMADol HCl 50 MG TAB PO PRN (00:22)
[2023-08-06] MEDS: Acetaminophen 500 MG TAB PO SCH ×3 (00:23→11:28)
[2023-08-06] MEDS: Mometasone 200 MCG/Formoterol 5 MCG 120 PUFF INHALER INH SCH (06:28)
[2023-08-06 06:34] LABS: #Basophils 0.1 thou/uL (0.0-0.2); #Eosinphils 0.1 thou/uL (0.0-0.7); #Monocytes 1.5 thou/uL (0.11-0.59); #Neutrophils 15.3 thou/uL (1.40-6.50); %Basophils 0.4 % (0.0-1.0); %Eosinophils 0.7 % (0.0-10.0); %Lymphocytes 10.5 % (21.0-51.0); %Monocytes 7.9 % (0.0-10.0); %Neutrophils 80.1 % (42.0-75.0); Hematocrit 29.6 % (36.0-47.0); Hemoglobin 8.8 g/dL (12.0-16.0); Mean Corpuscular HGB CONC 29.7 g/dL (32.0-36.0); Mean Corpuscular Hemoglobin 22.7 pg (27.0-31.0); Mean Corpuscular Volume 76.3 fl (78.0-98.0); Mean Platelet Volume 9.2 fL (7.4-10.4); RBC Distribution Width 21.7 % (11.5-14.5); Red Blood Cell (RBC) Count 3.88 mill/uL (4.20-5.40); White Blood Cell (WBC) Count 19.1 10x3/uL (4.8-10.8)
[2023-08-06 06:35] LABS: Platelet Count 947 10x3/uL (130-400)
[2023-08-06] MEDS: Ciprofloxacin 500 MG TAB PO SCH (07:03)
[2023-08-06 07:04] LABS: Anion Gap 16 mmol/L (10-20); BUN (Urea Nitrogen) 11 mg/dL (7.0-18.7); Calc. Creatinine Clearance 162 mL/min (70-130); Calcium 8.8 mg/dL (7.8-10.44); Carbon Dioxide 25 mmol/L (22-29); Chloride 104 mmol/L (98-107); Estimated GFR 115; Glucose 87 mg/dL (70-105); Potassium 3.6 mmol/L (3.5-5.1); Sodium 141 mmol/L (136-145)
[2023-08-06] MEDS: metroNIDAZOLE 500 MG TAB PO SCH ×2 (08:41→14:58)
[2023-08-06] MEDS: Metoprolol Tartrate 25 MG TAB PO SCH (08:41)
[2023-08-06] MEDS: Lisinopril 20 MG TAB PO SCH (08:41)
[2023-08-06] MEDS: Montelukast Sodium 10 mg Tablet PO SCH (08:42)
[2023-08-06] MEDS: Saccharomyces boulardii 250 MG CAP PO SCH (08:42)
[2023-08-06] MEDS: Hydrochlorothiazide 25 MG TAB PO SCH (08:42)
[2023-08-06] MEDS ORDERED: Atorvastatin Calcium 40 MG TAB PO SCH (09:00)
[2023-08-06 11:33] VITALS: BP 109/65; TEMP 97.8
[2023-08-06] MEDS ORDERED: metFORMIN 500 MG TAB PO SCH (17:00)
== END 2023-08-06 15:15 | disposition home or self-care (01) | DRG 853 ==
LOC: ERS 21:02 → 2SE 23:24 → SJJU 07-22 18:41
PROVIDERS: ADMIT Student in an Organized Health Care Education/Training Program; ATTEND Student in an Organized Health Care Education/Training Program
PROC: 3E03329 Introduction of Other Anti-infective into Peripheral Vein, Percutaneous Approach (ICD-10-PCS; 2023-07-19)
PROC: 30233N1 Transfusion of Nonautologous Red Blood Cells into Peripheral Vein, Percutaneous Approach (ICD-10-PCS; 2023-07-22)
PROC: 0W9H4ZZ Drainage of Retroperitoneum, Percutaneous Endoscopic Approach (ICD-10-PCS; principal; 2023-08-01)
PROC: 3E033XZ Introduction of Vasopressor into Peripheral Vein, Percutaneous Approach (ICD-10-PCS; 2023-08-01)
PROC: 5A1935Z Respiratory Ventilation, Less than 24 Consecutive Hours (ICD-10-PCS; 2023-08-04)
DX: A41.9 Sepsis, unspecified organism (principal); J96.01 Acute respiratory failure with hypoxia; K83.1 Obstruction of bile duct; K65.1 Peritoneal abscess; E87.20 Acidosis, unspecified; K57.20 Diverticulitis of large intestine with perforation and abscess without bleeding; I31.9 Disease of pericardium, unspecified; L03.311 Cellulitis of abdominal wall; I10 Essential (primary) hypertension; E78.5 Hyperlipidemia, unspecified; J45.50 Severe persistent asthma, uncomplicated; D50.9 Iron deficiency anemia, unspecified; N28.89 Other specified disorders of kidney and ureter; F10.90 Alcohol use, unspecified, uncomplicated; R16.0 Hepatomegaly, not elsewhere classified; K76.0 Fatty (change of) liver, not elsewhere classified; Z68.33 Body mass index [BMI] 33.0-33.9, adult; I95.9 Hypotension, unspecified; E11.65 Type 2 diabetes mellitus with hyperglycemia; R31.29 Other microscopic hematuria; F41.9 Anxiety disorder, unspecified; F31.9 Bipolar disorder, unspecified; E66.01 Morbid (severe) obesity due to excess calories; K66.8 Other specified disorders of peritoneum; E87.6 Hypokalemia; E83.42 Hypomagnesemia; R74.01 Elevation of levels of liver transaminase levels; D64.9 Anemia, unspecified; Z87.891 Personal history of nicotine dependence; Z79.899 Other long term (current) drug therapy; Z98.51 Tubal ligation status; Z98.890 Other specified postprocedural states; Z71.41 Alcohol abuse counseling and surveillance of alcoholic; Z71.82 Exercise counseling; K59.00 Constipation, unspecified
CPT/HCPCS: 36415; 36416; 36430; 71045; 71046; 74177; 76380; 80048; 80053; 81001; 82533; 83605; 83690; 83735; 83880; 84100; 84145; 84436; 84443; 84484; 84703; 85025; 85610; 85730; 86850; 86900; 86901; 87040; 87086; 93005; 93010; 93306; 94640; 96361; 96365; 96367; 96375; 97139; J0171; J0692; J1650; J1885; J1940; J2250; J2272; J2405; J2543; J2704; J3010; J3370; J3475; J3480; J3490; J7120; J7611; J7620; P9016; P9045; Q0162; Q9963; Q9967; S0020

== ENCOUNTER 2023-08-17 15:20 | Inpatient (IN) | payer BC ==
[2023-08-17 15:43] LABS: #Basophils 0.1 thou/uL (0.0-0.2); #Eosinphils 0.3 thou/uL (0.0-0.7); #Monocytes 0.7 thou/uL (0.11-0.59); #Neutrophils 15.2 thou/uL (1.40-6.50); %Basophils 0.3 % (0.0-1.0); %Eosinophils 1.4 % (0.0-10.0); %Lymphocytes 10.5 % (21.0-51.0); %Neutrophils 83.3 % (42.0-75.0); Hematocrit 32.1 % (36.0-47.0); Hemoglobin 9.5 g/dL (12.0-16.0); Mean Corpuscular HGB CONC 29.6 g/dL (32.0-36.0); Mean Corpuscular Hemoglobin 22.9 pg (27.0-31.0); Mean Corpuscular Volume 77.5 fl (78.0-98.0); Mean Platelet Volume 9.9 fL (7.4-10.4); Platelet Count 656 10x3/uL (130-400); RBC Distribution Width 21.7 % (11.5-14.5); Red Blood Cell (RBC) Count 4.14 mill/uL (4.20-5.40); White Blood Cell (WBC) Count 18.2 10x3/uL (4.8-10.8)
[2023-08-17 16:11] LABS: Troponin I Less than 0.010 ng/mL (< 0.028)
[2023-08-17] MEDS ORDERED: Sodium Chloride 0.9% 100 ML ONE (16:12)
[2023-08-17] MEDS ORDERED: Piperacillin/Tazobactam 3.375 GM VIAL ONE (16:12)
[2023-08-17] MEDS ORDERED: methylPREDNISolone Sod Succ/PF 125 MG/2 ML VIAL ONE (16:12)
[2023-08-17 16:13] LABS: ALT (SGPT) 9 U/L (8-55); AST (SGOT) 11 U/L (5-34); Albumin 3.9 g/dL (3.5-5.0); Alkaline Phosphatase 106 U/L (40-110); Anion Gap 20 mmol/L (10-20); BUN (Urea Nitrogen) 7 mg/dL (7.0-18.7); Bilirubin, Total 0.4 mg/dL (0.2-1.2); Calc. Creatinine Clearance 0 mL/min (70-130); Calcium 8.5 mg/dL (7.8-10.44); Carbon Dioxide 19 mmol/L (22-29); Chloride 106 mmol/L (98-107); Estimated GFR 89; Globulin 3.6 g/dL (2.4-3.5); Glucose 107 mg/dL (70-105); Lipase 29 U/L (8-78); Potassium 3.2 mmol/L (3.5-5.1); Protein, Total 7.5 g/dL (6.0-8.3); Sodium 142 mmol/L (136-145)
[2023-08-17] MEDS ORDERED: Ipratropium/Albuterol 3 ML NEB ONE (16:31)
[2023-08-17] MEDS ORDERED: Albuterol 2.5 MG/0.5 ML NEB ONE (16:31)
[2023-08-17 17:59] LABS: BHCG - Serum Negative (NEGATIVE); Pregs Control Background? CLEAR/WHITE (CLR/WHITE); Pregs Control Bar Appear? YES (CONTROL BAR)
[2023-08-17 19:08] LABS: Bacteria/HPF None Seen HPF (None Seen); Bilirubin Negative (Negative); Blood, Urine Trace (Negative); CAUTI Indications for Culture Fever or rigors; Clarity Clear (Clear); Glucose, Urine (Dipstick) Normal (Negative); Ketone, Urine Negative (Negative); Leukocyte Negative Leu/uL (Negative); Nitrite Negative (Negative); Protein, Urine (Dipstick) Negative (Neg-Trace); RBC/HPF 0-3 HPF (0-3); Specific Gravity, Urine 1.038 (1.002-1.036); Squamous Epithelial 0-3 HPF (0-3); Urobilinogen Normal mg/dL (Less than 2); WBC/HPF 0-3 HPF (0-3); Yeast-Budding Rare HPF (None Seen)
[2023-08-17 19:10] LABS: Urine Culture Reflex No No
[2023-08-17] MEDS ORDERED: Morphine 4 MG/ML VIAL ONE (19:56)
[2023-08-17] MEDS ORDERED: Senokot S 8.6-50 MG TAB PO PRN (20:57)
[2023-08-17] MEDS ORDERED: Glucagon 1 MG/ML KIT IM PRN (20:57)
[2023-08-17] MEDS ORDERED: Dextrose 50% Abboject 50 ML SYRINGE SLOW IVP PRN (20:57)
[2023-08-17] MEDS ORDERED: Dextrose 5% in Water 1,000 ML IV PRN (20:57)
[2023-08-17] MEDS ORDERED: Bisacodyl 5 MG TAB PO PRN (20:57)
[2023-08-17] MEDS ORDERED: Acetaminophen 650 MG Suppository PR PRN (20:57)
[2023-08-17] MEDS ORDERED: HumaLOG 300 UNITS/3 ML VIAL SC PRN ×2 (21:05)
[2023-08-17] MEDS ORDERED: Albuterol 200 PUFF (6.7GM INHALER) INH PRN (21:10)
[2023-08-17] MEDS ORDERED: Ipratropium/Albuterol 3 ML NEB NEB PRN (21:10)
[2023-08-17] MEDS ORDERED: Lactated Ringer's 1,000 ML IV SCH (21:30)
[2023-08-17] MEDS ORDERED: Potassium Chloride 20 MEQ TAB PO SCH (22:00)
[2023-08-17 22:56] VITALS: BMI 36.4
[2023-08-17] MEDS: Sodium Chloride 0.9% 1,000 ML IV SCH ×3 (23:21→23:33)
[2023-08-17] MEDS: Piperacillin/Tazobactam 3.375 GM in Sodium Chloride 0.9% 100 ML IVPB SCH ×3 (23:22→23:33)
[2023-08-17] MEDS: HYDROcodone/Acetaminophen 5/325 mg Tablet PO PRN (23:49)
[2023-08-18] MEDS: Piperacillin/Tazobactam 3.375 GM in Sodium Chloride 0.9% 100 ML IVPB SCH ×3 (05:18→21:39)
[2023-08-18 05:31] LABS: #Monocytes 0.2 thou/uL (0.11-0.59); #Neutrophils 16.6 thou/uL (1.40-6.50); %Basophils 0.1 % (0.0-1.0); %Lymphocytes 5.3 % (21.0-51.0); %Neutrophils 92.9 % (42.0-75.0); Hematocrit 26.7 % (36.0-47.0); Mean Corpuscular Hemoglobin 22.7 pg (27.0-31.0); Mean Corpuscular Volume 75.6 fl (78.0-98.0); Mean Platelet Volume 10.4 fL (7.4-10.4); RBC Distribution Width 21.7 % (11.5-14.5); Red Blood Cell (RBC) Count 3.53 mill/uL (4.20-5.40); White Blood Cell (WBC) Count 17.9 10x3/uL (4.8-10.8)
[2023-08-18 05:59] LABS: Anion Gap 13 mmol/L (10-20); BUN (Urea Nitrogen) 8 mg/dL (7.0-18.7); Calc. Creatinine Clearance 164 mL/min (70-130); Calcium 7.5 mg/dL (7.8-10.44); Carbon Dioxide 19 mmol/L (22-29); Chloride 111 mmol/L (98-107); Estimated GFR 113; Glucose 146 mg/dL (70-105); Potassium 3.4 mmol/L (3.5-5.1); Sodium 140 mmol/L (136-145)
[2023-08-18 06:16] LABS: Platelet Count 514 10x3/uL (130-400)
[2023-08-18] MEDS ORDERED: Ipratropium/Albuterol 3 ML NEB NEB SCH (07:30)
[2023-08-18] MEDS ORDERED: Potassium Chloride 20 MEQ TAB PO SCH (08:00)
[2023-08-18] MEDS ORDERED: Magnesium 2 GM/50 ML(in water) 2 GM in Premix 1 BAG IVPB SCH (08:30)
[2023-08-18] MEDS: Mometasone 200 MCG/Formoterol 5 MCG 120 PUFF INHALER INH SCH ×2 (08:40→19:24)
[2023-08-18] MEDS: Lisinopril 20 MG TAB PO SCH (08:51)
[2023-08-18] MEDS: Amlodipine 10 MG TAB PO SCH (08:52)
[2023-08-18] MEDS: Montelukast Sodium 10 mg Tablet PO SCH (08:52)
[2023-08-18] MEDS: Atorvastatin Calcium 40 MG TAB PO SCH (08:52)
[2023-08-18] MEDS: Hydrochlorothiazide 25 MG TAB PO SCH (08:52)
[2023-08-18] MEDS: Lactated Ringer's 1,000 ML IV SCH ×2 (08:57→18:28)
[2023-08-18] MEDS ORDERED: FLU VACC QS2023-24(6MOS UP)/PF 60 MCG/0.5 ML SYRINGE IM ONE (09:00)
[2023-08-18 09:01] LABS: Phosphorus 3.1 mg/dL (2.3-4.7)
[2023-08-18] MEDS: Ipratropium/Albuterol 3 ML NEB NEB SCH ×2 (12:27→19:23)
[2023-08-18] MEDS: HYDROcodone/Acetaminophen 5/325 mg Tablet PO PRN ×2 (17:20→23:11)
[2023-08-19] MEDS: Lactated Ringer's 1,000 ML IV SCH ×4 (01:28→23:57)
[2023-08-19] MEDS: Ipratropium/Albuterol 3 ML NEB NEB SCH ×5 (01:31→23:49)
[2023-08-19] MEDS: HYDROcodone/Acetaminophen 5/325 mg Tablet PO PRN ×2 (03:56→21:49)
[2023-08-19] MEDS: Piperacillin/Tazobactam 3.375 GM in Sodium Chloride 0.9% 100 ML IVPB SCH ×3 (05:36→23:48)
[2023-08-19 06:06] LABS: #Eosinphils 0.1 thou/uL (0.0-0.7); #Monocytes 0.8 thou/uL (0.11-0.59); #Neutrophils 12.5 thou/uL (1.40-6.50); %Basophils 0.3 % (0.0-1.0); %Eosinophils 0.7 % (0.0-10.0); %Lymphocytes 7.6 % (21.0-51.0); %Monocytes 5.7 % (0.0-10.0); %Neutrophils 84.9 % (42.0-75.0); Hematocrit 27.5 % (36.0-47.0); Hemoglobin 8.2 g/dL (12.0-16.0); Mean Corpuscular HGB CONC 29.8 g/dL (32.0-36.0); Mean Corpuscular Hemoglobin 22.5 pg (27.0-31.0); Mean Corpuscular Volume 75.5 fl (78.0-98.0); Mean Platelet Volume 10.6 fL (7.4-10.4); Platelet Count 476 10x3/uL (130-400); RBC Distribution Width 21.6 % (11.5-14.5); Red Blood Cell (RBC) Count 3.64 mill/uL (4.20-5.40); White Blood Cell (WBC) Count 14.7 10x3/uL (4.8-10.8)
[2023-08-19 06:28] LABS: Magnesium 1.3 mg/dL (1.6-2.6)
[2023-08-19 06:29] LABS: Anion Gap 15 mmol/L (10-20); BUN (Urea Nitrogen) Less than 4 mg/dL (7.0-18.7); Calc. Creatinine Clearance 190 mL/min (70-130); Calcium 7.8 mg/dL (7.8-10.44); Carbon Dioxide 24 mmol/L (22-29); Chloride 105 mmol/L (98-107); Estimated GFR 117; Glucose 88 mg/dL (70-105); Potassium 2.7 mmol/L (3.5-5.1); Sodium 141 mmol/L (136-145)
[2023-08-19] MEDS: Mometasone 200 MCG/Formoterol 5 MCG 120 PUFF INHALER INH SCH ×2 (07:17→19:03)
[2023-08-19] MEDS ORDERED: Magnesium Sulfate In Water 4 GM in Premix 1 BAG IVPB SCH (08:15)
[2023-08-19] MEDS: Hydrochlorothiazide 25 MG TAB PO SCH (08:48)
[2023-08-19] MEDS: Lisinopril 20 MG TAB PO SCH (08:49)
[2023-08-19] MEDS: Amlodipine 10 MG TAB PO SCH (08:49)
[2023-08-19] MEDS: Montelukast Sodium 10 mg Tablet PO SCH (08:50)
[2023-08-19] MEDS: Atorvastatin Calcium 40 MG TAB PO SCH (08:50)
[2023-08-19] MEDS: Ferrous Sulfate 325 MG TAB PO SCH (08:50)
[2023-08-19] MEDS: Potassium Chloride 20 MEQ in Premix 1 BAG IVPB SCH ×4 (09:50→18:54)
[2023-08-19] MEDS: Ondansetron ODT 4 MG TAB PO PRN (12:05)
[2023-08-19] MEDS ORDERED: Lactated Ringer's 1,000 ML IV SCH (15:00)
[2023-08-19] MEDS: Acetaminophen 325 MG TAB PO PRN (17:10)
[2023-08-20] MEDS ORDERED: Potassium Chloride 20 MEQ TAB PO SCH ×2 (01:00→07:00)
[2023-08-20] MEDS: HYDROcodone/Acetaminophen 5/325 mg Tablet PO PRN ×4 (02:01→19:17)
[2023-08-20 06:07] LABS: #Eosinphils 0.1 thou/uL (0.0-0.7); #Monocytes 1.4 thou/uL (0.11-0.59); #Neutrophils 16.4 thou/uL (1.40-6.50); %Basophils 0.2 % (0.0-1.0); %Eosinophils 0.6 % (0.0-10.0); %Lymphocytes 6.9 % (21.0-51.0); %Monocytes 7.2 % (0.0-10.0); %Neutrophils 84.6 % (42.0-75.0); Hematocrit 26.3 % (36.0-47.0); Hemoglobin 7.9 g/dL (12.0-16.0); Mean Corpuscular Hemoglobin 23.2 pg (27.0-31.0); Mean Corpuscular Volume 77.4 fl (78.0-98.0); Mean Platelet Volume 9.9 fL (7.4-10.4); Platelet Count 350 10x3/uL (130-400); RBC Distribution Width 21.3 % (11.5-14.5); White Blood Cell (WBC) Count 19.3 10x3/uL (4.8-10.8)
[2023-08-20] MEDS ORDERED: Electrolyte Replacement Protocol 1 EACH FS SCH (06:15)
[2023-08-20 06:30] LABS: Anion Gap 14 mmol/L (10-20); BUN (Urea Nitrogen) Less than 4 mg/dL (7.0-18.7); Calc. Creatinine Clearance 184 mL/min (70-130); Carbon Dioxide 24 mmol/L (22-29); Chloride 102 mmol/L (98-107); Estimated GFR 116; Glucose 78 mg/dL (70-105); Magnesium 1.8 mg/dL (1.6-2.6); Potassium 3.3 mmol/L (3.5-5.1); Sodium 137 mmol/L (136-145)
[2023-08-20] MEDS ORDERED: Electrolyte Replacement Protocol FS PRN (06:30)
[2023-08-20] MEDS ORDERED: Magnesium Sulfate In Water 4 GM in Premix 1 BAG IVPB SCH (07:00)
[2023-08-20] MEDS: Mometasone 200 MCG/Formoterol 5 MCG 120 PUFF INHALER INH SCH ×2 (07:13→18:26)
[2023-08-20] MEDS: Ipratropium/Albuterol 3 ML NEB NEB SCH ×3 (07:13→18:25)
[2023-08-20] MEDS: Atorvastatin Calcium 40 MG TAB PO SCH (07:46)
[2023-08-20] MEDS: Montelukast Sodium 10 mg Tablet PO SCH (07:46)
[2023-08-20] MEDS ORDERED: Potassium Bicarbonate/Cit Ac 20 MEQ TAB PO SCH ×2 (08:00)
[2023-08-20] MEDS ORDERED: Magnesium 2 GM/50 ML(in water) 2 GM in Premix 1 BAG IVPB SCH (08:00)
[2023-08-20] MEDS: Piperacillin/Tazobactam 3.375 GM in Sodium Chloride 0.9% 100 ML IVPB SCH ×3 (09:44→23:55)
[2023-08-20] MEDS: Lisinopril 20 MG TAB PO SCH (09:58)
[2023-08-20] MEDS: Amlodipine 10 MG TAB PO SCH (09:59)
[2023-08-20] MEDS: Hydrochlorothiazide 25 MG TAB PO SCH (10:00)
[2023-08-20] MEDS: Lactated Ringer's 1,000 ML IV SCH ×3 (12:43→23:54)
[2023-08-20] MEDS: Acetaminophen 325 MG TAB PO PRN (19:18)
[2023-08-20] MEDS ORDERED: Lactated Ringer's 500 ML IV SCH (19:30)
[2023-08-21] MEDS: Ipratropium/Albuterol 3 ML NEB NEB SCH ×4 (00:34→18:46)
[2023-08-21] MEDS: HYDROcodone/Acetaminophen 5/325 mg Tablet PO PRN ×4 (01:01→23:13)
[2023-08-21 05:53] LABS: #Eosinphils 0.2 thou/uL (0.0-0.7); #Monocytes 1.6 thou/uL (0.11-0.59); #Neutrophils 16.5 thou/uL (1.40-6.50); %Basophils 0.2 % (0.0-1.0); %Eosinophils 0.8 % (0.0-10.0); %Lymphocytes 6.4 % (21.0-51.0); %Monocytes 8.3 % (0.0-10.0); %Neutrophils 83.9 % (42.0-75.0); Hematocrit 26.7 % (36.0-47.0); Hemoglobin 7.9 g/dL (12.0-16.0); Mean Corpuscular HGB CONC 29.6 g/dL (32.0-36.0); Mean Corpuscular Volume 77.8 fl (78.0-98.0); Mean Platelet Volume 10.1 fL (7.4-10.4); Platelet Count 336 10x3/uL (130-400); RBC Distribution Width 21.4 % (11.5-14.5); Red Blood Cell (RBC) Count 3.43 mill/uL (4.20-5.40); White Blood Cell (WBC) Count 19.7 10x3/uL (4.8-10.8)
[2023-08-21] MEDS: Mometasone 200 MCG/Formoterol 5 MCG 120 PUFF INHALER INH SCH ×2 (06:28→18:47)
[2023-08-21 07:28] LABS: Anion Gap 14 mmol/L (10-20); BUN (Urea Nitrogen) Less than 4 mg/dL (7.0-18.7); Calc. Creatinine Clearance 177 mL/min (70-130); Carbon Dioxide 23 mmol/L (22-29); Chloride 103 mmol/L (98-107); Estimated GFR 115; Glucose 86 mg/dL (70-105); Potassium 3.3 mmol/L (3.5-5.1); Sodium 137 mmol/L (136-145)
[2023-08-21] MEDS ORDERED: Potassium Chloride 20 MEQ TAB PO SCH (08:00)
[2023-08-21 08:48] LABS: Magnesium 1.6 mg/dL (1.6-2.6)
[2023-08-21] MEDS: Amlodipine 10 MG TAB PO SCH (08:54)
[2023-08-21] MEDS: Piperacillin/Tazobactam 3.375 GM in Sodium Chloride 0.9% 100 ML IVPB SCH ×3 (08:54→23:13)
[2023-08-21] MEDS: Ferrous Sulfate 325 MG TAB PO SCH (08:54)
[2023-08-21] MEDS: Lisinopril 20 MG TAB PO SCH (08:54)
[2023-08-21] MEDS: Hydrochlorothiazide 25 MG TAB PO SCH (08:54)
[2023-08-21] MEDS: Montelukast Sodium 10 mg Tablet PO SCH (08:54)
[2023-08-21] MEDS: Atorvastatin Calcium 40 MG TAB PO SCH (08:55)
[2023-08-21] MEDS ORDERED: Magnesium 2 GM/50 ML(in water) 1 GM in Premix 1 BAG IVPB SCH (09:00)
[2023-08-21] MEDS ORDERED: Magnesium Sulfate 1 GM, Admixture Fee 1 EACH in Sodium Chloride 0.9% 100 ML IVPB SCH (10:00)
[2023-08-21] MEDS ORDERED: Iopamidol-370 76% 500 ML MDV (1 ML CHARGE) ONE (10:59)
[2023-08-21] MEDS: Lactated Ringer's 1,000 ML IV SCH ×3 (12:17→23:13)
[2023-08-21 14:55] LABS: Manual Diff?? YES
[2023-08-21 15:17] LABS: Anisocytosis MODERATE=16-30 cells HPF (0-5); Band 7 % (5-11); CellaVision Operator ID LAB.KB; Elliptocytes SLIGHT = 2-5 cells HPF (0-1); Eosinophils 1 % (0-10); Hypochromia SLIGHT = 6-15 cells HPF (0-5); Large Platelets 4.6 % (0-5); Lymphocytes 3 % (21-51); Monocytes 7 % (0-10); Neutrophil 83 % (42-75); Platelet Adequacy Comment Platelets Normal; Polychromasia SLIGHT = 2-3 cells HPF (0-2); Smudge Cells 8.3 %; Total Cell Count 108; Vacuoles SLIGHT
[2023-08-21] MEDS ORDERED: Morphine 4 MG/ML VIAL SLOW IVP SCH (19:15)
[2023-08-21] MEDS: Ondansetron ODT 4 MG TAB PO PRN (19:32)
[2023-08-22] MEDS: Ipratropium/Albuterol 3 ML NEB NEB SCH ×4 (02:58→18:24)
[2023-08-22] MEDS: Mometasone 200 MCG/Formoterol 5 MCG 120 PUFF INHALER INH SCH (05:39)
[2023-08-22 06:40] LABS: Anion Gap 15 mmol/L (10-20); BUN (Urea Nitrogen) Less than 4 mg/dL (7.0-18.7); Calc. Creatinine Clearance 201 mL/min (70-130); Calcium 8.4 mg/dL (7.8-10.44); Carbon Dioxide 22 mmol/L (22-29); Chloride 101 mmol/L (98-107); Estimated GFR 119; Glucose 68 mg/dL (70-105); Potassium 3.7 mmol/L (3.5-5.1); Sodium 134 mmol/L (136-145)
[2023-08-22 07:12] LABS: Hematocrit 25.2 % (36.0-47.0); Hemoglobin 7.4 g/dL (12.0-16.0); Mean Corpuscular HGB CONC 29.4 g/dL (32.0-36.0); Mean Corpuscular Hemoglobin 22.8 pg (27.0-31.0); Mean Corpuscular Volume 77.5 fl (78.0-98.0); Mean Platelet Volume 10.6 fL (7.4-10.4); Platelet Count 387 10x3/uL (130-400); RBC Distribution Width 21.5 % (11.5-14.5); Red Blood Cell (RBC) Count 3.25 mill/uL (4.20-5.40); White Blood Cell (WBC) Count 20.1 10x3/uL (4.8-10.8)
[2023-08-22 07:44] LABS: Delete Auto Diff?? YES; Manual Diff?? YES
[2023-08-22] MEDS ORDERED: fentaNYL PF 100 MCG/2 ML SYRINGE ONE ×2 (07:54→09:16)
[2023-08-22] MEDS ORDERED: Midazolam HCl 2 mg/2 ml Vial ONE (07:54)
[2023-08-22] MEDS ORDERED: Bupivacaine 0.25% HCL 30 ML VIAL ONE (07:55)
[2023-08-22 08:19] LABS: Band 8 % (5-11); CellaVision Operator ID LAB.GE; Eosinophils 1 % (0-10); Hypochromia MODERATE=16-30 cells HPF (0-5); Large Platelets 1.9 % (0-5); Lymphocytes 2 % (21-51); Microcytosis SLIGHT = 6-15 cells HPF (0-5); Monocytes 9 % (0-10); Neutrophil 80 % (42-75); Ovalocytes SLIGHT = 2-5 cells HPF (0-1); Platelet Adequacy Comment Platelets Normal; Polychromasia MODERATE = 3-4 cells HPF (0-2); Reactive Lymphocytes 1 % (0-10); Smudge Cells 1.9 %; Total Cell Count 104
[2023-08-22 08:25] LABS: Magnesium 1.8 mg/dL (1.6-2.6)
[2023-08-22] MEDS: Piperacillin/Tazobactam 3.375 GM in Sodium Chloride 0.9% 100 ML IVPB SCH ×3 (08:26→23:57)
[2023-08-22] MEDS ORDERED: PROPOFOL 20 ML ONE (08:39)
[2023-08-22] MEDS ORDERED: Lidocaine 1% PF 5 ML VIAL ONE ×2 (09:16→09:41)
[2023-08-22] MEDS ORDERED: Succinylcholine 200 MG/10 ml SYRINGE FS ONE ×2 (09:16→09:41)
[2023-08-22] MEDS ORDERED: Rocuronium Bromide 10 MG/ML (10ML VIAL) ONE ×2 (09:16→09:41)
[2023-08-22] MEDS ORDERED: Dextrose 50% Abboject 50 ML SYRINGE ONE (09:34)
[2023-08-22] MEDS ORDERED: Ketorolac Tromethamine 30 MG/ML VIAL ONE ×2 (09:41→11:42)
[2023-08-22] MEDS ORDERED: Dexamethasone 20 MG/5 ML VIAL ONE ×2 (09:41→09:57)
[2023-08-22] MEDS ORDERED: NEOSTIGMINE 3 MG/3 ML SYR 3 MG/3 ML SYRINGE ONE ×2 (09:41→11:34)
[2023-08-22] MEDS ORDERED: PHENYLEPHRINE-NS 100 MCG/ML 10 ML SYRINGE ONE ×2 (09:41→10:16)
[2023-08-22] MEDS ORDERED: Albuterol HFA (OR) 200 PUFF INH ONE (09:41)
[2023-08-22] MEDS ORDERED: Bupivacaine/Epinephrine 0.25% 30 ML VIAL ONE (09:41)
[2023-08-22] MEDS ORDERED: PROPOFOL 200 MG/20 ML VIAL ONE (09:41)
[2023-08-22] MEDS ORDERED: Ondansetron PF 4 MG/2 ML Vial ONE ×2 (09:41→11:33)
[2023-08-22] MEDS ORDERED: Glycopyrrolate 0.2 MG/ML 5 ML SYRINGE ONE ×2 (09:41→11:34)
[2023-08-22] MEDS ORDERED: HYDROmorphone 2 MG/ML VIAL SLOW IVP PRN (11:35)
[2023-08-22] MEDS ORDERED: Promethazine HCl 25 MG/ML VIAL IM PRN ×2 (11:35→11:36)
[2023-08-22] MEDS ORDERED: Meperidine HCl/PF 25 MG/ML VIAL SLOW IVP PRN (11:35)
[2023-08-22] MEDS ORDERED: Ondansetron HCl/PF 4 MG/2 ML Vial IVP PRN (11:35)
[2023-08-22] MEDS ORDERED: Morphine Sulfate 2 MG/ML SYRINGE SLOW IVP PRN (11:35)
[2023-08-22] MEDS ORDERED: diphenhydrAMINE 50 MG/ML VIAL IVP PRN (11:36)
[2023-08-22] MEDS ORDERED: Naloxone HCl 0.4 mg/ml Vial IV PRN (11:36)
[2023-08-22] MEDS ORDERED: diphenhydrAMINE 50 MG/ML VIAL IM PRN (11:36)
[2023-08-22] MEDS ORDERED: Communication Order-Pharmacy FS SCH (11:45)
[2023-08-22] MEDS ORDERED: HYDROmorphone 2 MG/ML VIAL ONE (12:03)
[2023-08-22] MEDS ORDERED: SUGAMMADEX SODIUM 200 MG/2 ML VIAL ONE ×2 (12:08→12:13)
[2023-08-22] MEDS ORDERED: Albuterol 200 PUFF (6.7GM INHALER) ONE (12:12)
[2023-08-22] MEDS ORDERED: Ketorolac Tromethamine 30 MG/ML VIAL IVP SCH (13:30)
[2023-08-22] MEDS ORDERED: Acetaminophen 500 MG TAB PO SCH (13:30)
[2023-08-22] MEDS: Lisinopril 20 MG TAB PO SCH (14:15)
[2023-08-22] MEDS: Amlodipine 10 MG TAB PO SCH (14:16)
[2023-08-22] MEDS: Atorvastatin Calcium 40 MG TAB PO SCH (14:16)
[2023-08-22] MEDS: NS 0.9% w/ 20 MEQ KCL 1,000 ML IV SCH ×2 (14:17→21:33)
[2023-08-22] MEDS: Montelukast Sodium 10 mg Tablet PO SCH (14:45)
[2023-08-22] MEDS: Lactated Ringer's 1,000 ML IV SCH (15:05)
[2023-08-22] MEDS: Acetaminophen 500 MG TAB PO SCH ×2 (17:02→23:54)
[2023-08-23] MEDS: Ipratropium/Albuterol 3 ML NEB NEB SCH ×5 (00:27→23:11)
[2023-08-23] MEDS: NS 0.9% w/ 20 MEQ KCL 1,000 ML IV SCH ×3 (05:49→22:05)
[2023-08-23] MEDS: Acetaminophen 500 MG TAB PO SCH ×3 (05:51→17:07)
[2023-08-23 06:04] LABS: Hematocrit 29.9 % (36.0-47.0); Hemoglobin 9.2 g/dL (12.0-16.0); Mean Corpuscular HGB CONC 30.8 g/dL (32.0-36.0); Mean Corpuscular Hemoglobin 24.3 pg (27.0-31.0); Mean Corpuscular Volume 78.9 fl (78.0-98.0); Mean Platelet Volume 10.2 fL (7.4-10.4); Platelet Count 382 10x3/uL (130-400); RBC Distribution Width 20.6 % (11.5-14.5); Red Blood Cell (RBC) Count 3.79 mill/uL (4.20-5.40); White Blood Cell (WBC) Count 20.5 10x3/uL (4.8-10.8)
[2023-08-23 06:12] LABS: Delete Auto Diff?? YES; Manual Diff?? YES
[2023-08-23 06:39] LABS: ALT (SGPT) 11 U/L (8-55); AST (SGOT) 21 U/L (5-34); Albumin 2.3 g/dL (3.5-5.0); Alkaline Phosphatase 110 U/L (40-110); Anion Gap 17 mmol/L (10-20); BUN (Urea Nitrogen) 5 mg/dL (7.0-18.7); Bilirubin, Total 0.5 mg/dL (0.2-1.2); Calc. Creatinine Clearance 201 mL/min (70-130); Calcium 7.5 mg/dL (7.8-10.44); Carbon Dioxide 18 mmol/L (22-29); Chloride 108 mmol/L (98-107); Estimated GFR 119; Globulin 3.3 g/dL (2.4-3.5); Glucose 83 mg/dL (70-105); Potassium 4.6 mmol/L (3.5-5.1); Protein, Total 5.6 g/dL (6.0-8.3); Sodium 138 mmol/L (136-145)
[2023-08-23 06:41] LABS: Band 5 % (5-11); Burr Cells SLIGHT = 2-5 cells HPF (0-1); CellaVision Operator ID lab.abc; Large Platelets 5.9 % (0-5); Lymphocytes 2 % (21-51); Monocytes 2 % (0-10); Neutrophil 91 % (42-75); Platelet Adequacy Comment Platelets Normal; Polychromasia SLIGHT = 2-3 cells HPF (0-2); Smudge Cells 5.9 %; Total Cell Count 101
[2023-08-23] MEDS: Atorvastatin Calcium 40 MG TAB PO SCH (08:19)
[2023-08-23] MEDS: Lisinopril 20 MG TAB PO SCH (08:19)
[2023-08-23] MEDS: Piperacillin/Tazobactam 3.375 GM in Sodium Chloride 0.9% 100 ML IVPB SCH ×2 (08:19→15:36)
[2023-08-23] MEDS: Amlodipine 10 MG TAB PO SCH (08:19)
[2023-08-23] MEDS ORDERED: Simethicone Chewable 80 MG TAB PO PRN (17:34)
[2023-08-24] MEDS: diphenhydrAMINE 25 MG CAP PO PRN ×2 (00:34→23:03)
[2023-08-24] MEDS: Ondansetron ODT 4 MG TAB PO PRN ×2 (00:34→09:41)
[2023-08-24] MEDS: Acetaminophen 500 MG TAB PO SCH ×5 (00:34→23:03)
[2023-08-24] MEDS: Piperacillin/Tazobactam 3.375 GM in Sodium Chloride 0.9% 100 ML IVPB SCH ×4 (00:35→23:03)
[2023-08-24] MEDS: NS 0.9% w/ 20 MEQ KCL 1,000 ML IV SCH (05:39)
[2023-08-24 06:14] LABS: Hematocrit 29.9 % (36.0-47.0); Hemoglobin 9.1 g/dL (12.0-16.0); Mean Corpuscular HGB CONC 30.4 g/dL (32.0-36.0); Mean Corpuscular Hemoglobin 24.9 pg (27.0-31.0); Mean Corpuscular Volume 81.9 fl (78.0-98.0); Mean Platelet Volume 9.6 fL (7.4-10.4); Platelet Count 440 10x3/uL (130-400); RBC Distribution Width 21.4 % (11.5-14.5); Red Blood Cell (RBC) Count 3.65 mill/uL (4.20-5.40); White Blood Cell (WBC) Count 22.8 10x3/uL (4.8-10.8)
[2023-08-24 06:24] LABS: Delete Auto Diff?? YES; Manual Diff?? YES
[2023-08-24 06:52] LABS: Albumin 2.5 g/dL (3.5-5.0); Alkaline Phosphatase 115 U/L (40-110); Anion Gap 13 mmol/L (10-20); Bilirubin, Total 0.3 mg/dL (0.2-1.2); Calc. Creatinine Clearance 205 mL/min (70-130); Carbon Dioxide 22 mmol/L (22-29); Chloride 107 mmol/L (98-107); Estimated GFR 119; Globulin 3.4 g/dL (2.4-3.5); Glucose 58 mg/dL (70-105); Potassium 4.2 mmol/L (3.5-5.1); Protein, Total 5.9 g/dL (6.0-8.3); Sodium 138 mmol/L (136-145)
[2023-08-24] MEDS: Ipratropium/Albuterol 3 ML NEB NEB SCH ×3 (07:01→20:54)
[2023-08-24 07:02] LABS: AST (SGOT) 18 U/L (5-34); BUN (Urea Nitrogen) 4 mg/dL (7.0-18.7)
[2023-08-24 07:03] LABS: ALT (SGPT) 13 U/L (8-55)
[2023-08-24 07:26] LABS: Band 2 % (5-11); CellaVision Operator ID LAB.NR; Hypochromia SLIGHT = 6-15 cells HPF (0-5); Lymphocytes 5 % (21-51); Macrocytosis SLIGHT = 6-15 cells HPF (0-5); Neutrophil 90 % (42-75); Plasma Cells 3 % (0-0); Platelet Adequacy Comment Platelets Increased; Polychromasia SLIGHT = 2-3 cells HPF (0-2); Smudge Cells 6.1 %; Target Cells SLIGHT = 2-5 cells HPF (0-1); Tear Drops SLIGHT = 2-5 cells HPF (0-1); Total Cell Count 99
[2023-08-24] MEDS: Lisinopril 20 MG TAB PO SCH (08:05)
[2023-08-24] MEDS: Amlodipine 10 MG TAB PO SCH (08:06)
[2023-08-24] MEDS: Atorvastatin Calcium 40 MG TAB PO SCH (08:06)
[2023-08-24] MEDS: HYDROmorphone/PF 10 MG in Sodium Chloride 0.9% 99 ML IV PRN (09:09)
[2023-08-24] MEDS ORDERED: Sodium Chloride 0.45% 1,000 ML IV SCH (10:15)
[2023-08-24] MEDS: Dextrose 5 %-0.45 % NaCl 1,000 ML IV SCH (11:02)
[2023-08-24] MEDS: Ondansetron PF 4 MG/2 ML Vial IVP PRN ×2 (17:38→23:03)
[2023-08-25] MEDS: Ipratropium/Albuterol 3 ML NEB NEB SCH ×4 (00:46→19:33)
[2023-08-25] MEDS: Acetaminophen 500 MG TAB PO SCH ×4 (05:04→23:47)
[2023-08-25] MEDS: Ondansetron PF 4 MG/2 ML Vial IVP PRN (05:07)
[2023-08-25] MEDS: Lisinopril 20 MG TAB PO SCH (09:05)
[2023-08-25] MEDS: Piperacillin/Tazobactam 3.375 GM in Sodium Chloride 0.9% 100 ML IVPB SCH ×3 (09:05→23:48)
[2023-08-25] MEDS: Amlodipine 10 MG TAB PO SCH (09:05)
[2023-08-25] MEDS: Dextrose 5 %-0.45 % NaCl 1,000 ML IV SCH ×2 (09:10→21:48)
[2023-08-25] MEDS: Scopolamine 1 mg/72 hour Patch TD SCH (14:23)
[2023-08-25] MEDS: HYDROmorphone/PF 10 MG in Sodium Chloride 0.9% 99 ML IV PRN (19:14)
[2023-08-25] MEDS: diphenhydrAMINE 25 MG CAP PO PRN (21:48)
[2023-08-26] MEDS: Ipratropium/Albuterol 3 ML NEB NEB SCH ×4 (01:26→20:14)
[2023-08-26] MEDS: Acetaminophen 500 MG TAB PO SCH ×4 (05:35→23:39)
[2023-08-26] MEDS: Amlodipine 10 MG TAB PO SCH (08:59)
[2023-08-26] MEDS: Lisinopril 20 MG TAB PO SCH (08:59)
[2023-08-26] MEDS: Ondansetron PF 4 MG/2 ML Vial IVP PRN (08:59)
[2023-08-26] MEDS: Piperacillin/Tazobactam 3.375 GM in Sodium Chloride 0.9% 100 ML IVPB SCH ×3 (08:59→23:39)
[2023-08-26] MEDS: Dextrose 5 %-0.45 % NaCl 1,000 ML IV SCH (09:49)
[2023-08-26] MEDS ORDERED: Senokot 8.6 MG TAB PO PRN (10:47)
[2023-08-26] MEDS ORDERED: Polyethylene Glycol 3350 17 GM Packet PO PRN (10:47)
[2023-08-26] MEDS ORDERED: traMADol HCl 50 MG TAB PO PRN (10:48)
[2023-08-26] MEDS: traMADol HCl 50 MG TAB PO SCH ×3 (11:55→23:38)
[2023-08-26] MEDS: CeleCOXIB 100 MG CAP PO SCH (20:25)
[2023-08-26] MEDS: Ondansetron ODT 4 MG TAB PO PRN (23:37)
[2023-08-26] MEDS: diphenhydrAMINE 25 MG CAP PO PRN (23:38)
[2023-08-27] MEDS ORDERED: Ipratropium/Albuterol 3 ML NEB ONE (01:19)
[2023-08-27] MEDS: Ipratropium/Albuterol 3 ML NEB NEB SCH ×4 (01:37→18:27)
[2023-08-27] MEDS: traMADol HCl 50 MG TAB PO SCH ×3 (05:10→17:35)
[2023-08-27] MEDS: Acetaminophen 500 MG TAB PO SCH ×3 (05:11→17:35)
[2023-08-27 05:27] LABS: #Eosinphils 0.3 thou/uL (0.0-0.7); #Neutrophils 15.1 thou/uL (1.40-6.50); %Basophils 0.2 % (0.0-1.0); %Eosinophils 1.6 % (0.0-10.0); %Lymphocytes 10.6 % (21.0-51.0); %Monocytes 5.4 % (0.0-10.0); %Neutrophils 81.6 % (42.0-75.0); Hematocrit 31.6 % (36.0-47.0); Hemoglobin 9.5 g/dL (12.0-16.0); Mean Corpuscular HGB CONC 30.1 g/dL (32.0-36.0); Mean Corpuscular Volume 83.2 fl (78.0-98.0); Mean Platelet Volume 9.1 fL (7.4-10.4); Platelet Count 532 10x3/uL (130-400); RBC Distribution Width 22.6 % (11.5-14.5); White Blood Cell (WBC) Count 18.5 10x3/uL (4.8-10.8)
[2023-08-27 05:54] LABS: ALT (SGPT) 10 U/L (8-55); AST (SGOT) 12 U/L (5-34); Albumin 2.6 g/dL (3.5-5.0); Alkaline Phosphatase 112 U/L (40-110); Anion Gap 11 mmol/L (10-20); BUN (Urea Nitrogen) Less than 4 mg/dL (7.0-18.7); Bilirubin, Total 0.3 mg/dL (0.2-1.2); Calc. Creatinine Clearance 205 mL/min (70-130); Calcium 8.3 mg/dL (7.8-10.44); Carbon Dioxide 25 mmol/L (22-29); Chloride 102 mmol/L (98-107); Estimated GFR 119; Globulin 3.2 g/dL (2.4-3.5); Glucose 70 mg/dL (70-105); Magnesium 1.7 mg/dL (1.6-2.6); Potassium 3.2 mmol/L (3.5-5.1); Protein, Total 5.8 g/dL (6.0-8.3); Sodium 135 mmol/L (136-145)
[2023-08-27] MEDS ORDERED: Electrolyte Replacement Protocol 1 EACH FS SCH (07:00)
[2023-08-27] MEDS ORDERED: Magnesium 2 GM/50 ML(in water) 2 GM in Premix 1 BAG IVPB SCH (08:00)
[2023-08-27] MEDS ORDERED: Potassium Chloride 20 MEQ TAB PO SCH (08:00)
[2023-08-27] MEDS: Amlodipine 10 MG TAB PO SCH (08:21)
[2023-08-27] MEDS: CeleCOXIB 100 MG CAP PO SCH ×2 (08:21→20:32)
[2023-08-27] MEDS: Piperacillin/Tazobactam 3.375 GM in Sodium Chloride 0.9% 100 ML IVPB SCH ×2 (08:22→15:59)
[2023-08-27] MEDS: Lisinopril 20 MG TAB PO SCH (08:22)
[2023-08-27] MEDS: Morphine 2 MG/ML VIAL SLOW IVP PRN ×2 (15:59→20:36)
[2023-08-27] MEDS: Ondansetron PF 4 MG/2 ML Vial IVP PRN (16:15)
[2023-08-28] MEDS: Piperacillin/Tazobactam 3.375 GM in Sodium Chloride 0.9% 100 ML IVPB SCH (00:06)
[2023-08-28] MEDS: Acetaminophen 500 MG TAB PO SCH ×5 (00:06→23:03)
[2023-08-28] MEDS: traMADol HCl 50 MG TAB PO SCH ×5 (00:07→23:03)
[2023-08-28] MEDS: Ipratropium/Albuterol 3 ML NEB NEB SCH ×4 (00:54→19:38)
[2023-08-28] MEDS: Amlodipine 10 MG TAB PO SCH (08:25)
[2023-08-28] MEDS: CeleCOXIB 100 MG CAP PO SCH ×2 (08:25→20:09)
[2023-08-28] MEDS: Lisinopril 20 MG TAB PO SCH (08:27)
[2023-08-28] MEDS ORDERED: Electrolyte Replacement Protocol FS PRN (10:30)
[2023-08-28] MEDS ORDERED: Potassium Chloride 20 MEQ in Premix 1 BAG IVPB SCH (10:30)
[2023-08-28] MEDS ORDERED: Lidocaine 1% w/Epinephrine 1:100K 20 ML VIAL ONE (11:40)
[2023-08-28] MEDS: Morphine 2 MG/ML VIAL SLOW IVP PRN (11:41)
[2023-08-28] MEDS: Ondansetron ODT 4 MG TAB PO PRN (12:44)
[2023-08-28] MEDS: Scopolamine 1 mg/72 hour Patch TD SCH (14:40)
[2023-08-28] MEDS ORDERED: Ipratropium/Albuterol 3 ML NEB ONE (19:19)
[2023-08-29 00:22] VITALS: TEMP 98.2
[2023-08-29] MEDS: Ipratropium/Albuterol 3 ML NEB NEB SCH ×3 (01:43→12:46)
[2023-08-29] MEDS: traMADol HCl 50 MG TAB PO SCH ×3 (05:06→18:00)
[2023-08-29] MEDS: Acetaminophen 500 MG TAB PO SCH ×3 (05:54→18:00)
[2023-08-29 06:49] LABS: #Eosinphils 0.3 thou/uL (0.0-0.7); #Monocytes 0.9 thou/uL (0.11-0.59); #Neutrophils 12.5 thou/uL (1.40-6.50); %Basophils 0.2 % (0.0-1.0); %Eosinophils 2.1 % (0.0-10.0); %Lymphocytes 11.4 % (21.0-51.0); %Monocytes 5.5 % (0.0-10.0); %Neutrophils 80.2 % (42.0-75.0); Hematocrit 31.7 % (36.0-47.0); Hemoglobin 9.7 g/dL (12.0-16.0); Mean Corpuscular HGB CONC 30.6 g/dL (32.0-36.0); Mean Corpuscular Hemoglobin 25.1 pg (27.0-31.0); Mean Corpuscular Volume 82.1 fl (78.0-98.0); Mean Platelet Volume 9.2 fL (7.4-10.4); Platelet Count 575 10x3/uL (130-400); RBC Distribution Width 23.2 % (11.5-14.5); Red Blood Cell (RBC) Count 3.86 mill/uL (4.20-5.40); White Blood Cell (WBC) Count 15.6 10x3/uL (4.8-10.8)
[2023-08-29] MEDS: Morphine 2 MG/ML VIAL SLOW IVP PRN (08:29)
[2023-08-29] MEDS: CeleCOXIB 100 MG CAP PO SCH (08:30)
[2023-08-29 12:11] VITALS: BP 112/75
[2023-08-29] MEDS: Lisinopril 20 MG TAB PO SCH (12:38)
[2023-08-29] MEDS: Amlodipine 10 MG TAB PO SCH (12:58)
== END 2023-08-29 18:10 | disposition home or self-care (01) | DRG 856 ==
LOC: ERS 15:20 → T4-B 20:12 → OBSVTOIN 08-18 15:12
PROVIDERS: ADMIT Emergency Medicine; ATTEND Emergency Medicine
PROC: 3E03329 Introduction of Other Anti-infective into Peripheral Vein, Percutaneous Approach (ICD-10-PCS; 2023-08-17)
PROC: 0D1N0Z4 Bypass Sigmoid Colon to Cutaneous, Open Approach (ICD-10-PCS; principal; 2023-08-22)
PROC: 02HV33Z Insertion of Infusion Device into Superior Vena Cava, Percutaneous Approach (ICD-10-PCS; 2023-08-22)
PROC: 0D9W00Z Drainage of Peritoneum with Drainage Device, Open Approach (ICD-10-PCS; 2023-08-22)
PROC: 0DTN0ZZ Resection of Sigmoid Colon, Open Approach (ICD-10-PCS; 2023-08-22)
PROC: 0DBP0ZZ Excision of Rectum, Open Approach (ICD-10-PCS; 2023-08-22)
PROC: B5181ZA Fluoroscopy of Superior Vena Cava using Low Osmolar Contrast, Guidance (ICD-10-PCS; 2023-08-22)
PROC: 30233N1 Transfusion of Nonautologous Red Blood Cells into Peripheral Vein, Percutaneous Approach (ICD-10-PCS; 2023-08-22)
PROC: 3E0M05Z Introduction of Adhesion Barrier into Peritoneal Cavity, Open Approach (ICD-10-PCS; 2023-08-22)
PROC: 0JQ80ZZ Repair Abdomen Subcutaneous Tissue and Fascia, Open Approach (ICD-10-PCS; 2023-08-28)
DX: T81.43XA Infection following a procedure, organ and space surgical site, initial encounter (principal); A41.9 Sepsis, unspecified organism; K68.19 Other retroperitoneal abscess; L02.211 Cutaneous abscess of abdominal wall; K57.20 Diverticulitis of large intestine with perforation and abscess without bleeding; I10 Essential (primary) hypertension; E11.9 Type 2 diabetes mellitus without complications; E78.5 Hyperlipidemia, unspecified; D50.9 Iron deficiency anemia, unspecified; E87.6 Hypokalemia; E83.42 Hypomagnesemia; N28.89 Other specified disorders of kidney and ureter; J43.9 Emphysema, unspecified; E66.01 Morbid (severe) obesity due to excess calories; Z98.890 Other specified postprocedural states; Z80.1 Family history of malignant neoplasm of trachea, bronchus and lung; Z87.891 Personal history of nicotine dependence; Z79.899 Other long term (current) drug therapy; Z68.36 Body mass index [BMI] 36.0-36.9, adult; J45.50 Severe persistent asthma, uncomplicated
CPT/HCPCS: 36415; 36416; 36430; 71045; 71275; 74177; 80048; 80053; 81001; 83605; 83690; 83735; 83880; 84100; 84145; 84484; 84703; 85025; 85379; 86140; 86850; 86900; 86901; 87040; 87070; 87076; 87086; 87205; 88307; 93005; 93970; 94640; 96365; 96366; 96375; 97139; A4314; C1713; C1776; J1100; J1170; J1650; J1885; J2250; J2270; J2272; J2405; J2543; J2704; J2930; J3475; J3480; J3490; J7042; J7120; J7611; J7620; J7999; P9016; Q0162; Q9967; S0020

== ENCOUNTER 2023-09-18 09:16 | Inpatient (IN) | payer BC ==
[2023-09-18] MEDS ORDERED: Albuterol 2.5 MG/0.5 ML NEB ONE (09:21)
[2023-09-18] MEDS ORDERED: Ipratropium Bromide 2.5 ml Neb ONE (09:22)
[2023-09-18] MEDS ORDERED: Magnesium 2 GM/50 ML BAG (IN WATER) ONE (09:40)
[2023-09-18] MEDS ORDERED: methylPREDNISolone Sod Succ/PF 125 MG/2 ML VIAL ONE (09:40)
[2023-09-18 09:44] LABS: #Monocytes 1.1 thou/uL (0.11-0.59); #Neutrophils 10.1 thou/uL (1.40-6.50); %Basophils 0.3 % (0.0-1.0); %Eosinophils 6.4 % (0.0-10.0); %Lymphocytes 17.2 % (21.0-51.0); %Monocytes 7.5 % (0.0-10.0); %Neutrophils 68.1 % (42.0-75.0); Hematocrit 31.1 % (36.0-47.0); Hemoglobin 9.6 g/dL (12.0-16.0); Mean Corpuscular HGB CONC 30.9 g/dL (32.0-36.0); Mean Corpuscular Hemoglobin 25.2 pg (27.0-31.0); Mean Corpuscular Volume 81.6 fl (78.0-98.0); Mean Platelet Volume 10.9 fL (7.4-10.4); Platelet Count 365 10x3/uL (130-400); RBC Distribution Width 21.9 % (11.5-14.5); Red Blood Cell (RBC) Count 3.81 mill/uL (4.20-5.40); White Blood Cell (WBC) Count 14.8 10x3/uL (4.8-10.8)
[2023-09-18 10:06] LABS: Troponin I Less than 0.010 ng/mL (< 0.028)
[2023-09-18 10:08] LABS: ALT (SGPT) 9 U/L (8-55); AST (SGOT) 14 U/L (5-34); Albumin 2.7 g/dL (3.5-5.0); Alkaline Phosphatase 128 U/L (40-110); Anion Gap 17 mmol/L (10-20); BUN (Urea Nitrogen) 9 mg/dL (7.0-18.7); Bilirubin, Total 0.6 mg/dL (0.2-1.2); Calc. Creatinine Clearance 0 mL/min (70-130); Carbon Dioxide 25 mmol/L (22-29); Chloride 100 mmol/L (98-107); Estimated GFR 111; Glucose 113 mg/dL (70-105); Protein, Total 6.7 g/dL (6.0-8.3); Sodium 139 mmol/L (136-145)
[2023-09-18 10:46] LABS: Calcium 6.9 mg/dL (7.8-10.44); Potassium 2.5 mmol/L (3.5-5.1)
[2023-09-18] MEDS ORDERED: NS 0.9% w/ 20 MEQ KCL 1,000 ML ONE (11:05)
[2023-09-18] MEDS ORDERED: Potassium Bicarbonate/Cit Ac 20 MEQ TAB ONE (11:05)
[2023-09-18] MEDS ORDERED: Acetaminophen 325 MG TAB PO PRN (11:29)
[2023-09-18 11:38] LABS: Bacteria/HPF None Seen HPF (None Seen); Bilirubin Negative (Negative); Blood, Urine Negative (Negative); CAUTI Indications for Culture Pelvic or flank pain; Clarity Clear (Clear); Glucose, Urine (Dipstick) Normal (Negative); Ketone, Urine Negative (Negative); Leukocyte Negative Leu/uL (Negative); Nitrite Negative (Negative); Protein, Urine (Dipstick) 20 mg/dL (Neg-Trace); RBC/HPF 0-3 HPF (0-3); Specific Gravity, Urine 1.016 (1.002-1.036); Urobilinogen Normal mg/dL (Less than 2)
[2023-09-18 11:49] LABS: Urine Culture Reflex Yes Yes
[2023-09-18] MEDS ORDERED: Ipratropium/Albuterol 3 ML NEB NEB PRN ×2 (12:08→18:41)
[2023-09-18 12:34] LABS: Lactic Acid 3.1 mmol/L (0.5-2.2)
[2023-09-18] MEDS ORDERED: Glucagon 1 MG/ML KIT IM PRN (13:13)
[2023-09-18] MEDS ORDERED: Dextrose 5% in Water 1,000 ML IV PRN (13:13)
[2023-09-18] MEDS ORDERED: Insulin Regular 300 UNITS/3 ML VIAL SC PRN (13:13)
[2023-09-18] MEDS ORDERED: Dextrose 50% Abboject 50 ML SYRINGE SLOW IVP PRN (13:13)
[2023-09-18] MEDS ORDERED: Ferrous Sulfate 325 MG TAB PO SCH (13:45)
[2023-09-18] MEDS ORDERED: Lactated Ringer's 500 ML IV SCH (13:45)
[2023-09-18] MEDS: Ipratropium/Albuterol 3 ML NEB NEB SCH ×5 (13:59→22:34)
[2023-09-18] MEDS: Acetaminophen 325 MG TAB PO PRN (14:14)
[2023-09-18 14:22] VITALS: BMI 29.1
[2023-09-18 15:13] LABS: Lactic Acid 3.1 mmol/L (0.5-2.2)
[2023-09-18 15:15] LABS: Phosphorus 3.1 mg/dL (2.3-4.7)
[2023-09-18 15:16] LABS: Anion Gap 17 mmol/L (10-20); BUN (Urea Nitrogen) 8 mg/dL (7.0-18.7); Calc. Creatinine Clearance 123 mL/min (70-130); Calcium 7.1 mg/dL (7.8-10.44); Carbon Dioxide 24 mmol/L (22-29); Chloride 100 mmol/L (98-107); Estimated GFR 111; Glucose 155 mg/dL (70-105); Magnesium 1.6 mg/dL (1.6-2.6); Sodium 138 mmol/L (136-145)
[2023-09-18 15:38] LABS: Potassium 2.5 mmol/L (3.5-5.1)
[2023-09-18] MEDS ORDERED: Potassium Chloride 20 MEQ in Premix 1 BAG IVPB SCH (15:44)
[2023-09-18] MEDS ORDERED: Potassium Chloride 20 MEQ TAB PO SCH (15:45)
[2023-09-18] MEDS ORDERED: Magnesium 2 GM/50 ML(in water) 2 GM in Premix 1 BAG IVPB SCH (15:45)
[2023-09-18] MEDS: metFORMIN 500 MG TAB PO SCH (17:34)
[2023-09-18] MEDS: Mometasone 200 MCG/Formoterol 5 MCG 120 PUFF INHALER INH SCH (18:35)
[2023-09-18] MEDS: traMADol HCl 50 MG TAB PO PRN (20:20)
[2023-09-18] MEDS: Lactated Ringer's 1,000 ML IV SCH (20:21)
[2023-09-18 22:48] LABS: Anion Gap 19 mmol/L (10-20); BUN (Urea Nitrogen) 8 mg/dL (7.0-18.7); Calc. Creatinine Clearance 111 mL/min (70-130); Calcium 7.2 mg/dL (7.8-10.44); Carbon Dioxide 20 mmol/L (22-29); Chloride 101 mmol/L (98-107); Estimated GFR 102; Glucose 139 mg/dL (70-105); Magnesium 2.6 mg/dL (1.6-2.6); Potassium 2.8 mmol/L (3.5-5.1); Sodium 137 mmol/L (136-145)
[2023-09-19] MEDS ORDERED: Potassium Chloride 20 MEQ TAB PO SCH ×2 (00:45→11:15)
[2023-09-19] MEDS ORDERED: Calcium Carbonate 500 MG ChewTAB PO SCH (01:15)
[2023-09-19] MEDS: Ipratropium/Albuterol 3 ML NEB NEB SCH ×6 (01:51→22:30)
[2023-09-19 05:37] LABS: Phosphorus 1.9 mg/dL (2.3-4.7)
[2023-09-19 05:55] LABS: Anion Gap 16 mmol/L (10-20); BUN (Urea Nitrogen) 8 mg/dL (7.0-18.7); Calc. Creatinine Clearance 131 mL/min (70-130); Calcium 7.3 mg/dL (7.8-10.44); Carbon Dioxide 23 mmol/L (22-29); Chloride 102 mmol/L (98-107); Estimated GFR 113; Glucose 84 mg/dL (70-105); Magnesium 2.3 mg/dL (1.6-2.6); Potassium 2.8 mmol/L (3.5-5.1); Sodium 138 mmol/L (136-145)
[2023-09-19] MEDS: traMADol HCl 50 MG TAB PO PRN ×2 (05:59→20:15)
[2023-09-19] MEDS: Mometasone 200 MCG/Formoterol 5 MCG 120 PUFF INHALER INH SCH ×2 (07:31→18:52)
[2023-09-19] MEDS: Lactated Ringer's 1,000 ML IV SCH (08:31)
[2023-09-19] MEDS: methylPREDNISolone Sod Succ 40 MG VIAL IVP SCH ×2 (08:34→20:16)
[2023-09-19] MEDS: Acetaminophen 325 MG TAB PO PRN (08:38)
[2023-09-19] MEDS: Montelukast Sodium 10 mg Tablet PO SCH (08:39)
[2023-09-19] MEDS: Atorvastatin Calcium 40 MG TAB PO SCH (08:39)
[2023-09-19] MEDS: Amlodipine 10 MG TAB PO SCH (08:39)
[2023-09-19] MEDS: Hydrochlorothiazide 25 MG TAB PO SCH (08:40)
[2023-09-19] MEDS: Lisinopril 20 MG TAB PO SCH (08:40)
[2023-09-19] MEDS: metFORMIN 500 MG TAB PO SCH ×2 (08:41→17:59)
[2023-09-19] MEDS ORDERED: Non-Formulary Item 1 EACH (Tiotropium [Spiriva Handihaler] 18 MCG Box) INH SCH (09:00)
[2023-09-19 09:51] LABS: Lactic Acid 2.1 mmol/L (0.5-2.2)
[2023-09-19] MEDS ORDERED: PHOS-NAK 1 PKT PACK PO SCH ×2 (11:10→17:30)
[2023-09-19 16:53] LABS: #Monocytes 0.3 thou/uL (0.11-0.59); #Neutrophils 9.8 thou/uL (1.40-6.50); %Basophils 0.1 % (0.0-1.0); %Lymphocytes 8.2 % (21.0-51.0); %Monocytes 2.4 % (0.0-10.0); %Neutrophils 88.3 % (42.0-75.0); Hematocrit 29.6 % (36.0-47.0); Hemoglobin 9.1 g/dL (12.0-16.0); Mean Corpuscular HGB CONC 30.7 g/dL (32.0-36.0); Mean Corpuscular Hemoglobin 25.2 pg (27.0-31.0); Mean Platelet Volume 10.7 fL (7.4-10.4); Platelet Count 366 10x3/uL (130-400); RBC Distribution Width 21.6 % (11.5-14.5); Red Blood Cell (RBC) Count 3.61 mill/uL (4.20-5.40); White Blood Cell (WBC) Count 11.1 10x3/uL (4.8-10.8)
[2023-09-19 17:17] LABS: Anion Gap 15 mmol/L (10-20); BUN (Urea Nitrogen) 5 mg/dL (7.0-18.7); Calc. Creatinine Clearance 133 mL/min (70-130); Calcium 8.3 mg/dL (7.8-10.44); Carbon Dioxide 26 mmol/L (22-29); Chloride 101 mmol/L (98-107); Estimated GFR 114; Glucose 121 mg/dL (70-105); Phosphorus 2.1 mg/dL (2.3-4.7); Potassium 3.6 mmol/L (3.5-5.1); Sodium 138 mmol/L (136-145)
[2023-09-19] MEDS ORDERED: Ondansetron ODT 4 MG TAB PO PRN (21:31)
[2023-09-20] MEDS: Acetaminophen 325 MG TAB PO PRN (01:52)
[2023-09-20] MEDS: Ipratropium/Albuterol 3 ML NEB NEB SCH ×6 (02:37→23:48)
[2023-09-20 05:07] LABS: #Monocytes 0.4 thou/uL (0.11-0.59); #Neutrophils 7.8 thou/uL (1.40-6.50); %Basophils 0.1 % (0.0-1.0); %Lymphocytes 13.6 % (21.0-51.0); %Monocytes 4.5 % (0.0-10.0); %Neutrophils 80.8 % (42.0-75.0); Hematocrit 27.9 % (36.0-47.0); Hemoglobin 8.5 g/dL (12.0-16.0); Mean Corpuscular HGB CONC 30.5 g/dL (32.0-36.0); Mean Corpuscular Hemoglobin 24.9 pg (27.0-31.0); Mean Corpuscular Volume 81.6 fl (78.0-98.0); Mean Platelet Volume 11.3 fL (7.4-10.4); Platelet Count 363 10x3/uL (130-400); RBC Distribution Width 21.9 % (11.5-14.5); Red Blood Cell (RBC) Count 3.42 mill/uL (4.20-5.40); White Blood Cell (WBC) Count 9.7 10x3/uL (4.8-10.8)
[2023-09-20 07:22] LABS: Magnesium 1.9 mg/dL (1.6-2.6); Phosphorus 3.1 mg/dL (2.3-4.7)
[2023-09-20 07:50] LABS: Anion Gap 13 mmol/L (10-20); BUN (Urea Nitrogen) 5 mg/dL (7.0-18.7); Calc. Creatinine Clearance 158 mL/min (70-130); Calcium 8.2 mg/dL (7.8-10.44); Carbon Dioxide 27 mmol/L (22-29); Chloride 101 mmol/L (98-107); Estimated GFR 118; Glucose 106 mg/dL (70-105); Potassium 3.4 mmol/L (3.5-5.1); Sodium 138 mmol/L (136-145)
[2023-09-20] MEDS: Mometasone 200 MCG/Formoterol 5 MCG 120 PUFF INHALER INH SCH ×2 (07:59→19:15)
[2023-09-20] MEDS: traMADol HCl 50 MG TAB PO PRN ×3 (08:54→22:08)
[2023-09-20] MEDS: Atorvastatin Calcium 40 MG TAB PO SCH (08:58)
[2023-09-20] MEDS: Amlodipine 10 MG TAB PO SCH (08:58)
[2023-09-20] MEDS: methylPREDNISolone Sod Succ 40 MG VIAL IVP SCH ×2 (08:59→20:01)
[2023-09-20] MEDS: metFORMIN 500 MG TAB PO SCH ×2 (08:59→15:54)
[2023-09-20] MEDS: Hydrochlorothiazide 25 MG TAB PO SCH (08:59)
[2023-09-20] MEDS: Montelukast Sodium 10 mg Tablet PO SCH (08:59)
[2023-09-20] MEDS: Lisinopril 20 MG TAB PO SCH (09:00)
[2023-09-20] MEDS ORDERED: Ferrous Sulfate 325 MG TAB PO SCH (09:00)
[2023-09-20] MEDS ORDERED: Potassium Chloride 20 MEQ TAB PO SCH ×2 (11:00→16:15)
[2023-09-20] MEDS ORDERED: Magnesium 2 GM/50 ML(in water) 2 GM in Premix 1 BAG IVPB SCH ×2 (11:00→16:15)
[2023-09-21 05:48] LABS: #Monocytes 0.8 thou/uL (0.11-0.59); #Neutrophils 10.1 thou/uL (1.40-6.50); %Basophils 0.2 % (0.0-1.0); %Lymphocytes 13.3 % (21.0-51.0); %Monocytes 6.4 % (0.0-10.0); %Neutrophils 78.8 % (42.0-75.0); Hematocrit 29.5 % (36.0-47.0); Hemoglobin 8.8 g/dL (12.0-16.0); Mean Corpuscular HGB CONC 29.8 g/dL (32.0-36.0); Mean Corpuscular Hemoglobin 24.9 pg (27.0-31.0); Mean Corpuscular Volume 83.6 fl (78.0-98.0); Mean Platelet Volume 11.3 fL (7.4-10.4); Platelet Count 354 10x3/uL (130-400); RBC Distribution Width 21.9 % (11.5-14.5); Red Blood Cell (RBC) Count 3.53 mill/uL (4.20-5.40); White Blood Cell (WBC) Count 12.9 10x3/uL (4.8-10.8)
[2023-09-21 06:15] LABS: Anion Gap 13 mmol/L (10-20); BUN (Urea Nitrogen) 6 mg/dL (7.0-18.7); Calc. Creatinine Clearance 144 mL/min (70-130); Calcium 8.3 mg/dL (7.8-10.44); Carbon Dioxide 25 mmol/L (22-29); Chloride 102 mmol/L (98-107); Estimated GFR 116; Glucose 92 mg/dL (70-105); Magnesium 1.9 mg/dL (1.6-2.6); Potassium 3.9 mmol/L (3.5-5.1); Sodium 136 mmol/L (136-145)
[2023-09-21] MEDS: Mometasone 200 MCG/Formoterol 5 MCG 120 PUFF INHALER INH SCH (07:19)
[2023-09-21] MEDS: Ipratropium/Albuterol 3 ML NEB NEB SCH ×2 (07:21→12:52)
[2023-09-21] MEDS ORDERED: predniSONE 20 MG TAB PO SCH (09:00)
[2023-09-21] MEDS: Lisinopril 20 MG TAB PO SCH (09:01)
[2023-09-21] MEDS: metFORMIN 500 MG TAB PO SCH (09:02)
[2023-09-21] MEDS: Amlodipine 10 MG TAB PO SCH (09:02)
[2023-09-21] MEDS: Atorvastatin Calcium 40 MG TAB PO SCH (09:03)
[2023-09-21] MEDS: Hydrochlorothiazide 25 MG TAB PO SCH (09:03)
[2023-09-21] MEDS: Montelukast Sodium 10 mg Tablet PO SCH (09:03)
[2023-09-21] MEDS ORDERED: Magnesium 2 GM/50 ML(in water) 2 GM in Premix 1 BAG IVPB SCH (10:00)
[2023-09-21 11:18] VITALS: BP 137/82; TEMP 97.6
== END 2023-09-21 15:34 | disposition home or self-care (01) | DRG 202 ==
LOC: ERS 09:16 → 2SW 11:18 → OBSVTOIN 11:18
PROVIDERS: ADMIT Student in an Organized Health Care Education/Training Program; ATTEND Student in an Organized Health Care Education/Training Program
DX: J45.51 Severe persistent asthma with (acute) exacerbation (principal); E87.20 Acidosis, unspecified; I10 Essential (primary) hypertension; K57.90 Diverticulosis of intestine, part unspecified, without perforation or abscess without bleeding; E11.9 Type 2 diabetes mellitus without complications; F10.90 Alcohol use, unspecified, uncomplicated; E87.6 Hypokalemia; F31.9 Bipolar disorder, unspecified; Z79.899 Other long term (current) drug therapy; Z79.2 Long term (current) use of antibiotics; Z98.51 Tubal ligation status; Z98.890 Other specified postprocedural states; Z93.3 Colostomy status
CPT/HCPCS: 36415; 36416; 71045; 80048; 80053; 81001; 83605; 83735; 84100; 84484; 85025; 87040; 87086; 93005; 93010; 94640; 94644; 94664; 94760; 96365; 96366; 96368; 96375; 97139; J1650; J1815; J2920; J2930; J3475; J3480; J7120; J7512; J7611; J7620; Q0162

== ENCOUNTER 2023-10-28 09:43 | Inpatient (IN) | payer BC ==
[2023-10-28] MEDS ORDERED: Albuterol 2.5 MG (3 mL) NEB ONE (09:57)
[2023-10-28] MEDS ORDERED: Magnesium 2 GM/50 ML BAG (IN WATER) ONE (09:57)
[2023-10-28 10:32] LABS: ALT (SGPT) 24 U/L (8-55); AST (SGOT) 18 U/L (5-34); Albumin 3.7 g/dL (3.5-5.0); Alkaline Phosphatase 138 U/L (40-110); Anion Gap 13 mmol/L (10-20); BUN (Urea Nitrogen) 7 mg/dL (7.0-18.7); Bilirubin, Total 0.4 mg/dL (0.2-1.2); Calc. Creatinine Clearance 0 mL/min (70-130); Calcium 8.6 mg/dL (7.8-10.44); Carbon Dioxide 21 mmol/L (22-29); Chloride 109 mmol/L (98-107); Estimated GFR 114; Globulin 3.2 g/dL (2.4-3.5); Glucose 112 mg/dL (70-105); Protein, Total 6.9 g/dL (6.0-8.3); Sodium 140 mmol/L (136-145)
[2023-10-28 10:36] LABS: #Eosinphils 0.2 thou/uL (0.0-0.7); #Monocytes 0.7 thou/uL (0.11-0.59); #Neutrophils 7.8 thou/uL (1.40-6.50); %Basophils 0.2 % (0.0-1.0); %Eosinophils 1.6 % (0.0-10.0); %Lymphocytes 24.1 % (21.0-51.0); %Monocytes 6.3 % (0.0-10.0); %Neutrophils 67.5 % (42.0-75.0); Hemoglobin 10.1 g/dL (12.0-16.0); Mean Corpuscular HGB CONC 30.6 g/dL (32.0-36.0); Mean Corpuscular Hemoglobin 28.1 pg (27.0-31.0); Mean Corpuscular Volume 91.9 fl (78.0-98.0); Mean Platelet Volume 10.2 fL (7.4-10.4); Platelet Count 362 10x3/uL (130-400); RBC Distribution Width 19.6 % (11.5-14.5); Red Blood Cell (RBC) Count 3.59 mill/uL (4.20-5.40); White Blood Cell (WBC) Count 11.5 10x3/uL (4.8-10.8)
[2023-10-28] MEDS ORDERED: Ipratropium/Albuterol 3 ML NEB NEB PRN (12:14)
[2023-10-28] MEDS ORDERED: Ondansetron PF 4 MG/2 ML Vial IVP PRN (12:15)
[2023-10-28] MEDS ORDERED: Acetaminophen 325 MG TAB PO PRN (12:15)
[2023-10-28] MEDS ORDERED: Ondansetron ODT 4 MG TAB SL PRN (12:15)
[2023-10-28] MEDS ORDERED: Glucagon 1 MG/ML KIT IM PRN (13:06)
[2023-10-28] MEDS ORDERED: Dextrose 5% in Water 1,000 ML IV PRN (13:06)
[2023-10-28] MEDS ORDERED: Dextrose 50% Abboject 50 ML SYRINGE SLOW IVP PRN (13:06)
[2023-10-28] MEDS ORDERED: HumaLOG 300 UNITS/3 ML VIAL SC PRN (13:06)
[2023-10-28] MEDS ORDERED: Albuterol 2.5 MG (3 mL) NEB NEB PRN (13:10)
[2023-10-28 14:11] LABS: Magnesium 1.8 mg/dL (1.6-2.6); Phosphorus 3.6 mg/dL (2.3-4.7)
[2023-10-28] MEDS ORDERED: Hydrochlorothiazide 25 MG TAB PO SCH (14:30)
[2023-10-28] MEDS ORDERED: Albuterol 2.5 MG (3 mL) NEB NEB SCH (14:30)
[2023-10-28] MEDS ORDERED: Amlodipine 10 MG TAB PO SCH (14:30)
[2023-10-28] MEDS ORDERED: Lisinopril 20 MG TAB PO SCH (14:30)
[2023-10-28] MEDS ORDERED: Potassium Chloride 20 MEQ TAB PO SCH (14:30)
[2023-10-28 16:34] LABS: SARS-CoV-2 NAA Rapid Test Not Detected (NotDetected)
[2023-10-28] MEDS: metFORMIN 500 MG TAB PO SCH (17:27)
[2023-10-28] MEDS: Albuterol 2.5 MG (3 mL) NEB NEB SCH ×2 (18:30→23:05)
[2023-10-28] MEDS: Ipratropium Bromide 2.5 ml Neb NEB SCH ×2 (18:32→23:07)
[2023-10-28] MEDS: Mometasone 200 MCG/Formoterol 5 MCG 120 PUFF INHALER INH SCH (18:33)
[2023-10-28] MEDS ORDERED: hydrALAZINE 20 MG/ML VIAL SLOW IVP PRN (20:02)
[2023-10-28 21:18] VITALS: BMI 29.2
[2023-10-28] MEDS: Montelukast Sodium 10 mg Tablet PO SCH (21:27)
[2023-10-29] MEDS: Albuterol 2.5 MG (3 mL) NEB NEB SCH ×6 (02:02→22:40)
[2023-10-29 06:35] LABS: #Neutrophils 14.8 thou/uL (1.40-6.50); %Basophils 0.1 % (0.0-1.0); %Eosinophils 0.1 % (0.0-10.0); %Lymphocytes 8.5 % (21.0-51.0); %Monocytes 5.5 % (0.0-10.0); %Neutrophils 85.4 % (42.0-75.0); Hematocrit 31.4 % (36.0-47.0); Hemoglobin 9.9 g/dL (12.0-16.0); Mean Corpuscular HGB CONC 31.5 g/dL (32.0-36.0); Mean Corpuscular Hemoglobin 28.7 pg (27.0-31.0); Mean Platelet Volume 10.9 fL (7.4-10.4); Platelet Count 347 10x3/uL (130-400); RBC Distribution Width 19.4 % (11.5-14.5); Red Blood Cell (RBC) Count 3.45 mill/uL (4.20-5.40); White Blood Cell (WBC) Count 17.3 10x3/uL (4.8-10.8)
[2023-10-29] MEDS: Mometasone 200 MCG/Formoterol 5 MCG 120 PUFF INHALER INH SCH ×2 (06:44→19:15)
[2023-10-29] MEDS: Ipratropium Bromide 2.5 ml Neb NEB SCH ×4 (06:48→22:41)
[2023-10-29 06:58] LABS: ALT (SGPT) 19 U/L (8-55); AST (SGOT) 10 U/L (5-34); Albumin 3.6 g/dL (3.5-5.0); Alkaline Phosphatase 119 U/L (40-110); Anion Gap 11 mmol/L (10-20); BUN (Urea Nitrogen) 6 mg/dL (7.0-18.7); Bilirubin, Total 0.4 mg/dL (0.2-1.2); Calc. Creatinine Clearance 156 mL/min (70-130); Calcium 8.7 mg/dL (7.8-10.44); Carbon Dioxide 22 mmol/L (22-29); Chloride 106 mmol/L (98-107); Estimated GFR 118; Glucose 105 mg/dL (70-105); Potassium 3.1 mmol/L (3.5-5.1); Protein, Total 6.6 g/dL (6.0-8.3); Sodium 136 mmol/L (136-145)
[2023-10-29] MEDS ORDERED: Ferrous Sulfate 325 MG TAB PO SCH (08:00)
[2023-10-29] MEDS: metFORMIN 500 MG TAB PO SCH ×2 (08:04→17:32)
[2023-10-29] MEDS: Atorvastatin Calcium 40 MG TAB PO SCH (08:04)
[2023-10-29] MEDS: Lisinopril 20 MG TAB PO SCH (08:05)
[2023-10-29] MEDS: predniSONE 20 MG TAB PO SCH (08:05)
[2023-10-29] MEDS: Amlodipine 10 MG TAB PO SCH (08:05)
[2023-10-29] MEDS: Enoxaparin 40 MG (0.4 mL) SYRINGE SC SCH (08:05)
[2023-10-29] MEDS: Hydrochlorothiazide 25 MG TAB PO SCH (08:05)
[2023-10-29] MEDS ORDERED: Potassium Chloride 20 MEQ TAB PO SCH (10:30)
[2023-10-29] MEDS ORDERED: Magnesium 2 GM/50 ML(in water) 1 GM in Premix 1 BAG IVPB SCH (10:45)
[2023-10-29 11:36] LABS: Magnesium 1.9 mg/dL (1.6-2.6)
[2023-10-29] MEDS: HumaLOG 300 UNITS/3 ML VIAL SC PRN ×2 (13:00→17:32)
[2023-10-29 19:28] LABS: Magnesium 2.2 mg/dL (1.6-2.6)
[2023-10-29 19:29] LABS: Anion Gap 15 mmol/L (10-20); BUN (Urea Nitrogen) 8 mg/dL (7.0-18.7); Calc. Creatinine Clearance 124 mL/min (70-130); Calcium 9.6 mg/dL (7.8-10.44); Carbon Dioxide 23 mmol/L (22-29); Chloride 100 mmol/L (98-107); Estimated GFR 111; Glucose 163 mg/dL (70-105); Potassium 3.9 mmol/L (3.5-5.1); Sodium 134 mmol/L (136-145)
[2023-10-29] MEDS: Montelukast Sodium 10 mg Tablet PO SCH (20:38)
[2023-10-30] MEDS: Albuterol 2.5 MG (3 mL) NEB NEB SCH ×2 (02:16→06:40)
[2023-10-30 04:54] LABS: #Neutrophils 12.6 thou/uL (1.40-6.50); %Basophils 0.1 % (0.0-1.0); %Eosinophils 0.3 % (0.0-10.0); %Lymphocytes 11.8 % (21.0-51.0); %Monocytes 6.3 % (0.0-10.0); Mean Corpuscular HGB CONC 31.3 g/dL (32.0-36.0); Mean Corpuscular Hemoglobin 28.2 pg (27.0-31.0); Mean Corpuscular Volume 90.4 fl (78.0-98.0); Mean Platelet Volume 10.3 fL (7.4-10.4); Platelet Count 369 10x3/uL (130-400); RBC Distribution Width 19.5 % (11.5-14.5); Red Blood Cell (RBC) Count 3.54 mill/uL (4.20-5.40); White Blood Cell (WBC) Count 15.5 10x3/uL (4.8-10.8)
[2023-10-30 06:09] LABS: ALT (SGPT) 16 U/L (8-55); AST (SGOT) 9 U/L (5-34); Albumin 3.6 g/dL (3.5-5.0); Alkaline Phosphatase 106 U/L (40-110); Anion Gap 12 mmol/L (10-20); BUN (Urea Nitrogen) 10 mg/dL (7.0-18.7); Bilirubin, Total 0.3 mg/dL (0.2-1.2); Calc. Creatinine Clearance 131 mL/min (70-130); Calcium 8.6 mg/dL (7.8-10.44); Carbon Dioxide 22 mmol/L (22-29); Chloride 106 mmol/L (98-107); Estimated GFR 113; Globulin 3.2 g/dL (2.4-3.5); Glucose 91 mg/dL (70-105); Potassium 3.3 mmol/L (3.5-5.1); Protein, Total 6.8 g/dL (6.0-8.3); Sodium 137 mmol/L (136-145)
[2023-10-30] MEDS: Mometasone 200 MCG/Formoterol 5 MCG 120 PUFF INHALER INH SCH (06:36)
[2023-10-30] MEDS: Ipratropium Bromide 2.5 ml Neb NEB SCH ×2 (06:39→12:32)
[2023-10-30] MEDS ORDERED: Albuterol 2.5 MG (3 mL) NEB NEB PRN (07:36)
[2023-10-30] MEDS: Enoxaparin 40 MG (0.4 mL) SYRINGE SC SCH (08:35)
[2023-10-30] MEDS: Lisinopril 20 MG TAB PO SCH (08:35)
[2023-10-30] MEDS: Amlodipine 10 MG TAB PO SCH (08:36)
[2023-10-30] MEDS: predniSONE 20 MG TAB PO SCH (08:36)
[2023-10-30] MEDS: Atorvastatin Calcium 40 MG TAB PO SCH (08:36)
[2023-10-30] MEDS: Hydrochlorothiazide 25 MG TAB PO SCH (08:36)
[2023-10-30] MEDS: metFORMIN 500 MG TAB PO SCH (08:36)
[2023-10-30] MEDS ORDERED: Potassium Chloride 20 MEQ TAB PO SCH (09:15)
[2023-10-30] MEDS ORDERED: Albuterol 2.5 MG (3 mL) NEB NEB SCH (13:00)
[2023-10-30 14:43] VITALS: BP 129/81; TEMP 98.2
== END 2023-10-30 16:12 | disposition home or self-care (01) | DRG 203 ==
LOC: ERS 09:43 → MSONC 12:06 → OBSVTOIN 10-29 09:01
PROVIDERS: ADMIT Family Medicine; ATTEND Family Medicine
DX: J45.901 Unspecified asthma with (acute) exacerbation (principal); D72.829 Elevated white blood cell count, unspecified; E87.6 Hypokalemia; I10 Essential (primary) hypertension; E78.5 Hyperlipidemia, unspecified; K57.90 Diverticulosis of intestine, part unspecified, without perforation or abscess without bleeding; E11.9 Type 2 diabetes mellitus without complications; Z98.51 Tubal ligation status; Z98.890 Other specified postprocedural states; Z83.3 Family history of diabetes mellitus; Z82.49 Family history of ischemic heart disease and other diseases of the circulatory system; Z79.899 Other long term (current) drug therapy; Z79.84 Long term (current) use of oral hypoglycemic drugs; F41.9 Anxiety disorder, unspecified; F31.9 Bipolar disorder, unspecified; Z93.3 Colostomy status; Z11.52 Encounter for screening for COVID-19
CPT/HCPCS: 36415; 36416; 71045; 80053; 83605; 83735; 84100; 84145; 85025; 93005; 94640; 94644; 94760; 96365; 96372; G0378; J1650; J1815; J3475; J7512; J7611; J7620

== ENCOUNTER 2023-11-12 18:18 | Observation (INO) | payer BC ==
[2023-11-12 18:59] LABS: #Eosinphils 0.3 thou/uL (0.0-0.7); #Monocytes 0.7 thou/uL (0.11-0.59); #Neutrophils 7.5 thou/uL (1.40-6.50); %Basophils 0.3 % (0.0-1.0); %Eosinophils 2.3 % (0.0-10.0); %Lymphocytes 20.2 % (21.0-51.0); %Monocytes 6.5 % (0.0-10.0); %Neutrophils 70.3 % (42.0-75.0); Hematocrit 33.2 % (36.0-47.0); Hemoglobin 10.4 g/dL (12.0-16.0); Mean Corpuscular HGB CONC 31.3 g/dL (32.0-36.0); Mean Corpuscular Hemoglobin 28.2 pg (27.0-31.0); Mean Platelet Volume 10.4 fL (7.4-10.4); Platelet Count 392 10x3/uL (130-400); RBC Distribution Width 19.5 % (11.5-14.5); Red Blood Cell (RBC) Count 3.69 mill/uL (4.20-5.40); White Blood Cell (WBC) Count 10.6 10x3/uL (4.8-10.8)
[2023-11-12 19:23] LABS: ALT (SGPT) 14 U/L (8-55); AST (SGOT) 12 U/L (5-34); Albumin 3.5 g/dL (3.5-5.0); Alkaline Phosphatase 130 U/L (40-110); Anion Gap 14 mmol/L (10-20); BUN (Urea Nitrogen) 7 mg/dL (7.0-18.7); Bilirubin, Total 0.3 mg/dL (0.2-1.2); Calc. Creatinine Clearance 0 mL/min (70-130); Carbon Dioxide 22 mmol/L (22-29); Chloride 107 mmol/L (98-107); Estimated GFR 113; Globulin 3.2 g/dL (2.4-3.5); Glucose 97 mg/dL (70-105); Magnesium 1.6 mg/dL (1.6-2.6); Protein, Total 6.7 g/dL (6.0-8.3); Sodium 140 mmol/L (136-145)
[2023-11-12 19:26] LABS: Troponin I 0.013 ng/mL (< 0.028)
[2023-11-12] MEDS ORDERED: Ipratropium/Albuterol 3 ML NEB ONE (19:27)
[2023-11-12] MEDS ORDERED: Potassium Chloride 20 MEQ TAB ONE (20:05)
[2023-11-12] MEDS ORDERED: Magnesium 2 GM/50 ML BAG (IN WATER) ONE (20:06)
[2023-11-12] MEDS ORDERED: methylPREDNISolone Sod Succ 40 MG VIAL ONE (20:06)
[2023-11-12] MEDS ORDERED: Albuterol 2.5 MG (0.5 mL) NEB ONE (20:41)
[2023-11-13] MEDS ORDERED: Albuterol 2.5 MG (0.5 mL) NEB ONE (01:10)
== END 2023-11-13 02:49 | disposition home or self-care (01) ==
LOC: ERS 18:18 → ERHOLD 11-13 01:59
PROVIDERS: ADMIT Emergency Medicine; ATTEND Emergency Medicine
DX: J45.51 Severe persistent asthma with (acute) exacerbation (principal); R06.02 Shortness of breath; I10 Essential (primary) hypertension; E78.5 Hyperlipidemia, unspecified; E66.9 Obesity, unspecified; E11.9 Type 2 diabetes mellitus without complications; K57.90 Diverticulosis of intestine, part unspecified, without perforation or abscess without bleeding; Z98.51 Tubal ligation status; Z79.899 Other long term (current) drug therapy
CPT/HCPCS: 36415; 71045; 80053; 83735; 83880; 84145; 84484; 85025; 93005; 94640; 96365; 96375; J2920; J3475; J7611; J7620

== ENCOUNTER 2023-11-23 23:54 | Inpatient (IN) | payer BC ==
[2023-11-24] MEDS ORDERED: Ipratropium/Albuterol 3 ML NEB ONE ×5 (00:14→22:55)
[2023-11-24] MEDS ORDERED: Dexamethasone 10 MG/ML VIAL ONE (00:22)
[2023-11-24] MEDS ORDERED: Magnesium 2 GM/50 ML BAG (IN WATER) ONE (00:22)
[2023-11-24 02:44] LABS: #Eosinphils 0.1 thou/uL (0.0-0.7); #Monocytes 0.2 thou/uL (0.11-0.59); #Neutrophils 7.3 thou/uL (1.40-6.50); %Basophils 0.3 % (0.0-1.0); %Eosinophils 1.5 % (0.0-10.0); %Lymphocytes 14.2 % (21.0-51.0); %Monocytes 2.2 % (0.0-10.0); %Neutrophils 81.5 % (42.0-75.0); Hematocrit 33.7 % (36.0-47.0); Hemoglobin 10.4 g/dL (12.0-16.0); Mean Corpuscular HGB CONC 30.9 g/dL (32.0-36.0); Mean Corpuscular Hemoglobin 27.2 pg (27.0-31.0); Mean Platelet Volume 10.1 fL (7.4-10.4); Platelet Count 405 10x3/uL (130-400); RBC Distribution Width 19.3 % (11.5-14.5); Red Blood Cell (RBC) Count 3.83 mill/uL (4.20-5.40); White Blood Cell (WBC) Count 8.9 10x3/uL (4.8-10.8)
[2023-11-24 03:10] LABS: ALT (SGPT) 17 U/L (8-55); AST (SGOT) 12 U/L (5-34); Albumin 3.7 g/dL (3.5-5.0); Alkaline Phosphatase 134 U/L (40-110); Anion Gap 16 mmol/L (10-20); BUN (Urea Nitrogen) 11 mg/dL (7.0-18.7); Bilirubin, Total Less than 0.2 mg/dL (0.2-1.2); Calc. Creatinine Clearance 0 mL/min (70-130); Calcium 7.7 mg/dL (7.8-10.44); Carbon Dioxide 20 mmol/L (22-29); Chloride 110 mmol/L (98-107); Estimated GFR 106; Globulin 3.2 g/dL (2.4-3.5); Glucose 137 mg/dL (70-105); Potassium 3.3 mmol/L (3.5-5.1); Protein, Total 6.9 g/dL (6.0-8.3); Sodium 143 mmol/L (136-145)
[2023-11-24] MEDS ORDERED: Guaifenesin DM 100-10/5 ML UDCUP PO PRN (04:50)
[2023-11-24] MEDS ORDERED: Ondansetron PF 4 MG/2 ML Vial IVP PRN (04:50)
[2023-11-24] MEDS ORDERED: Acetaminophen 650 MG Suppository PR PRN (04:50)
[2023-11-24] MEDS ORDERED: Ipratropium/Albuterol 3 ML NEB NEB PRN (04:53)
[2023-11-24] MEDS ORDERED: HumaLOG 300 UNITS/3 ML VIAL SC PRN ×2 (05:33)
[2023-11-24] MEDS ORDERED: Dextrose 5% in Water 1,000 ML IV PRN (05:33)
[2023-11-24] MEDS ORDERED: Dextrose 50% Abboject 50 ML SYRINGE SLOW IVP PRN (05:33)
[2023-11-24] MEDS ORDERED: Glucagon 1 MG/ML KIT IM PRN (05:33)
[2023-11-24 06:03] VITALS: BMI 32.9
[2023-11-24] MEDS ORDERED: Potassium Chloride 20 MEQ TAB ONE (06:14)
[2023-11-24] MEDS ORDERED: Atorvastatin Calcium 40 MG TAB ONE (06:14)
[2023-11-24] MEDS ORDERED: Lisinopril 20 MG TAB ONE (06:15)
[2023-11-24] MEDS ORDERED: Amlodipine 5 MG TAB ONE (06:17)
[2023-11-24] MEDS: Potassium Chloride 20 MEQ TAB PO SCH (06:18)
[2023-11-24] MEDS: Amlodipine 10 MG TAB PO SCH (06:19)
[2023-11-24] MEDS: Ferrous Sulfate 325 MG TAB PO SCH (06:20)
[2023-11-24] MEDS: Lisinopril 20 MG TAB PO SCH (06:20)
[2023-11-24] MEDS: Atorvastatin Calcium 40 MG TAB PO SCH (06:20)
[2023-11-24] MEDS: Ipratropium/Albuterol 3 ML NEB NEB SCH (06:21)
[2023-11-24] MEDS: Hydrochlorothiazide 25 MG TAB PO SCH (06:22)
[2023-11-24 06:46] LABS: Influenza A by NAA Not Detected (NotDetected); Influenza B by NAA Not Detected (NotDetected); RSV by NAA Not Detected (NotDetected); SARS-CoV-2 NAA Rapid Test Not Detected (NotDetected)
[2023-11-24] MEDS: Montelukast Sodium 10 mg Tablet PO SCH (09:40)
[2023-11-24] MEDS: metFORMIN 500 MG TAB PO SCH (09:40)
[2023-11-24] MEDS: Enoxaparin 40 MG (0.4 mL) SYRINGE SC SCH (09:40)
[2023-11-24] MEDS: Mometasone 200 MCG/Formoterol 5 MCG 120 PUFF INHALER INH SCH (09:55)
[2023-11-24] MEDS ORDERED: Enoxaparin 40 MG (0.4 mL) SYRINGE ONE (09:57)
[2023-11-24] MEDS ORDERED: predniSONE 20 MG TAB ONE (09:57)
[2023-11-24] MEDS: prednisoLONE 10 MG ODT TAB PO SCH (10:35)
[2023-11-24] MEDS: Ondansetron ODT 4 MG TAB PO PRN (16:04)
[2023-11-24] MEDS: Acetaminophen 325 MG TAB PO PRN (18:58)
[2023-11-25] MEDS: traMADol HCl 50 MG TAB PO PRN (01:51)
[2023-11-25 05:25] LABS: #Monocytes 1.2 thou/uL (0.11-0.59); #Neutrophils 13.2 thou/uL (1.40-6.50); %Basophils 0.1 % (0.0-1.0); %Lymphocytes 7.2 % (21.0-51.0); %Monocytes 7.4 % (0.0-10.0); %Neutrophils 84.9 % (42.0-75.0); Hematocrit 34.1 % (36.0-47.0); Hemoglobin 10.4 g/dL (12.0-16.0); Mean Corpuscular HGB CONC 30.5 g/dL (32.0-36.0); Mean Corpuscular Hemoglobin 27.1 pg (27.0-31.0); Mean Corpuscular Volume 88.8 fl (78.0-98.0); Mean Platelet Volume 10.2 fL (7.4-10.4); Platelet Count 416 10x3/uL (130-400); RBC Distribution Width 19.2 % (11.5-14.5); Red Blood Cell (RBC) Count 3.84 mill/uL (4.20-5.40); White Blood Cell (WBC) Count 15.6 10x3/uL (4.8-10.8)
[2023-11-25 05:58] LABS: ALT (SGPT) 12 U/L (8-55); AST (SGOT) 8 U/L (5-34); Albumin 3.8 g/dL (3.5-5.0); Alkaline Phosphatase 124 U/L (40-110); Anion Gap 10 mmol/L (10-20); BUN (Urea Nitrogen) 11 mg/dL (7.0-18.7); Bilirubin, Total 0.5 mg/dL (0.2-1.2); Calc. Creatinine Clearance 140 mL/min (70-130); Carbon Dioxide 27 mmol/L (22-29); Chloride 103 mmol/L (98-107); Estimated GFR 111; Glucose 110 mg/dL (70-105); Potassium 3.6 mmol/L (3.5-5.1); Protein, Total 6.8 g/dL (6.0-8.3); Sodium 136 mmol/L (136-145)
[2023-11-25] MEDS: Potassium Chloride 20 MEQ TAB PO SCH (09:54)
[2023-11-25] MEDS: Ipratropium/Albuterol 3 ML NEB NEB SCH (19:19)
[2023-11-26 06:01] LABS: #Eosinphils 0.1 thou/uL (0.0-0.7); #Monocytes 0.9 thou/uL (0.11-0.59); #Neutrophils 12.5 thou/uL (1.40-6.50); %Basophils 0.1 % (0.0-1.0); %Eosinophils 0.3 % (0.0-10.0); %Lymphocytes 12.4 % (21.0-51.0); %Monocytes 5.8 % (0.0-10.0); %Neutrophils 80.9 % (42.0-75.0); Hematocrit 35.3 % (36.0-47.0); Hemoglobin 10.7 g/dL (12.0-16.0); Mean Corpuscular HGB CONC 30.3 g/dL (32.0-36.0); Mean Corpuscular Hemoglobin 26.7 pg (27.0-31.0); Mean Platelet Volume 10.4 fL (7.4-10.4); Platelet Count 425 10x3/uL (130-400); RBC Distribution Width 19.2 % (11.5-14.5); Red Blood Cell (RBC) Count 4.01 mill/uL (4.20-5.40); White Blood Cell (WBC) Count 15.5 10x3/uL (4.8-10.8)
[2023-11-26 06:36] LABS: ALT (SGPT) 12 U/L (8-55); AST (SGOT) 7 U/L (5-34); Albumin 3.6 g/dL (3.5-5.0); Alkaline Phosphatase 102 U/L (40-110); Anion Gap 12 mmol/L (10-20); BUN (Urea Nitrogen) 16 mg/dL (7.0-18.7); Bilirubin, Total 0.2 mg/dL (0.2-1.2); Calc. Creatinine Clearance 146 mL/min (70-130); Calcium 8.9 mg/dL (7.8-10.44); Carbon Dioxide 23 mmol/L (22-29); Chloride 103 mmol/L (98-107); Estimated GFR 112; Globulin 3.1 g/dL (2.4-3.5); Glucose 79 mg/dL (70-105); Potassium 3.7 mmol/L (3.5-5.1); Protein, Total 6.7 g/dL (6.0-8.3); Sodium 134 mmol/L (136-145)
[2023-11-26 11:50] VITALS: BP 137/82; TEMP 98.2
== END 2023-11-26 13:49 | disposition home or self-care (01) | DRG 189 ==
LOC: ERS 23:54 → ERHOLD 11-24 04:52 → SURG B 11-24 04:57 → OBSVTOIN 11-26 10:12
PROVIDERS: ADMIT Student in an Organized Health Care Education/Training Program; ATTEND Student in an Organized Health Care Education/Training Program
DX: J96.01 Acute respiratory failure with hypoxia (principal); J45.901 Unspecified asthma with (acute) exacerbation; E87.1 Hypo-osmolality and hyponatremia; E78.5 Hyperlipidemia, unspecified; I10 Essential (primary) hypertension; E11.9 Type 2 diabetes mellitus without complications; F41.9 Anxiety disorder, unspecified; F31.9 Bipolar disorder, unspecified; Z98.51 Tubal ligation status; Z98.890 Other specified postprocedural states; Z79.84 Long term (current) use of oral hypoglycemic drugs; Z79.51 Long term (current) use of inhaled steroids; Z79.899 Other long term (current) drug therapy; Z11.52 Encounter for screening for COVID-19
CPT/HCPCS: 0241U; 36415; 36416; 71045; 80053; 85025; 93005; 94640; 94760; 96361; 96365; 96372; G0378; J1100; J1650; J3475; J7512; J7620; Q0162

== ENCOUNTER 2023-11-30 15:57 | Inpatient (IN) | payer BC ==
[2023-11-30 16:16] LABS: #Eosinphils 0.2 thou/uL (0.0-0.7); #Monocytes 0.8 thou/uL (0.11-0.59); #Neutrophils 9.9 thou/uL (1.40-6.50); %Basophils 0.3 % (0.0-1.0); %Eosinophils 1.5 % (0.0-10.0); %Lymphocytes 10.8 % (21.0-51.0); %Monocytes 6.8 % (0.0-10.0); %Neutrophils 80.1 % (42.0-75.0); Hematocrit 34.3 % (36.0-47.0); Hemoglobin 10.8 g/dL (12.0-16.0); Mean Corpuscular HGB CONC 31.5 g/dL (32.0-36.0); Mean Corpuscular Hemoglobin 27.6 pg (27.0-31.0); Mean Corpuscular Volume 87.5 fl (78.0-98.0); Mean Platelet Volume 10.1 fL (7.4-10.4); Platelet Count 379 10x3/uL (130-400); RBC Distribution Width 19.1 % (11.5-14.5); Red Blood Cell (RBC) Count 3.92 mill/uL (4.20-5.40); White Blood Cell (WBC) Count 12.4 10x3/uL (4.8-10.8)
[2023-11-30 16:49] LABS: ALT (SGPT) 33 U/L (8-55); AST (SGOT) 36 U/L (5-34); Albumin 4.1 g/dL (3.5-5.0); Alkaline Phosphatase 113 U/L (40-110); Anion Gap 16 mmol/L (10-20); BUN (Urea Nitrogen) 15 mg/dL (7.0-18.7); Bilirubin, Total 0.3 mg/dL (0.2-1.2); Calc. Creatinine Clearance 0 mL/min (70-130); Calcium 8.5 mg/dL (7.8-10.44); Carbon Dioxide 20 mmol/L (22-29); Chloride 106 mmol/L (98-107); Estimated GFR 108; Glucose 104 mg/dL (70-105); Potassium 3.5 mmol/L (3.5-5.1); Protein, Total 7.1 g/dL (6.0-8.3); Sodium 138 mmol/L (136-145)
[2023-11-30 16:55] LABS: Troponin I Less than 0.010 ng/mL (< 0.028)
[2023-11-30] MEDS ORDERED: Albuterol 2.5 MG (3 mL) NEB ONE ×2 (16:56→18:03)
[2023-11-30 17:00] LABS: Magnesium 1.5 mg/dL (1.6-2.6)
[2023-11-30] MEDS ORDERED: Magnesium 2 GM/50 ML BAG (IN WATER) ONE (17:14)
[2023-11-30] MEDS ORDERED: Dexamethasone 10 MG/ML VIAL ONE (17:14)
[2023-11-30 17:34] LABS: Influenza A by NAA Not Detected (NotDetected); Influenza B by NAA Not Detected (NotDetected); SARS-CoV-2 NAA Rapid Test Not Detected (NotDetected)
[2023-11-30] MEDS ORDERED: Azithromycin 500 MG VIAL ONE (17:52)
[2023-11-30] MEDS ORDERED: Sodium Chloride 0.9% 100 ML ONE (17:52)
[2023-11-30] MEDS ORDERED: cefTRIAXone (ROCEPHIN) 2 GM VIAL ONE (17:52)
[2023-11-30] MEDS ORDERED: Acetaminophen 325 MG TAB ONE (18:16)
[2023-11-30] MEDS ORDERED: Acetaminophen 325 MG TAB PO PRN (19:28)
[2023-11-30] MEDS ORDERED: Ondansetron ODT 4 MG TAB PO PRN (19:28)
[2023-11-30] MEDS ORDERED: Acetaminophen 650 MG Suppository PR PRN (19:28)
[2023-11-30 19:38] LABS: Actual Bicarbonate (HCO3a) 20.3 mEq/L (22-28); Analyzer IN Cardio ER; Base Excess (BEa) -3.9 mEq/L (-2.0 to +3.0); Calcium, Ionized (arterial) 1.07 mmol/L (1.12-1.30); Hematocrit-ABG 32 % (36.0-47.0); Hemoglobin (Hb) 10.9 g/dL (12.0-16.0); O2 Tension (PaO2), arterial 81.7 mmHg (80.0-100.0); Potassium - ABG Lab 3.44 mmol/L (3.70-5.30); pH, Arterial 7.394 (7.35-7.45)
[2023-11-30] MEDS ORDERED: Albuterol 200 PUFF (6.7GM INHALER) INH PRN (19:44)
[2023-11-30 20:02] LABS: Puncture Site RRA
[2023-11-30 20:29] LABS: Bacteria/HPF Rare-Few HPF (None Seen); Bilirubin Negative (Negative); Blood, Urine 2+ (Negative); CAUTI Indications for Culture Fever or rigors; Clarity Clear (Clear); Glucose, Urine (Dipstick) Normal (Negative); Ketone, Urine Negative (Negative); Leukocyte Negative Leu/uL (Negative); Nitrite Negative (Negative); Protein, Urine (Dipstick) Negative (Neg-Trace); RBC/HPF None Seen HPF (0-3); Specific Gravity, Urine 1.014 (1.002-1.036); Urine Culture Reflex No No; Urobilinogen Normal mg/dL (Less than 2); WBC/HPF 0-3 HPF (0-3); pH, Urine 6.5 (5.0-9.0)
[2023-11-30 20:47] LABS: Lactic Acid 3.1 mmol/L (0.5-2.2)
[2023-11-30 22:17] VITALS: BMI 31.1
[2023-11-30] MEDS: metFORMIN 500 MG TAB PO SCH (22:34)
[2023-11-30] MEDS: Ipratropium/Albuterol 3 ML NEB NEB SCH (22:34)
[2023-11-30] MEDS: Lactated Ringer's 1,000 ML IV SCH (22:34)
[2023-11-30] MEDS: Lactated Ringer's 250 ML IV SCH (22:35)
[2023-12-01] MEDS ORDERED: HumaLOG 300 UNITS/3 ML VIAL SC PRN ×2 (00:28)
[2023-12-01] MEDS ORDERED: Dextrose 50% Abboject 50 ML SYRINGE SLOW IVP PRN (00:28)
[2023-12-01] MEDS ORDERED: Glucagon 1 MG/ML KIT IM PRN (00:28)
[2023-12-01] MEDS ORDERED: Dextrose 5% in Water 1,000 ML IV PRN (00:28)
[2023-12-01] MEDS: Guaifenesin DM 100-10/5 ML UDCUP PO PRN (02:17)
[2023-12-01 04:04] LABS: #Monocytes 0.1 thou/uL (0.11-0.59); #Neutrophils 11.4 thou/uL (1.40-6.50); %Basophils 0.1 % (0.0-1.0); %Lymphocytes 2.9 % (21.0-51.0); %Monocytes 0.9 % (0.0-10.0); %Neutrophils 95.5 % (42.0-75.0); Hematocrit 30.2 % (36.0-47.0); Hemoglobin 9.5 g/dL (12.0-16.0); Mean Corpuscular HGB CONC 31.5 g/dL (32.0-36.0); Mean Corpuscular Hemoglobin 27.5 pg (27.0-31.0); Mean Corpuscular Volume 87.3 fl (78.0-98.0); Mean Platelet Volume 10.4 fL (7.4-10.4); Platelet Count 322 10x3/uL (130-400); RBC Distribution Width 18.6 % (11.5-14.5); Red Blood Cell (RBC) Count 3.46 mill/uL (4.20-5.40)
[2023-12-01] MEDS: Lactated Ringer's 1,000 ML IV SCH ×2 (04:17)
[2023-12-01 04:27] LABS: Lactic Acid 2.8 mmol/L (0.5-2.2)
[2023-12-01 04:33] LABS: ALT (SGPT) 29 U/L (8-55); AST (SGOT) 23 U/L (5-34); Albumin 3.8 g/dL (3.5-5.0); Alkaline Phosphatase 113 U/L (40-110); Anion Gap 14 mmol/L (10-20); BUN (Urea Nitrogen) 11 mg/dL (7.0-18.7); Bilirubin, Total 0.5 mg/dL (0.2-1.2); Calc. Creatinine Clearance 140 mL/min (70-130); Calcium 8.2 mg/dL (7.8-10.44); Carbon Dioxide 19 mmol/L (22-29); Chloride 104 mmol/L (98-107); Estimated GFR 113; Globulin 2.8 g/dL (2.4-3.5); Glucose 106 mg/dL (70-105); Potassium 4.1 mmol/L (3.5-5.1); Protein, Total 6.6 g/dL (6.0-8.3); Sodium 133 mmol/L (136-145)
[2023-12-01] MEDS: Mometasone 200 MCG/Formoterol 5 MCG 120 PUFF INHALER INH SCH (07:27)
[2023-12-01] MEDS ORDERED: Non-Formulary Item 1 EACH (Tiotropium [Spiriva Handihaler] 18 MCG Box) INH SCH (09:00)
[2023-12-01] MEDS ORDERED: Pantoprazole 40 MG VIAL IVP SCH (09:00)
[2023-12-01] MEDS: Enoxaparin 40 MG (0.4 mL) SYRINGE SC SCH (09:06)
[2023-12-01] MEDS: Amlodipine 10 MG TAB PO SCH (09:07)
[2023-12-01] MEDS: Ferrous Sulfate 325 MG TAB PO SCH (09:07)
[2023-12-01] MEDS: Benzonatate 100 MG CAP PO SCH (09:07)
[2023-12-01] MEDS: Atorvastatin Calcium 40 MG TAB PO SCH (09:07)
[2023-12-01] MEDS: Lisinopril 20 MG TAB PO SCH (09:08)
[2023-12-01] MEDS: Hydrochlorothiazide 25 MG TAB PO SCH (09:08)
[2023-12-01] MEDS: Montelukast Sodium 10 mg Tablet PO SCH (09:08)
[2023-12-01] MEDS: predniSONE 20 MG TAB PO SCH (09:08)
[2023-12-01] MEDS: traMADol HCl 50 MG TAB PO PRN (14:10)
[2023-12-01] MEDS: Furosemide 40 MG (4 mL) VIAL SLOW IVP SCH (17:09)
[2023-12-01] MEDS: Budesonide 0.5 MG/2 ML NEB INH SCH (18:56)
[2023-12-01] MEDS: Ipratropium/Albuterol 3 ML NEB NEB PRN (18:58)
[2023-12-01] MEDS: methylPREDNISolone Sod Succ 40 MG VIAL IVP SCH (20:21)
[2023-12-01] MEDS: Albuterol 1.25 MG (3 mL) NEB NEB SCH (21:44)
[2023-12-02 05:10] LABS: #Monocytes 0.3 thou/uL (0.11-0.59); #Neutrophils 9.2 thou/uL (1.40-6.50); %Lymphocytes 6.2 % (21.0-51.0); %Neutrophils 90.4 % (42.0-75.0); Hematocrit 33.5 % (36.0-47.0); Hemoglobin 10.2 g/dL (12.0-16.0); Mean Corpuscular HGB CONC 30.4 g/dL (32.0-36.0); Mean Corpuscular Hemoglobin 26.7 pg (27.0-31.0); Mean Corpuscular Volume 87.7 fl (78.0-98.0); Mean Platelet Volume 10.5 fL (7.4-10.4); Platelet Count 318 10x3/uL (130-400); RBC Distribution Width 18.6 % (11.5-14.5); Red Blood Cell (RBC) Count 3.82 mill/uL (4.20-5.40); White Blood Cell (WBC) Count 10.2 10x3/uL (4.8-10.8)
[2023-12-02 05:47] LABS: ALT (SGPT) 23 U/L (8-55); AST (SGOT) 11 U/L (5-34); Albumin 3.8 g/dL (3.5-5.0); Alkaline Phosphatase 106 U/L (40-110); Anion Gap 16 mmol/L (10-20); BUN (Urea Nitrogen) 13 mg/dL (7.0-18.7); Bilirubin, Total 0.3 mg/dL (0.2-1.2); Calc. Creatinine Clearance 129 mL/min (70-130); Calcium 9.1 mg/dL (7.8-10.44); Carbon Dioxide 23 mmol/L (22-29); Chloride 100 mmol/L (98-107); Estimated GFR 111; Globulin 3.1 g/dL (2.4-3.5); Glucose 143 mg/dL (70-105); Potassium 4.2 mmol/L (3.5-5.1); Protein, Total 6.9 g/dL (6.0-8.3); Sodium 135 mmol/L (136-145)
[2023-12-02] MEDS: Ipratropium/Albuterol 3 ML NEB NEB SCH (13:32)
[2023-12-02] MEDS ORDERED: Albuterol 1.25 MG (3 mL) NEB NEB SCH (14:30)
[2023-12-03 05:44] LABS: ALT (SGPT) 20 U/L (8-55); AST (SGOT) 7 U/L (5-34); Albumin 3.9 g/dL (3.5-5.0); Alkaline Phosphatase 95 U/L (40-110); Anion Gap 18 mmol/L (10-20); BUN (Urea Nitrogen) 22 mg/dL (7.0-18.7); Bilirubin, Total 0.2 mg/dL (0.2-1.2); Calc. Creatinine Clearance 113 mL/min (70-130); Carbon Dioxide 22 mmol/L (22-29); Chloride 101 mmol/L (98-107); Estimated GFR 100; Glucose 121 mg/dL (70-105); Protein, Total 6.9 g/dL (6.0-8.3); Sodium 137 mmol/L (136-145)
[2023-12-03] MEDS: Ondansetron PF 4 MG/2 ML Vial IVP PRN (07:41)
[2023-12-03] MEDS: Hydrochlorothiazide 25 MG TAB PO SCH (08:27)
[2023-12-03] MEDS: Guaifenesin DM 100-10/5 ML UDCUP PO SCH (10:22)
[2023-12-03] MEDS: Loratadine 10 MG TAB PO SCH (11:28)
[2023-12-03 16:31] VITALS: BP 138/77; TEMP 97.9
[2023-12-03] MEDS: predniSONE 20 MG TAB PO SCH (18:30)
[2023-12-03] MEDS ORDERED: methylPREDNISolone Sod Succ 40 MG VIAL IVP SCH (21:00)
[2023-12-04] MEDS ORDERED: Loratadine 10 MG TAB PO SCH (09:00)
== END 2023-12-03 18:40 | disposition home or self-care (01) | DRG 189 ==
LOC: ERS 15:57 → 2SW 19:34 → OBSVTOIN 12-03 09:43
PROVIDERS: ADMIT Family Medicine; ATTEND Family Medicine
PROC: 4A033R1 Measurement of Arterial Saturation, Peripheral, Percutaneous Approach (ICD-10-PCS; principal; 2023-11-30)
DX: J96.01 Acute respiratory failure with hypoxia (principal); J45.901 Unspecified asthma with (acute) exacerbation; K57.92 Diverticulitis of intestine, part unspecified, without perforation or abscess without bleeding; D72.829 Elevated white blood cell count, unspecified; I10 Essential (primary) hypertension; E78.5 Hyperlipidemia, unspecified; F41.9 Anxiety disorder, unspecified; E11.9 Type 2 diabetes mellitus without complications; F31.9 Bipolar disorder, unspecified; Z79.84 Long term (current) use of oral hypoglycemic drugs; Z79.899 Other long term (current) drug therapy; Z98.51 Tubal ligation status; Z98.890 Other specified postprocedural states; E83.42 Hypomagnesemia; E66.9 Obesity, unspecified
CPT/HCPCS: 36415; 36416; 36600; 71045; 80053; 81001; 82805; 83605; 83735; 83880; 84145; 84484; 85025; 87040; 87633; 93005; 94640; 94760; 96365; 96366; 96368; 96372; 96375; 96376; G0378; J0456; J0696; J1100; J1650; J1940; J2405; J2920; J3475; J3490; J7120; J7512; J7611; J7620; J7626

== ENCOUNTER 2024-02-13 09:49 | Outpatient (CLI) | payer BC | END 2024-02-13 09:50 | disposition home or self-care (01) | LOC: RAD 09:49 | PROVIDERS: ATTEND Surgery | DX: D41.00 Neoplasm of uncertain behavior of unspecified kidney (principal) | CPT/HCPCS: 71046 ==

== ENCOUNTER 2024-03-14 11:06 | Outpatient (CLI) | payer BC | END 2024-03-14 11:07 | disposition home or self-care (01) | LOC: BICCT 11:06 | PROVIDERS: ATTEND Surgery | DX: D41.00 Neoplasm of uncertain behavior of unspecified kidney (principal); K76.0 Fatty (change of) liver, not elsewhere classified; K57.30 Diverticulosis of large intestine without perforation or abscess without bleeding; N28.89 Other specified disorders of kidney and ureter; Z93.3 Colostomy status | CPT/HCPCS: 74170 ==

== ENCOUNTER 2024-04-27 19:58 | Inpatient (IN) | payer BC ==
[2024-04-27] MEDS ORDERED: Albuterol 2.5 MG (0.5 mL) NEB ONE (20:27)
[2024-04-27] MEDS ORDERED: Ipratropium Bromide 2.5 ml Neb ONE (20:27)
[2024-04-27] MEDS ORDERED: Magnesium 2 GM/50 ML BAG (IN WATER) ONE (20:31)
[2024-04-27] MEDS ORDERED: methylPREDNISolone Sod Succ/PF 125 MG/2 ML VIAL ONE (20:32)
[2024-04-27 20:39] LABS: ALT (SGPT) 31 U/L (8-55); AST (SGOT) 44 U/L (5-34); Albumin 3.3 g/dL (3.5-5.0); Alkaline Phosphatase 155 U/L (40-110); Anion Gap 17 mmol/L (10-20); BUN (Urea Nitrogen) 6 mg/dL (7.0-18.7); Bilirubin, Total 0.5 mg/dL (0.2-1.2); Calc. Creatinine Clearance 0 mL/min (70-130); Calcium 8.8 mg/dL (7.8-10.44); Carbon Dioxide 20 mmol/L (22-29); Chloride 107 mmol/L (98-107); Estimated GFR 112; Globulin 4.1 g/dL (2.4-3.5); Glucose 98 mg/dL (70-105); Potassium 3.8 mmol/L (3.5-5.1); Protein, Total 7.4 g/dL (6.0-8.3); Sodium 140 mmol/L (136-145)
[2024-04-27 20:45] LABS: Troponin I 0.014 ng/mL (< 0.028)
[2024-04-27 21:17] LABS: #Basophils 0.06 10x3/uL (0.0-0.2); %Basophils 0.6 % (0.0-1.0); %Eosinophils 4.3 % (0.0-10.0); %Monocytes 7.1 % (0.0-10.0); %Neutrophils 70.7 % (42.0-75.0); Hematocrit 33.9 % (36.0-47.0); Hemoglobin 9.9 g/dL (12.0-16.0); Mean Corpuscular HGB CONC 29.2 g/dL (32.0-36.0); Mean Corpuscular Hemoglobin 23.6 pg (27.0-31.0); Mean Corpuscular Volume 80.7 fL (78.0-98.0); Mean Platelet Volume 10.4 fL (7.4-10.4); Platelet Count 388 10x3/uL (130-400); RBC Distribution Width 21.5 % (11.5-14.5)
[2024-04-27] MEDS ORDERED: Acetaminophen 325 MG TAB PO PRN (21:45)
[2024-04-27] MEDS: Lisinopril 10 MG TAB PO SCH (22:41)
[2024-04-27] MEDS: Amlodipine 10 MG TAB PO SCH (22:41)
[2024-04-27] MEDS: Lactated Ringer's 1,000 ML IV SCH (22:41)
[2024-04-27] MEDS: Hydrochlorothiazide 25 MG TAB PO SCH (22:41)
[2024-04-27 22:55] VITALS: BMI 27.4
[2024-04-27] MEDS: Ipratropium/Albuterol 3 ML NEB NEB SCH (22:56)
[2024-04-27] MEDS ORDERED: Ipratropium/Albuterol 3 ML NEB NEB PRN (23:02)
[2024-04-27 23:47] LABS: Influenza A by NAA Not Detected (NotDetected); Influenza B by NAA Not Detected (NotDetected); SARS-CoV-2 NAA Rapid Test Not Detected (NotDetected)
[2024-04-28] MEDS ORDERED: Dextrose 50% Abboject 50 ML SYRINGE SLOW IVP PRN (00:57)
[2024-04-28] MEDS ORDERED: Glucagon 1 MG/ML KIT IM PRN (00:57)
[2024-04-28] MEDS ORDERED: Dextrose 5% in Water 1,000 ML IV PRN (00:57)
[2024-04-28] MEDS ORDERED: Insulin Lispro 100 UNIT/ML 10 ML VIAL SC PRN ×2 (00:57)
[2024-04-28] MEDS: Ipratropium/Albuterol 3 ML NEB NEB SCH ×2 (02:08→13:24)
[2024-04-28 05:02] LABS: Anion Gap 14 mmol/L (10-20); BUN (Urea Nitrogen) 6 mg/dL (7.0-18.7); Calc. Creatinine Clearance 122 mL/min (70-130); Calcium 8.7 mg/dL (7.8-10.44); Carbon Dioxide 19 mmol/L (22-29); Chloride 108 mmol/L (98-107); Estimated GFR 112; Glucose 155 mg/dL (70-105); Potassium 3.7 mmol/L (3.5-5.1); Sodium 137 mmol/L (136-145)
[2024-04-28 05:18] LABS: #Basophils 0.03 10x3/uL (0.0-0.2); #Eosinphils Less than 0.03 10x3/uL (0.0-0.7); %Basophils 0.3 % (0.0-1.0); %Lymphocytes 2.6 % (21.0-51.0); %Monocytes 0.5 % (0.0-10.0); %Neutrophils 96.2 % (42.0-75.0); Hematocrit 33.8 % (36.0-47.0); Hemoglobin 9.8 g/dL (12.0-16.0); Mean Corpuscular Hemoglobin 23.3 pg (27.0-31.0); Mean Corpuscular Volume 80.3 fL (78.0-98.0); Mean Platelet Volume 11.1 fL (7.4-10.4); Platelet Count 398 10x3/uL (130-400); RBC Distribution Width 21.2 % (11.5-14.5); Red Blood Cell (RBC) Count 4.21 mill/uL (4.20-5.40)
[2024-04-28] MEDS: Mometasone 200 MCG/Formoterol 5 MCG 120 PUFF INHALER INH SCH (07:39)
[2024-04-28] MEDS: predniSONE 20 MG TAB PO SCH (08:59)
[2024-04-28] MEDS: Hydrochlorothiazide 25 MG TAB PO SCH (09:00)
[2024-04-28] MEDS: Enoxaparin 40 MG (0.4 mL) SYRINGE SC SCH (09:00)
[2024-04-28] MEDS: Amlodipine 10 MG TAB PO SCH (09:00)
[2024-04-28] MEDS: Atorvastatin Calcium 40 MG TAB PO SCH (09:00)
[2024-04-28] MEDS: Lisinopril 20 MG TAB PO SCH (09:01)
[2024-04-28] MEDS: metFORMIN 500 MG TAB PO SCH (09:02)
[2024-04-28] MEDS: Montelukast Sodium 10 mg Tablet PO SCH (09:02)
[2024-04-28] MEDS: guaiFENesin 200 MG TAB PO PRN (15:18)
[2024-04-29 05:18] LABS: #Basophils 0.03 10x3/uL (0.0-0.2); %Basophils 0.2 % (0.0-1.0); %Eosinophils 0.2 % (0.0-10.0); %Lymphocytes 12.5 % (21.0-51.0); %Monocytes 7.8 % (0.0-10.0); %Neutrophils 78.9 % (42.0-75.0); Hemoglobin 9.8 g/dL (12.0-16.0); Mean Corpuscular HGB CONC 29.7 g/dL (32.0-36.0); Mean Corpuscular Hemoglobin 23.7 pg (27.0-31.0); Mean Corpuscular Volume 79.7 fL (78.0-98.0); Mean Platelet Volume 11.2 fL (7.4-10.4); Platelet Count 449 10x3/uL (130-400); RBC Distribution Width 21.4 % (11.5-14.5); Red Blood Cell (RBC) Count 4.14 mill/uL (4.20-5.40)
[2024-04-29 06:18] LABS: Anion Gap 13 mmol/L (10-20); BUN (Urea Nitrogen) 11 mg/dL (7.0-18.7); Calc. Creatinine Clearance 126 mL/min (70-130); Calcium 9.2 mg/dL (7.8-10.44); Carbon Dioxide 22 mmol/L (22-29); Chloride 102 mmol/L (98-107); Estimated GFR 113; Glucose 80 mg/dL (70-105); Potassium 3.2 mmol/L (3.5-5.1); Sodium 134 mmol/L (136-145)
[2024-04-29] MEDS: Ferrous Sulfate 325 MG TAB PO SCH (08:33)
[2024-04-29] MEDS: Potassium Chloride 20 MEQ TAB PO SCH (10:20)
[2024-04-30 04:21] LABS: #Basophils 0.04 10x3/uL (0.0-0.2); #Eosinphils Less than 0.03 10x3/uL (0.0-0.7); %Basophils 0.2 % (0.0-1.0); %Eosinophils 0.1 % (0.0-10.0); %Lymphocytes 12.8 % (21.0-51.0); %Monocytes 6.8 % (0.0-10.0); %Neutrophils 79.6 % (42.0-75.0); Hematocrit 34.1 % (36.0-47.0); Mean Corpuscular HGB CONC 29.3 g/dL (32.0-36.0); Mean Corpuscular Hemoglobin 23.3 pg (27.0-31.0); Mean Corpuscular Volume 79.5 fL (78.0-98.0); Mean Platelet Volume 10.8 fL (7.4-10.4); Platelet Count 435 10x3/uL (130-400); RBC Distribution Width 21.3 % (11.5-14.5); Red Blood Cell (RBC) Count 4.29 mill/uL (4.20-5.40)
[2024-04-30 04:36] LABS: Anion Gap 16 mmol/L (10-20); BUN (Urea Nitrogen) 19 mg/dL (7.0-18.7); Calc. Creatinine Clearance 111 mL/min (70-130); Calcium 9.7 mg/dL (7.8-10.44); Carbon Dioxide 23 mmol/L (22-29); Chloride 101 mmol/L (98-107); Estimated GFR 110; Glucose 87 mg/dL (70-105); Potassium 3.6 mmol/L (3.5-5.1); Sodium 136 mmol/L (136-145)
[2024-04-30 12:20] VITALS: BP 102/70; TEMP 97.8
== END 2024-04-30 15:21 | disposition home or self-care (01) | DRG 189 ==
LOC: ERS 19:58 → 2SW 21:20 → OBSVTOIN 04-29 10:02
PROVIDERS: ADMIT Family Medicine; ATTEND Family Medicine
DX: J96.01 Acute respiratory failure with hypoxia (principal); J45.901 Unspecified asthma with (acute) exacerbation; E11.9 Type 2 diabetes mellitus without complications; E78.5 Hyperlipidemia, unspecified; F31.9 Bipolar disorder, unspecified; D64.9 Anemia, unspecified; F41.9 Anxiety disorder, unspecified; I10 Essential (primary) hypertension; Z93.3 Colostomy status; Z79.84 Long term (current) use of oral hypoglycemic drugs; Z79.899 Other long term (current) drug therapy; Z91.09 Other allergy status, other than to drugs and biological substances
CPT/HCPCS: 36415; 36416; 71045; 80048; 80053; 83880; 84484; 85025; 93005; 94640; 94644; 96372; G0378; J1650; J2930; J3475; J7120; J7512; J7611; J7620; J7644

== ENCOUNTER 2024-09-29 14:34 | Emergency (ER) | payer BC | END 2024-09-29 15:22 | disposition home or self-care (01) | LOC: ERS 14:34 | DX: Z43.3 Encounter for attention to colostomy (principal); I10 Essential (primary) hypertension | CPT/HCPCS: 99282 ==

== ENCOUNTER 2024-10-18 14:31 | Outpatient (CLI) | payer OTHER | END 2024-10-18 14:32 | disposition home or self-care (01) | LOC: BICRAD 14:31 | PROVIDERS: ATTEND Internal Medicine | DX: Z02.71 Encounter for disability determination (principal); M19.071 Primary osteoarthritis, right ankle and foot; M61.9 Calcification and ossification of muscle, unspecified | CPT/HCPCS: 71046 ==

== ENCOUNTER 2024-10-22 18:45 | Inpatient (IN) | payer BC ==
[2024-10-22] MEDS ORDERED: Magnesium 2 GM/50 ML BAG (IN WATER) ONE (19:25)
[2024-10-22] MEDS ORDERED: methylPREDNISolone Sod Succ/PF 125 MG/2 ML VIAL ONE (19:25)
[2024-10-22] MEDS ORDERED: Albuterol 2.5 MG (3 mL) NEB ONE ×2 (19:32→22:50)
[2024-10-22] MEDS ORDERED: Albuterol 2.5 MG (0.5 mL) NEB ONE ×2 (19:32→22:50)
[2024-10-22] MEDS ORDERED: Ipratropium/Albuterol 3 ML NEB ONE ×2 (19:32→22:50)
[2024-10-22 19:34] LABS: #Basophils 0.05 10x3/uL (0.0-0.2); %Basophils 0.4 % (0.0-1.0); %Eosinophils 2.4 % (0.0-10.0); %Monocytes 7.8 % (0.0-10.0); %Neutrophils 84.1 % (42.0-75.0); Hematocrit 27.1 % (36.0-47.0); Hemoglobin 8.2 g/dL (12.0-16.0); Mean Corpuscular HGB CONC 30.3 g/dL (32.0-36.0); Mean Corpuscular Hemoglobin 21.7 pg (27.0-31.0); Mean Corpuscular Volume 71.7 fL (78.0-98.0); Mean Platelet Volume 10.6 fL (7.4-10.4); Platelet Count 479 10x3/uL (130-400); RBC Distribution Width 19.9 % (11.5-14.5); Red Blood Cell (RBC) Count 3.78 mill/uL (4.20-5.40)
[2024-10-22 19:39] LABS: Actual Bicarbonate (HCO3v) 20.2 mEq/L (22-28); Analyzer IN Cardio ER; Base Excess -3.6 mEq/L (-2.0 to +3.0); Chloride (VBG) 104 mmol/L (98-106); Hematocrit-VBG 27 % (36.0-47.0); Hemoglobin (Hb) 9.1 g/dL (11.7-15.5); Sodium 137 mmol/L (133-146); pH (venous) 7.426 (7.32-7.43)
[2024-10-22 19:52] LABS: ALT (SGPT) 12 U/L (Less than 34); AST (SGOT) 20 U/L (11-34); Albumin 3.6 g/dL (3.1-4.5); Alkaline Phosphatase 114 U/L (40-110); Anion Gap 14 mmol/L (10-20); BUN (Urea Nitrogen) 11 mg/dL (7.0-18.7); Bilirubin, Total 0.4 mg/dL (0.3-1.2); Calc. Creatinine Clearance 0 mL/min (70-130); Calcium 8.4 mg/dL (7.8-10.44); Carbon Dioxide 18 mmol/L (22-29); Chloride 107 mmol/L (98-107); Estimated GFR 110; Glucose 82 mg/dL (70-105); Magnesium 1.7 mg/dL (1.6-2.6); Potassium 3.9 mmol/L (3.5-5.1); Protein, Total 7.6 g/dL (6.0-8.3); Sodium 135 mmol/L (136-145)
[2024-10-22 20:07] LABS: BHCG - Serum Negative (NEGATIVE); Pregs Control Background? CLEAR/WHITE (CLR/WHITE); Pregs Control Bar Appear? YES (CONTROL BAR)
[2024-10-23] MEDS ORDERED: Ondansetron PF 4 MG/2 ML Vial IVP PRN (00:39)
[2024-10-23] MEDS ORDERED: Ipratropium/Albuterol 3 ML NEB NEB PRN ×2 (00:39→07:59)
[2024-10-23 02:41] VITALS: BMI 26.7
[2024-10-23] MEDS: Ipratropium/Albuterol 3 ML NEB NEB SCH ×3 (02:43→14:30)
[2024-10-23] MEDS: Acetaminophen 325 MG TAB PO PRN (03:02)
[2024-10-23 06:02] LABS: #Basophils 0.03 10x3/uL (0.0-0.2); #Eosinophils Less than 0.03 10x3/uL (0.0-0.7); %Basophils 0.3 % (0.0-1.0); %Lymphocytes 2.4 % (21.0-51.0); %Monocytes 1.7 % (0.0-10.0); Hematocrit 27.8 % (36.0-47.0); Hemoglobin 7.9 g/dL (12.0-16.0); Mean Corpuscular HGB CONC 28.4 g/dL (32.0-36.0); Mean Corpuscular Hemoglobin 21.1 pg (27.0-31.0); Mean Corpuscular Volume 74.1 fL (78.0-98.0); Mean Platelet Volume 10.6 fL (7.4-10.4); Platelet Count 447 10x3/uL (130-400); RBC Distribution Width 19.9 % (11.5-14.5); Red Blood Cell (RBC) Count 3.75 mill/uL (4.20-5.40)
[2024-10-23 06:14] LABS: ALT (SGPT) 13 U/L (Less than 34); AST (SGOT) 25 U/L (11-34); Albumin 3.7 g/dL (3.1-4.5); Alkaline Phosphatase 121 U/L (40-110); Anion Gap 12 mmol/L (10-20); BUN (Urea Nitrogen) 10 mg/dL (7.0-18.7); Bilirubin, Total 0.4 mg/dL (0.3-1.2); Calc. Creatinine Clearance 127 mL/min (70-130); Calcium 8.9 mg/dL (7.8-10.44); Carbon Dioxide 20 mmol/L (22-29); Chloride 107 mmol/L (98-107); Estimated GFR 114; Globulin 4.1 g/dL (2.4-3.5); Glucose 110 mg/dL (70-105); Potassium 4.3 mmol/L (3.5-5.1); Protein, Total 7.8 g/dL (6.0-8.3); Sodium 135 mmol/L (136-145)
[2024-10-23] MEDS ORDERED: predniSONE 20 MG TAB PO SCH (09:00)
[2024-10-23] MEDS: predniSONE 20 MG TAB PO SCH (09:49)
[2024-10-23] MEDS: Montelukast Sodium 10 mg Tablet PO SCH (09:49)
[2024-10-23] MEDS: Ferrous Sulfate 325 MG TAB PO SCH (09:50)
[2024-10-23] MEDS: Albuterol 2.5 MG (3 mL) NEB NEB SCH (09:50)
[2024-10-23] MEDS: FLUoxetine HCl 20 MG CAP PO SCH (09:50)
[2024-10-23] MEDS: Amlodipine 10 MG TAB PO SCH (09:50)
[2024-10-23] MEDS: Pantoprazole 40 MG DR.TAB PO SCH (09:50)
[2024-10-23] MEDS: Atorvastatin Calcium 40 MG TAB PO SCH (09:50)
[2024-10-23] MEDS: Enoxaparin 40 MG (0.4 mL) SYRINGE SC SCH (09:52)
[2024-10-23 10:29] LABS: Actual Bicarbonate (HCO3a) 21.7 mEq/L (22-28); Analyzer IN Cardio ER; Base Excess (BEa) -4.2 mEq/L (-2.0 to +3.0); CO2 Tension 43.2 mmHg (35.0-45.0); Carboxyhemoglobin (COHb) 0.5 gm% (0.0-3.0); Hematocrit-ABG 27 % (36.0-47.0); Hemoglobin (Hb) 9.1 g/dL (12.0-16.0); O2 Tension (PaO2), arterial 209.2 mmHg (80.0-100.0); Potassium - ABG Lab 4.35 mmol/L (3.70-5.30); pH, Arterial 7.318 (7.35-7.45)
[2024-10-23 10:31] LABS: Puncture Site Left Radial artery
[2024-10-23] MEDS: Ipratropium Bromide 2.5 ml Neb NEB SCH (10:50)
[2024-10-23] MEDS: Mometasone 200 MCG/Formoterol 5 MCG 120 PUFF INHALER INH SCH (11:12)
[2024-10-23] MEDS ORDERED: Labetalol HCl 100 MG/20 ML VIAL SLOW IVP PRN (12:30)
[2024-10-23] MEDS: Labetalol HCl 100 MG/20 ML VIAL SLOW IVP SCH (13:13)
[2024-10-23] MEDS: Benzonatate 100 MG CAP PO PRN (21:32)
[2024-10-24] MEDS: Ipratropium/Albuterol 3 ML NEB NEB PRN (00:32)
[2024-10-24 03:18] LABS: Actual Bicarbonate (HCO3v) 19.7 mEq/L (22-28); Base Excess -4.7 mEq/L (-2.0 to +3.0); Calcium, Ionized (venous) 1.14 mmol/L (1.16-1.32); Chloride (VBG) 102 mmol/L (98-106); Hematocrit-VBG 29 % (36.0-47.0); Hemoglobin (Hb) 9.8 g/dL (11.7-15.5); Potassium (VBG) 4.29 mmol/L (3.70-5.30); Sodium 137 mmol/L (133-146); pH (venous) 7.383 (7.32-7.43)
[2024-10-24] MEDS ORDERED: Ipratropium/Albuterol 3 ML NEB IPPB PRN (03:33)
[2024-10-24] MEDS: Magnesium 2 GM/50 ML(in water) 2 GM in Premix 1 BAG IVPB SCH (04:09)
[2024-10-24] MEDS: methylPREDNISolone Sod Succ/PF 125 MG/2 ML VIAL IVP SCH (04:09)
[2024-10-24 08:01] LABS: Hematocrit 31.3 % (36.0-47.0); Hemoglobin 8.7 g/dL (12.0-16.0); Mean Corpuscular HGB CONC 27.8 g/dL (32.0-36.0); Mean Corpuscular Hemoglobin 20.8 pg (27.0-31.0); Mean Corpuscular Volume 74.7 fL (78.0-98.0); Mean Platelet Volume 10.2 fL (7.4-10.4); Platelet Count 514 10x3/uL (130-400); RBC Distribution Width 20.3 % (11.5-14.5); Red Blood Cell (RBC) Count 4.19 mill/uL (4.20-5.40)
[2024-10-24 08:05] LABS: Anion Gap 13 mmol/L (10-20); BUN (Urea Nitrogen) 14 mg/dL (7.0-18.7); Calc. Creatinine Clearance 106 mL/min (70-130); Calcium 9.3 mg/dL (7.8-10.44); Carbon Dioxide 22 mmol/L (22-29); Chloride 105 mmol/L (98-107); Estimated GFR 106; Glucose 124 mg/dL (70-105); Potassium 4.5 mmol/L (3.5-5.1); Sodium 135 mmol/L (136-145)
[2024-10-24 08:42] LABS: Anisocytosis SLIGHT = 6-15 cells HPF (0-5); Band 1 % (5-11); Hypersegmented Neutrophil SLIGHT (None Seen); Hypochromia SLIGHT = 6-15 cells HPF (0-5); Lymphocytes 2 % (21-51); Macrocytosis SLIGHT = 6-15 cells HPF (0-5); Microcytosis SLIGHT = 6-15 cells HPF (0-5); Monocytes 1 % (0-10); Neutrophil 97 % (42-75); Platelet Adequacy Comment Platelets Increased; Polychromasia SLIGHT = 2-3 cells HPF (0-2); Smudge Cells 0.9 %; Stomatocytes SLIGHT = 2-5 cells HPF (0-1); Vacuoles SLIGHT
[2024-10-25 05:58] LABS: #Basophils Less than 0.03 10x3/uL (0.0-0.2); #Eosinophils Less than 0.03 10x3/uL (0.0-0.7); %Neutrophils 77.8 % (42.0-75.0); Hematocrit 29.8 % (36.0-47.0); Hemoglobin 8.4 g/dL (12.0-16.0); Mean Corpuscular HGB CONC 28.2 g/dL (32.0-36.0); Mean Corpuscular Hemoglobin 20.9 pg (27.0-31.0); Mean Corpuscular Volume 74.1 fL (78.0-98.0); Platelet Count 456 10x3/uL (130-400); RBC Distribution Width 20.2 % (11.5-14.5); Red Blood Cell (RBC) Count 4.02 mill/uL (4.20-5.40)
[2024-10-25 06:16] LABS: Anion Gap 13 mmol/L (10-20); BUN (Urea Nitrogen) 22 mg/dL (7.0-18.7); Calc. Creatinine Clearance 94 mL/min (70-130); Calcium 8.8 mg/dL (7.8-10.44); Carbon Dioxide 22 mmol/L (22-29); Chloride 106 mmol/L (98-107); Estimated GFR 92; Glucose 93 mg/dL (70-105); Potassium 4.2 mmol/L (3.5-5.1); Sodium 137 mmol/L (136-145)
[2024-10-25 06:52] LABS: Anisocytosis SLIGHT = 6-15 cells HPF (0-5); Hypochromia MODERATE=16-30 cells HPF (0-5); Microcytosis SLIGHT = 6-15 cells HPF (0-5); Platelet Adequacy Comment Platelets Normal; Polychromasia SLIGHT = 2-3 cells HPF (0-2)
[2024-10-26 05:13] LABS: #Basophils Less than 0.03 10x3/uL (0.0-0.2); #Eosinophils Less than 0.03 10x3/uL (0.0-0.7); %Basophils 0.1 % (0.0-1.0); %Lymphocytes 12.8 % (21.0-51.0); %Monocytes 10.6 % (0.0-10.0); %Neutrophils 76.2 % (42.0-75.0); Hematocrit 29.6 % (36.0-47.0); Hemoglobin 8.2 g/dL (12.0-16.0); Mean Corpuscular HGB CONC 27.7 g/dL (32.0-36.0); Mean Corpuscular Hemoglobin 20.9 pg (27.0-31.0); Mean Corpuscular Volume 75.5 fL (78.0-98.0); Platelet Count 396 10x3/uL (130-400); RBC Distribution Width 20.2 % (11.5-14.5); Red Blood Cell (RBC) Count 3.92 mill/uL (4.20-5.40)
[2024-10-26 05:18] LABS: Anion Gap 10 mmol/L (10-20); BUN (Urea Nitrogen) 19 mg/dL (7.0-18.7); Calc. Creatinine Clearance 103 mL/min (70-130); Calcium 8.8 mg/dL (7.8-10.44); Carbon Dioxide 23 mmol/L (22-29); Chloride 108 mmol/L (98-107); Estimated GFR 103; Glucose 81 mg/dL (70-105); Sodium 137 mmol/L (136-145)
[2024-10-26] MEDS: methylPREDNISolone Sod Succ 40 MG VIAL IVP SCH (10:06)
[2024-10-27 06:00] LABS: #Basophils Less than 0.03 10x3/uL (0.0-0.2); #Eosinophils Less than 0.03 10x3/uL (0.0-0.7); %Lymphocytes 18.9 % (21.0-51.0); %Monocytes 11.7 % (0.0-10.0); %Neutrophils 69.1 % (42.0-75.0); Hematocrit 29.1 % (36.0-47.0); Hemoglobin 8.3 g/dL (12.0-16.0); Mean Corpuscular HGB CONC 28.5 g/dL (32.0-36.0); Mean Corpuscular Hemoglobin 21.1 pg (27.0-31.0); Mean Platelet Volume 10.8 fL (7.4-10.4); Platelet Count 372 10x3/uL (130-400); RBC Distribution Width 19.9 % (11.5-14.5); Red Blood Cell (RBC) Count 3.93 mill/uL (4.20-5.40)
[2024-10-27 06:30] LABS: Anisocytosis SLIGHT = 6-15 cells HPF (0-5); Hypochromia SLIGHT = 6-15 cells HPF (0-5); Microcytosis SLIGHT = 6-15 cells HPF (0-5); Platelet Adequacy Comment Platelets Normal; Polychromasia SLIGHT = 2-3 cells HPF (0-2)
[2024-10-27 07:10] LABS: Anion Gap 11 mmol/L (10-20); BUN (Urea Nitrogen) 17 mg/dL (7.0-18.7); Calc. Creatinine Clearance 117 mL/min (70-130); Calcium 8.6 mg/dL (7.8-10.44); Carbon Dioxide 23 mmol/L (22-29); Chloride 107 mmol/L (98-107); Estimated GFR 112; Glucose 79 mg/dL (70-105); Potassium 3.7 mmol/L (3.5-5.1); Sodium 137 mmol/L (136-145)
[2024-10-27] MEDS: methylPREDNISolone Sod Succ 40 MG VIAL IVP SCH (09:52)
[2024-10-28 07:08] LABS: Anion Gap 12 mmol/L (10-20); BUN (Urea Nitrogen) 18 mg/dL (7.0-18.7); Calc. Creatinine Clearance 115 mL/min (70-130); Calcium 8.7 mg/dL (7.8-10.44); Carbon Dioxide 22 mmol/L (22-29); Chloride 109 mmol/L (98-107); Estimated GFR 112; Glucose 79 mg/dL (70-105); Potassium 3.6 mmol/L (3.5-5.1); Sodium 139 mmol/L (136-145)
[2024-10-28 07:57] LABS: #Basophils Less than 0.03 10x3/uL (0.0-0.2); #Eosinophils Less than 0.03 10x3/uL (0.0-0.7); %Eosinophils 0.1 % (0.0-10.0); %Lymphocytes 24.3 % (21.0-51.0); %Neutrophils 64.3 % (42.0-75.0); Hematocrit 28.2 % (36.0-47.0); Mean Corpuscular HGB CONC 28.4 g/dL (32.0-36.0); Mean Corpuscular Hemoglobin 20.8 pg (27.0-31.0); Mean Corpuscular Volume 73.4 fL (78.0-98.0); Mean Platelet Volume 10.8 fL (7.4-10.4); Platelet Count 357 10x3/uL (130-400); RBC Distribution Width 19.9 % (11.5-14.5); Red Blood Cell (RBC) Count 3.84 mill/uL (4.20-5.40)
[2024-10-28] MEDS: guaiFENesin ER 600 MG TAB PO SCH (09:33)
[2024-10-28] MEDS: methylPREDNISolone Sod Succ 40 MG VIAL IVP SCH (15:31)
[2024-10-29 05:35] LABS: Hematocrit 27.8 % (36.0-47.0); Hemoglobin 7.8 g/dL (12.0-16.0); Mean Corpuscular HGB CONC 28.1 g/dL (32.0-36.0); Mean Corpuscular Hemoglobin 20.8 pg (27.0-31.0); Mean Corpuscular Volume 74.1 fL (78.0-98.0); Mean Platelet Volume 10.5 fL (7.4-10.4); Platelet Count 361 10x3/uL (130-400); RBC Distribution Width 19.9 % (11.5-14.5); Red Blood Cell (RBC) Count 3.75 mill/uL (4.20-5.40)
[2024-10-29 05:55] LABS: Anion Gap 12 mmol/L (10-20); BUN (Urea Nitrogen) 17 mg/dL (7.0-18.7); Calc. Creatinine Clearance 103 mL/min (70-130); Calcium 8.4 mg/dL (7.8-10.44); Carbon Dioxide 22 mmol/L (22-29); Chloride 110 mmol/L (98-107); Estimated GFR 103; Glucose 108 mg/dL (70-105); Potassium 3.8 mmol/L (3.5-5.1); Sodium 140 mmol/L (136-145)
[2024-10-29 06:04] LABS: Anisocytosis SLIGHT = 6-15 cells HPF (0-5); Hypochromia SLIGHT = 6-15 cells HPF (0-5); Large Platelets 7.1 % (0-5); Lymphocytes 19 % (21-51); Microcytosis SLIGHT = 6-15 cells HPF (0-5); Monocytes 7 % (0-10); Neutrophil 74 % (42-75); Platelet Adequacy Comment Platelets Normal; Polychromasia SLIGHT = 2-3 cells HPF (0-2); Smudge Cells 11.1 %
[2024-10-29] MEDS: Magnesium 2 GM/50 ML(in water) 2 GM in Premix 1 BAG IVPB SCH (12:48)
[2024-10-29] MEDS: methylPREDNISolone Sod Succ 40 MG VIAL IVP SCH (12:48)
[2024-10-30 06:01] LABS: Sodium 139 mmol/L (136-145)
[2024-10-30 06:02] LABS: Calcium 8.4 mg/dL (7.8-10.44); Chloride 110 mmol/L (98-107); Potassium 3.9 mmol/L (3.5-5.1)
[2024-10-30 06:03] LABS: #Basophils Less than 0.03 10x3/uL (0.0-0.2); #Eosinophils Less than 0.03 10x3/uL (0.0-0.7); %Basophils 0.1 % (0.0-1.0); %Eosinophils 0.1 % (0.0-10.0); %Lymphocytes 21.8 % (21.0-51.0); %Monocytes 8.9 % (0.0-10.0); %Neutrophils 68.4 % (42.0-75.0); Glucose 82 mg/dL (70-105); Hematocrit 26.6 % (36.0-47.0); Hemoglobin 7.6 g/dL (12.0-16.0); Mean Corpuscular HGB CONC 28.6 g/dL (32.0-36.0); Mean Corpuscular Hemoglobin 20.9 pg (27.0-31.0); Mean Corpuscular Volume 73.1 fL (78.0-98.0); Mean Platelet Volume 9.8 fL (7.4-10.4); Platelet Count 347 10x3/uL (130-400); RBC Distribution Width 19.6 % (11.5-14.5); Red Blood Cell (RBC) Count 3.64 mill/uL (4.20-5.40)
[2024-10-30 06:04] LABS: Anion Gap 11 mmol/L (10-20); Carbon Dioxide 22 mmol/L (22-29)
[2024-10-30 06:07] LABS: BUN (Urea Nitrogen) 18 mg/dL (7.0-18.7); Calc. Creatinine Clearance 113 mL/min (70-130); Estimated GFR 111
[2024-10-30 09:06] VITALS: TEMP 97.8
[2024-10-30] MEDS: methylPREDNISolone Sod Succ 40 MG VIAL IVP SCH (10:16)
[2024-10-30 11:25] VITALS: BMI 26.7
[2024-10-30 12:43] VITALS: BP 124/82
== END 2024-10-30 14:11 | disposition home or self-care (01) | DRG 203 ==
LOC: ERS 18:45 → OBS 23:59 → OBSVTOIN 10-23 08:08
PROVIDERS: ADMIT Student in an Organized Health Care Education/Training Program; ATTEND Student in an Organized Health Care Education/Training Program
DX: J45.901 Unspecified asthma with (acute) exacerbation (principal); D64.9 Anemia, unspecified; J06.9 Acute upper respiratory infection, unspecified; R94.31 Abnormal electrocardiogram [ECG] [EKG]; F10.90 Alcohol use, unspecified, uncomplicated; Z77.22 Contact with and (suspected) exposure to environmental tobacco smoke (acute) (chronic); Z91.09 Other allergy status, other than to drugs and biological substances; Z83.3 Family history of diabetes mellitus; Z82.49 Family history of ischemic heart disease and other diseases of the circulatory system
CPT/HCPCS: 36415; 36600; 71045; 80048; 80053; 82805; 83605; 83735; 84703; 85025; 87040; 87428; 93005; 94640; 94760; 96374; 96375; G0378; J1650; J2919; J3475; J7512; J7611; J7620; J7644

== ENCOUNTER 2025-05-30 13:30 | Inpatient (IN) | payer BC ==
[2025-06-24] MEDS ORDERED: Bupivacaine 0.25% HCL 30 ML VIAL ONE ×2 (06:54→10:33)
[2025-06-24] MEDS ORDERED: PROPOFOL 40 ML ONE (07:02)
[2025-06-24] MEDS ORDERED: fentaNYL PF 100 MCG/2 ML SYRINGE ONE ×2 (07:02→10:31)
[2025-06-24] MEDS ORDERED: Rocuronium Bromide 10 MG/ML (10ML VIAL) ONE (07:03)
[2025-06-24] MEDS ORDERED: Lidocaine 1% PF 5 ML VIAL ONE (07:03)
[2025-06-24] MEDS ORDERED: KETAMINE 100 MG/ML (5ML VIAL) ONE (07:27)
[2025-06-24] MEDS ORDERED: Magnesium 5 GM/10 ML VIAL ONE (07:36)
[2025-06-24] MEDS ORDERED: Lidocaine 4% Topical Sol 50 ML BOT ONE (07:37)
[2025-06-24] MEDS ORDERED: Glycopyrrolate 0.2 MG/ML 5 ML SYRINGE ONE (07:59)
[2025-06-24] MEDS ORDERED: Albuterol HFA (OR) 200 PUFF INH ONE ×3 (08:05)
[2025-06-24] MEDS ORDERED: PHENYLEPHRINE-NS 100 MCG/ML 10 ML SYRINGE ONE (08:13)
[2025-06-24] MEDS ORDERED: Ondansetron PF 4 MG/2 ML Vial ONE (09:51)
[2025-06-24] MEDS ORDERED: EPINEPHrine 1 MG/10 ML Abboject SYRINGE ONE (10:33)
[2025-06-24] MEDS ORDERED: SUGAMMADEX SODIUM 200 MG/2 ML VIAL ONE (10:33)
[2025-06-24] MEDS ORDERED: HYDROmorphone 0.5 MG/0.5 ML SYRINGE ONE ×2 (12:21→14:30)
[2025-06-24] MEDS ORDERED: Albuterol 200 PUFF INH INH PRN (16:18)
[2025-06-24] MEDS ORDERED: hydrALAZINE 20 MG/ML VIAL ONE (16:50)
[2025-06-24] MEDS: hydrALAZINE 20 MG/ML VIAL SLOW IVP PRN (17:00)
[2025-06-24] MEDS: Acetaminophen 500 MG TAB PO SCH ×2 (20:17→22:50)
[2025-06-24] MEDS: D5 1/2 NS w/20 mEq KCL 1,000 ML IV SCH (20:17)
[2025-06-24] MEDS: Mometasone 200 MCG/Formoterol 5 MCG 120 PUFF INHALER INH SCH (20:17)
[2025-06-24] MEDS: oxyCODONE 5 MG TAB PO PRN (21:21)
[2025-06-24] MEDS: cefOXitin Sodium 1 GM in Sodium Chloride 0.9% 100 ML IVPB SCH (23:36)
[2025-06-25 05:34] LABS: Anion Gap 11 mmol/L (10-20); BUN (Urea Nitrogen) 8 mg/dL (7.0-18.7); Calc. Creatinine Clearance 112 mL/min (70-130); Calcium 8.1 mg/dL (7.8-10.44); Carbon Dioxide 21 mmol/L (22-29); Chloride 105 mmol/L (98-107); Glucose 102 mg/dL (70-105); Potassium 4.0 mmol/L (3.5-5.1); Sodium 133 mmol/L (136-145)
[2025-06-25 06:28] LABS: #Basophils 0.03 10x3/uL (0.0-0.2); #Eosinophils Less than 0.03 10x3/uL (0.0-0.7); #Monocytes 0.66 10x3/uL (0.11-0.59); #Neutrophils 14.62 10x3/uL (1.40-6.50); %Basophils 0.2 % (0.0-1.0); %Eosinophils 0.1 % (0.0-10.0); %Lymphocytes 6.9 % (21.0-51.0); %Monocytes 4.0 % (0.0-10.0); %Neutrophils 88.4 % (42.0-75.0); Hematocrit 26.7 % (36.0-47.0); Hemoglobin 7.5 g/dL (12.0-16.0); Mean Corpuscular Hemoglobin 23.0 pg (27.0-31.0); Mean Corpuscular Volume 81.9 fL (78.0-98.0); Platelet Count 330 10x3/uL (130-400); Red Blood Cell (RBC) Count 3.26 mill/uL (4.20-5.40); White Blood Cell (WBC) Count 16.54 10x3/uL (4.8-10.8)
[2025-06-25] MEDS: Enoxaparin 40 MG (0.4 mL) SYRINGE SC SCH (08:17)
[2025-06-25] MEDS: Pantoprazole 40 MG DR.TAB PO SCH (08:18)
[2025-06-25] MEDS: Losartan 25 MG TAB PO SCH (08:18)
[2025-06-25] MEDS: cefOXitin Sodium 1 GM in Sodium Chloride 0.9% 100 ML IVPB SCH (08:34)
[2025-06-25] MEDS: PNEUMOC 20-VAL CONJ-DIP CRM/PF 0.5 ML SYRINGE IM ONE (08:45)
[2025-06-25] MEDS: Ondansetron PF 4 MG/2 ML Vial IVP PRN (12:47)
[2025-06-26 06:41] LABS: #Basophils Less than 0.03 10x3/uL (0.0-0.2); #Eosinophils Less than 0.03 10x3/uL (0.0-0.7); #Monocytes 1.00 10x3/uL (0.11-0.59); #Neutrophils 17.60 10x3/uL (1.40-6.50); %Basophils 0.1 % (0.0-1.0); %Eosinophils 0.1 % (0.0-10.0); %Lymphocytes 3.7 % (21.0-51.0); %Monocytes 5.1 % (0.0-10.0); %Neutrophils 90.4 % (42.0-75.0); Hematocrit 28.7 % (36.0-47.0); Hemoglobin 8.3 g/dL (12.0-16.0); Mean Corpuscular Hemoglobin 23.2 pg (27.0-31.0); Mean Corpuscular Volume 80.2 fL (78.0-98.0); Platelet Count 301 10x3/uL (130-400); Red Blood Cell (RBC) Count 3.58 mill/uL (4.20-5.40); White Blood Cell (WBC) Count 19.49 10x3/uL (4.8-10.8)
[2025-06-26 06:49] LABS: Anion Gap 13 mmol/L (10-20); BUN (Urea Nitrogen) 7 mg/dL (7.0-18.7); Calc. Creatinine Clearance 138 mL/min (70-130); Calcium 8.6 mg/dL (7.8-10.44); Carbon Dioxide 17 mmol/L (22-29); Chloride 106 mmol/L (98-107); Glucose 147 mg/dL (70-105); Potassium 4.3 mmol/L (3.5-5.1); Sodium 132 mmol/L (136-145)
[2025-06-27 05:31] LABS: #Basophils 0.04 10x3/uL (0.0-0.2); #Eosinophils 0.07 10x3/uL (0.0-0.7); #Monocytes 1.26 10x3/uL (0.11-0.59); #Neutrophils 19.12 10x3/uL (1.40-6.50); %Basophils 0.2 % (0.0-1.0); %Eosinophils 0.3 % (0.0-10.0); %Lymphocytes 3.7 % (21.0-51.0); %Monocytes 5.9 % (0.0-10.0); %Neutrophils 89.5 % (42.0-75.0); Hematocrit 28.2 % (36.0-47.0); Hemoglobin 8.1 g/dL (12.0-16.0); Mean Corpuscular Hemoglobin 23.5 pg (27.0-31.0); Mean Corpuscular Volume 82.0 fL (78.0-98.0); Platelet Count 349 10x3/uL (130-400); Red Blood Cell (RBC) Count 3.44 mill/uL (4.20-5.40); White Blood Cell (WBC) Count 21.36 10x3/uL (4.8-10.8)
[2025-06-27 05:56] LABS: Anion Gap 13 mmol/L (10-20); BUN (Urea Nitrogen) 9 mg/dL (7.0-18.7); Calc. Creatinine Clearance 130 mL/min (70-130); Calcium 9.1 mg/dL (7.8-10.44); Carbon Dioxide 20 mmol/L (22-29); Chloride 107 mmol/L (98-107); Glucose 102 mg/dL (70-105); Potassium 4.0 mmol/L (3.5-5.1); Sodium 136 mmol/L (136-145)
[2025-06-27] MEDS ORDERED: Lidocaine 1% PF 5 ML VIAL ONE (12:51)
[2025-06-27] MEDS ORDERED: fentaNYL PF 100 MCG/2 ML SYRINGE ONE ×2 (12:51→15:35)
[2025-06-27] MEDS ORDERED: Rocuronium Bromide 10 MG/ML (10ML VIAL) ONE (12:51)
[2025-06-27] MEDS ORDERED: PROPOFOL 20 ML ONE (12:51)
[2025-06-27] MEDS ORDERED: Iopamidol-370 76% 500 ML MDV (1 ML CHARGE) ONE (12:56)
[2025-06-27] MEDS ORDERED: Bupivacaine 0.25% HCL 30 ML VIAL ONE (13:00)
[2025-06-27] MEDS ORDERED: PHENYLEPHRINE-NS 100 MCG/ML 10 ML SYRINGE ONE (13:48)
[2025-06-27] MEDS ORDERED: Ondansetron PF 4 MG/2 ML Vial ONE (13:50)
[2025-06-27] MEDS ORDERED: Albuterol HFA (OR) 200 PUFF INH ONE (13:56)
[2025-06-27] MEDS ORDERED: SUGAMMADEX SODIUM 200 MG/2 ML VIAL ONE (15:18)
[2025-06-27] MEDS ORDERED: Ondansetron PF 4 MG/2 ML Vial IVP PRN (15:32)
[2025-06-27] MEDS ORDERED: diphenhydrAMINE 25 MG CAP PO PRN (15:32)
[2025-06-27] MEDS ORDERED: HYDROmorphone 0.5 MG/0.5 ML SYRINGE ONE (15:35)
[2025-06-27] MEDS ORDERED: Communication Order-Pharmacy FS SCH (15:45)
[2025-06-27] MEDS: D5 1/2 NS w/20 mEq KCL 1,000 ML IV SCH (19:32)
[2025-06-28] MEDS: diphenhydrAMINE 50 MG/ML VIAL IVP PRN (02:13)
[2025-06-28] MEDS: HYDROmorphone HCl/0.9% NaCl/PF 30 ML IV SCH (03:59)
[2025-06-28 04:42] LABS: Anion Gap 13 mmol/L (10-20); BUN (Urea Nitrogen) 9 mg/dL (7.0-18.7); Calc. Creatinine Clearance 140 mL/min (70-130); Calcium 8.0 mg/dL (7.8-10.44); Carbon Dioxide 19 mmol/L (22-29); Chloride 110 mmol/L (98-107); Glucose 112 mg/dL (70-105); Potassium 4.5 mmol/L (3.5-5.1); Sodium 137 mmol/L (136-145)
[2025-06-28 04:44] LABS: #Basophils Less than 0.03 10x3/uL (0.0-0.2); #Eosinophils Less than 0.03 10x3/uL (0.0-0.7); #Monocytes 2.03 10x3/uL (0.11-0.59); #Neutrophils 15.81 10x3/uL (1.40-6.50); %Basophils 0.1 % (0.0-1.0); %Eosinophils 0.1 % (0.0-10.0); %Lymphocytes 3.9 % (21.0-51.0); %Monocytes 10.9 % (0.0-10.0); %Neutrophils 84.6 % (42.0-75.0); Hematocrit 24.5 % (36.0-47.0); Hemoglobin 6.9 g/dL (12.0-16.0); Mean Corpuscular Hemoglobin 23.2 pg (27.0-31.0); Mean Corpuscular Volume 82.5 fL (78.0-98.0); Platelet Count 320 10x3/uL (130-400); Red Blood Cell (RBC) Count 2.97 mill/uL (4.20-5.40); White Blood Cell (WBC) Count 18.67 10x3/uL (4.8-10.8)
[2025-06-28] MEDS: diphenhydrAMINE 50 MG/ML VIAL IM PRN (08:03)
[2025-06-28 18:24] LABS: Hematocrit 27.6 % (36.0-47.0); Hemoglobin 8.1 g/dL (12.0-16.0); Platelet Count 311 10x3/uL (130-400)
[2025-06-29 04:44] LABS: #Basophils 0.04 10x3/uL (0.0-0.2); #Eosinophils 0.35 10x3/uL (0.0-0.7); #Monocytes 2.51 10x3/uL (0.11-0.59); #Neutrophils 17.71 10x3/uL (1.40-6.50); %Basophils 0.2 % (0.0-1.0); %Eosinophils 1.6 % (0.0-10.0); %Lymphocytes 4.5 % (21.0-51.0); %Monocytes 11.6 % (0.0-10.0); %Neutrophils 81.4 % (42.0-75.0); Hematocrit 26.9 % (36.0-47.0); Hemoglobin 7.8 g/dL (12.0-16.0); Mean Corpuscular Hemoglobin 24.1 pg (27.0-31.0); Mean Corpuscular Volume 83.3 fL (78.0-98.0); Platelet Count 307 10x3/uL (130-400); Red Blood Cell (RBC) Count 3.23 mill/uL (4.20-5.40); White Blood Cell (WBC) Count 21.73 10x3/uL (4.8-10.8)
[2025-06-29 05:09] LABS: Anion Gap 8 mmol/L (10-20); BUN (Urea Nitrogen) 4 mg/dL (7.0-18.7); Calc. Creatinine Clearance 151 mL/min (70-130); Calcium 8.0 mg/dL (7.8-10.44); Carbon Dioxide 21 mmol/L (22-29); Chloride 109 mmol/L (98-107); Glucose 127 mg/dL (70-105); Potassium 4.2 mmol/L (3.5-5.1); Sodium 134 mmol/L (136-145)
[2025-06-29] MEDS ORDERED: diphenhydrAMINE 50 MG/ML VIAL IM PRN (08:55)
[2025-06-29] MEDS ORDERED: PCA Communication Order-Pharmacy FS SCH (09:00)
[2025-06-29] MEDS: HYDROmorphone HCl/0.9% NaCl/PF 30 ML IV SCH (09:38)
[2025-06-29] MEDS: diphenhydrAMINE 50 MG/ML VIAL IVP PRN (12:00)
[2025-06-29] MEDS: Mupirocin 1 GM TUBE TP SCH (21:06)
[2025-06-30 02:30] LABS: Influenza A by NAA Not Detected (NotDetected); Influenza B by NAA Not Detected (NotDetected); SARS-CoV-2 NAA Rapid Test Not Detected (NotDetected)
[2025-06-30 03:30] LABS: #Basophils 0.03 10x3/uL (0.0-0.2); #Eosinophils 0.36 10x3/uL (0.0-0.7); #Monocytes 2.12 10x3/uL (0.11-0.59); #Neutrophils 17.99 10x3/uL (1.40-6.50); %Basophils 0.1 % (0.0-1.0); %Eosinophils 1.7 % (0.0-10.0); %Lymphocytes 4.9 % (21.0-51.0); %Monocytes 9.8 % (0.0-10.0); %Neutrophils 82.8 % (42.0-75.0); Hematocrit 25.6 % (36.0-47.0); Hemoglobin 7.5 g/dL (12.0-16.0); Mean Corpuscular Hemoglobin 24.2 pg (27.0-31.0); Mean Corpuscular Volume 82.6 fL (78.0-98.0); Platelet Count 286 10x3/uL (130-400); Red Blood Cell (RBC) Count 3.10 mill/uL (4.20-5.40); White Blood Cell (WBC) Count 21.72 10x3/uL (4.8-10.8)
[2025-06-30 03:49] LABS: Anion Gap 10 mmol/L (10-20); BUN (Urea Nitrogen) Less than 4 mg/dL (7.0-18.7); Calc. Creatinine Clearance 151 mL/min (70-130); Calcium 8.2 mg/dL (7.8-10.44); Carbon Dioxide 20 mmol/L (22-29); Chloride 108 mmol/L (98-107); Glucose 118 mg/dL (70-105); Potassium 4.4 mmol/L (3.5-5.1); Sodium 134 mmol/L (136-145)
[2025-07-01] MEDS: D5 1/2 NS w/20 mEq KCL 1,000 ML IV SCH (12:51)
[2025-07-01] MEDS: Ondansetron PF 4 MG/2 ML Vial IVP PRN (15:05)
[2025-07-02 05:04] LABS: #Basophils 0.03 10x3/uL (0.0-0.2); #Eosinophils 0.33 10x3/uL (0.0-0.7); #Monocytes 1.75 10x3/uL (0.11-0.59); #Neutrophils 15.63 10x3/uL (1.40-6.50); %Basophils 0.2 % (0.0-1.0); %Eosinophils 1.7 % (0.0-10.0); %Lymphocytes 9.4 % (21.0-51.0); %Monocytes 8.8 % (0.0-10.0); %Neutrophils 78.9 % (42.0-75.0); Hematocrit 25.4 % (36.0-47.0); Hemoglobin 7.2 g/dL (12.0-16.0); Mean Corpuscular Hemoglobin 23.3 pg (27.0-31.0); Mean Corpuscular Volume 82.2 fL (78.0-98.0); Platelet Count 342 10x3/uL (130-400); Red Blood Cell (RBC) Count 3.09 mill/uL (4.20-5.40); White Blood Cell (WBC) Count 19.80 10x3/uL (4.8-10.8)
[2025-07-02 05:13] LABS: Anion Gap 14 mmol/L (10-20); BUN (Urea Nitrogen) Less than 4 mg/dL (7.0-18.7); Calc. Creatinine Clearance 154 mL/min (70-130); Calcium 8.4 mg/dL (7.8-10.44); Carbon Dioxide 19 mmol/L (22-29); Chloride 106 mmol/L (98-107); Glucose 121 mg/dL (70-105); Potassium 4.2 mmol/L (3.5-5.1); Sodium 135 mmol/L (136-145)
[2025-07-03] MEDS: Acetaminophen 500 MG TAB PO SCH (12:47)
[2025-07-03] MEDS ORDERED: Iopamidol-370 76% 500 ML MDV (1 ML CHARGE) ONE (13:16)
[2025-07-03] MEDS ORDERED: LYTES IN TPN IVPB PRN (14:27)
[2025-07-03] MEDS: diphenhydrAMINE 25 MG CAP PO PRN (14:41)
[2025-07-04 03:45] LABS: Hematocrit 26.1 % (36.0-47.0); Hemoglobin 7.4 g/dL (12.0-16.0); Mean Corpuscular Hemoglobin 23.3 pg (27.0-31.0); Mean Corpuscular Volume 82.1 fL (78.0-98.0); Platelet Count 415 10x3/uL (130-400); Red Blood Cell (RBC) Count 3.18 mill/uL (4.20-5.40); White Blood Cell (WBC) Count 19.72 10x3/uL (4.8-10.8)
[2025-07-04 03:55] LABS: INR-International Normal Ratio 1.4; Prothrombin Time 16.9 sec (12.0-14.7)
[2025-07-04 03:56] LABS: PTT 48.0 sec (22.9-36.1)
[2025-07-04 04:00] LABS: ALT (SGPT) 7 U/L (Less than 34); AST (SGOT) 19 U/L (11-34); Albumin 2.0 g/dL (3.1-4.5); Alkaline Phosphatase 162 U/L (40-110); Anion Gap 13 mmol/L (10-20); BUN (Urea Nitrogen) Less than 4 mg/dL (7.0-18.7); Bilirubin, Total 0.4 mg/dL (0.3-1.2); Calc. Creatinine Clearance 154 mL/min (70-130); Calcium 8.3 mg/dL (7.8-10.44); Carbon Dioxide 23 mmol/L (22-29); Cardiac Risk 5.5 (Less than 4.5); Chloride 106 mmol/L (98-107); Cholesterol 104 mg/dl (< 200 Desired); Globulin 4.0 g/dL (2.4-3.5); Glucose 101 mg/dL (70-105); HDL Cholesterol 19 mg/dL (>60 Neg Risk); LDL Cholesterol, Calculated 69 mg/dL; Magnesium 1.7 mg/dL (1.6-2.6); Potassium 4.1 mmol/L (3.5-5.1); Sodium 138 mmol/L (136-145); Triglycerides 80 mg/dL (Less than 150)
[2025-07-04 04:15] LABS: Anisocytosis SLIGHT = 6-15 cells HPF (0-5); Plasma Cells 1 % (0-0); Platelet Adequacy Comment Platelets Normal; Polychromasia SLIGHT = 2-3 cells HPF (0-2); Smudge Cells 3.9 %
[2025-07-04] MEDS: Multivitamins, Adult 10 ML, TRACE ELEMENT CONCENTRATE 1 ML in D15W-AA 5% with Lytes 2,0... IV SCH (13:44)
[2025-07-04] MEDS: oxyCODONE 5 MG TAB PO PRN (19:14)
[2025-07-05] MEDS: HYDROmorphone 0.5 MG/0.5 ML SYRINGE SLOW IVP SCH (01:07)
[2025-07-05 05:28] LABS: #Basophils 0.04 10x3/uL (0.0-0.2); #Eosinophils 0.23 10x3/uL (0.0-0.7); #Monocytes 1.08 10x3/uL (0.11-0.59); #Neutrophils 19.56 10x3/uL (1.40-6.50); %Basophils 0.2 % (0.0-1.0); %Eosinophils 1.0 % (0.0-10.0); %Lymphocytes 7.4 % (21.0-51.0); %Monocytes 4.7 % (0.0-10.0); %Neutrophils 85.3 % (42.0-75.0); Hematocrit 27.2 % (36.0-47.0); Hemoglobin 7.8 g/dL (12.0-16.0); Mean Corpuscular Hemoglobin 23.9 pg (27.0-31.0); Mean Corpuscular Volume 83.4 fL (78.0-98.0); Platelet Count 531 10x3/uL (130-400); Red Blood Cell (RBC) Count 3.26 mill/uL (4.20-5.40); White Blood Cell (WBC) Count 22.91 10x3/uL (4.8-10.8)
[2025-07-05 05:41] LABS: Anion Gap 14 mmol/L (10-20); BUN (Urea Nitrogen) 5 mg/dL (7.0-18.7); Calc. Creatinine Clearance 122 mL/min (70-130); Calcium 8.3 mg/dL (7.8-10.44); Carbon Dioxide 23 mmol/L (22-29); Chloride 107 mmol/L (98-107); Glucose 161 mg/dL (70-105); Potassium 4.6 mmol/L (3.5-5.1); Sodium 139 mmol/L (136-145)
[2025-07-05 06:07] LABS: Anisocytosis SLIGHT = 6-15 cells HPF (0-5); Microcytosis SLIGHT = 6-15 cells HPF (0-5); Platelet Adequacy Comment Platelets Increased; Polychromasia SLIGHT = 2-3 cells HPF (0-2)
[2025-07-06 06:14] LABS: ALT (SGPT) Less than 7 U/L (Less than 34); AST (SGOT) 18 U/L (11-34); Albumin 2.1 g/dL (3.1-4.5); Alkaline Phosphatase 151 U/L (40-110); Anion Gap 11 mmol/L (10-20); BUN (Urea Nitrogen) 9 mg/dL (7.0-18.7); Bilirubin, Total 0.2 mg/dL (0.3-1.2); Calc. Creatinine Clearance 149 mL/min (70-130); Calcium 8.7 mg/dL (7.8-10.44); Carbon Dioxide 23 mmol/L (22-29); Chloride 106 mmol/L (98-107); Globulin 4.7 g/dL (2.4-3.5); Glucose 202 mg/dL (70-105); Hematocrit 28.2 % (36.0-47.0); Hemoglobin 8.2 g/dL (12.0-16.0); Mean Corpuscular Hemoglobin 24.0 pg (27.0-31.0); Mean Corpuscular Volume 82.7 fL (78.0-98.0); Platelet Count 670 10x3/uL (130-400); Potassium 4.6 mmol/L (3.5-5.1); Red Blood Cell (RBC) Count 3.41 mill/uL (4.20-5.40); Sodium 135 mmol/L (136-145); White Blood Cell (WBC) Count 25.85 10x3/uL (4.8-10.8)
[2025-07-06 06:52] LABS: Anisocytosis SLIGHT = 6-15 cells HPF (0-5); Microcytosis SLIGHT = 6-15 cells HPF (0-5); Platelet Adequacy Comment Platelets Increased; Polychromasia SLIGHT = 2-3 cells HPF (0-2); Smudge Cells 9.1 %; Target Cells SLIGHT = 2-5 cells HPF (0-1)
[2025-07-07 06:27] LABS: Hematocrit 29.4 % (36.0-47.0); Hemoglobin 8.5 g/dL (12.0-16.0); Mean Corpuscular Hemoglobin 23.5 pg (27.0-31.0); Mean Corpuscular Volume 81.2 fL (78.0-98.0); Platelet Count 870 10x3/uL (130-400); Red Blood Cell (RBC) Count 3.62 mill/uL (4.20-5.40); White Blood Cell (WBC) Count 28.43 10x3/uL (4.8-10.8)
[2025-07-07 06:35] LABS: ALT (SGPT) 7 U/L (Less than 34); AST (SGOT) 28 U/L (11-34); Albumin 2.3 g/dL (3.1-4.5); Alkaline Phosphatase 172 U/L (40-110); Anion Gap 15 mmol/L (10-20); BUN (Urea Nitrogen) 14 mg/dL (7.0-18.7); Bilirubin, Total 0.2 mg/dL (0.3-1.2); Calc. Creatinine Clearance 127 mL/min (70-130); Calcium 8.9 mg/dL (7.8-10.44); Carbon Dioxide 21 mmol/L (22-29); Chloride 101 mmol/L (98-107); Globulin 5.1 g/dL (2.4-3.5); Glucose 212 mg/dL (70-105); Potassium 4.9 mmol/L (3.5-5.1); Sodium 132 mmol/L (136-145)
[2025-07-07 06:54] LABS: Anisocytosis SLIGHT = 6-15 cells HPF (0-5); Microcytosis SLIGHT = 6-15 cells HPF (0-5); Platelet Adequacy Comment Platelets Increased; Polychromasia SLIGHT = 2-3 cells HPF (0-2); Smudge Cells 7.1 %
[2025-07-07] MEDS ORDERED: Iopamidol-370 76% 500 ML MDV (1 ML CHARGE) ONE (10:17)
[2025-07-07] MEDS ORDERED: Dextrose 50% Abboject 50 ML SYRINGE SLOW IVP PRN (16:00)
[2025-07-07] MEDS ORDERED: Glucagon 1 MG/ML KIT IM PRN (16:00)
[2025-07-08 14:57] VITALS: BMI 28.2
[2025-07-10 04:44] LABS: #Basophils 0.09 10x3/uL (0.0-0.2); #Eosinophils 0.51 10x3/uL (0.0-0.7); #Monocytes 1.23 10x3/uL (0.11-0.59); #Neutrophils 10.98 10x3/uL (1.40-6.50); %Basophils 0.6 % (0.0-1.0); %Eosinophils 3.5 % (0.0-10.0); %Lymphocytes 12.3 % (21.0-51.0); %Monocytes 8.4 % (0.0-10.0); %Neutrophils 74.6 % (42.0-75.0); Hematocrit 27.4 % (36.0-47.0); Hemoglobin 7.9 g/dL (12.0-16.0); Mean Corpuscular Hemoglobin 22.9 pg (27.0-31.0); Mean Corpuscular Volume 79.4 fL (78.0-98.0); Platelet Count 986 10x3/uL (130-400); Red Blood Cell (RBC) Count 3.45 mill/uL (4.20-5.40); White Blood Cell (WBC) Count 14.71 10x3/uL (4.8-10.8)
[2025-07-10 04:59] LABS: Anion Gap 12 mmol/L (10-20); BUN (Urea Nitrogen) 21 mg/dL (7.0-18.7); Calc. Creatinine Clearance 85 mL/min (70-130); Calcium 9.3 mg/dL (7.8-10.44); Carbon Dioxide 18 mmol/L (22-29); Chloride 107 mmol/L (98-107); Glucose 111 mg/dL (70-105); Potassium 4.3 mmol/L (3.5-5.1); Sodium 133 mmol/L (136-145)
[2025-07-10] MEDS: diphenhydrAMINE 25 MG CAP PO PRN (17:57)
[2025-07-11 10:56] VITALS: BMI 28.1
[2025-07-17] MEDS: oxyCODONE 5 MG TAB PO PRN (12:02)
[2025-07-17] MEDS: Acetaminophen 500 MG TAB PO PRN (23:54)
[2025-07-21 08:19] VITALS: BP 86/59; TEMP 98.6
== END 2025-07-21 11:23 | disposition home or self-care (01) | DRG 330 ==
LOC: SURG A 06-24 06:07 → SURG B 06-24 18:53 → SURG A 06-27 16:12 → IMCU/EMU 06-27 17:03 → PCU 07-09 01:42 → SURG B 07-10 16:47
PROVIDERS: ADMIT Surgery; ATTEND Surgery
PROC: 0DBN4ZZ Excision of Sigmoid Colon, Percutaneous Endoscopic Approach (ICD-10-PCS; principal; 2025-06-24)
PROC: 0DSN4ZZ Reposition Sigmoid Colon, Percutaneous Endoscopic Approach (ICD-10-PCS; 2025-06-24)
PROC: 3E03329 Introduction of Other Anti-infective into Peripheral Vein, Percutaneous Approach (ICD-10-PCS; 2025-06-24)
PROC: 3E033XZ Introduction of Vasopressor into Peripheral Vein, Percutaneous Approach (ICD-10-PCS; 2025-06-24)
PROC: 3E04329 Introduction of Other Anti-infective into Central Vein, Percutaneous Approach (ICD-10-PCS; 2025-06-24)
PROC: 3E043XZ Introduction of Vasopressor into Central Vein, Percutaneous Approach (ICD-10-PCS; 2025-06-24)
PROC: 0D1B4Z4 Bypass Ileum to Cutaneous, Percutaneous Endoscopic Approach (ICD-10-PCS; 2025-06-27)
PROC: 05HM33Z Insertion of Infusion Device into Right Internal Jugular Vein, Percutaneous Approach (ICD-10-PCS; 2025-06-27)
PROC: B5131ZA Fluoroscopy of Right Jugular Veins using Low Osmolar Contrast, Guidance (ICD-10-PCS; 2025-06-27)
PROC: 30233N1 Transfusion of Nonautologous Red Blood Cells into Peripheral Vein, Percutaneous Approach (ICD-10-PCS; 2025-06-28)
DX: Z43.3 Encounter for attention to colostomy (principal); K56.7 Ileus, unspecified; K57.92 Diverticulitis of intestine, part unspecified, without perforation or abscess without bleeding; K91.82 Postprocedural hepatic failure; I10 Essential (primary) hypertension; E78.5 Hyperlipidemia, unspecified; Z79.52 Long term (current) use of systemic steroids; Z79.899 Other long term (current) drug therapy
CPT/HCPCS: 36415; 36416; 36430; 71045; 71275; 74018; 74177; 80048; 80053; 80061; 83735; 84100; 84134; 85025; 85610; 85730; 86850; 86900; 86901; 87636; 88307; 88309; 94640; 94664; 97139; A4314; A4649; C1751; C1776; J0165; J0169; J0360; J0665; J0694; J1100; J1171; J1200; J1650; J1815; J2248; J2270; J2405; J2543; J2704; J3010; J3475; J3480; J7030; J7626; P9016; Q9967

== ENCOUNTER 2025-06-17 13:24 | Outpatient (CLI) | payer BC ==
[2025-06-17 14:42] LABS: #Basophils 0.05 10x3/uL (0.0-0.2); #Eosinophils 0.34 10x3/uL (0.0-0.7); #Monocytes 0.66 10x3/uL (0.11-0.59); #Neutrophils 5.44 10x3/uL (1.40-6.50); %Basophils 0.6 % (0.0-1.0); %Eosinophils 4.1 % (0.0-10.0); %Lymphocytes 21.3 % (21.0-51.0); %Monocytes 8.0 % (0.0-10.0); %Neutrophils 65.6 % (42.0-75.0); Hematocrit 31.2 % (36.0-47.0); Hemoglobin 8.9 g/dL (12.0-16.0); Mean Corpuscular Hemoglobin 23.7 pg (27.0-31.0); Mean Corpuscular Volume 83.0 fL (78.0-98.0); Platelet Count 412 10x3/uL (130-400); Red Blood Cell (RBC) Count 3.76 mill/uL (4.20-5.40); White Blood Cell (WBC) Count 8.28 10x3/uL (4.8-10.8)
[2025-06-17 15:01] LABS: Anion Gap 15 mmol/L (10-20); BUN (Urea Nitrogen) 11 mg/dL (7.0-18.7); Calc. Creatinine Clearance 0 mL/min (70-130); Calcium 8.8 mg/dL (7.8-10.44); Carbon Dioxide 21 mmol/L (22-29); Chloride 106 mmol/L (98-107); Glucose 82 mg/dL (70-105); Potassium 3.5 mmol/L (3.5-5.1); Sodium 138 mmol/L (136-145)
[2025-06-17 15:24] LABS: Anisocytosis SLIGHT = 6-15 cells HPF (0-5); Macrocytosis SLIGHT = 6-15 cells HPF (0-5); Ovalocytes SLIGHT = 2-5 cells HPF (0-1); Platelet Adequacy Comment Platelets Increased; Polychromasia MODERATE = 3-4 cells HPF (0-2); Stomatocytes SLIGHT = 2-5 cells HPF (0-1)
== END 2025-06-17 13:25 | disposition home or self-care (01) ==
LOC: LABBT 13:24
PROVIDERS: ATTEND Surgery
DX: Z01.818 Encounter for other preprocedural examination (principal); Z43.3 Encounter for attention to colostomy; K57.92 Diverticulitis of intestine, part unspecified, without perforation or abscess without bleeding
CPT/HCPCS: 80048; 85025; 93005; 93010

== ENCOUNTER 2025-06-23 11:21 | Emergency (ER) | payer BC ==
[2025-06-23] MEDS ORDERED: Albuterol 2.5 MG (0.5 mL) NEB ONE ×3 (11:58→16:03)
[2025-06-23] MEDS ORDERED: predniSONE 20 MG TAB ONE (12:26)
[2025-06-23] MEDS ORDERED: Magnesium 2 GM/50 ML BAG (IN WATER) ONE (14:16)
[2025-06-23 14:49] LABS: ALT (SGPT) 12 U/L (Less than 34); AST (SGOT) 24 U/L (11-34); Albumin 3.6 g/dL (3.1-4.5); Alkaline Phosphatase 194 U/L (40-110); Anion Gap 14 mmol/L (10-20); BUN (Urea Nitrogen) 10 mg/dL (7.0-18.7); Bilirubin, Total 0.6 mg/dL (0.3-1.2); Calc. Creatinine Clearance 0 mL/min (70-130); Calcium 9.0 mg/dL (7.8-10.44); Carbon Dioxide 19 mmol/L (22-29); Chloride 104 mmol/L (98-107); Globulin 4.0 g/dL (2.4-3.5); Glucose 130 mg/dL (70-105); Potassium 3.3 mmol/L (3.5-5.1); Sodium 134 mmol/L (136-145)
[2025-06-23 16:03] LABS: #Basophils 0.04 10x3/uL (0.0-0.2); #Eosinophils 0.18 10x3/uL (0.0-0.7); #Monocytes 0.49 10x3/uL (0.11-0.59); #Neutrophils 7.55 10x3/uL (1.40-6.50); %Basophils 0.4 % (0.0-1.0); %Eosinophils 2.0 % (0.0-10.0); %Lymphocytes 9.2 % (21.0-51.0); %Monocytes 5.4 % (0.0-10.0); %Neutrophils 82.8 % (42.0-75.0); Hematocrit 30.7 % (36.0-47.0); Hemoglobin 8.9 g/dL (12.0-16.0); Mean Corpuscular Hemoglobin 23.0 pg (27.0-31.0); Mean Corpuscular Volume 79.3 fL (78.0-98.0); Platelet Count 389 10x3/uL (130-400); Red Blood Cell (RBC) Count 3.87 mill/uL (4.20-5.40); White Blood Cell (WBC) Count 9.12 10x3/uL (4.8-10.8)
== END 2025-06-23 17:46 | disposition home or self-care (01) ==
LOC: ERS 11:21
DX: J45.901 Unspecified asthma with (acute) exacerbation (principal); D64.9 Anemia, unspecified; E87.6 Hypokalemia; E87.1 Hypo-osmolality and hyponatremia; I10 Essential (primary) hypertension; Z79.899 Other long term (current) drug therapy; Z79.51 Long term (current) use of inhaled steroids
CPT/HCPCS: 71045; 80053; 83605; 85025; 87040; 96365; J3475; J7512; J7611; J7626

== ENCOUNTER 2025-07-30 04:18 | Observation (INO) | payer BC ==
[2025-07-30 04:52] LABS: #Basophils 0.11 10x3/uL (0.0-0.2); #Eosinophils 0.86 10x3/uL (0.0-0.7); #Monocytes 0.90 10x3/uL (0.11-0.59); #Neutrophils 8.21 10x3/uL (1.40-6.50); %Basophils 0.8 % (0.0-1.0); %Eosinophils 6.6 % (0.0-10.0); %Lymphocytes 22.9 % (21.0-51.0); %Monocytes 6.9 % (0.0-10.0); %Neutrophils 62.5 % (42.0-75.0); Hematocrit 37.2 % (36.0-47.0); Hemoglobin 10.8 g/dL (12.0-16.0); Mean Corpuscular Hemoglobin 23.1 pg (27.0-31.0); Mean Corpuscular Volume 79.5 fL (78.0-98.0); Platelet Count 471 10x3/uL (130-400); Red Blood Cell (RBC) Count 4.68 mill/uL (4.20-5.40); White Blood Cell (WBC) Count 13.12 10x3/uL (4.8-10.8)
[2025-07-30 05:09] LABS: BHCG - Serum Negative (NEGATIVE); Pregs Control Background? CLEAR/WHITE (CLR/WHITE); Pregs Control Bar Appear? YES (CONTROL BAR)
[2025-07-30 05:45] LABS: ALT (SGPT) 153 U/L (Less than 34); AST (SGOT) 175 U/L (11-34); Albumin 4.1 g/dL (3.1-4.5); Alkaline Phosphatase 338 U/L (40-110); Anion Gap 17 mmol/L (10-20); BUN (Urea Nitrogen) 34 mg/dL (7.0-18.7); Bilirubin, Total 0.5 mg/dL (0.3-1.2); Calc. Creatinine Clearance 0 mL/min (70-130); Calcium 9.8 mg/dL (7.8-10.44); Carbon Dioxide 12 mmol/L (22-29); Chloride 108 mmol/L (98-107); Globulin 5.3 g/dL (2.4-3.5); Glucose 99 mg/dL (70-105); Lipase 11 U/L (8-78); Magnesium 1.2 mg/dL (1.6-2.6); Potassium 4.0 mmol/L (3.5-5.1); Sodium 133 mmol/L (136-145)
[2025-07-30] MEDS ORDERED: Magnesium 2 GM/50 ML BAG (IN WATER) ONE (05:58)
[2025-07-30 07:47] LABS: Bacteria/HPF None Seen HPF (None Seen); CAUTI Indications for Culture Dysuria,urgency,freq; Glucose, Urine (Dipstick) Normal (Negative); Leukocyte Negative Leu/uL (Negative); Protein, Urine (Dipstick) 10 mg/dL (Neg-Trace); RBC/HPF 0-3 HPF (0-3); Specific Gravity, Urine 1.049 (1.002-1.036); WBC/HPF 0-3 HPF (0-3)
[2025-07-30 07:49] LABS: Urine Culture Reflex No No
[2025-07-30] MEDS ORDERED: Iopamidol-370 76% 500 ML MDV (1 ML CHARGE) ONE (08:03)
[2025-07-30 09:18] VITALS: BMI 26.5
[2025-07-30] MEDS ORDERED: Albuterol 200 PUFF (6.7GM INHALER) INH PRN (10:57)
[2025-07-30] MEDS: Enoxaparin 40 MG (0.4 mL) SYRINGE SC SCH (11:34)
[2025-07-30] MEDS: Diphenoxylate HCl/Atropine Tablet PO SCH ×2 (11:34→15:52)
[2025-07-30] MEDS: Mometasone 200 MCG/Formoterol 5 MCG 120 PUFF INHALER INH SCH (19:10)
[2025-07-31] MEDS: diphenhydrAMINE 25 MG CAP PO SCH (01:42)
[2025-07-31 06:54] LABS: #Basophils 0.06 10x3/uL (0.0-0.2); #Eosinophils 1.00 10x3/uL (0.0-0.7); #Monocytes 0.78 10x3/uL (0.11-0.59); #Neutrophils 7.36 10x3/uL (1.40-6.50); %Basophils 0.5 % (0.0-1.0); %Eosinophils 8.6 % (0.0-10.0); %Lymphocytes 20.3 % (21.0-51.0); %Monocytes 6.7 % (0.0-10.0); %Neutrophils 63.6 % (42.0-75.0); Hematocrit 30.1 % (36.0-47.0); Hemoglobin 9.0 g/dL (12.0-16.0); Mean Corpuscular Hemoglobin 23.4 pg (27.0-31.0); Mean Corpuscular Volume 78.4 fL (78.0-98.0); Platelet Count 376 10x3/uL (130-400); Red Blood Cell (RBC) Count 3.84 mill/uL (4.20-5.40); White Blood Cell (WBC) Count 11.59 10x3/uL (4.8-10.8)
[2025-07-31 07:15] LABS: ALT (SGPT) 79 U/L (Less than 34); AST (SGOT) 44 U/L (11-34); Albumin 3.3 g/dL (3.1-4.5); Alkaline Phosphatase 254 U/L (40-110); Anion Gap 10 mmol/L (10-20); BUN (Urea Nitrogen) 11 mg/dL (7.0-18.7); Bilirubin, Total 0.6 mg/dL (0.3-1.2); Calc. Creatinine Clearance 111 mL/min (70-130); Calcium 9.0 mg/dL (7.8-10.44); Carbon Dioxide 15 mmol/L (22-29); Chloride 112 mmol/L (98-107); Globulin 3.9 g/dL (2.4-3.5); Glucose 89 mg/dL (70-105); Potassium 4.1 mmol/L (3.5-5.1); Sodium 133 mmol/L (136-145)
[2025-07-31] MEDS: Pantoprazole 40 MG DR.TAB PO SCH (09:35)
[2025-07-31] MEDS: Enoxaparin 40 MG (0.4 mL) SYRINGE SC SCH (09:35)
[2025-07-31] MEDS: Losartan 25 MG TAB PO SCH (09:35)
[2025-07-31] MEDS: FLU (Fluarix Triv) 25-26 (6MOS UP)/PF 45 MCG/0.5 ML Syringe IM ONE (09:36)
[2025-07-31] MEDS: Transdermal Patch Removal TOP SCH (11:00)
[2025-07-31 13:53] VITALS: BP 111/74; TEMP 97.9
[2025-07-31 14:30] VITALS: BMI 26.5
== END 2025-07-31 13:30 | disposition home or self-care (01) ==
LOC: ERS 04:18 → INTOOBSV 07:11 → MSONC 07:11
PROVIDERS: ADMIT Family Medicine; ATTEND Family Medicine
DX: K94.19 Other complications of enterostomy (principal); N17.9 Acute kidney failure, unspecified; I10 Essential (primary) hypertension; E11.9 Type 2 diabetes mellitus without complications; E86.0 Dehydration; E83.42 Hypomagnesemia; E78.5 Hyperlipidemia, unspecified; R74.01 Elevation of levels of liver transaminase levels; D64.9 Anemia, unspecified; F41.9 Anxiety disorder, unspecified; F31.9 Bipolar disorder, unspecified; Z90.49 Acquired absence of other specified parts of digestive tract; Z79.899 Other long term (current) drug therapy
CPT/HCPCS: 36415; 74177; 80053; 81001; 83605; 83690; 83735; 84703; 85025; 94640; 96361; 96365; 96375; 97139; J1650; J2270; J3010; J3475; J7120; Q0162; Q9967

== ENCOUNTER 2025-08-14 17:04 | Emergency (ER) | payer BC ==
[2025-08-14] MEDS ORDERED: Ondansetron PF 4 MG/2 ML Vial ONE (21:45)
[2025-08-14 22:17] LABS: #Basophils 0.07 10x3/uL (0.0-0.2); #Eosinophils 0.36 10x3/uL (0.0-0.7); #Monocytes 0.62 10x3/uL (0.11-0.59); #Neutrophils 5.49 10x3/uL (1.40-6.50); %Basophils 0.7 % (0.0-1.0); %Eosinophils 3.7 % (0.0-10.0); %Lymphocytes 32.1 % (21.0-51.0); %Monocytes 6.4 % (0.0-10.0); %Neutrophils 57.0 % (42.0-75.0); Hematocrit 34.0 % (36.0-47.0); Hemoglobin 10.1 g/dL (12.0-16.0); Mean Corpuscular Hemoglobin 23.3 pg (27.0-31.0); Mean Corpuscular Volume 78.5 fL (78.0-98.0); Platelet Count 421 10x3/uL (130-400); Red Blood Cell (RBC) Count 4.33 mill/uL (4.20-5.40); White Blood Cell (WBC) Count 9.64 10x3/uL (4.8-10.8)
[2025-08-14 22:26] LABS: BHCG - Serum Negative (NEGATIVE); Pregs Control Background? CLEAR/WHITE (CLR/WHITE); Pregs Control Bar Appear? YES (CONTROL BAR)
[2025-08-14 22:31] LABS: ALT (SGPT) 24 U/L (Less than 34); AST (SGOT) 44 U/L (11-34); Albumin 4.0 g/dL (3.1-4.5); Alkaline Phosphatase 203 U/L (40-110); Anion Gap 14 mmol/L (10-20); BUN (Urea Nitrogen) 15 mg/dL (7.0-18.7); Bilirubin, Total 0.4 mg/dL (0.3-1.2); Calc. Creatinine Clearance 0 mL/min (70-130); Calcium 8.9 mg/dL (7.8-10.44); Carbon Dioxide 17 mmol/L (22-29); Chloride 113 mmol/L (98-107); Globulin 4.3 g/dL (2.4-3.5); Glucose 93 mg/dL (70-105); Lipase 8 U/L (8-78); Potassium 3.4 mmol/L (3.5-5.1); Sodium 141 mmol/L (136-145)
[2025-08-15 02:12] LABS: Bacteria/HPF None Seen HPF (None Seen); CAUTI Indications for Culture Pelvic or flank pain; Glucose, Urine (Dipstick) Normal (Negative); Leukocyte Negative Leu/uL (Negative); Protein, Urine (Dipstick) 10 mg/dL (Neg-Trace); RBC/HPF 0-3 HPF (0-3); WBC/HPF 0-3 HPF (0-3)
[2025-08-15 02:14] LABS: Specific Gravity, Urine 1.010 (1.002-1.036)
[2025-08-15 02:15] LABS: Urine Culture Reflex No No
[2025-08-15] MEDS ORDERED: predniSONE 20 MG TAB ONE (02:49)
[2025-08-15] MEDS ORDERED: Albuterol 2.5 MG (3 mL) NEB ONE (02:50)
[2025-08-15] MEDS ORDERED: Magnesium 2 GM/50 ML BAG (IN WATER) ONE (02:50)
== END 2025-08-15 05:00 | disposition home or self-care (01) ==
LOC: ERS 17:04
DX: R10.84 Generalized abdominal pain (principal); J45.901 Unspecified asthma with (acute) exacerbation; I10 Essential (primary) hypertension; R94.5 Abnormal results of liver function studies
CPT/HCPCS: 36415; 74177; 80053; 81001; 83605; 83690; 84703; 85025; 96365; 96366; 96375; 96376; J0169; J2270; J2405; J3475; J7512; J7611

== ENCOUNTER 2025-08-18 22:59 | Emergency (ER) | payer BC ==
[2025-08-19 00:16] LABS: #Basophils Less than 0.03 10x3/uL (0.0-0.2); #Eosinophils Less than 0.03 10x3/uL (0.0-0.7); #Monocytes 0.65 10x3/uL (0.11-0.59); #Neutrophils 7.64 10x3/uL (1.40-6.50); %Basophils 0.1 % (0.0-1.0); %Eosinophils 0.2 % (0.0-10.0); %Lymphocytes 30.1 % (21.0-51.0); %Monocytes 5.4 % (0.0-10.0); %Neutrophils 63.9 % (42.0-75.0); Hematocrit 27.3 % (36.0-47.0); Hemoglobin 8.6 g/dL (12.0-16.0); Mean Corpuscular Hemoglobin 24.4 pg (27.0-31.0); Mean Corpuscular Volume 77.6 fL (78.0-98.0); Platelet Count 505 10x3/uL (130-400); Red Blood Cell (RBC) Count 3.52 mill/uL (4.20-5.40); White Blood Cell (WBC) Count 11.94 10x3/uL (4.8-10.8)
[2025-08-19 00:31] LABS: ALT (SGPT) 21 U/L (Less than 34); AST (SGOT) 37 U/L (11-34); Albumin 3.3 g/dL (3.1-4.5); Alkaline Phosphatase 138 U/L (40-110); Anion Gap 14 mmol/L (10-20); BUN (Urea Nitrogen) 16 mg/dL (7.0-18.7); Bilirubin, Total 0.2 mg/dL (0.3-1.2); Calc. Creatinine Clearance 0 mL/min (70-130); Calcium 8.0 mg/dL (7.8-10.44); Carbon Dioxide 16 mmol/L (22-29); Chloride 114 mmol/L (98-107); Globulin 3.6 g/dL (2.4-3.5); Glucose 77 mg/dL (70-105); Potassium 3.9 mmol/L (3.5-5.1); Sodium 140 mmol/L (136-145)
[2025-08-19] MEDS ORDERED: Dexamethasone 10 MG/ML VIAL ONE (05:49)
[2025-08-19 09:20] LABS: Anion Gap 13 mmol/L (10-20); BUN (Urea Nitrogen) 16 mg/dL (7.0-18.7); Calc. Creatinine Clearance 0 mL/min (70-130); Calcium 7.9 mg/dL (7.8-10.44); Carbon Dioxide 16 mmol/L (22-29); Chloride 115 mmol/L (98-107); Glucose 82 mg/dL (70-105); Potassium 4.0 mmol/L (3.5-5.1); Sodium 140 mmol/L (136-145)
== END 2025-08-19 09:38 | disposition home or self-care (01) ==
LOC: ERS 22:59
DX: T85.848A Pain due to other internal prosthetic devices, implants and grafts, initial encounter (principal); Z93.3 Colostomy status; I10 Essential (primary) hypertension
CPT/HCPCS: 80053; 80307; 85025; 96374; 96375; 96376; J1100; J2270

== ENCOUNTER 2025-09-12 09:11 | Inpatient (IN) | payer BC, SELFPAY ==
[2025-09-12 09:49] LABS: #Basophils 0.07 10x3/uL (0.0-0.2); #Eosinophils 0.36 10x3/uL (0.0-0.7); #Monocytes 0.64 10x3/uL (0.11-0.59); #Neutrophils 6.37 10x3/uL (1.40-6.50); %Basophils 0.7 % (0.0-1.0); %Eosinophils 3.7 % (0.0-10.0); %Lymphocytes 23.8 % (21.0-51.0); %Monocytes 6.5 % (0.0-10.0); %Neutrophils 65.0 % (42.0-75.0); Hematocrit 37.8 % (36.0-47.0); Hemoglobin 12.0 g/dL (12.0-16.0); Mean Corpuscular Hemoglobin 25.3 pg (27.0-31.0); Mean Corpuscular Volume 79.7 fL (78.0-98.0); Platelet Count 536 10x3/uL (130-400); Red Blood Cell (RBC) Count 4.74 mill/uL (4.20-5.40); White Blood Cell (WBC) Count 9.80 10x3/uL (4.8-10.8)
[2025-09-12] MEDS ORDERED: Cefepime 2 GM VIAL ONE (09:49)
[2025-09-12] MEDS ORDERED: Ondansetron PF 4 MG/2 ML Vial ONE (09:49)
[2025-09-12 11:04] LABS: ALT (SGPT) 37 U/L (Less than 34); AST (SGOT) 97 U/L (11-34); Albumin 3.6 g/dL (3.1-4.5); Alkaline Phosphatase 252 U/L (40-110); Anion Gap 17 mmol/L (10-20); BUN (Urea Nitrogen) 40 mg/dL (7.0-18.7); Bilirubin, Total 0.4 mg/dL (0.3-1.2); Calc. Creatinine Clearance 0 mL/min (70-130); Calcium 8.8 mg/dL (7.8-10.44); Carbon Dioxide 14 mmol/L (22-29); Chloride 105 mmol/L (98-107); Globulin 4.0 g/dL (2.4-3.5); Glucose 94 mg/dL (70-105); Lipase 21 U/L (8-78); Magnesium 1.4 mg/dL (1.6-2.6); Potassium 3.7 mmol/L (3.5-5.1); Sodium 132 mmol/L (136-145)
[2025-09-12] MEDS ORDERED: Magnesium 2 GM/50 ML BAG (IN WATER) ONE (12:38)
[2025-09-12 12:43] LABS: Bacteria/HPF None Seen HPF (None Seen); CAUTI Indications for Culture Acute Hematuria; Glucose, Urine (Dipstick) Normal (Negative); Leukocyte 250 Leu/uL (Negative); Protein, Urine (Dipstick) 50 mg/dL (Neg-Trace); RBC/HPF Greater than 50 HPF (0-3); WBC/HPF 21-50 HPF (0-3)
[2025-09-12 12:44] LABS: Specific Gravity, Urine Greater than 1.050 (1.002-1.036)
[2025-09-12 12:45] LABS: Urine Culture Reflex Yes Yes
[2025-09-12] MEDS ORDERED: Iopamidol-370 76% 500 ML MDV (1 ML CHARGE) ONE ×2 (13:34)
[2025-09-12] MEDS: Vancomycin 1.25 GM / NS 250 ML VIAL-2-BAG IVPB SCH (16:07)
[2025-09-12] MEDS ORDERED: Albuterol 200 PUFF (6.7GM INHALER) INH PRN (16:08)
[2025-09-12] MEDS: HYDROcodone/Acetaminophen 5/325 mg Tablet PO SCH (16:33)
[2025-09-12] MEDS: diphenhydrAMINE 25 MG CAP PO PRN (16:33)
[2025-09-12 18:24] VITALS: BMI 23.0
[2025-09-12] MEDS: Mometasone 200 MCG/Formoterol 5 MCG 120 PUFF INHALER INH SCH (19:28)
[2025-09-12] MEDS: Ferrous Sulfate 325 MG TAB PO SCH (20:22)
[2025-09-12] MEDS: Ondansetron PF 4 MG/2 ML Vial IVP PRN (23:47)
[2025-09-13] MEDS: Acetaminophen 325 MG TAB PO PRN (06:15)
[2025-09-13 06:25] LABS: #Basophils 0.03 10x3/uL (0.0-0.2); #Eosinophils 0.31 10x3/uL (0.0-0.7); #Monocytes 0.55 10x3/uL (0.11-0.59); #Neutrophils 4.71 10x3/uL (1.40-6.50); %Basophils 0.4 % (0.0-1.0); %Eosinophils 4.6 % (0.0-10.0); %Lymphocytes 17.2 % (21.0-51.0); %Monocytes 8.1 % (0.0-10.0); %Neutrophils 69.4 % (42.0-75.0); Hematocrit 26.8 % (36.0-47.0); Hemoglobin 8.1 g/dL (12.0-16.0); Mean Corpuscular Hemoglobin 25.6 pg (27.0-31.0); Mean Corpuscular Volume 84.5 fL (78.0-98.0); Platelet Count 363 10x3/uL (130-400); Red Blood Cell (RBC) Count 3.17 mill/uL (4.20-5.40); White Blood Cell (WBC) Count 6.79 10x3/uL (4.8-10.8)
[2025-09-13 06:48] LABS: ALT (SGPT) 22 U/L (Less than 34); AST (SGOT) 35 U/L (11-34); Albumin 2.8 g/dL (3.1-4.5); Alkaline Phosphatase 171 U/L (40-110); Anion Gap 12 mmol/L (10-20); BUN (Urea Nitrogen) 24 mg/dL (7.0-18.7); Bilirubin, Total 0.2 mg/dL (0.3-1.2); Calc. Creatinine Clearance 60 mL/min (70-130); Calcium 8.1 mg/dL (7.8-10.44); Carbon Dioxide 14 mmol/L (22-29); Chloride 113 mmol/L (98-107); Globulin 3.0 g/dL (2.4-3.5); Glucose 92 mg/dL (70-105); Potassium 3.1 mmol/L (3.5-5.1); Sodium 136 mmol/L (136-145)
[2025-09-13] MEDS: Potassium Chloride 20 MEQ in Premix 1 BAG IVPB SCH (08:42)
[2025-09-13] MEDS: Pantoprazole 40 MG DR.TAB PO SCH (08:46)
[2025-09-13] MEDS: Metamucil PACK PO SCH (08:46)
[2025-09-13 14:36] VITALS: BMI 23.0
[2025-09-13] MEDS: Ibuprofen 800 MG TAB PO PRN (16:29)
[2025-09-13] MEDS: HYDROcodone/Acetaminophen 5/325 mg Tablet PO SCH (18:30)
[2025-09-13] MEDS: Melatonin 3 MG TAB PO PRN (20:41)
[2025-09-13] MEDS: Transdermal Patch Removal TOP SCH (20:47)
[2025-09-13] MEDS: Cyclobenzaprine 10 MG TAB PO SCH (20:51)
[2025-09-13] MEDS ORDERED: Gabapentin 300 MG CAP PO PRN (20:52)
[2025-09-13] MEDS: Lidocaine 4% Topical Sol 50 ML BOT TOP SCH (22:03)
[2025-09-14 06:59] LABS: #Basophils 0.03 10x3/uL (0.0-0.2); #Eosinophils 0.27 10x3/uL (0.0-0.7); #Monocytes 0.63 10x3/uL (0.11-0.59); #Neutrophils 4.85 10x3/uL (1.40-6.50); %Basophils 0.4 % (0.0-1.0); %Eosinophils 3.7 % (0.0-10.0); %Lymphocytes 21.0 % (21.0-51.0); %Monocytes 8.6 % (0.0-10.0); %Neutrophils 65.9 % (42.0-75.0); Hematocrit 28.2 % (36.0-47.0); Hemoglobin 8.2 g/dL (12.0-16.0); Mean Corpuscular Hemoglobin 25.8 pg (27.0-31.0); Mean Corpuscular Volume 88.7 fL (78.0-98.0); Platelet Count 372 10x3/uL (130-400); Red Blood Cell (RBC) Count 3.18 mill/uL (4.20-5.40); White Blood Cell (WBC) Count 7.35 10x3/uL (4.8-10.8)
[2025-09-14 07:09] LABS: ALT (SGPT) 14 U/L (Less than 34); AST (SGOT) 17 U/L (11-34); Albumin 2.8 g/dL (3.1-4.5); Alkaline Phosphatase 159 U/L (40-110); Anion Gap 11 mmol/L (10-20); BUN (Urea Nitrogen) 11 mg/dL (7.0-18.7); Bilirubin, Total 0.1 mg/dL (0.3-1.2); Calc. Creatinine Clearance 65 mL/min (70-130); Calcium 8.5 mg/dL (7.8-10.44); Carbon Dioxide 13 mmol/L (22-29); Chloride 120 mmol/L (98-107); Globulin 2.9 g/dL (2.4-3.5); Glucose 106 mg/dL (70-105); Magnesium 1.7 mg/dL (1.6-2.6); Potassium 3.7 mmol/L (3.5-5.1); Sodium 140 mmol/L (136-145)
[2025-09-15 06:56] LABS: ALT (SGPT) 14 U/L (Less than 34); AST (SGOT) 17 U/L (11-34); Albumin 2.8 g/dL (3.1-4.5); Alkaline Phosphatase 158 U/L (40-110); Anion Gap 5 mmol/L (10-20); BUN (Urea Nitrogen) 8 mg/dL (7.0-18.7); Bilirubin, Total 0.2 mg/dL (0.3-1.2); Calc. Creatinine Clearance 98 mL/min (70-130); Calcium 8.5 mg/dL (7.8-10.44); Carbon Dioxide 13 mmol/L (22-29); Chloride 121 mmol/L (98-107); Globulin 3.2 g/dL (2.4-3.5); Glucose 91 mg/dL (70-105); Potassium 4.1 mmol/L (3.5-5.1); Sodium 135 mmol/L (136-145)
[2025-09-15 06:57] LABS: #Basophils 0.03 10x3/uL (0.0-0.2); #Eosinophils 0.32 10x3/uL (0.0-0.7); #Monocytes 0.62 10x3/uL (0.11-0.59); #Neutrophils 5.00 10x3/uL (1.40-6.50); %Basophils 0.4 % (0.0-1.0); %Eosinophils 3.9 % (0.0-10.0); %Lymphocytes 26.8 % (21.0-51.0); %Monocytes 7.6 % (0.0-10.0); %Neutrophils 61.1 % (42.0-75.0); Hematocrit 29.5 % (36.0-47.0); Hemoglobin 8.7 g/dL (12.0-16.0); Mean Corpuscular Hemoglobin 25.9 pg (27.0-31.0); Mean Corpuscular Volume 87.8 fL (78.0-98.0); Platelet Count 298 10x3/uL (130-400); Red Blood Cell (RBC) Count 3.36 mill/uL (4.20-5.40); White Blood Cell (WBC) Count 8.18 10x3/uL (4.8-10.8)
[2025-09-15 07:26] LABS: Anisocytosis MODERATE=16-30 cells HPF (0-5); Platelet Adequacy Comment Platelets Normal; Polychromasia SLIGHT = 2-3 cells HPF (0-2)
[2025-09-16 05:59] LABS: ALT (SGPT) 13 U/L (Less than 34); AST (SGOT) 16 U/L (11-34); Albumin 2.9 g/dL (3.1-4.5); Alkaline Phosphatase 161 U/L (40-110); Anion Gap 9 mmol/L (10-20); BUN (Urea Nitrogen) 10 mg/dL (7.0-18.7); Bilirubin, Total 0.2 mg/dL (0.3-1.2); Calc. Creatinine Clearance 73 mL/min (70-130); Calcium 8.6 mg/dL (7.8-10.44); Carbon Dioxide 17 mmol/L (22-29); Chloride 118 mmol/L (98-107); Globulin 3.0 g/dL (2.4-3.5); Glucose 105 mg/dL (70-105); Potassium 4.1 mmol/L (3.5-5.1); Sodium 140 mmol/L (136-145)
[2025-09-16 06:01] LABS: #Basophils 0.04 10x3/uL (0.0-0.2); #Eosinophils 0.27 10x3/uL (0.0-0.7); #Monocytes 0.75 10x3/uL (0.11-0.59); #Neutrophils 5.48 10x3/uL (1.40-6.50); %Basophils 0.5 % (0.0-1.0); %Eosinophils 3.1 % (0.0-10.0); %Lymphocytes 25.6 % (21.0-51.0); %Monocytes 8.5 % (0.0-10.0); %Neutrophils 61.8 % (42.0-75.0); Hematocrit 28.7 % (36.0-47.0); Hemoglobin 8.2 g/dL (12.0-16.0); Mean Corpuscular Hemoglobin 25.4 pg (27.0-31.0); Mean Corpuscular Volume 88.9 fL (78.0-98.0); Platelet Count 372 10x3/uL (130-400); Red Blood Cell (RBC) Count 3.23 mill/uL (4.20-5.40); White Blood Cell (WBC) Count 8.84 10x3/uL (4.8-10.8)
[2025-09-16 08:53] VITALS: BP 103/72; TEMP 98.1
== END 2025-09-16 11:47 | disposition home or self-care (01) | DRG 682 ==
LOC: ERS 09:11 → SURG A 14:46 → OBSVTOIN 09-13 11:08
PROVIDERS: ADMIT Student in an Organized Health Care Education/Training Program; ATTEND Student in an Organized Health Care Education/Training Program
DX: N17.9 Acute kidney failure, unspecified (principal); E43 Unspecified severe protein-calorie malnutrition; K94.13 Enterostomy malfunction; K52.9 Noninfective gastroenteritis and colitis, unspecified; E11.9 Type 2 diabetes mellitus without complications; I10 Essential (primary) hypertension; E78.5 Hyperlipidemia, unspecified; F32.A Depression, unspecified; F41.9 Anxiety disorder, unspecified; D64.9 Anemia, unspecified; E83.42 Hypomagnesemia; I95.9 Hypotension, unspecified; Z79.899 Other long term (current) drug therapy; R74.01 Elevation of levels of liver transaminase levels; J45.909 Unspecified asthma, uncomplicated; Z98.51 Tubal ligation status; Z68.23 Body mass index [BMI] 23.0-23.9, adult
CPT/HCPCS: 36415; 36416; 71275; 74177; 80053; 81001; 83605; 83690; 83735; 83880; 84443; 84484; 85025; 87040; 87077; 87086; 87149; 87428; 93005; 94640; 94664; 96361; 96365; 96367; 96375; 96376; 97139; G0378; J0692; J2270; J2272; J2405; J3373; J3475; J3480; J7050; J7120; Q9967

== ENCOUNTER 2025-09-27 07:04 | Emergency (ER) | payer BC, MEDICAID, SELFPAY ==
[2025-09-27 07:46] LABS: Bacteria/HPF None Seen HPF (None Seen); CAUTI Indications for Culture Dysuria,urgency,freq; Glucose, Urine (Dipstick) Normal (Negative); Leukocyte 75 Leu/uL (Negative); Protein, Urine (Dipstick) Negative (Neg-Trace); RBC/HPF 0-3 HPF (0-3); Specific Gravity, Urine 1.019 (1.002-1.036); WBC/HPF 0-3 HPF (0-3)
[2025-09-27 07:47] LABS: Urine Culture Reflex No No
[2025-09-27] MEDS ORDERED: Ondansetron PF 4 MG/2 ML Vial ONE (08:00)
[2025-09-27 08:18] LABS: #Basophils 0.10 10x3/uL (0.0-0.2); #Eosinophils 0.08 10x3/uL (0.0-0.7); #Monocytes 0.49 10x3/uL (0.11-0.59); #Neutrophils 6.29 10x3/uL (1.40-6.50); %Basophils 1.1 % (0.0-1.0); %Eosinophils 0.8 % (0.0-10.0); %Lymphocytes 26.3 % (21.0-51.0); %Monocytes 5.2 % (0.0-10.0); %Neutrophils 66.3 % (42.0-75.0); Hematocrit 32.5 % (36.0-47.0); Hemoglobin 10.4 g/dL (12.0-16.0); Mean Corpuscular Hemoglobin 25.5 pg (27.0-31.0); Mean Corpuscular Volume 79.7 fL (78.0-98.0); Platelet Count 505 10x3/uL (130-400); Red Blood Cell (RBC) Count 4.08 mill/uL (4.20-5.40); White Blood Cell (WBC) Count 9.49 10x3/uL (4.8-10.8)
[2025-09-27 10:06] LABS: ALT (SGPT) 23 U/L (Less than 34); AST (SGOT) 19 U/L (11-34); Albumin 3.5 g/dL (3.1-4.5); Alkaline Phosphatase 186 U/L (40-110); Anion Gap 18 mmol/L (10-20); BUN (Urea Nitrogen) 24 mg/dL (7.0-18.7); Bilirubin, Total 0.8 mg/dL (0.3-1.2); Calc. Creatinine Clearance 0 mL/min (70-130); Calcium 8.3 mg/dL (7.8-10.44); Carbon Dioxide 12 mmol/L (22-29); Chloride 112 mmol/L (98-107); Globulin 4.0 g/dL (2.4-3.5); Glucose 68 mg/dL (70-105); Lipase 64 U/L (8-78); Potassium 3.8 mmol/L (3.5-5.1); Sodium 138 mmol/L (136-145)
== END 2025-09-27 11:27 | disposition home or self-care (01) ==
LOC: ERS 07:04
DX: K80.20 Calculus of gallbladder without cholecystitis without obstruction (principal); E86.0 Dehydration; I10 Essential (primary) hypertension; E78.5 Hyperlipidemia, unspecified; J45.909 Unspecified asthma, uncomplicated; Z79.899 Other long term (current) drug therapy; Z79.51 Long term (current) use of inhaled steroids
CPT/HCPCS: 36416; 76705; 80053; 81001; 83690; 85025; 93005; J2270; J2405